=== PATIENT | male | born 2000 | race Caucasian/White ===

== ENCOUNTER → 2021-11-01 17:21 | Outpatient (CLI) | payer BC, SELFPAY ==
[2021-11-01 14:54] LABS: Alanine Aminotransferase 24 U/L (12-78); Albumin Level 4.2 g/dl (3.5-5.0); Albumin/Globulin Ratio 1.4 (1.1-1.8); Alkaline Phosphatase 86 U/L (38-126); Anion Gap 11.7 mEq/L (5-15); Aspartate Amino Transferase 26 U/L (17-59); Bilirubin,Total 0.8 mg/dl (0.2-1.3); Blood Urea Nitrogen 18 mg/dl (9-20); Calcium 11.6 mg/dl (8.4-10.2); Carbon Dioxide 29 mmol/L (22.0-30.0); Chloride 104 mmol/L (98-107); Chol/HDL Ratio 6.6 (1-3.5); Cholesterol 190 mg/dl (140-200); Estimated Glomerular Filt Rate 94 ml/min (>60); GFR (African American) 114 ML/MIN (>60); Glucose 103 mg/dl (74-100); HDL Cholesterol 29 mg/dl (40-60); Potassium 4.7 mmoL/L (3.5-5.1); Sodium 140 mmol/L (136-145); Total Protein,Serum 7.2 g/dl (6.3-8.2); Triglycerides 324 mg/dl (30-150); VLDL Cholesterol 65 mg/dL (0-40)
[2021-11-01 15:00] LABS: Basophils # 0.1 K/mm3 (0-0.2); Basophils % 1.3 % (0.1-2.0); Eosinophils # 0.1 K/mm3 (0.0-0.4); Hemoglobin 16.5 g/dL (14.1-18.0); Lymphocytes # 1.9 K/mm3 (0.7-4.5); Lymphocytes % 30.6 % (10-50); Mean Corpuscular Hemoglobin 30.1 pg (27.0-31.2); Monocytes # 0.6 K/mm3 (0.1-1.0); Monocytes % 8.9 % (1.7-9.3); Neutrophils # 3.6 K/mm3 (1.8-7.8); Neutrophils % 57.2 % (37.0-80.0); Platelet Count 252 K/mm3 (142-424); Red Blood Count 5.46 M/mm3 (4.60-6.20); Red Cell Distribution Width 12.7 % (11.5-17.5); White Blood Count 6.3 K/mm3 (4.8-10.8)
[2021-11-01 15:06] LABS: Direct LDL Cholesterol 117.21 mg/dL (100-129)
[2021-11-01 15:11] LABS: 25-OH Vitamin D, Total 25.2 ng/mL (30-100)
[2021-11-01 15:25] LABS: Thyroid Stimulating Hormone 2.33 uIU/mL (0.465-4.68)
[2021-11-01 15:44] LABS: Vitamin B12 363 pg/mL (239-931)
[2021-11-03 08:19] LABS: HSV 2 IgG, Type Spec <0.91 index (0.00-0.90)
[2021-11-03 09:13] LABS: HIV Screen 4th Generation wRfx Non Reactive (Non Reactive)
[2021-11-03 12:10] LABS: Rapid Plasma Reagin Ab Titer Non Reactive (NonRea<1:1)
[2021-11-03 22:10] LABS: Neisseria gonorrhoeae, NAA Negative (Negative)
== END ==
PROVIDERS: PCP Physician Assistant; Visit Provider Physician Assistant
DX: Z76.89 Persons encountering health services in other specified circumstances (principal); Z20.2 Contact with and (suspected) exposure to infections with a predominantly sexual mode of transmission; E83.52 Hypercalcemia; I10 Essential (primary) hypertension; Z82.49 Family history of ischemic heart disease and other diseases of the circulatory system
CPT/HCPCS: 80053; 80061; 82306; 82607; 83970; 84443; 85025; 86592; 86695; 86703; 86790; 87491; 87591; G0432

== ENCOUNTER → 2021-11-17 07:45 | Outpatient (CLI) | payer BC, SELFPAY ==
--- NOTE | 2021-11-17 08:05 | MR_ITS ---
FINAL REPORT CLINICAL HISTORY: pituitary protocol. HEADACHE AND DIZZINESS. 20ML PROHANCE GIVEN. FINDINGS: Multiplanar MR imaging of the brain was performed without and with contrast with attention to the pituitary. There is no evidence of intracranial hemorrhage or mass. No abnormal extra-axial fluid collection is seen. The ventricular size is within normal limits. There is no evidence of shift of the midline structures. The posterior fossa and brainstem have an unremarkable appearance. No area of abnormal restricted diffusion is identified. No abnormal contrast enhancement is seen. Normal major vessel vascular flow voids are noted. There is a retention cyst or polyp in the right maxillary sinus. The pituitary gland is at the upper limits of normal in size at 6 mm. There is no pituitary mass or abnormal contrast enhancement. The pituitary stalk is midline. There is no suprasellar mass. The optic chiasm is normal. IMPRESSION: No acute intracranial abnormality identified. Pituitary gland at the upper limits of normal in size at 6 mm. Reviewed, Interpreted and Dictated by Kenny Barton III, MD Transcribed by Francisco Almonte Authenticated and [facility]
--- NOTE | 2021-11-17 09:33 | XR_ITS ---
FINAL REPORT TECHNIQUE: Bone mineral density was calculated of the lumbar spine and hip. CLINICAL HISTORY: HYPERCALCEMIA FINDINGS: Using L1-4, the bone mineral density of the spine is 1.049 g/cm2, corresponding to T-score of -0.4. Using the left hip, the bone mineral density of the femoral neck is 0.868 g/cm2, corresponding to a T-score of -1.1. Using the right hip, the bone mineral density of the femoral neck is 0.790 g/cm2, corresponding to a T-score of -1.0 NOTE: T-score: Standard deviation compared with peak bone mass of young adult mean. *Following the recommendations of the International Society of Bone densitometry, classification of hip BMD is based on the lower of two T-scores; total hip or femoral neck. IMPRESSION: Diminished bone mineral density of the lumbar spine and left hip consistent with osteopenia. FRAX score was not reported because man under age 50. Reviewed, Interpreted and Dictated by Kenny Barton III, MD Transcribed by Tamara Watters Authenticated and [facility]
--- NOTE | 2021-11-17 09:33 | US_ITS ---
FINAL REPORT TECHNIQUE: Ultrasound images of the kidneys were obtained. CLINICAL HISTORY: E83.52 - Hypercalcemia-- hypertension FINDINGS: US RETROPERITONEAL The right kidney measures 10.5 cm in length. It is normal in echogenicity. No mass is identified. There is no hydronephrosis. Blood flow is noted. The left kidney measures 11.6 cm in length. It is normal in echogenicity. No mass is identified. There is no hydronephrosis. Flow is noted. IMPRESSION: Unremarkable exam. Reviewed, Interpreted and Dictated by Kenny Barton III, MD Transcribed by Lani Villarreal Authenticated and [facility]
== END ==
PROVIDERS: PCP Physician Assistant; Visit Provider Physician Assistant
DX: E34.9 Endocrine disorder, unspecified (principal); E83.52 Hypercalcemia
CPT/HCPCS: 70553; 76770; 77080; A9576

== ENCOUNTER → 2021-11-23 10:07 | Outpatient (CLI) | payer BC, SELFPAY ==
--- NOTE | 2021-11-23 10:07 | US_ITS ---
FINAL REPORT CLINICAL HISTORY: Right upper quadrant pain FINDINGS: Sonographic images of the right upper quadrant were obtained. The pancreas is partially obscured.The liver has an unremarkable appearance. There are presumed polyps and sludge within the gallbladder without well-defined stones. The gallbladder wall is borderline thickened at 3 mm. There is no evidence of biliary ductal dilatation.The common duct measures the 3 mm. Limited images of the right kidney are unremarkable. The right kidney measures 11.5 cm in length. IMPRESSION: Presumed polyps sludge in the gallbladder without well-defined stones. Borderline gallbladder wall thickening. Reviewed, Interpreted and Dictated by Kenny Barton III, MD Transcribed by Lani Villarreal Authenticated and [facility]
== END ==
PROVIDERS: PCP Physician Assistant; Visit Provider Physician Assistant
DX: R10.11 Right upper quadrant pain (principal)
CPT/HCPCS: 76705

== ENCOUNTER 2022-03-19 00:22 | Emergency (ER) | payer BC, SELFPAY ==
[2022-03-19 00:36] VITALS: BP 136/74; PULSE 85; RESP 18; TEMP 36.6; O2SAT 100; BMI 32.5
--- NOTE | 2022-03-19 00:39 | XR_ITS ---
PROCEDURE INFORMATION: Exam: XR Left Foot Exam date and time: 03/19/2022 12:40 AM Age: 21 years old Clinical indication: Left; Patient HX: Nki, pain along midfoot to medial foot; Additional info: Unknown injury TECHNIQUE: Imaging protocol: Radiologic exam of the Left foot. Views: 3 or more views. COMPARISON: No relevant prior studies available. FINDINGS: Bones/joints: No fracture or dislocation. Soft tissues: No radiopaque foreign body or soft tissue gas. IMPRESSION: No acute findings.
--- NOTE | 2022-03-19 00:49 | PC.NURSE ---
Pt gone to RAD
--- NOTE | 2022-03-19 00:52 | PC.NURSE ---
Pt back from RAD
--- NOTE | 2022-03-19 01:16 | HMH.EDLOEX ---
Discharge Plan Disposition Patient Disposition: Home, Self-Care Prescriptions Prescriptions: New prednisone [prednisone] 20 mg tablet 20 mg PO BID Qty: 10 0RF No Action alendronate 70 mg tablet 70 mg PO WEEKLY Label Comments: TAKE 1 TABLET BY MOUTH ONCE WEEKLY oseltamivir [Tamiflu] 75 mg capsule 75 mg PO BID 5 Days Qty: 10 0RF prednisone 20 mg tablet 20 mg PO BID Qty: 10 0RF Rx Instructions: administer with food or milk ondansetron 8 mg tablet,disintegrating 8 mg PO Q8H PRN (Reason: nausea and vomiting) 5 Days Qty: 30 0RF ergocalciferol (vitamin D2) 1,250 mcg (50,000 unit) capsule 1,250 mcg PO WEEKLY Qty: 14 3RF cholecalciferol (vitamin D3) 25 mcg (1,000 unit) tablet See Rx Instructions .ROUTE .COMPLEX Qty: 90 0RF Dose Instruction: TAKE 1 TABLET DAILY Rx Instructions: TAKE 1 TABLET DAILY lisinopril 20 mg tablet 20 mg PO DAILY Qty: 30 2RF (DME) blood pressure monitor Kit See Rx Instructions .Route Qty: 1 0RF Rx Instructions: As directed Referrals Follow up/Referrals: Gissell Gonzalez PA [Primary Care Provider] - See instructions Dolores Silvestre DPM [Staff Physician] - See instructions Clinical Impressions Clinical Impression: Plantar fasciitis of left foot Instructions Patient Instructions: DI for Plantar Fasciitis Discharge ED Provider: Christian Giang Lower Extremity Injury HPI General Chief Complaint: Extremity Injury, Lower Stated Complaint: left foot pain,no injury Time Seen by Provider: 03/19/22 01:16 Mode of Arrival: Ambulatory Source of Information: Patient and Medical Record Limitations: No Limitations Description of Symptoms (Recalled from ER Triage Doc. by RN): Pt c/o left foot pain since this am. Denies any injury. History of Present Illness HPI Narrative: atraumatic injury to lt foot worse with mov and wt bearing - started today - MD complaint: foot injury Onset (ago): day(s) Injury: Left: foot Type of Injury: unknown Place: home Severity: moderate Exacerbating factors: weight bearing, movement and palpation Associated symptoms: ambulatory Other symptoms: none Related Data Home Medications Medication Instructions Recorded Confirmed alendronate 70 mg tablet 70 mg PO WEEKLY 03/02/22 03/02/22 Previous Rx's Medication Instructions Recorded ergocalciferol (vitamin D2) 1,250 1,250 mcg PO WEEKLY #14 caps 11/07/21 mcg (50,000 unit) capsule blood pressure monitor #1 ea 01/02/22 cholecalciferol (vitamin D3) 25 See Rx Instructions .Route 01/02/22 mcg (1,000 unit) tablet .COMPLEX #90 tabs lisinopril 20 mg tablet 20 mg PO DAILY #30 tabs 01/02/22 ondansetron 8 mg disintegrating 8 mg PO Q8H PRN nausea and 03/02/22 tablet vomiting 5 days #30 tabs oseltamivir 75 mg capsule (Tamiflu) 75 mg PO BID 5 days #10 caps 03/02/22 prednisone 20 mg tablet 20 mg PO BID #10 tabs 03/02/22 prednisone 20 mg tablet 20 mg PO BID #10 tabs 03/19/22 Allergies Allergy/AdvReac Type Severity Reaction Status Date / Time No Known Allergies Allergy Verified 03/02/22 13:59 [facility] Disclaimer: The information contained in this section may have been updated after the patient was seen, as this information can be updated by other users. Medical History Family history of early CAD Family history of hypertension Hypertension Social History Smoking Status: Never smoker alcohol intake: never current occupational status: employed Travel in the last 8 weeks: None ROS Obtained: Yes All systems reviewed & no additional complaints except as documented Physical Exam General General appearance: alert Head Head exam: normocephalic Eye Eye exam: Present PERRL and EOMI ENT ENT exam: Present mucous membranes moist Neck Neck exam: Present trachea midline Respiratory Respiratory exam: Present normal lung sound
[2022-03-19 01:32] VITALS: BP 141/85; PULSE 88; RESP 18; TEMP 36.6; O2SAT 98
[2022-03-19 01:36] VITALS: BP 132/74; PULSE 85; RESP 18; TEMP 36.6; O2SAT 99
== END 2022-03-19 01:37 | disposition home or self-care (01) ==
PROVIDERS: Emergency Provider Emergency Medicine; PCP Physician Assistant
DX: M72.2 Plantar fascial fibromatosis (principal); Z82.49 Family history of ischemic heart disease and other diseases of the circulatory system; I10 Essential (primary) hypertension; Z79.899 Other long term (current) drug therapy
CPT/HCPCS: 73630; 99283

== ENCOUNTER 2022-04-13 10:22 | Emergency (ER) | payer BC, SELFPAY ==
[2022-04-13 11:25] VITALS: BP 140/90; PULSE 101; RESP 19; TEMP 36.9; O2SAT 98; BMI 35.1
--- NOTE | 2022-04-13 11:37 | EXP.UTC ---
Discharge Plan Disposition Patient Disposition: Home, Self-Care Condition: Good Prescriptions Prescriptions: New doxycycline hyclate [Vibramycin] 100 mg capsule 100 mg PO BID Qty: 20 0RF ibuprofen 800 mg tablet 800 mg PO Q8HP PRN (Reason: moderate pain ) Qty: 15 0RF No Action alendronate 70 mg tablet 70 mg PO WEEKLY Label Comments: TAKE 1 TABLET BY MOUTH ONCE WEEKLY meloxicam 7.5 mg tablet 7.5 mg PO DAILY Qty: 30 0RF meloxicam 7.5 mg tablet 7.5 mg PO DAILY 30 Days Qty: 30 2RF diclofenac sodium 1 % gel 4 g topical QID PRN (Reason: pain ) 30 Days Qty: 100 2RF Rx Instructions: apply to single, ankle, foot; for foot includes sole/toes/top of foot ergocalciferol (vitamin D2) 1,250 mcg (50,000 unit) capsule 1,250 mcg PO WEEKLY Qty: 14 3RF cholecalciferol (vitamin D3) 25 mcg (1,000 unit) tablet See Rx Instructions .ROUTE .COMPLEX Qty: 90 0RF Dose Instruction: TAKE 1 TABLET DAILY Rx Instructions: TAKE 1 TABLET DAILY (DME) blood pressure monitor Kit See Rx Instructions .Route Qty: 1 0RF Rx Instructions: As directed lisinopril 20 mg tablet See Rx Instructions .ROUTE .COMPLEX Qty: 30 2RF Dose Instruction: TAKE 1 TABLET DAILY Rx Instructions: TAKE 1 TABLET DAILY Referrals Follow up/Referrals: Gissell Gonzalez PA [Primary Care Provider] - See instructions Activity Restrictions/Add. Instructions Additional Instructions/Restrictions: Doxycycline and ibuprofen as prescribed. Follow-up culture results from primary care provider in 2 to 3 days. Return to the emergency department if worsening pain, swelling, or fever. Clinical Impressions Clinical Impression: Acute epididymitis Instructions Patient Instructions: DI for Epididymitis Discharge ED Provider: Dusty Turk [facility] General Chief complaint: Urogenital-Male Stated complaint: Testicle pain Mode of Arrival: Ambulatory Source of Information: Patient Limitations: No Limitations Time Seen by Provider: 04/13/22 12:15 Description of Symptoms (Recalled from Triage Doc. by RN): PATIENT C/O TESTICLE PAIN X 1 WEEK HEENT Symptoms (Recalled from RN notes): No Resp Symptoms (Recalled from RN notes): No Skin Symptoms (Recalled from RN notes): No MS Symptoms (Recalled from RN notes): No Functional Status (Recalled from RN notes): WNL History of Present Illness Provider Complaint: Patient states that he has been having pain in his left testicle that at times would shoot pain up into his abdomen States that about 3 days the pain was pretty bad and he laid around at his grandmothers then got a little better States that he feels like someone is kicking him States that then last night he did some lifting and this morning around 4am he woke up from sleep with pain again in his left testicle shooting up into his stomach and was unable to lay back down States that he doesnt feel tender to the touch but when he is up moving around or certain ways he lays the pain is worse Denies known injury denies fever and chills Denies swelling Related Data Home Medications Medication Instructions Recorded Confirmed alendronate 70 mg tablet 70 mg PO WEEKLY 03/02/22 04/05/22 Previous Rx's Medication Instructions Recorded ergocalciferol (vitamin D2) 1,250 1,250 mcg PO WEEKLY #14 caps 11/07/21 mcg (50,000 unit) capsule blood pressure monitor #1 ea 01/02/22 cholecalciferol (vitamin D3) 25 See Rx Instructions .Route 01/02/22 mcg (1,000 unit) tablet .COMPLEX #90 tabs meloxicam 7.5 mg tablet 7.5 mg PO DAILY #30 tabs 03/21/22 lisinopril 20 mg tablet See Rx Instructions .Route 04/03/22 .COMPLEX #30 tabs diclofenac sodium 1 % topical gel 4 g topical QID PRN pain 30 days 04/06/22 #100 grams meloxicam 7.5 mg tablet 7.5 mg PO DAILY foot pain 30 days 04/06/22 #30 tabs doxycycline hyclate 100 mg capsule 100 mg PO BID #20 caps 04/13/22 (Vibramycin) ibuprofen 800 mg table
[2022-04-13 11:47] LABS: Apearance,Urine Cloudy (Clear); Bilirubin,Urine Negative (Negative); Blood, Urine Negative (Negative); Color,Urine Yellow (Yellow); Glucose,Urine (UA) Negative (Negative); Ketones,Urine Negative (Negative); Protein,Urine Negative (Negative); UTC Leukocyte Esterase,Urine Negative (Negative); UTC Nitrate,Urine Negative (Negative); Urobilinogen,Urine 0.2 EU/dl (0.2)
--- NOTE | 2022-04-13 11:54 | US_ITS ---
FINAL REPORT CLINICAL HISTORY: pain FINDINGS: Technique: Ultrasound images of the testicles were obtained. Findings: The testicles are normal in size. No intratesticular mass identified. Arterial flow is identified bilaterally. There is a small cyst or spermatocele measuring 4 mm in the left epidydimal head. IMPRESSION: No intratesticular mass or evidence of torsion. 4 mm cyst or spermatocele in the left epidydimal head. Reviewed, Interpreted and Dictated by Kenny Barton III, MD Transcribed by Francisco Almonte Authenticated and [facility]
--- NOTE | 2022-04-13 12:09 | PC.NURSE ---
notified rad of ultrasound order
[2022-04-13 12:10] VITALS: BP 139/83; PULSE 96; RESP 16; TEMP 36.9; O2SAT 98; BMI 33.3
--- NOTE | 2022-04-13 12:17 | PC.NURSE ---
ANANDA HODGES AT BEDSIDE.
[2022-04-13 12:24] LABS: Basophils # 0.1 K/mm3 (0-0.2); Basophils % 1.2 % (0.1-2.0); Eosinophils # 0.1 K/mm3 (0.0-0.4); Eosinophils % 1.8 % (0.1-12.0); Hematocrit 46.7 % (42.0-52.0); Hemoglobin 15.4 g/dL (14.1-18.0); Lymphocytes % 31.6 % (10-50); Mean Corpuscular Hemoglobin 29.3 pg (27.0-31.2); Mean Corpuscular Volume 88.8 fl (80-94); Mean Platelet Volume 9.3 fl (7.4-10.4); Monocytes # 0.4 K/mm3 (0.1-1.0); Neutrophils # 3.6 K/mm3 (1.8-7.8); Neutrophils % 58.3 % (37.0-80.0); Platelet Count 310 K/mm3 (142-424); Red Blood Count 5.25 M/mm3 (4.60-6.20); Red Cell Distribution Width 13.5 % (11.5-17.5); White Blood Count 6.2 K/mm3 (4.8-10.8)
[2022-04-13 12:25] LABS: Chloride 105 mmol/L (98-107); Sodium 139 mmol/L (136-145)
--- NOTE | 2022-04-13 12:25 | HMH.EDGENADL ---
Discharge Plan Disposition Patient Disposition: Home, Self-Care Condition: Good Prescriptions Prescriptions: New doxycycline hyclate [Vibramycin] 100 mg capsule 100 mg PO BID Qty: 20 0RF ibuprofen 800 mg tablet 800 mg PO Q8HP PRN (Reason: moderate pain ) Qty: 15 0RF No Action alendronate 70 mg tablet 70 mg PO WEEKLY Label Comments: TAKE 1 TABLET BY MOUTH ONCE WEEKLY meloxicam 7.5 mg tablet 7.5 mg PO DAILY Qty: 30 0RF meloxicam 7.5 mg tablet 7.5 mg PO DAILY 30 Days Qty: 30 2RF diclofenac sodium 1 % gel 4 g topical QID PRN (Reason: pain ) 30 Days Qty: 100 2RF Rx Instructions: apply to single, ankle, foot; for foot includes sole/toes/top of foot ergocalciferol (vitamin D2) 1,250 mcg (50,000 unit) capsule 1,250 mcg PO WEEKLY Qty: 14 3RF cholecalciferol (vitamin D3) 25 mcg (1,000 unit) tablet See Rx Instructions .ROUTE .COMPLEX Qty: 90 0RF Dose Instruction: TAKE 1 TABLET DAILY Rx Instructions: TAKE 1 TABLET DAILY (DME) blood pressure monitor Kit See Rx Instructions .Route Qty: 1 0RF Rx Instructions: As directed lisinopril 20 mg tablet See Rx Instructions .ROUTE .COMPLEX Qty: 30 2RF Dose Instruction: TAKE 1 TABLET DAILY Rx Instructions: TAKE 1 TABLET DAILY Referrals Follow up/Referrals: Gissell Gonzalez PA [Primary Care Provider] - See instructions Activity Restrictions/Add. Instructions Additional Instructions/Restrictions: Doxycycline and ibuprofen as prescribed. Follow-up culture results from primary care provider in 2 to 3 days. Return to the emergency department if worsening pain, swelling, or fever. Clinical Impressions Clinical Impression: Acute epididymitis Instructions Patient Instructions: DI for Epididymitis Discharge ED Provider: Dusty Turk Adult [facility] General Chief complaint: Urogenital-Male Stated complaint: Testicle pain Time Seen by Provider: 04/13/22 12:15 Mode of Arrival: Ambulatory Source of Information: Patient Limitations: No Limitations Description of Symptoms (Recalled from ER Triage Doc. by RN): pt reports bilateral testicular pain that originally began 1 week ago but states pain went away but pain began again suddenly lastnight. Pt reports pain began again lastnight. Pt reports pain radiates up into his stomach. Pt denies urinary symptoms or swelling. Pt denies fevers. History of Present Illness HPI narrative: The patient is sent from the urgent treatment center. States that on [place] 04/09/2022 he began having scrotal pain, bilateral testicles. He says it gradually faded away. Thought that he had strained himself. States that the pain woke him again last night in the middle of the night. The pain radiates into his lower abdomen. No back or flank pain, No swelling. No redness. No difficulty urinating. No penile discharge. No hematuria. No trauma. No fever. Urine dipstick in the urgent treatment center was unremarkable. Related Data Home Medications Medication Instructions Recorded Confirmed alendronate 70 mg tablet 70 mg PO WEEKLY 03/02/22 04/05/22 Previous Rx's Medication Instructions Recorded ergocalciferol (vitamin D2) 1,250 1,250 mcg PO WEEKLY #14 caps 11/07/21 mcg (50,000 unit) capsule blood pressure monitor #1 ea 01/02/22 cholecalciferol (vitamin D3) 25 See Rx Instructions .Route 01/02/22 mcg (1,000 unit) tablet .COMPLEX #90 tabs meloxicam 7.5 mg tablet 7.5 mg PO DAILY #30 tabs 03/21/22 lisinopril 20 mg tablet See Rx Instructions .Route 04/03/22 .COMPLEX #30 tabs diclofenac sodium 1 % topical gel 4 g topical QID PRN pain 30 days 04/06/22 #100 grams meloxicam 7.5 mg tablet 7.5 mg PO DAILY foot pain 30 days 04/06/22 #30 tabs doxycycline hyclate 100 mg capsule 100 mg PO BID #20 caps 04/13/22 (Vibramycin) ibuprofen 800 mg tablet 800 mg PO Q8HP PRN moderate pain 04/13/22 #15 tabs Allergies Allergy/AdvReac
[2022-04-13 12:26] LABS: Potassium 4.3 mmoL/L (3.5-5.1)
[2022-04-13 12:28] LABS: Anion Gap 12.3 mEq/L (5-15); Blood Urea Nitrogen 16 mg/dl (9-20); Carbon Dioxide 26 mmol/L (22.0-30.0); Creatinine Clearance Estimated 195 mL/min (50-200); Estimated Glomerular Filt Rate 94 ml/min (>60); GFR (African American) 114 ML/MIN (>60)
[2022-04-13 12:29] LABS: Calcium 10.8 mg/dl (8.4-10.2); Glucose 109 mg/dl (74-100)
--- NOTE | 2022-04-13 12:32 | PC.NURSE ---
us tech here for pt
[2022-04-13 12:53] LABS: Microscopic, Urine URINE MICROSCOPIC (MICROSCOPIC)
[2022-04-13 12:57] LABS: Appearance,Urine TURBID (Clear); Bilirubin,Urine Negative (Negative); Blood, Urine Negative (Negative); Color,Urine YELLOW (Yellow); Glucose,Urine (UA) Negative (Negative); Ketones,Urine Negative (Negative); Leukocyte Esterase,Urine Negative (Negative); Nitrate,Urine Negative (Negative); Protein,Urine Negative (Negative); Specific Gravity, Urine 1.015 (1.005-1.030); Urobilinogen,Urine 0.2 EU/dl (0.2)
--- NOTE | 2022-04-13 12:59 | PC.NURSE ---
pt return from ultrasound
--- NOTE | 2022-04-13 12:59 | PC.NURSE ---
pt back from U/S
[2022-04-13 13:14] LABS: Amorphous Sediment,Urine 2+ /lpf; Bacteria,Urine 3+ /lpf
[2022-04-13 14:29] VITALS: BP 136/76; PULSE 84; RESP 16; TEMP 36.9; O2SAT 98
[2022-04-14 22:47] LABS: Neisseria gonorrhoeae, NAA Negative (Negative)
== END 2022-04-13 14:52 | disposition home or self-care (01) ==
LOC: UTC 10:24 → ER 11:58
PROVIDERS: Nurse Practitioner; Emergency Provider Emergency Medicine; PCP Physician Assistant
DX: N45.1 Epididymitis (principal); N50.812 Left testicular pain; I10 Essential (primary) hypertension; Z82.49 Family history of ischemic heart disease and other diseases of the circulatory system
CPT/HCPCS: 76870; 80048; 81001; 81003; 85025; 87086; 87491; 87591; 96374; 96375; 96376; 99284; J0696

== ENCOUNTER → 2022-04-27 08:36 | Outpatient (CLI) | payer BC, SELFPAY ==
--- NOTE | 2022-04-27 08:43 | XR_ITS ---
FINAL REPORT CLINICAL HISTORY: foot pain FINDINGS: LEFT FOOT Three views of the left foot demonstrate no acute fracture or dislocation. The visualized joint spaces are normally aligned. The soft tissues are unremarkable. IMPRESSION: No acute bony abnormality. Reviewed, Interpreted and Dictated by Kenny Barton III, MD Transcribed by Emily Meneses Authenticated and . [facility]
== END ==
PROVIDERS: PCP Student in an Organized Health Care Education/Training Program; Visit Provider Podiatrist
DX: M79.672 Pain in left foot (principal); M72.2 Plantar fascial fibromatosis
CPT/HCPCS: 73630

== ENCOUNTER → 2022-05-08 12:44 | Outpatient (CLI) | payer BC, SELFPAY | PROVIDERS: PCP Student in an Organized Health Care Education/Training Program; Visit Provider Podiatrist | DX: M79.672 Pain in left foot (principal) ==

== ENCOUNTER → 2022-06-02 10:14 | Outpatient (CLI) | payer BC, SELFPAY ==
--- NOTE | 2022-06-02 10:14 | MR_ITS ---
FINAL REPORT TECHNIQUE: Multi planar MR imaging was performed through the left foot. CLINICAL HISTORY: r/o fracture or ligament tear. COMPARISON: None FINDINGS: There is subtle bone marrow edema within the bases of the 2nd and 3rd metatarsals consistent with bone contusions. No fractures seen. Remaining bone marrow signal intensity is normal. The Lisfranc joint is intact. The Lisfranc ligament is intact. The flexor and extensor tendons to the toes are intact. The Achilles tendon is intact. The plantar fascia is normal. There is no acute soft tissue abnormality. IMPRESSION: Bone marrow edema bases of the 2nd and 3rd metatarsals, favor bone contusions. Reviewed, Interpreted and Dictated by Sonja Vasquez MD Transcribed by Gloria Lynne Authenticated and [facility]
== END ==
PROVIDERS: PCP Student in an Organized Health Care Education/Training Program; Visit Provider Podiatrist
DX: M79.672 Pain in left foot (principal); M72.2 Plantar fascial fibromatosis; M77.42 Metatarsalgia, left foot; S92.902A Unspecified fracture of left foot, initial encounter for closed fracture
CPT/HCPCS: 73718

== ENCOUNTER → 2022-08-21 13:41 | Outpatient (CLI) | payer BC, SELFPAY ==
[2022-08-21 13:09] LABS: Basophils % 0.4 % (0.1-2.0); Eosinophils # 0.1 K/mm3 (0.0-0.4); Eosinophils % 0.8 % (0.1-12.0); Hematocrit 47.6 % (42.0-52.0); Lymphocytes # 2.2 K/mm3 (0.7-4.5); Lymphocytes % 25.8 % (10-50); Mean Corpuscular HGB Conc 33.6 g/dL (31.8-35.4); Mean Corpuscular Hemoglobin 28.9 pg (27.0-31.2); Mean Corpuscular Volume 85.9 fl (80-94); Mean Platelet Volume 9.4 fl (7.4-10.4); Monocytes # 0.6 K/mm3 (0.1-1.0); Monocytes % 7.2 % (1.7-9.3); Neutrophils # 5.6 K/mm3 (1.8-7.8); Neutrophils % 65.7 % (37.0-80.0); Platelet Count 271 K/mm3 (142-424); Red Blood Count 5.54 M/mm3 (4.60-6.20); Red Cell Distribution Width 14.3 % (11.5-17.5); White Blood Count 8.5 K/mm3 (4.8-10.8)
[2022-08-21 13:20] LABS: Chloride 96 mmol/L (98-107); Potassium 4.2 mmoL/L (3.5-5.1); Sodium 137 mmol/L (136-145)
[2022-08-21 13:23] LABS: Alanine Aminotransferase 29 U/L (12-78); Albumin Level 4.7 g/dl (3.5-5.0); Albumin/Globulin Ratio 1.6 (1.1-1.8); Alkaline Phosphatase 69 U/L (38-126); Anion Gap 20.2 mEq/L (5-15); Aspartate Amino Transferase 29 U/L (17-59); Bilirubin,Total 0.9 mg/dl (0.2-1.3); Blood Urea Nitrogen 18 mg/dl (9-20); Calcium 9.4 mg/dl (8.4-10.2); Carbon Dioxide 25 mmol/L (22.0-30.0); Estimated Glomerular Filt Rate 94 ml/min (>60); GFR (African American) 114 ML/MIN (>60); Glucose 96 mg/dl (74-100); Total Protein,Serum 7.7 g/dl (6.3-8.2)
== END ==
PROVIDERS: PCP Nurse Practitioner Family; Visit Provider Nurse Practitioner Family
DX: I10 Essential (primary) hypertension (principal)
CPT/HCPCS: 80053; 85025

== ENCOUNTER 2022-09-06 08:00 | Outpatient (RCR) | payer BC, SELFPAY ==
--- NOTE | 2022-07-24 15:06 | HMH.PTOPEV ---
PT Outpatient Evaluation Rehab PT Outpatient Evaluation Start: 07/24/22 13:52 Freq: Status: Active Protocol: Document 07/24/22 13:52 [email or web address] (Rec: 07/24/22 15:05 BEATRICE [id number]) E-signed By Romelia Toledo, PT Outpatient Therapy Subjective History Subjective History Pt is a 21 y/o male referred to PT for L tarsometatarsal ligament sprain. Pt reports insidious onset of L anterolateral foot pain in March of 2022 without known trauma or injury. Pt reports he woke up one morning and noticed fluid on the top of his foot and had pain with walking so he went to the doctor. Pt reports he had an MRI on 06/02/22 showing Bone marrow edema bases of the 2nd and 3rd metatarsals, favor bone contusions. Pt reports he has had 2 steroid injections with the most recent injection one week ago which he states help a lot with pain. Pt reports he has been in a boot or cast since April. Pt reports he doesn't have pain FWB in the boot but has pain when he puts pressure on the foot out of the boot or when he moves his toes or plantarflexes the ankle. Pt denies paresthesia or falls. Pt reports he returns to Dr. Silvestre at the beginning of August. 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
--- NOTE | 2022-08-22 10:01 | HMH.RHREAS ---
Rehab Reassessment Rehab OP Re-assessment Start: 08/22/22 09:51 Freq: Status: Active Protocol: Document 08/22/22 09:52 BEATRICE (Rec: 08/22/22 10:01 BEATRICE [id number]) E-signed By Romelia Toledo PT Rehab Re-assessment Subjective Subjective Pt reports abolished pain since his last injection on 08/14/22, just discomfort of the lateral midfoot. Pt reports he has been able to wear crocs and slip on shoes with minimal discomfort at the end of the day but has not tried to wear his work boots yet. Pt reports he returns to Dr. Silvestre on to discuss return to work. Objective Objective Notes L ankle palpation: tenderness along 4th MTP L ankle AROM: 10 DF, 40 PF, 20 eversion, 30 inversion L ankle MMT: 4+/5 grossly p! reported with resisted eversion Assessment Progress Assessment Progressing as Expected Assessment Notes Pt has attended 7 PT visits consisting of aerobic exercise , ankle P/AROM, LE stretching/ strengthening, weight shifting , balance/proprioception training, manual therapy and modalities with good tolerance . Pt demonstrated slightly improved L ankle TTP, DF/PF AROM, and strength this date compare to initial evaluation. Pt continues to report difficulty FWB in tennis shoe/ work boot and discusses return to work with MD on 09/04/22. Pt would continue to benefit from skilled PT to further improve ROM, strength, balance , and functional activity tolerance to assist with return to work and PLOF. Patient goals met ST/5 Goals Not Met LTG Revised Goals n/a Plan Plan Continue initial POC Frequency of Therapy 1-2x/week Duration of therapy 2 more weeks
== END 2022-09-06 08:05 | disposition home or self-care (01) ==
LOC: PT 08:00
PROVIDERS: PCP Student in an Organized Health Care Education/Training Program; Visit Provider Podiatrist
DX: S93.622A Sprain of tarsometatarsal ligament of left foot, initial encounter (principal)
CPT/HCPCS: 97014; 97016; 97033; 97035; 97110; 97112; 97140; 97163; 97164; 97530; G0283

== ENCOUNTER → 2022-09-12 13:44 | Outpatient (CLI) | payer BC, SELFPAY ==
--- NOTE | 2022-09-12 13:44 | CT_ITS ---
FINAL REPORT TECHNIQUE: Axial CT images were performed through the head. Coronal reformatted images were submitted. This study was performed with techniques to keep radiation doses as low as reasonably achievable (ALARA). Individualized dose reduction techniques using automated exposure control or adjustment of mA and/or kV according to the patient's size were employed. CLINICAL HISTORY: headaches, worsening in the last 2 mos, prior MRI head on 11/17/2021 FINDINGS: The ventricles are normal in size. There is no evidence of hemorrhage. There is no mass or edema identified. There is no abnormal extra-axial fluid seen. There is mild lobular mucoperiosteal thickening in both maxillary sinuses. IMPRESSION: No acute intracranial process. Chronic bilateral maxillary sinusitis. Reviewed, Interpreted and Dictated by Chaparro Huggins MD Transcribed by Tamara Watters Authenticated and [facility]
== END ==
PROVIDERS: PCP Nurse Practitioner Family; Visit Provider Nurse Practitioner Family
DX: R51.9 Headache, unspecified (principal)
CPT/HCPCS: 70450

== ENCOUNTER → 2023-02-09 13:46 | Outpatient (CLI) | payer BC, SELFPAY ==
--- NOTE | 2023-02-09 13:46 | CT_ITS ---
FINAL REPORT TECHNIQUE: Thin section axial CT images of the facial bones and sinuses were obtained without contrast. Coronal reformatted images were also obtained.This study was performed with techniques to keep radiation doses as low as reasonably achievable, (ALARA). Individualized dose reduction techniques using automated exposure control or adjustment of mA and/or kV according to the patient''''s size were employed. CLINICAL HISTORY: Chronic Sinusitis FINDINGS: There is a retention cyst or polyp in the right maxillary sinus. There is mild mucosal thickening in the bilateral maxillary sinuses. No fluid levels are identified. There is narrowing of the left infundibulum secondary to mucosal thickening. No fracture or acute bony abnormality is identified. IMPRESSION: Sinusitis as above. Reviewed, Interpreted and Dictated by Kenny Barton III, MD Transcribed by Tamara Watters Authenticated and [facility]
== END ==
PROVIDERS: PCP Physician Assistant; Visit Provider Nurse Practitioner
DX: J32.0 Chronic maxillary sinusitis (principal)
CPT/HCPCS: 70486

== ENCOUNTER 2023-06-28 20:47 | Outpatient (CLI) | payer BC, SELFPAY ==
[2023-06-28 18:44] LABS: Basophils # 0.1 K/mm3 (0-0.2); Basophils % 0.9 % (0.1-2.0); Eosinophils # 0.1 K/mm3 (0.0-0.4); Eosinophils % 1.2 % (0.1-12.0); Hematocrit 47.3 % (42.0-52.0); Hemoglobin 15.5 g/dL (14.1-18.0); Lymphocytes # 1.6 K/mm3 (0.7-4.5); Lymphocytes % 26.9 % (10-50); Mean Corpuscular HGB Conc 32.8 g/dL (31.8-35.4); Mean Corpuscular Hemoglobin 28.4 pg (27.0-31.2); Mean Corpuscular Volume 86.6 fl (80-94); Mean Platelet Volume 10.2 fl (7.4-10.4); Monocytes # 0.5 K/mm3 (0.1-1.0); Monocytes % 9.2 % (1.7-9.3); Neutrophils # 3.7 K/mm3 (1.8-7.8); Neutrophils % 61.9 % (37.0-80.0); Platelet Count 261 K/mm3 (142-424); Red Blood Count 5.46 M/mm3 (4.60-6.20); Red Cell Distribution Width 14.3 % (11.5-17.5); White Blood Count 5.9 K/mm3 (4.8-10.8)
[2023-06-28 18:45] LABS: Chloride 102 mmol/L (98-107)
[2023-06-28 18:46] LABS: Potassium 4.5 mmoL/L (3.5-5.1); Sodium 135 mmol/L (136-145)
[2023-06-28 18:48] LABS: Alanine Aminotransferase 27 U/L (12-78); Alkaline Phosphatase 67 U/L (38-126); Aspartate Amino Transferase 33 U/L (17-59); Bilirubin,Total 0.9 mg/dl (0.2-1.3); Blood Urea Nitrogen 21 mg/dl (9-20); Estimated Glomerular Filt Rate 93 ml/min (>60); GFR (African American) 113 ML/MIN (>60)
[2023-06-28 18:49] LABS: Albumin Level 4.6 g/dl (3.5-5.0); Albumin/Globulin Ratio 1.8 (1.1-1.8); Anion Gap 12.5 mEq/L (5-15); Calcium 9.6 mg/dl (8.4-10.2); Carbon Dioxide 25 mmol/L (22.0-30.0); Chol/HDL Ratio 7.3 (1-3.5); Cholesterol 174 mg/dl (140-200); Globulin 2.6 g/dL (1.3-3.2); Glucose 92 mg/dl (74-100); HDL Cholesterol 24 mg/dl (40-60); Total Protein,Serum 7.2 g/dl (6.3-8.2); Triglycerides 320 mg/dl (30-150); VLDL Cholesterol 64 mg/dL (0-40)
[2023-06-28 19:00] LABS: Direct LDL Cholesterol 95.65 mg/dL (100-129)
[2023-06-28 19:05] LABS: Free T4 (Free Thyroxine) 1.21 ng/dl (0.78-2.19)
[2023-06-28 19:19] LABS: Thyroid Stimulating Hormone 1.86 uIU/mL (0.465-4.68)
[2023-06-28 20:20] LABS: 25-OH Vitamin D, Total 30.9 ng/mL (30-100)
[2023-06-28 21:34] LABS: Hemoglobin A1C 5.4 % (4.0-6.0)
[2023-07-07 18:10] LABS: Testosterone, Total, LC/MS 274 ng/dL (.)
== END 2023-06-28 23:59 ==
LOC: LAB.DROPOF 20:47
PROVIDERS: PCP Student in an Organized Health Care Education/Training Program; Visit Provider Student in an Organized Health Care Education/Training Program
DX: F41.8 Other specified anxiety disorders (principal); R53.83 Other fatigue; Z13.21 Encounter for screening for nutritional disorder; E66.9 Obesity, unspecified; Z68.35 Body mass index [BMI] 35.0-35.9, adult; Z79.899 Other long term (current) drug therapy; E78.1 Pure hyperglyceridemia
CPT/HCPCS: 80053; 80061; 82306; 83036; 84403; 84439; 84443; 85025

== ENCOUNTER 2023-11-08 03:49 | Emergency (ER) | payer BC, SELFPAY ==
[2023-11-08 03:51] VITALS: BP 143/76; PULSE 84; RESP 20; TEMP 36.7; O2SAT 98; BMI 37.2
--- NOTE | 2023-11-08 03:57 | ED_ITS ---
Discharge Plan Disposition Patient Disposition: Home, Self-Care Prescriptions Prescriptions: New lidocaine 5 % adhesive patch,medicated 1 patch topical DAILY PRN (Reason: pain) Qty: 30 0RF Rx Instructions: leave on most painful area for up to 12 hrs No Action montelukast [Singulair] 10 mg tablet 10 mg PO DAILY Qty: 60 4RF simethicone [Gas Relief (simethicone)] 125 mg capsule 125 mg PO QPCHS Qty: 120 0RF omeprazole 40 mg capsule,delayed release(DR/EC) See Rx Instructions .ROUTE .COMPLEX Qty: 90 0RF Dose Instruction: TAKE 1 CAPSULE BY MOUTH DAILY Rx Instructions: TAKE 1 CAPSULE BY MOUTH DAILY lisinopril-hydrochlorothiazide 20-12.5 mg tablet See Rx Instructions .ROUTE .COMPLEX Qty: 90 0RF Dose Instruction: TAKE 2 TABLETS BY MOUTH DAILY Rx Instructions: TAKE 2 TABLETS BY MOUTH DAILY Referrals Follow up/Referrals: Tamiko Dawson PA [Primary Care Provider] - See instructions Activity Restrictions/Add. Instructions Additional Instructions/Restrictions: Please take Tylenol ibuprofen and use lidocaine patches and muscle laxer as needed for pain. If you develop worsening pain or urinary symptoms, recommend returning for further evaluation. Clinical Impressions Clinical Impression: Flank pain Print Language Print Language: Citizen Of [place] Discharge ED Provider: Tommy Moran Adult HPI General Chief complaint: PAIN Stated complaint: pain back, bottom L ribs Time Seen by Provider: 11/08/23 03:50 History of Present Illness HPI narrative: 23-year-old male with no significant past medical history presents with left flank pain. He reports it is dull in nature, approximately 4 out of 10, better with sitting still. He denies any urinary symptoms. Denies any history of kidney stones. 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 He denies any recent falls trauma or new exercise. Related Data Previous Rx's ?Medication ?Instructions ?Recorded montelukast 10 mg tablet 10 mg PO DAILY #60 tabs 01/22/23 (Singulair) simethicone 125 mg capsule (Gas 125 mg PO QPCHS #120 caps 07/26/23 Relief (simethicone)) lisinopril 20 See Rx Instructions .Route 10/03/23 mg-hydrochlorothiazide 12.5 mg .COMPLEX #90 tabs tablet omeprazole 40 mg capsule,delayed See Rx Instructions .Route 10/03/23 release .COMPLEX #90 caps lidocaine 5 % topical patch 1 patch topical DAILY PRN pain #30 11/08/23 ea Allergies Allergy/AdvReac Type Severity Reaction Status Date / Time No Known Allergies Allergy Verified 11/07/23 11:05 [facility] Disclaimer: The information contained in this section may have been updated after the patient was seen, as this information can be updated by other users. Medical History (Updated 11/08/23 @ 04:38 by Tommy Moran MD) Enlarged tonsils Tonsil stone Tonsillar debris Chronic sinusitis of both maxillary sinuses Family history of early CAD Family history of hypertension Hypertension Surgical History No significant past surgical history Family History Other No significant family history Social History Smoking Status: Never smoker alcohol intake: never current occupational status: employed Travel in the last 8 weeks: None ROS Obtained: Yes All systems reviewed & no additional complaints except as documented Physical Exam General General appearance: alert and in no apparent distress Head Head exam: atraumatic and normocephalic Eye Eye exam: Present normal appearance, PERRL and EOMI ENT ENT exam: Present normal oropharynx and normal external ear exam Neck Neck exam: Present normal inspection and full ROM Chest Chest inspection: Present normal inspection and symmetric chest wall rise; Absent tenderness Respiratory Respiratory exam: Present normal lung sounds bilaterally; Absent respiratory distress Cardiovascular Cardiovascular exam: Present regular rate and normal rhythm Abdominal Exam Abdominal exam: Present soft; Absent distention, tenderness or guarding Extremities Exam Extremities exam: Present normal inspection; Absent edema or joint swelling Back Exam Back exam: Present normal inspection, tenderness and CVA tenderness (L) Neurological Exam Neurological exam: Present alert and oriented X3; Absent motor sensory deficit Psychiatric Psychiatric exam: Present normal affect and normal mood Skin Skin exam: Present warm, dry and normal color Lymphatic Lymphatic Findings: no adenopathy Medical Decision Making Medical Records Medical records reviewed: Yes I reviewed the patient's medical records. Jay Inquiry Pt receiving controlled substance: No Jay was queried for this patient: No Vital Signs: 11/08/23 03:51 11/08/23 04:40 Temperature 98.0 F 98.0 F Temperature Source Oral Oral Pulse Rate 80 Pulse Rate [Right Brachial] 84 Respiratory Rate 20 17 Blood Pressure 138/74 Blood Pressure [Right Arm] 143/76 H Blood Pressure Mean [Right Arm] 98 Blood Pressure Source Automatic Cuff Blood Pressure Position Sitting 02 Sat by Pulse Oximetry 98 Oxygen Delivery Method Room Air Room Air Lab Data Lab results reviewed: Yes I reviewed the patient's lab results. Lab Results 11/08/23 03:56: Urine Color Yellow, Urine Appearance Clear, Urine pH 6.0, Ur Specific Wallace >= 1.030, Urine Protein Negative, Urine Glucose (UA) Negative, Urine Ketones Negative, Urine Blood Negative, Urine Nitrate Negative, Urine Bilirubin Negative, Urine Urobilinogen 0.2, Ur Leukocyte Esterase Negative, Urine WBC 3-5, Ur Squamous Epith Cells 3-5, Urine Bacteria Trace Orders (Tests/Meds): ED MEDICATIONS Discontinued Medications Generic Name Dose Route Start Last Admin Trade Name Freq PRN Reason Stop Dose Admin Lidocaine 1 each 11/08/23 04:38 11/08/23 04:42 Lidocaine 5% Transdermal Patch TP 11/08/23 04:39 1 each ONCE ONE Administration ORDERS Category Date Time Status UA [Urinalysis and Microscopic] Stat Lab 11/08/23 03:56 Completed Medical Decision Narrative: 23-year-old male without significant past medical history presents with a few hours of left flank pain.. History was obtained via interactive discussion with patient. On arrival, patient is [afebrile, hemodynamically stable, satting appropriately, alert, oriented x4, GCS 15], moving all extremities spontaneously. Full physical exam performed and significant for mild tenderness to the left CVA. Differential includes but is not limited to musculoskeletal strain, ureterolithiasis, pyelonephritis. The patient's description of his symptoms is not consistent with kidney stone, he describes it as dull, mild and constant, better with sitting still. We will assess first with urinalysis. Patient declined any medication for pain. Patient was given lidocaine patch for symptomatic management and correction of underlying abnormalities. Laboratory workup independently interpreted by me and significant for 3-5 WBCs in the urine, no red blood cells in the urine, negative nitrates, no crystals. CT imaging of the abdomen and pelvis was considered, but deemed unnecessary due to history less consistent with kidney stone, urinalysis without microscopic hematuria or crystals.. Given patient history, exam and workup, patient's presentation most likely represents musculoskeletal pain. I had extensive discussion with patient regarding his presentation. He was encouraged to return if he develops urinary symptoms or worsening pain. He was discharged with prescription for lidocaine patches.. Procedures Risk/Benefits of Procedure(s) Were Explained: Yes Critical Care Critical Care Time Critical Care Time: No
[2023-11-08 04:05] LABS: Appearance,Urine CLEAR (Clear); Bilirubin,Urine Negative (Negative); Blood, Urine Negative (Negative); Color,Urine YELLOW (Yellow); Glucose,Urine (UA) Negative (Negative); Ketones,Urine Negative (Negative); Leukocyte Esterase,Urine Negative (Negative); Microscopic, Urine URINE MICROSCOPIC (MICROSCOPIC); Nitrate,Urine Negative (Negative); Protein,Urine Negative (Negative); Specific Gravity, Urine >= 1.030 (1.005-1.030); Urobilinogen,Urine 0.2 EU/dl (0.2)
[2023-11-08 04:21] LABS: Bacteria,Urine Trace /lpf
[2023-11-08 04:40] VITALS: BP 138/74; PULSE 80; RESP 17; TEMP 36.7; O2SAT 98
[2023-11-08] MEDS: LIDOCAINE 5% TRANSDERMAL PATCH 1 EACH TP (04:42)
== END 2023-11-08 04:46 | disposition home or self-care (01) ==
PROVIDERS: Emergency Provider Emergency Medicine; PCP Student in an Organized Health Care Education/Training Program
DX: R10.32 Left lower quadrant pain (principal); M54.59 Other low back pain
CPT/HCPCS: 81001; 99283

== ENCOUNTER 2023-11-12 10:52 | Outpatient (CLI) | payer BC, SELFPAY ==
--- NOTE | 2023-11-12 10:57 | XR_ITS ---
FINAL REPORT CLINICAL HISTORY: L foot pain FINDINGS: LEFT FOOT Three views of the left foot demonstrate no acute fracture or dislocation. The visualized joint spaces are normally aligned. The soft tissues are unremarkable. IMPRESSION: No acute bony abnormality. Reviewed, Interpreted and Dictated by Sonja Vasquez MD Transcribed by Emily Meneses Authenticated and [facility]
--- NOTE | 2023-11-12 10:57 | XR_ITS ---
FINAL REPORT CLINICAL HISTORY: Foot Pain FINDINGS: RIGHT FOOT 3 views of the right foot were obtained. There is no acute fracture or dislocation. Visualized joint spaces are normally aligned. Soft tissues are unremarkable. IMPRESSION: No acute bony abnormality. Reviewed, Interpreted and Dictated by Sonja Vasquez MD Transcribed by Emily Meneses Authenticated and [facility]
== END 2023-11-12 23:59 | disposition home or self-care (01) ==
LOC: RAD 10:53
PROVIDERS: PCP Student in an Organized Health Care Education/Training Program; Visit Provider Student in an Organized Health Care Education/Training Program
DX: M79.671 Pain in right foot (principal); M79.672 Pain in left foot
CPT/HCPCS: 73630

== ENCOUNTER 2023-12-18 08:18 | Day surgery (SDC) | payer BC, SELFPAY ==
[2023-12-18] VITALS (10 sets, daily range): BP systolic 114–136; BP diastolic 60–82; PULSE 80–103; RESP 16–24; TEMP 36.1–36.6; O2SAT 95–98; BMI 37.8
--- NOTE | 2023-12-18 09:09 | P.PNANES_ITS ---
[facility] Disclaimer: The information contained in this section may have been updated after the patient was seen, as this information can be updated by other users. Medical History Enlarged tonsils Tonsil stone Tonsillar debris Chronic sinusitis of both maxillary sinuses Family history of early CAD Family history of hypertension Hypertension Surgical History S/P removal of parathyroid gland No significant past surgical history Family History Other No significant family history Social History Smoking Status: Never smoker alcohol intake: never substance use type: denies use current occupational status: employed Travel in the last 8 weeks: None [facility] Anesthesia Checklist Patient Identification Patient Identification: Arm Band Structural Data Admitted From: Home Planned Operative Procedure/s: Tonsillectomy Consent for Planned Operative Procedure(s) Verified: Yes Verified Documents: Surgical Consent and History and Physical NPO Status Verified Time NPO: 00:00 Additional verifications Anesthesia Reactions: No Hx Blood Transfusions: No Blood Transfusion Reaction: No Airway Assessment Mallampati Score:: Class II C-Spine Mobility Assessed: Yes TMJ Mobility Assessed: Yes Dentition: Good Dentition Neurological Assessment Level of Consciousness: Awake, Alert and Appropriate Anesthesia Plan Anesthesia Risk discussed: Yes Anesthesia Plan: Verified ASA Class: II Anesthesia Type: General
--- NOTE | 2023-12-18 09:56 | P.OP_ITS ---
Date of procedure: 12/18/23 Pre-op Diagnosis:: Chronic tonsillitis Post-op Diagnosis:: Chronic tonsillitis Procedure performed:: Tonsillectomy Surgeon:: Sunday Langston MD WORD PROCESSOR OPERATOR:: Austyn Hahn Anesthesia: GETA Estimated blood loss (mL): 0 Operative findings:: 3+ inflamed tonsils bilaterally Operative note:: The patient was brought to the operating room and after adequate general anesthesia the mouth was draped in usual sterile fashion and a McIvor mouthgag placed. Tonsillectomy was then performed in the plane defined by the tonsil capsule and superior constrictor muscle and this was done with electrocautery to simultaneously dissected and cauterized. This was done bilaterally and then tonsillar fossa was infiltrated with half percent Marcaine with epinephrine and the procedure concluded. All counts correct and blood loss was minimal Condition: stable Disposition: PACU Complications:: No complication
--- NOTE | 2023-12-18 09:57 | EXP.ANES.I ---
[facility] Anesthesia Record Part I Anesthesia Record I Intake, IV Amount: 300 Hydration: Adequate Estimated blood loss (mL): 15 Urine output (mL): 0 Blood Pressure: 121/75 SaO2: 97 Pulse Rate: 103 Airway Patency: Patent Respiratory Rate: 24 Temperature: 97.4 F Patient is:: Drowsy Stable to PACU at:: 09:55
--- NOTE | 2023-12-18 12:55 | EXP.ANES.II ---
[facility] Anesthesia Record Part II Anesthesia Record Part II Discharge Time: 10:25 Destination: Surgical Day Care (OP Surgery) PACU nurse assessment reviewed?: Yes Patient Condition:: Good Anesthesia Complications:: None Swallowing reflex intact?: Yes Airway Patency: Patent Cyanosis?: No Blood Pressure: 129/69 SaO2: 97 Respiratory Rate: 18 Pulse Rate: 89 Temperature: 97.9 F Mental Status: Alert & Oriented Pain level:: 3 Nausea and/or vomitting:: None Intake, IV Amount: 0 Hydration: Adequate
== END 2023-12-18 11:10 | disposition home or self-care (01) ==
PROVIDERS: PCP Student in an Organized Health Care Education/Training Program; Visit Provider Otolaryngology
PROC: (CPT 42826; principal; 2023-12-18 10:00)
DX: J35.01 Chronic tonsillitis (principal)
CPT/HCPCS: 42826; J3490; J1100; J2250; J2405; J3010; J7120

== ENCOUNTER 2023-12-25 22:55 | Emergency (ER) | payer BC, SELFPAY ==
[2023-12-25 22:57] VITALS: BP 117/73; PULSE 95; RESP 18; TEMP 37.1; O2SAT 98; BMI 37.2
[2023-12-25 23:00] VITALS: BP 117/73; PULSE 105; O2SAT 99
[2023-12-25 23:02] VITALS: PULSE 100; PULSE 98
--- NOTE | 2023-12-25 23:03 | ED_ITS ---
Discharge Plan Disposition Patient Disposition: Home, Self-Care Condition: Good Prescriptions Prescriptions: No Action omeprazole 40 mg capsule,delayed release(DR/EC) See Rx Instructions .ROUTE .COMPLEX Qty: 90 0RF Dose Instruction: TAKE 1 CAPSULE BY MOUTH DAILY Rx Instructions: TAKE 1 CAPSULE BY MOUTH DAILY lisinopril-hydrochlorothiazide 20-12.5 mg tablet See Rx Instructions .ROUTE .COMPLEX Qty: 90 0RF Dose Instruction: TAKE 2 TABLETS BY MOUTH DAILY Rx Instructions: TAKE 2 TABLETS BY MOUTH DAILY montelukast 10 mg tablet See Rx Instructions .ROUTE .COMPLEX Qty: 60 3RF Dose Instruction: TAKE 1 TABLET BY MOUTH DAILY Rx Instructions: TAKE 1 TABLET BY MOUTH DAILY ondansetron 4 mg tablet,disintegrating 4 mg PO Q6H PRN (Reason: nausea and vomiting) Qty: 20 0RF prednisone 5 mg/5 mL solution 10 mg PO DAILY 4 Days Qty: 40 0RF hydrocodone-acetaminophen 7.5-325 mg/15 mL solution 15 ml PO Q4H PRN (Reason: pain) 7 Days Qty: 473 0RF Referrals Follow up/Referrals: Tamiko Dawson PA [Primary Care Provider] - See instructions (Recheck Creatinine please!) Activity Restrictions/Add. Instructions Additional Instructions/Restrictions: You were evaluated in the ER and are appropriate for discharge at this time. Drink plenty of water. Call the [facility] office tomorrow morning at 8 AM at [phone] and tell them you were instructed to be seen by Dr. Langston for bleeding after being seen in the ER overnight If no one is available to see you in the [facility] office, then call the [facility] office at [phone] and asked to be seen there for postsurgery bleeding and reevaluation. This recommendation came from Dr. Myers. The [place] office address is [address] [place] [address], [id number], [place] [address] Immediately return to the ER with any new, worsening, or otherwise concerning symptoms including worsening bleeding, difficulty breathing, vomiting blood. Clinical Impressions Clinical Impression: Hemorrhage following tonsillectomy Print Language Print Language: Greek Discharge ED Provider: Rossi Mcdonald Adult HPI General Chief complaint: Recheck/Abnormal Lab/Rx Stated complaint: Bleeding from tonsillectomy 12/18/23 Time Seen by Provider: 12/25/23 22:57 History of Present Illness HPI narrative: 23-year-old female with a history of hypertension, chronic tonsillitis, family history of CAD, recent tonsillectomy on 12/18/[address] Langston presents to the ER for bleeding in his throat. Patient reports he has had an okay postoperative course without significant pain or bleeding, however tonight he was laying in bed and woke up coughing up blood. He states he has had multiple episodes of bright red blood. He is not having any nausea or vomiting. Patient states he otherwise feels well but if he tries to cough anything up or clear sputum from his throat, it comes up bloody. ROS otherwise negative. Related Data Previous Rx's ?Medication ?Instructions ?Recorded omeprazole 40 mg capsule,delayed See Rx Instructions .Route 10/03/23 release .COMPLEX #90 caps lisinopril 20 See Rx Instructions .Route 11/14/23 mg-hydrochlorothiazide 12.5 mg .COMPLEX #90 tabs tablet montelukast 10 mg tablet See Rx Instructions .Route 12/03/23 .COMPLEX #60 tabs hydrocodone 7.5 mg-acetaminophen 15 ml PO Q4H PRN pain 7 days #473 12/18/23 325 mg/15 mL oral solution mL ondansetron 4 mg disintegrating 4 mg PO Q6H PRN nausea and 12/18/23 tablet vomiting #20 tabs prednisone 5 mg/5 mL oral solution 10 mg (10 mL) PO DAILY 4 days #40 12/18/23 mL Allergies Allergy/AdvReac Type Severity Reaction Status Date / Time No Known Allergies Allergy Verified 12/18/23 08:54 [facility] Disclaimer: The information contained in this section may have been updated after the patient was seen, as this information can be updated by other users. Medical History Enlarged tonsils Tonsil stone Tonsillar debris Chronic sinusitis of both maxillary sinuses Family history of early CAD Family history of hypertension Hypertension Surgical History S/P removal of parathyroid gland No significant past surgical history Family History Other No significant family history Social History (Updated 12/18/23 @ 09:10 by Obey Mendez CRNA) Smoking Status: Never smoker alcohol intake: never substance use type: denies use current occupational status: employed Travel in the last 8 weeks: None ROS Obtained: Yes All systems reviewed & no additional complaints except as documented Positive ROS per HPI Physical Exam General General appearance: alert and in no apparent distress Head Head exam: atraumatic and normocephalic Eye Eye exam: Present PERRL and EOMI ENT ENT exam: Present mucous membranes moist and other (Posterior oropharynx demonstrates white, cauterized tissue in the right tonsillar bed, left tonsillar bed has clotted blood with slight very slow ooze but no brisk bleeding, patient is tolerating secretions) Neck Neck exam: Present normal inspection and full ROM Chest Chest inspection: Present symmetric chest wall rise Respiratory Respiratory exam: Present normal lung sounds bilaterally; Absent respiratory distress, wheezes or stridor Cardiovascular Cardiovascular exam: Present normal rhythm and tachycardia Abdominal Exam Abdominal exam: Present soft; Absent distention or tenderness Extremities Exam Extremities exam: Present full ROM Neurological Exam Neurological exam: Present alert and oriented X3; Absent motor sensory deficit Psychiatric Psychiatric exam: Present normal affect and normal mood Skin Skin exam: Present warm and dry Medical Decision Making Medical Records Medical records reviewed: Yes I reviewed the patient's medical records. MR Comment: Operative note from ENT on 12/18/2023 demonstrates normal unremarkable course with minimal blood loss Jay Inquiry Pt receiving controlled substance: No Vital Signs: 12/25/23 22:57 12/25/23 23:00 12/25/23 23:02 Temperature 98.7 F Temperature Source Oral Pulse Rate 105 H 100 H Pulse Rate [Right Brachial] 95 H Respiratory Rate 18 Blood Pressure 117/73 Blood Pressure [Right Arm] 117/73 Blood Pressure Mean [Right Arm] 87 Blood Pressure Source Blood Pressure Source [Right Arm] Automatic Cuff Blood Pressure Position Blood Pressure Position [Right Arm] Sitting 02 Sat by Pulse Oximetry 98 99 Oxygen Delivery Method Room Air 12/25/23 23:02 12/25/23 23:08 12/25/23 23:31 Temperature Temperature Source Pulse Rate 98 H 101 H Pulse Rate [Right Brachial] 95 H Respiratory Rate Blood Pressure 101/53 L Blood Pressure [Right Arm] 117/73 Blood Pressure Mean [Right Arm] 87 Blood Pressure Source Blood Pressure Source [Right Arm] Automatic Cuff Blood Pressure Position Blood Pressure Position [Right Arm] Supine 02 Sat by Pulse Oximetry 98 96 Oxygen Delivery Method Room Air 12/26/23 00:09 12/26/23 00:11 12/26/23 00:52 Temperature 98.8 F Temperature Source Oral Pulse Rate 102 H 102 H 81 Pulse Rate [Right Brachial] Respiratory Rate 18 Blood Pressure 83/50 L 93/59 L 109/64 L Blood Pressure [Right Arm] Blood Pressure Mean [Right Arm] Blood Pressure Source Automatic Cuff Blood Pressure Source [Right Arm] Blood Pressure Position Supine Blood Pressure Position [Right Arm] 02 Sat by Pulse Oximetry 97 99 Oxygen Delivery Method Room Air Lab Data Lab Results 12/25/23 23:11: WBC 12.1 H, RBC 5.35, Hgb 14.9, Hct 46.0, MCV 86.0, MCH 27.9, MCHC 32.4, RDW 14.6, Plt Count 430 H, MPV 9.2, Neut % (Auto) 70.8, Lymph % (Auto) 21.2, Yell % (Auto) 6.8, Eos % (Auto) 0.6, Baso % (Auto) 0.6, Neut # (Auto) 8.6 H, Lymph # (Auto) 2.6, Yell # (Auto) 0.8, Eos # (Auto) 0.1, Baso # (Auto) 0.1, PT 11.4, INR 1.02, APTT 32.1 H, Sodium 133 L, Potassium 4.2, C hloride 97 L, Carbon Dioxide 26, Anion Gap 14.2, BUN 25 H, Creatinine 1.60 H, Estimated Creat Clear 134, Estimated GFR 54 L, Est GFR ( Amer) 65, G lucose 104 H, Calcium 9.7, Total Bilirubin 1.1, AST 22, ALT 23, Alkaline Phosphatase 67, Total Protein 8.6 H, Albumin 4.8, Globulin 3.8 H, Albumin/Globulin Ratio 1.3, Blood Type A Positive, Antibody Screen Negative 12/25/23 23:11 12/25/23 23:11 Orders (Tests/Meds): ED MEDICATIONS Generic Name Dose Route Start Last Admin Trade Name Freq PRN Reason Stop Dose Admin Lactated Ringer's 1,000 mls @ 999 mls/hr 12/25/23 23:59 12/26/23 00:06 Lactated Ringer's 1000 Ml Bag IV 12/26/23 00:59 999 mls/hr .Q1H1M ONE Administration ORDERS Category Date Time Status Type and Screen Stat BBK 12/25/23 23:11 Completed CBC w/Auto Diff [Complete Blood Count Auto Diff] Stat Lab 12/25/23 23:11 Completed CMP [Comprehensive Metabolic Panel] Stat Lab 12/25/23 23:11 Completed PT INR [Prothrombin Time INR] Stat Lab 12/25/23 23:11 Completed PTT [Activated Partial Thrombo Time] Stat Lab 12/25/23 23:11 Completed Medical Decision Narrative: In summary, this 23-year-old male with comorbidities of hypertension, chronic tonsillitis, recent tonsillectomy which increases overall morbidity and the amount of data to be reviewed presents to the emergency department today with coughing up blood, bleeding from tonsillectomy bed. On initial evaluation patient is mildly tachycardic HR 105-110 on my exam but otherwise hemodynamically stable, well-appearing, slow oozing from the left tonsillectomy bed with clot present, no brisk bleeding, patient is protecting airway. Differential diagnosis includes but is not limited to postoperative bleeding, anemia, hemorrhagic shock, coagulopathy, kidney dysfunction. Based on these concerns, I ordered serum labs. Patient received nebulized TXA for treatment. Labs personally reviewed demonstrate mild leukocytosis, no anemia, slight thrombocythemia, nonspecific, nonactionable. PT/INR normal, APTT slightly elevated at 32.1, this is nonspecific and nonactionable at this time, trace hyponatremia and hypochloremia, patient does have mild kidney dysfunction likely due to him having decreased oral intake over the last week after his tonsillectomy. He is receiving IV fluids. On reevaluation after TXA neb, patient has no continued bleeding. He has had small blood-streaked sputum coughed up but no bright red blood coming up. I discussed this case with Dr. Myers with [facility]. Since patient does not have any visualized continued bleeding after the neb, no anemia, improving hemodynamics since being in the ER, he recommended monitoring the patient for 1 more hour and if he continues to be stable with no additional bleeding for him to follow-up outpatient in the morning. He recommended the patient call the [facility] office since Dr. Langston should be in in the morning. If no one is available to evaluate the patient in the [facility] office tomorrow, he recommended patient then call the [facility] office. Patient was provided phone numbers for both offices and the address of the [facility] office in case he needs to go there. He understands the instructions for follow-up outpatient. After monitoring, patient still does not have any additional bleeding. His tachycardia has improved. He continues to rest comfortably and states he actually feels improved now that the scab is off of the left tonsillar bed compared to the way he felt the rest of the week. Patient is appropriate for discharge at this time. Referral back to his PCP with a request to recheck his creatinine was sent to Tamiko Dawson. I encouraged him to continue drinking plenty of fluids, reiterated instructions for outpatient follow-up, and gave the patient strict return precautions for the ER. He indicated understanding and the patient was discharged in stable condition. Critical Care Critical Care Time Critical Care Time: Yes Attestation: On 12/25/23, the high probability of a clinically significant, sudden or life threatening deterioration of the following system(s) (respiratory, hemodynamic) required my full and direct attention, intervention and personal management. The time I documented below is in addition to time spent performing reported procedures but includes the following listed in this critical care notation. Total Time Total Critical Care Time: 35
[2023-12-25 23:08] VITALS: BP 117/73; PULSE 95; O2SAT 98
[2023-12-25 23:24] LABS: Basophils # 0.1 K/mm3 (0-0.2); Basophils % 0.6 % (0.1-2.0); Eosinophils # 0.1 K/mm3 (0.0-0.4); Eosinophils % 0.6 % (0.1-12.0); Hemoglobin 14.9 g/dL (14.1-18.0); Lymphocytes # 2.6 K/mm3 (0.7-4.5); Lymphocytes % 21.2 % (10-50); Mean Corpuscular HGB Conc 32.4 g/dL (31.8-35.4); Mean Corpuscular Hemoglobin 27.9 pg (27.0-31.2); Mean Platelet Volume 9.2 fl (7.4-10.4); Monocytes # 0.8 K/mm3 (0.1-1.0); Monocytes % 6.8 % (1.7-9.3); Neutrophils # 8.6 K/mm3 (1.8-7.8); Neutrophils % 70.8 % (37.0-80.0); Platelet Count 430 K/mm3 (142-424); Red Blood Count 5.35 M/mm3 (4.60-6.20); Red Cell Distribution Width 14.6 % (11.5-17.5); White Blood Count 12.1 K/mm3 (4.8-10.8)
[2023-12-25 23:29] LABS: Albumin Level 4.8 g/dl (3.5-5.0); Chloride 97 mmol/L (98-107); Sodium 133 mmol/L (136-145)
[2023-12-25 23:30] LABS: Potassium 4.2 mmoL/L (3.5-5.1)
[2023-12-25 23:31] VITALS: BP 101/53; PULSE 101; O2SAT 96
[2023-12-25 23:32] LABS: Alanine Aminotransferase 23 U/L (12-78); Albumin/Globulin Ratio 1.3 (1.1-1.8); Alkaline Phosphatase 67 U/L (38-126); Anion Gap 14.2 mEq/L (5-15); Aspartate Amino Transferase 22 U/L (17-59); Bilirubin,Total 1.1 mg/dl (0.2-1.3); Blood Urea Nitrogen 25 mg/dl (9-20); Carbon Dioxide 26 mmol/L (22.0-30.0); Creatinine Clearance Estimated 134 mL/min (50-200); Estimated Glomerular Filt Rate 54 ml/min (>60); GFR (African American) 65 ML/MIN (>60); Globulin 3.8 g/dL (1.3-3.2); INR 1.02 (0.9-1.1); Prothrombin Time 11.4 seconds (10.1-12.5); Total Protein,Serum 8.6 g/dl (6.3-8.2)
[2023-12-25 23:33] LABS: Calcium 9.7 mg/dl (8.4-10.2); Glucose 104 mg/dl (74-100)
[2023-12-25 23:49] LABS: Activated Partial Thrombo Time 32.1 seconds (22.8-30.6)
--- NOTE | 2023-12-26 00:02 | PC.NURSE ---
Dr. Camp ENT land acquisition specialist is being paged at this time
--- NOTE | 2023-12-26 00:04 | PC.NURSE ---
Dr. Mcdonald on phone with [facility]
[2023-12-26] MEDS: LACTATED RINGERS 1000ML 1,000 ML 999 ML IV (00:06)
[2023-12-26 00:09] VITALS: BP 83/50; PULSE 102; O2SAT 97
[2023-12-26 00:11] VITALS: BP 93/59; PULSE 102; O2SAT 99
--- NOTE | 2023-12-26 00:17 | PC.NURSE ---
Attending notified of hypotension. Patient asymptomatic
[2023-12-26 00:52] VITALS: BP 109/64; PULSE 81; RESP 18; TEMP 37.1; O2SAT 99
== END 2023-12-26 00:57 | disposition home or self-care (01) ==
PROVIDERS: Emergency Provider Emergency Medicine; PCP Student in an Organized Health Care Education/Training Program
DX: J95.830 Postprocedural hemorrhage of a respiratory system organ or structure following a respiratory system procedure (principal); Z90.89 Acquired absence of other organs
CPT/HCPCS: 80053; 85025; 85610; 85730; 86850; 96360; 99284; J7120

== ENCOUNTER 2024-01-20 08:32 | Emergency (ER) | payer BC, SELFPAY ==
[2024-01-20 08:33] VITALS: BP 154/84; PULSE 85; RESP 18; TEMP 36.5; O2SAT 98; BMI 36.6
--- NOTE | 2024-01-20 08:40 | PC.NURSE ---
DR PACHECO AT BEDSIDE
--- NOTE | 2024-01-20 08:43 | XR_ITS ---
PROCEDURE INFORMATION: Exam: XR Right Foot Exam date and time: 01/20/2024 8:54 AM Age: 23 years old Clinical indication: Pain; Foot; Right; Additional info: Pain 5th metatarsal TECHNIQUE: Imaging protocol: Radiologic exam of the right foot. Views: 3 or more views. COMPARISON: CR XR FOOT WT BEARING RT 3V 11/12/2023 11:18 AM FINDINGS: Bones/joints: No acute fracture or malalignment. No worrisome lytic or blastic osseous lesion. No appreciable cortical erosion or periosteal reaction. Joint spaces are preserved. No joint effusion. Soft tissues: No soft tissue abnormality. IMPRESSION: No acute fracture or malaligment.
--- NOTE | 2024-01-20 08:43 | HMH.EDGENADL ---
Discharge Plan Disposition Patient Disposition: Home, Self-Care Prescriptions Prescriptions: New ketorolac 10 mg tablet 10 mg PO Q8H PRN (Reason: pain) Qty: 14 0RF Rx Instructions: maximum total duration of 5 days from all oral, intranasal, or parenteral formulations prednisone 20 mg tablet 40 mg PO DAILY 3 Days Qty: 6 0RF No Action hydrocodone-acetaminophen 7.5-325 mg/15 mL solution 15 ml PO Q6H PRN (Reason: pain) Qty: 250 0RF montelukast 10 mg tablet See Rx Instructions .ROUTE .COMPLEX Qty: 60 3RF Dose Instruction: TAKE 1 TABLET BY MOUTH DAILY Rx Instructions: TAKE 1 TABLET BY MOUTH DAILY omeprazole 40 mg capsule,delayed release(DR/EC) See Rx Instructions .ROUTE .COMPLEX Qty: 90 0RF Dose Instruction: TAKE 1 CAPSULE BY MOUTH DAILY Rx Instructions: TAKE 1 CAPSULE BY MOUTH DAILY lisinopril-hydrochlorothiazide 20-12.5 mg tablet See Rx Instructions .ROUTE .COMPLEX Qty: 90 0RF Dose Instruction: TAKE 2 TABLETS BY MOUTH DAILY Rx Instructions: TAKE 2 TABLETS BY MOUTH DAILY Referrals Follow up/Referrals: Tamiko Dawson PA [Primary Care Provider] - See instructions Dolores Silvestre DPM [Staff Physician] - See instructions Activity Restrictions/Add. Instructions Additional Instructions/Restrictions: You were evaluated in the emergency department today. Please draft roller picker your prescriptions at the pharmacy and take them as prescribed. You may also take Tylenol every 4-6 hours at home as needed for pain. You were given your first dose of prednisone today, so do not start this until tomorrow. Use your hard sole shoe for support. Follow-up closely outpatient with podiatry as well as with your primary care provider. Return to the emergency department for new or worsening symptoms. Clinical Impressions Clinical Impression: Metatarsalgia of right foot Stand Alone Forms Stand Alone Forms: Work/School Release Instructions Patient Instructions: DI for Metatarsalgia, DI for Foot Pain Print Language Print Language: Turkish Discharge ED Provider: Romelia Gale General Adult HPI General Chief complaint: PAIN Stated complaint: right foot pain Time Seen by Provider: 01/20/24 08:37 Mode of Arrival: Ambulatory Source of Information: Patient Limitations: No Limitations Description of Symptoms (Recalled from ER Triage Doc. by RN): PT C/O RIGHT FOOT PAIN X 4-5 DAYS. NO INJURY History of Present Illness HPI narrative: This patient is a 23-year-old male with a history of obesity and intermittent foot pains in the past with plantar fasciitis who previously followed with podiatry presenting to the emergency department for evaluation with concern for right foot pain. He states that the lateral aspect of his right foot has been hurting for about 4 or 5 days now. No known accidents or injuries. He states that the pain is worse when he bears weight. Nothing seems to make it better. He denies any redness, wounds, skin changes, or other concerns. No numbness or tingling. Related Data Previous Rx's ?Medication ?Instructions ?Recorded montelukast 10 mg tablet See Rx Instructions .Route 12/03/23 .COMPLEX #60 tabs hydrocodone 7.5 mg-acetaminophen 15 ml PO Q6H PRN pain #250 mL 12/26/23 325 mg/15 mL oral solution lisinopril 20 See Rx Instructions .Route 01/04/24 mg-hydrochlorothiazide 12.5 mg .COMPLEX #90 tabs tablet omeprazole 40 mg capsule,delayed See Rx Instructions .Route 01/04/24 release .COMPLEX #90 caps ketorolac 10 mg tablet 10 mg PO Q8H PRN pain #14 tabs 01/20/24 prednisone 20 mg tablet 40 mg (2 x 20 mg) PO DAILY 3 days 01/20/24 #6 tabs Allergies Allergy/AdvReac Type Severity Reaction Status Date / Time No Known Allergies Allergy Verified 01/01/24 13:38 [facility] Disclaimer: The information contained in this section may have been updated after the patient was seen, as this information can be updated by other users. Medical History Enlarged tonsils Tonsil stone Tonsillar debris Chronic sinusitis of both maxillary sinuses Family history of early CAD Family history of hypertension Hypertension Surgical History Status post tonsillectomy S/P removal of parathyroid gland No significant past surgical history Family History Other No significant family history Social History Smoking Status: Never smoker alcohol intake: never substance use type: denies use current occupational status: employed Travel in the last 8 weeks: None Other Medical History Have you received the Pneumonia Vaccine: No ROS Obtained: Yes All systems reviewed & no additional complaints except as documented Physical Exam General General appearance: alert, in no apparent distress and obese Head Head exam: atraumatic and normocephalic Eye Eye exam: Present normal appearance, PERRL and EOMI ENT ENT exam: Present normal exam, normal oropharynx, mucous membranes moist and normal external ear exam Neck Neck exam: Present normal inspection, full ROM and trachea midline; Absent tenderness Chest Chest inspection: Present normal inspection and symmetric chest wall rise; Absent tenderness Respiratory Respiratory exam: Present normal lung sounds bilaterally; Absent respiratory distress, wheezes, stridor or accessory muscle use Cardiovascular Cardiovascular exam: Present regular rate and normal rhythm Abdominal Exam Abdominal exam: Present soft; Absent distention, tenderness or guarding Extremities Exam Extremities exam: Present full ROM, tenderness and normal capillary refill; Absent edema Expanded Lower Extremity Exam Right: Top foot image: 1. tenderness to palpation with no overlying redness, warmth, wounds, or skin color changes Neurovascular/Tendon exam: Present normal capillary refill and normal fine/light touch; Absent pulse deficit, motor deficit, sensory deficit, tendon deficit, extremity cold to touch, pallor, foot drop, peroneal nerve deficit or significant pain with passive ROM of distal joint Back Exam Back exam: Present normal inspection and full ROM; Absent tenderness Neurological Exam Neurological exam: Present alert, oriented X3, CN II-XII intact and normal gait; Absent motor sensory deficit Psychiatric Psychiatric exam: Present normal affect and normal mood Skin Skin exam: Present warm and dry Medical Decision Making Medical Records Medical records reviewed: Yes I reviewed the patient's medical records. Screening: Per USPSTF and CDC recommendations, given the prevalence of disease in our region, it is our hospital?s policy to screen for HIV and viral Hepatitis for all patients aged 18 and over and those with ongoing risk factors. Jay Inquiry Pt receiving controlled substance: No Vital Signs: 01/20/24 08:33 01/20/24 09:47 Temperature 97.7 F 98.2 F Temperature Source Oral Pulse Rate 80 Pulse Rate [Radial] 85 Respiratory Rate 18 20 Blood Pressure 128/79 Blood Pressure [Right Arm] 154/84 H Blood Pressure Mean [Right Arm] 107 Blood Pressure Source [Right Arm] Automatic Cuff Blood Pressure Position [Right Arm] Sitting 02 Sat by Pulse Oximetry 98 Oxygen Delivery Method Room Air Room Air Lab Data Lab results reviewed: Yes I reviewed the patient's lab results. Orders (Tests/Meds): ED MEDICATIONS Discontinued Medications Generic Name Dose Route Start Last Admin Trade Name Jak PRN Reason Stop Dose Admin Acetaminophen 1,000 mg 01/20/24 08:43 01/20/24 08:56 Acetaminophen 500mg Tab PO 01/20/24 08:44 1,000 mg ONCE ONE Administration Ketorolac Tromethamine 30 mg 01/20/24 08:43 01/20/24 08:57 Ketorolac 30mg/Ml Vial IM 01/20/24 08:44 30 mg ONCE ONE Administration Lidocaine 1 each 01/20/24 08:43 01/20/24 08:57 Lidocaine 5% Transdermal Patch TP 01/20/24 08:44 1 each ONCE ONE Administration Prednisone 40 mg 01/20/24 08:43 01/20/24 08:56 Prednisone 20mg Tab PO 01/20/24 08:44 40 mg ONCE ONE Administration ORDERS Category Date Time Status Foot XR right minimum 3 views [XR foot RT min 3V] Stat Exams 01/20/24 08:43 Completed Medical Decision Narrative: In summary, this patient is a 23-year-old male presenting to the Emergency Department for evaluation of right foot pain. Differential diagnoses considered include but are not limited to fracture, contusion, strain/sprain, musculoskeletal injury, arthritis, tendinitis. Ruling out the most morbid conditions drove assessment. It should be noted patient's history includes obesity which is not at goal therapy. This complicates all aspects of care by increasing patient's risk for morbidity. I reviewed patient's past medical records and noted evaluations by podiatry for metatarsalgia and plantar fasciitis. On exam, the patient is lying in bed in no acute distress. He has tenderness to palpation of the fifth metatarsal head of the right foot but otherwise no skin color changes, redness, warmth, wounds, or other concerns. He is neurovascularly intact. He has full intact range of motion. Workup included x-rays of the right foot. He was given oral Tylenol, IM Toradol, topical Lidoderm patch, and oral prednisone for symptomatic improvement of pain. I independently interpreted x-ray prior to the radiologist read and noted no acute fracture or significant change from prior. Please see their read for final interpretation. On reassessment, patient had good improvement after administration of interventions above. He continues to have pain, however I feel we have excluded life-threatening pathology as a cause of his symptoms and he is appropriate for discharge home with close outpatient follow-up with podiatry as well as primary care. He is given prescriptions for Toradol and prednisone for symptomatic improvement of his pain as well as instructions for supportive management. He was given strict return precautions. He was discharged after all questions were answered. Critical Care Critical Care Time Critical Care Time: No
--- NOTE | 2024-01-20 08:53 | PC.NURSE ---
PT TO XR
[2024-01-20] MEDS: ACETAMINOPHEN 500MG TAB 1000 MG PO (08:56)
[2024-01-20] MEDS: predniSONE 20MG TAB 40 MG PO (08:56)
[2024-01-20] MEDS: LIDOCAINE 5% TRANSDERMAL PATCH 1 EACH TP (08:57)
[2024-01-20] MEDS: KETOROLAC 30MG/ML VIAL 30 MG IM (08:57)
--- NOTE | 2024-01-20 09:00 | PC.NURSE ---
PT RETURNED FROM XR
--- NOTE | 2024-01-20 09:25 | PC.NURSE ---
ROUNDED ON PT, NO NEEDS AT THIS TIME. CALL LIGHT WITHIN REACH
--- NOTE | 2024-01-20 09:35 | PC.NURSE ---
DR PACHECO AT BEDSIDE TO UPDATE PT
[2024-01-20 09:47] VITALS: BP 128/79; PULSE 80; RESP 20; TEMP 36.8; O2SAT 98
== END 2024-01-20 09:48 | disposition home or self-care (01) ==
PROVIDERS: Emergency Provider Emergency Medicine; PCP Student in an Organized Health Care Education/Training Program
DX: M77.41 Metatarsalgia, right foot (principal); M79.671 Pain in right foot
CPT/HCPCS: 73630; 96372; 99283; J1885

== ENCOUNTER 2024-01-21 08:52 | Outpatient (CLI) | payer BC, SELFPAY ==
[2024-01-21 19:04] LABS: Hemoglobin A1C 5.2 % (4.0-6.0)
[2024-01-21 19:20] LABS: Alanine Aminotransferase 24 U/L (12-78); Albumin Level 4.3 g/dl (3.5-5.0); Albumin/Globulin Ratio 1.5 (1.1-1.8); Alkaline Phosphatase 49 U/L (38-126); Anion Gap 13.3 mEq/L (5-15); Aspartate Amino Transferase 22 U/L (17-59); Bilirubin,Total 0.7 mg/dl (0.2-1.3); Blood Urea Nitrogen 17 mg/dl (9-20); Calcium 9.4 mg/dl (8.4-10.2); Carbon Dioxide 24 mmol/L (22.0-30.0); Chloride 107 mmol/L (98-107); Estimated Glomerular Filt Rate 83 ml/min (>60); GFR (African American) 100 ML/MIN (>60); Globulin 2.9 g/dL (1.3-3.2); Glucose 87 mg/dl (74-100); Potassium 4.3 mmoL/L (3.5-5.1); Sodium 140 mmol/L (136-145); Total Protein,Serum 7.2 g/dl (6.3-8.2); Uric Acid 8.2 mg/dl (3.5-8.5)
== END 2024-01-21 23:59 | disposition home or self-care (01) ==
LOC: LAB.DROPOF 01-22 09:15
PROVIDERS: PCP Student in an Organized Health Care Education/Training Program; Visit Provider Student in an Organized Health Care Education/Training Program
DX: R79.89 Other specified abnormal findings of blood chemistry (principal); M77.41 Metatarsalgia, right foot; Z83.3 Family history of diabetes mellitus
CPT/HCPCS: 80053; 83036; 84550

== ENCOUNTER 2024-04-01 09:00 | Outpatient (RCR) | payer BC, SELFPAY ==
--- NOTE | 2024-03-06 16:46 | HMH.PTOPEV ---
PT Outpatient Evaluation Rehab PT Outpatient Evaluation Start: 03/06/24 15:53 Freq: Status: Active Protocol: Document 03/06/24 16:02 WILLIAM (Rec: 03/06/24 16:46 WILLIAM [id number]) E-signed By Andreas Campbell, PT Outpatient Therapy Subjective History Subjective History Patient is a 23 year old male presenting to outpatient PT with reports of sub-acute foot pain specific to metatarsals 3-5. Symptoms of insidious onset starting approx 2 months ago. Significant pes cavus noted in standing. Other comorbidities include hx of HTN and parathyroidectomy. New diagnosis of cancer in past 12 No months? Chief Complaint Pain,Stiff Symptom Type Sharp Symptoms Relieved By Rest/Positioning,Heat,Ice Symptoms Aggravated By Standing,Physical Activity, Walking Prior Functional Limitations None Current Functional Limitations Housework,Standing,Squatting, Recreation Activity,Walking, Stairs,Balance Symptom Description Constant but Variable Level of pain today (0-10) 4 Pain scale - at its best (0-10) 2 Pain scale - at its worst (0-10) 8 Ankle/Foot Eval Gait Observation General Gait Pattern Observation Antalgic Gait,Decrease Weight Bear (L) Palpation Tenderness left Ankle/Foot Palpation Findings Tenderness Ankle/Foot Palpation Overall Comment metatarsals 3-5 ROM Ankle/Foot Dorsiflexion w/Knee Extended -20 Active Range Motion (degrees) Ankle/Foot Plantar Flexion Active Range WNL of Motion (degrees) Ankle/Foot Eversion Active Range of 12 Motion (degrees) Ankle/Foot Inversion Active Range of 16 Motion (degrees) Great Toe ROM Reason Not Measured Within Functional Limits MMT Ankle Dorsiflexion Strength Grade 5 Normal Ankle Plantarflexion Strength Grade 5 Normal Foot Eversion Strength Grade 4 Good Foot Inversion Strength Grade 4 Good Special Tests Ankle Anterior Drawer Test Negative Left Foot Interdigital Neuroma Test Positive Left Lower Extremity Functional Index Activities Today, do you or would you have any difficulty at all with: a.Any of your usual work, housework or A little bit of difficulty school activities b. Your usual hobbies, recreational or No difficulty sporting activities c. Getting into or out of the bath A little bit of difficulty d. Walking between rooms Moderate difficulty e. Putting on your shoes or socks A little bit of difficulty f. Squatting A little bit of difficulty g. Lifting an object, like a bag of A little bit of difficulty groceries from the floor h. Performing light activities around Moderate difficulty your home i. Performing heavy activities around A little bit of difficulty your home j. Getting into or out of a car Moderate difficulty k. Walking 2 blocks Quite a bit of difficulty l. Walking a mile A little bit of difficulty m. Going up or down 10 stairs (about 1 A little bit of difficulty flight of stairs) n. Standing for 1 hour A little bit of difficulty o. Sitting for 1 hour No difficulty p. Running on even ground Quite a bit of difficulty q. Running on uneven ground Quite a bit of difficulty r. Making sharp turns while running fast Quite a bit of difficulty s. Hopping Quite a bit of difficulty t. Rolling over in bed No difficulty LEFI Score Lower Extremity Functional Index Score 50 Outpatient Therapy Assessment Impairments Problems/Impairmments Palpation Tenderness,Impaired Range of Motion,Impaired Strength,Impaired Gait Pattern ,Impaired Walking,Impaired Standing,Impaired Household Care,Impaired Stair Climbing, Impaired Incline Stepping, Impaired Stepping on Uneven Surface,Impaired Squatting, Impaired Recreational Activities,Impaired Work Activities,Subjective C/O Pain Prognosis Rehab Potential Good Clinical Impression Consistent with Diagnosis Yes Short Term Goals Number of Weeks 2 Decrease Subjective C/O Pain Yes: 5/10 at worst Patient to be Ind w/ HEP Yes Mcfp Goals Number of Weeks 4-6 Decreased Palpation Tenderness Yes: 1/4 Increase Range of Motion Yes: WNL Increase Strength Yes: 5/5 all planes Increase Ability to Walk Yes: 45 min out of boot without difficulty Improve Ability For Household Care Yes Improve Ability to Climb Stairs Yes: 1 flight up/down without difficulty Improve Tolerance to Work Activities Yes Improve LEFI Score Yes: >60 Decrease Subjective C/O Pain Yes: 2/10 at worst Outpatient Therapy Plan of Care Treatment Plan May Include Therapeutic Exercise Including Home Yes Exercise Program Manual Therapy Techniques Yes Neuromuscular Re-education Yes Therapeutic Activities to Return to Yes Previous Functional/Work Level Gait Training Yes ADL/Self Care Education Yes Dry Needling Yes Thermal Modalities Yes Electrical Stimulation Yes Ultrasound/Phonophoresis Yes Iontophoresis Yes Orthotics/Bracing/Splinting Yes Vasopneumatic Compression Pump Yes Massage Yes Eval/Re-Eval Yes Frequency Times per week 2-3 Duration Number of Weeks 4-6 Addendums This patient is a candidate for social No or vocational rehab? Patient/Guardian verbally acknowledges Yes understanding of treatment program and consents to further treatment? Patient/Guardian verbally acknowledges Yes understanding of diagnosis, prognosis and goals for treatment? Eval Complexity PT Charges 05245 - Moderate Complexity Shoulder/Elbow Eval Shoulder Objective Measurements Elbow Objective Measurements PHYSICIAN CERTIFICATION: I certify the specified therapy services for Reji Prieton Nicolette are required, authorized, and reviewed every 30 days.
== END 2024-04-01 23:59 | disposition home or self-care (01) ==
LOC: PT 09:00
PROVIDERS: Visit Provider Nurse Practitioner
DX: M76.71 Peroneal tendinitis, right leg (principal); M79.671 Pain in right foot; M77.41 Metatarsalgia, right foot; M72.2 Plantar fascial fibromatosis
CPT/HCPCS: 97035; 97110; 97163; 97530

== ENCOUNTER 2024-10-30 17:26 | Emergency (ER) | payer BC, SELFPAY ==
--- OUTSIDE RECORDS SUMMARY | 2024-10-16 13:30 | XMS_ITS | Encounter Summary ---
Author Organization [facility] Address [address] [place] [id number] Phone [email or web address] Care Team Providers Care Transition Teacher Name Role Phone Provider, No Primary Care Provider Unavailabl e Reason for Visit * Reason Comments Follow up Musculoskeletal Issue Encounter Details Date Type Department Care Team (Latest Contact Info) Description 10/16/2024 1:30 PM EDT Clinical Support ABDIRAHMAN [address] [place] [address] Chanell Meza PA [address] [place] [address] Acute pain of left shoulder [...] him to RTW without restrictions 5. Call [facility] @ [phone] for any questions/concerns/appointments. 6. Projected return to full rotation: to be determined by specialist documented in this encounter Progress Notes * MARIBEL Suh - 10/16/2024 1:30 PM EDT Subjective Reji Will is a 23 y.o. male who presents for follow up occ for bilat shoulders/upper back. Workday ID #: [id number] Cost Center: [facility] Length of Time in Current Group: 6 months Shift Color or Number: 1 Employer: [employer] Employee Status: Full-time GL Name: Felipe Garcia Case #: [id number] Body Part/ Side: Bilat shoulders/upper back. OSHA Date of Injury: 07/08/24 F/u occ: Bilateral Shoulder / upper Back. Restricted . TM here to discuss questions related to being [facility] days. LDW today. Next follow [...] RTW without restrictions 5. Call [facility] @ [phone] for any questions/concerns/appointments. 6. Projected return to full rotation: to be determined by specialist documented in this encounter Plan of Treatment Not on file documented as of this encounter Visit Diagnoses Diagnosis Acute pain of left shoulder- Primary documented in this encounter Care Teams Transition Teacher Relationship Specialty Start Date End Date Provider, RICARDO Merino [id number] PCP - General Director Medical Science 10/06/19 documented as of this encounter
--- NOTE | 2024-10-30 17:29 | ECG_ITS ---
APPROVED REPORT Exam: Resting ECG HR:105 bpm ECG Measurements Heart Rate 105 AXES MS 122 P 44 QRSd 92 QRS 53 QT 287 T 51 QTc 348 Conclusion SINUS TACHYCARDIA No STEMI Electronically signed by : BILLY PACHECO, 10/30/2024 21:01:23
--- OUTSIDE RECORDS SUMMARY | 2024-10-30 17:30 | XMS_ITS | Encounter Summary ---
Author Organization [facility] Address [address] [place] [id number] Care Team Providers Care Job Superintendent Name Role Phone Pcp, No Primary Care Provider Unavailabl e Pcp, No Primary Care Provider Unavailabl e Reason for Referral * Consultation (Routine) - Closed Specialty Diagnoses / Procedures Referred By Contac t Referred To Contact Endocrinology Diagnoses Elevated parathyroid hormone Hypercalcemia Gissell Gonzalez PA [address] [place] [address] Phone: tel: fax: [facility] Endocrinology [address] [place] [address] Phone: tel: fax: Referral ID Status Reason Start Date Expiration Date V isits Requested Visits Authorized [id number] Closed Specialty Services Required 11/09/2021 05/11/2023 1 1 Encounter Details Date Type Department Care Team (Late st Contact Info) Description 11/09/2021 [facility] [address] [place] [address] Gissell Gonzalez PA [address] [place] [address] Elevated parathyroid hormone (Primary Dx); Hypercalcemia Social History Tobacco Use Types Packs/Day Years Used Date Smoking Tobacco: Never Assessed Sex and Gender Information Value Date Recorded Sex Assigned at Male 04/21/2022 6:50 AM EST Legal Sex Male 9:10 AM EDT Gender Identity Male 04/21/2022 6:50 AM EST Sexual Orientation Not on file documented as of this encounter Plan of Treatment Scheduled Referrals Name Type Priority Associated Diagnoses Order Schedule Ambulatory referral to Endocrinology Outpatient Referral Routine Elevated parathyroid hormone Hypercalcemia Expected: 11/09/2021 (Approximate), Expires: 02/09/2022 documented as of this encounter Visit Diagnoses Diagnosis Elevated parathyroid hormone- Primary Hypercalcemia documented in this encounter Care Teams Job Superintendent Relationship Specialty Start Date End Date Pcp, No [address] [place] [address] PCP - General Family Medicine 11/10/21 02/01/22 Pcp, No [address] [place] [address] PCP - General Family Medicine 02/02/22 documented as of this encounter
--- OUTSIDE RECORDS SUMMARY | 2024-10-30 17:31 | XMS_ITS | Encounter Summary ---
Author Organization [facility] Address [address] [place] [address] Phone [email or web address] [email or web address] Care Team Providers Care Nurse Educator Name Role Phone Provider, No Primary Care Provider Unavailabl e Reason for Visit * Reason Onset Date Comments Return to Work / Duty 10/22/2024 CASE UPDAT E/COMMUNICATION- [facility]-RD Encounter Details Date Type Department Care Team (Late st Contact Info) Description 10/22/2024 Documentation [place] [address] [facility] [address] [place] [address] Ashanti Perez MA [address] [place] [address] Social History Tobacco Use Types Packs/Day Years Used Date Smoking Tobacco: Never Smokeless Tobacco: Never Intimate Partner Violence Answer Date R ecorded [...] on file documented as of this encounter Progress Notes * Ashanti Perez MA - 10/22/2024 12:33 PM EDT TM on [facility] beginning 10.20.2024- Sent home based on restricted days for BILATERAL SHOULDER CASE #[id number] DOI - 07.08.2024 documented in this encounter Plan of Treatment Not on file documented as of this encounter Visit Diagnoses Not on filedocumented in this encounter Care Teams Nurse Educator Relationship Specialty Start Date End Date Provider, [place] [address] PCP - General Scrap Crane Operator 10/06/19 documented as of this encounter
--- OUTSIDE RECORDS SUMMARY | 2024-10-30 17:31 | XMS_ITS | Encounter Summary ---
Author Organization [facility] Address [address] [place] [address] Phone [email or web address] [email or web address] Care Team Providers Care Investment Counselor Name Role Phone Provider, No Primary Care Provider Unavailabl e Reason for Visit * Reason Onset Date Comments Care Coordination 2024 Encounter Details Date Type Department Care Team (Late st Contact Info) Description [address] [place] [address] Jesusita Small RN [address] [place] [address] Social History Tobacco Use Types [...] on file documented as of this encounter Miscellaneous Notes * Telephone Encounter - Jesusita Small RN - 2024 1:52 PM EDT Nurse dot compliance manager note for follow up call. 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 KAREN: per 1st occ He says he has been on a 2 job rotation for a while. He says over time getting inand out of the car has caused him discomfort in both shoulders. He reports popping and cracking in the shoulders. He says he was prepared for the soreness of the new group but he says this is more than sore. Dx: Acute pain of left shoulder M25.512 Date of Injury: 07/08/24 Current plan of care: 09/25/24- Dr Jack- Continues restrictions, subacromial injection in left shoulder, and continue PT 10/20/24- [facility] begins. [facility] work day count. 10/23/24- Dr Jack follow up. Placed off work and referred for left shoulder MRI. TM told to hold PT. Clinic Provider: MARIBEL Arce [phone] F/U Call Notes: PC to TM for check in after specialist appointment today with Dr Jack. TM was placed off work and left shoulder MRI referral. TM was told to hold off on PT. TM states he has already updated Dianna Masterson. TM has no questions or concerns, will call with updates. Last Specialist Visit: 10/23/24 Next Specialist Visit: Pending MRI Economics Instructor Plan/Goals: TM to keep scheduled apts TM to call with updates or changes Notes requested from specialist's office Continue following plan of care per specialist Conclusion: -TM to call back with updates and changes or as needed. -TM verbalized knowledge of next steps/appointments. -TM has no further concerns at this time. Economics Instructor Signature: Jesusita Small RN Date: 10/23/24 documented in this encounter Plan of Treatment Not on file documented as of this encounter Visit Diagnoses Not on filedocumented in this encounter Care Teams Investment Counselor Relationship Specialty Start Date End Date Provider, RICARDO Merino [address] PCP - General Processor Helper 10/06/19 documented as of this encounter
--- OUTSIDE RECORDS SUMMARY | 2024-10-30 17:31 | XMS_ITS | Clinical Summary ---
Author Organization [facility] Address [address] [place] [address] Phone [email or web address] [email or web address] Care Team Providers Care Communications Field Technician Name Role Phone Provider, No Primary Care Provider Unavailabl e Allergies No known active allergies Medications cholecalciferol (VITAMIN D-3) 1.25 MG (84816 UT) tablet Take 50,000 Units by mouth. Active ergocalciferol (VITAMIN D2) 1.25 MG (89005 UT) capsule TAKE 1 CAPSULE BY MOUTH WEEKLY 2 Active lisinopril (ZESTRIL) 40 MG tablet Take 40 mg by mouth 1 (one) time each day. 3 Active alendronate (FOSAMAX) 70 MG tablet Take 70 mg by mouth. 2 Active omeprazole (PriLOSEC) [address] capsule Take 40 mg by mouth 1 (one) time each day. 3 Active montelukast (SINGULAIR) 10 MG tablet Take 10 mg by mouth 1 (one) time each day. 3 Active fluticasone (FLONASE) 50 MCG/ACT nasal spray ADMINISTER 1 SPRAY INTO EACH NOSTRIL TWICE DAILY 3 Active lisinopril-hydr oCHLOROthiazide (ZESTORETIC) 20-12.5 MG per tablet .COMPLEX 4 Active azithromycin (ZITHROMAX) 250 MG tablet 5 Active Bystolic 5 MG tablet Take 1 tablet every day by oral route for 90 days. 5 Active calcitriol (ROCALTROL) 0.25 MCG capsule Take 0.25 mcg by mouth 1 (one) time each day. Active Semaglutide-Dusty ght Management (Wegovy 0.25 MG/0.5ML SC) 0.25 MG/0.5ML solution auto-injector Inject 0.25 mg under the skin per week. Active meloxicam (MOBIC) 15 MG tablet Active Active Problems Problem Noted Date Diagnosed Date ADHD (attention deficit hype ractivity disorder), predominantly hyperactive impulsive type 03/24/2011 Insomnia 03/24/2011 Encounters Date Type Department Care Team Description 2024 Telephone [facility] [address] [place] [address] Jesusita Small RN 10/22/[address] [place] [address] Ashanti Perez MA 10/22/2024 [address]phone [address] [place] [address] Jesusita Small RN 10/16/2024 1:30 PM EDT Clinical Support [address] [place] [address] Chanell Meza PA Acute pain of left shoulder (Primary Dx) from Last 3 Months Social History Tobacco Use Types Packs/Day Years [...] on file Sexual Orientation Not on file Last Filed Vital Signs Vital Sign Reading Time Taken Comments Blood Pressure 97/62 10/16/2024 1:45 PM EDT Pulse 64 10/16/2024 1:45 PM EDT Temperature 36.4 C (97.6 F) 08/21/2024 11:37 AM EDT Respiratory Rate 18 09/26/2024 1:58 PM EDT Oxygen Saturation 98% 10/10/2024 1:31 PM EDT Inhaled Oxygen Concentration - - Weight 142 kg (312 lb) 08/21/2024 11:37 AM EDT Height 190.5 cm (6' 3 ) 08/21/2024 11:37 AM EDT Body Mass Index 39 08/21/2024 11:37 AM EDT Plan of Treatment Health Maintenance Due Date Last Done Comments Dental Cleaning/Exam 2000 HIV Screening 2000 Hepatitis C Screening 2000 HPV Immunization (1 - Male 3-dose series) 10/24/2015 Hep B Infection Screening - Triple Screen 2018 Annual Preventive Exam 01/14/2020 01/13/2019 Tetanus Diphtheria and Pertussis Immunization (7 - Td or Tdap) 11/07/2021 11/08/2011, 11/29/2004, 03/11/2002, Additional history exists Covid-19 Immunization ( season) 2023 01/14/2021, 12/24/2020 Influenza Immunization (#1) 12/15/202401/15, 02/06/2017, 02/17/2016, Additional history exists HIB Immunization Aged Out 07/05/2001, , 01/14/2001 No longer eligible based on patient's age to complete this topic Hepatitis B Immunization Completed 002, 10/24/2001, 01/14/2001, Additional history exists Pneumococcal: Ped (0 to 5 Yrs) and At-Risk Member (6 to 64 Yrs) Completed 03/24/2002, 03/11/2002, 07/05/2001, Additional history exists Polio Immunization Completed 11/29/2004, 1 05/11/2001, 01/14/2002, Additional history exists Varicella Immunization Completed 2, 11/18/2003, 03/24/2002 Meningococcal Immunization Completed 07/30/2017, Hepatitis A Immunization Completed 02/04/2018, 07/15 Men B Immunization Aged Out No longer eligible based on patient's age to complete this topic Procedures Procedure Name Priority Date/Time Associated Diagnosis Comments XR SHOULDER, MINIMUM OF 2 VIEWS, COMPLETE - LEFT CPT 58264 Routine 08/22/2024 12:36 PM EDT Acute pain of left shoulder from Last 3 Months Results * XR Shoulder, minimum of 2 views, complete - left CPT 87253 (08/22/2024 12:36 PM EDT) Anatomical Region Laterality Modality Upper Extremities, Shoulder Left Radi ographic Imaging Impressions 08/22/2024 12:36 PM EDT Examination 3 views of the CR - Shoulder - xray Left Comparison None provided. Findings/impression: No acute fracture or traumatic malalignment. . Electronically signed on August 22, 2024 12:33:16 PM EDT (ET) by: Duke Guaman D.O. Note: This report describes relevant significant findings, based on the clinical setting and information provided. Further details, consultation or follow-up imaging may be obtained as clinically indicated. Narrative 08/22/2024 12:36 PM EDT See Scanned Document Margot LÓPEZ IMG XR PROCEDURES Final Resu lt from Last 3 Months Insurance OPT OUT NO COPAY NB Care Teams Communications Field Technician Relationship Specialty Start Date End Date [place], [place] [address] PCP - General Gas Processing Plant Operator 10/06/19
--- OUTSIDE RECORDS SUMMARY | 2024-10-30 17:31 | XMS_ITS | Data Portability ---
Author Organization [facility] [employer] [place] - [place] Address [address] [place] [address] Assessment No assessment recorded. Plan of Treatment Reminders Order Date Submit Date Provider Last Modified By Organization Details Last Modified Time Details Appointments None recorded. Lab glucose, fingerstick , blood [address], [address] [place], [place] [address]ther [facility], [place], [address], 5 15:49:29 Hepatitis C IgG Ab, qual, serum 2024 025 [facility]), [address] [place], [address], 5 12:08:08 lipid panel, serum 2024 025 [facility]), [address] [place], [address], 5 12:08:07 CMP, serum or plasma 2024 025 [place] [facility] [address] [place], [address], 5 12:08:07 PTH (parathyroi d hormone), intact, serum or plasma 2024 025 [facility]), [address] [place], [address], 5 12:08:09 CBC w/ auto diff 2024 025 [place] [facility] ([place]), [address] [facility], [place], [address], 5 12:08:07 vitamin D, 25-hydroxy, total, serum 2024 025 [place] [facility]), [address] [place], [address], 5 12:08:08 TSH, ultra-sensi tive, serum 2024 025 [place] [facility]), [address] [facility], [place], [address], 5 12:08:08 HIV 1 + 2, meaningful use set 2024 025 [place] [facility]), [address] [place], [address], 5 12:08:09 rapid strep group A, throat [address], [facility] [place], [address], 08:27:32 Referral None recorded. Procedures None recorded. Surgeries None recorded. Imaging electrocard iogram 2024 025 [email or web address] Not available 16:24:33 Medication Orders Bystolic 5 mg tablet 2024 025 [facility] #[id number], [address] [facility] 27 [facility] [place], [id number], 17:31:51 lisinopril 20 mg-hydrochl orothiazide 12.5 mg tablet 2024 025 [facility][id number], [address] [facility] 27 [place], [place], [id number], 17:39:15 Zithromax Z-Philippe 250 mg tablet 2024 [place] [facility] #[id number], [address] [facility] [address], [place], [id number], 5 15:45:44 prednisone 20 mg tablet 2024 [place] [facility][id number], [address] [facility] [address], [place], [id number], 5 15:45:42 Sudafed 12 Hour 120 mg tablet,exte nded release 2024 [place] [facility][id number], [address] [facility] [address] , [place], [id number], 5 15:45:41 lisinopril 20 mg-hydrochl orothiazide 12.5 mg tablet 2024 [place] [facility] #[id number], [address], [place], [id number], 16:08:34 Patient TargetsNo targets recorded. Patient Instructions Encounter Date Encounter Id Patient Instructions Last Modified By Organization Details Last Modified Time 06/16/2024 [id number] high blood pressure: care instructions Not available 06/16/2024 16:08:28 learning about h igh blood pressure Not available 06/16/2024 16:08:28 body mass index: care instructions Not available 06/16/2024 16:22:39 learning about healthy weight [email or web address] Not available 06/16/2024 16:22:39 06/20/2024 [id number] sore throat: car e instructions [email or web address] Not available 06/20/2024 08:27:29 STD paperwork completeted for work Not available 06/20/2024 11:45:02 07/25/2024 [id number] lightheadedness or faintness: care instructions [email or web address] Not available 07/25/2024 15:49:29 high blood pressure: care instructions [email or web address] Not available 07/25/2024 17:29:58 learning about h igh blood pressure [email or web address] Not available 07/25/2024 17:29:58 Reason for Referral None Reported. Results Created Date Observation Date Name Description Value Unit Range Abnormal Flag Note LastModifiedBy Organization Detail LastModifiedTime 06/21/1906/20/2024 rapid strep group A, throa t Strep negati ve Not Available [facility] [address] [facility], [place], [address], 06/20/2024 08:12:25 07/26/1907/26/2024 CBC WITH DIFFE RENTI AL/PL ATELE T WBC 11.9 x10e3 /uL 3.4-10 .8 above high normal Not Available [facility] ([facility]) [address] [place], [address], 07/27/2024 12:08:06 07/26/19 25 07/26/2024 CBC WITH DIFFE RENTI AL/PL ATELE T RBC 5.01 x10e6 /uL 4.14-5 .80 normal Not Available [facility] ([facility]) [address] [place], [address], 07/27/2024 12:08:06 07/26/1907/26/2024 CBC WITH DIFFE RENTI AL/PL ATELE T hemoglobin 14.0 g/dL 13.0-1 7.7 normal Not Available [facility] ([facility]) [address] [place], [address], 07/27/2024 12:08:06 07/26/19 25 07/26/2024 CBC WITH DIFFE RENTI AL/PL ATELE T hematocrit 42.1 % 37.5-5 1.0 normal Not Available [facility] ([facility]) [address] [place], [address], 07/27/2024 12:08:06 07/26/19 25 07/26/2024 CBC WITH DIFFE RENTI AL/PL ATELE T MCV 84 fL 79-97 normal Not Available [facility] ([facility]) [address] [facility], [place], [address], 07/27/2024 12:08:06 07/26/19 25 07/26/2024 CBC WITH DIFFE RENTI AL/PL ATELE T MCH 27.9 pg 26.6-3 3.0 normal Not Available [facility] ([facility]) [address] [facility], [place], [address], 07/27/2024 12:08:06 07/26/19 25 07/26/2024 CBC WITH DIFFE RENTI AL/PL ATELE T MCHC 33.3 g/dL 31.5-3 5.7 normal Not Available [facility] ([facility]) [address] [facility], [place], [address], 07/27/2024 12:08:06 07/26/19 25 07/26/2024 CBC WITH DIFFE RENTI AL/PL ATELE T RDW 13.9 % 11.6-1 5.4 Not Available [facility] ([facility]) [address] [facility], [place], [address], 07/27/2024 12:08:06 07/26/19 25 07/26/2024 CBC WITH DIFFE RENTI AL/PL ATELE T platelets 339 x10e3 /uL 150-45 0 normal Not Available [facility] ([facility]) [address] [facility], [place], [address], 07/27/2024 12:08:06 07/26/19 25 07/26/2024 CBC WITH DIFFE RENTI AL/PL ATELE T neutrophils 66 % not estab. normal Not Available [facility] ([facility]) [address] [facility], [place], [address], 07/27/2024 12:08:06 07/26/19 25 07/26/2024 CBC WITH DIFFE RENTI AL/PL ATELE T lymphs 23 % not estab. normal Not Available [facility] ([facility]) [address] [facility], [place], [address], 07/27/2024 12:08:06 07/26/19 25 07/26/2024 CBC WITH DIFFE RENTI AL/PL ATELE T monocytes 8 % not estab. normal Not Available [facility] ([facility]) [address] [facility], [place], [address], 07/27/2024 12:08:06 07/26/19 25 07/26/2024 CBC WITH DIFFE RENTI AL/PL ATELE T eos 1 % not estab. normal Not Available [facility] ([facility]) [address] [facility], [place], [address], 07/27/2024 12:08:06 07/26/19 25 07/26/2024 CBC WITH DIFFE RENTI AL/PL ATELE T basos 1 % not estab. normal Not Available [facility] ([facility]) [address] [facility], [place], [address], 07/27/2024 12:08:06 07/26/19 25 07/26/2024 CBC WITH DIFFE RENTI AL/PL ATELE T immature cells [employer] [place] [place] Not Available [facility] ([facility]) [address] [facility], [place], [address], 07/27/2024 12:08:06 07/26/19 25 07/26/2024 CBC WITH DIFFE RENTI AL/PL ATELE T neutrophils (absolute) 7.9 x10e3 /uL 1.4-7. 0 above high normal Not Available [facility] ([facility]) [address] [facility], [place], [address], 07/27/2024 12:08:06 07/26/19 25 07/26/2024 CBC WITH DIFFE RENTI AL/PL ATELE T lymphs (absolute) 2.7 x10e3 /uL 0.7-3. 1 normal Not Available [facility] ([facility]) [address] [place], [address], 07/27/2024 12:08:06 07/26/19 25 07/26/2024 CBC WITH DIFFE RENTI AL/PL ATELE T monocytes(ab solute) 0.9 x10e3 /uL 0.1-0. 9 normal Not Available [facility] ([facility]) [address] [place], [address], 07/27/2024 12:08:06 07/26/19 25 07/26/2024 CBC WITH DIFFE RENTI AL/PL ATELE T eos (absolute) 0.2 x10e3 /uL 0.0-0. 4 normal Not Available [facility] ([facility]) [address] [place], [address], 07/27/2024 12:08:06 07/26/19 25 07/26/2024 CBC WITH DIFFE RENTI AL/PL ATELE T baso (absolute) 0.1 x10e3 /uL 0.0-0. 2 normal Not Available [facility] ([facility]) [address] [place], [address], 07/27/2024 12:08:06 07/26/1907/26/2024 CBC WITH DIFFE RENTI AL/PL ATELE T immature granulocytes 1 % not estab. Not Available [facility] ([facility]) [address] [place], [address], 07/27/2024 12:08:06 07/26/19 25 07/26/2024 CBC WITH DIFFE RENTI AL/PL ATELE T immature grans (abs) 0.2 x10e3 /uL 0.0-0. 1 above high normal (An eleva sheng perce ntage of Immat ure Granu locyt es has not been found to be clini leslie signi fican t as a sole clini cristiano predi ctor of disea se. Does NOT inclu de bands or blast cells . Pregn kristina assoc iated physi ologi cristiano leuko cytos is may also show incre ased immat ure granu locyt es witho ut clini cristiano signi fican ce.) Not Available [facility] ([facility]) [address] [facility], [place], [address], 07/27/2024 12:08:06 07/26/19 25 07/26/2024 CBC WITH DIFFE RENTI AL/PL ATELE T NRBC [employer] [place] [place] Not Available [facility] ([facility]) [address] [facility], [place], [address], 07/27/2024 12:08:06 07/26/19 25 07/26/2024 CBC WITH DIFFE RENTI AL/PL ATELE T hematology comments: [employer] Not Available [facility]) [address] [facility], [place], [address], 07/27/2024 12:08:06 07/26/19 25 07/26/2024 COMP. METAB OLIC PANEL (14) glucose 99 mg/dL 70-99 normal Not Available [facility] ([facility]) [address] [facility], [place], [address], 07/27/2024 12:08:07 07/26/19 25 07/26/2024 COMP. METAB OLIC PANEL (14) BUN 23 mg/dL 6-20 above high normal Not Available [facility] ([facility]) [address] [facility], [place], [address], 07/27/2024 12:08:07 07/26/19 25 07/26/2024 COMP. METAB OLIC PANEL (14) creatinine 1.03 mg/dL 0.76-1 .27 normal Not Available [facility] ([facility]) [address] [facility], [place], [address], 07/27/2024 12:08:07 07/26/19 25 07/26/2024 COMP. METAB OLIC PANEL (14) eGFR 105 mL/mi n/1.7 3 >59 normal Not Available [facility] ([facility]) [address] [place], [address], 07/27/2024 12:08:07 07/26/19 25 07/26/2024 COMP. METAB OLIC PANEL (14) BUN/creatini ne ratio 22 9-20 above high normal Not Available [facility] ([facility]) [address] [facility], [place], [address], 07/27/2024 12:08:07 07/26/19 25 07/26/2024 COMP. METAB OLIC PANEL (14) sodium 137 mmol/ L 134-14 4 normal Not Available [facility] ([facility]) [address] [facility], [place], [address], 07/27/2024 12:08:07 07/26/19 25 07/26/2024 COMP. METAB OLIC PANEL (14) potassium 4.7 mmol/ L 3.5-5. 2 normal Not Available [facility] ([facility]) [address] [place], [address], 07/27/2024 12:08:07 07/26/19 25 07/26/2024 COMP. METAB OLIC PANEL (14) chloride 100 mmol/ L 96-106 normal Not Available [facility] ([facility]) [address] [place], [address], 07/27/2024 12:08:07 07/26/19 25 07/26/2024 COMP. METAB OLIC PANEL (14) carbon dioxide, total 20 mmol/ L 20-29 normal Not Available [facility] ([facility]) [address] [place], [address], 07/27/2024 12:08:07 07/26/19 25 07/26/2024 COMP. METAB OLIC PANEL (14) calcium 9.7 mg/dL 8.7-10 .2 normal Not Available [facility] ([facility]) [address] [facility] [place], [address], 07/27/2024 12:08:07 07/26/19 25 07/26/2024 COMP. METAB OLIC PANEL (14) protein, total 7.2 g/dL 6.0-8. 5 normal Not Available [facility] ([facility]) [address] [facility] [place], [address], 07/27/2024 12:08:07 07/26/19 25 07/26/2024 COMP. METAB OLIC PANEL (14) albumin 4.5 g/dL 4.3-5. 2 normal Not Available [facility] ([facility]) [address] [facility] [place], [address], 07/27/2024 12:08:07 07/26/19 25 07/26/2024 COMP. METAB OLIC PANEL (14) globulin, total 2.7 g/dL 1.5-4. 5 Not Available [facility] ([facility]) [address] [facility] [place], [address], 07/27/2024 12:08:07 07/26/19 25 07/26/2024 COMP. METAB OLIC PANEL (14) bilirubin, total 0.2 mg/dL 0.0-1. 2 normal Not Available [facility] ([facility]) [address] [facility] [place], [address], 07/27/2024 12:08:07 07/26/19 25 07/26/2024 COMP. METAB OLIC PANEL (14) alkaline phosphatase 68 IU/L 44-121 normal Not Available [facility]) [address] [facility] [place], [address], 07/27/2024 12:08:07 07/26/19 25 07/26/2024 COMP. METAB OLIC PANEL (14) AST (SGOT) 15 IU/L 0-40 normal Not Available [facility] ([facility]) [address] [facility] [place], [address], 07/27/2024 12:08:07 07/26/19 25 07/26/2024 COMP. METAB OLIC PANEL (14) ALT (SGPT) 22 IU/L 0-44 normal Not Available [facility] ([facility]) [address] [place], [address], 07/27/2024 12:08:07 07/26/19 25 07/26/2024 LIPID PANEL cholesterol, total 202 mg/dL 100-19 9 above high normal Not Available [facility] ([facility]) [address] [place], [address], 07/27/2024 12:08:07 07/26/19 25 07/26/2024 LIPID PANEL triglyceride s 771 mg/dL 0-149 alert high Not Available [facility] ([facility]) [address] [place], [address], 07/27/2024 12:08:07 07/26/19 25 07/26/2024 LIPID PANEL HDL cholesterol 25 mg/dL >39 below low normal Not Available [facility] ([facility]) [address] [place], [address], 07/27/2024 12:08:07 07/26/19 25 07/26/2024 LIPID PANEL VLDL cholesterol cristiano 116 mg/dL 5-40 above high normal Not Available [facility] ([facility]) [address] [place], [address], 07/27/2024 12:08:07 07/26/19 25 07/26/2024 LIPID PANEL LDL chol calc ([facility]) 61 mg/dL 0-99 Not Available [facility]) [address] [place], [address], 07/27/2024 12:08:07 0407/26/2024 LIPID PANEL LDL calc comment: [employer] Not Available [facility]) [address] [facility], [place], [address], 07/27/2024 12:08:07 07/26/19 25 07/26/2024 HCV ANTIB TWYLA CASCA DE(PC R/GEN O) HCV Ab Non Reacti ve non reacti ve Not Available [facility] ([facility]) [address] [facility], [place], [address], 07/27/2024 12:08:08 07/26/19 25 07/26/2024 HCV ANTIB TWYLA CASCA DE(PC R/GEN O) interpretati on: Commen t Not infec sheng with HCV unles s early or acute infec tion is suspe cted (whic h may be delay ed in an immun ocomp romis ed indiv idual ), or other evide nce exist s to indic ate HCV infec tion. Not Available [facility] ([facility]) [address] [facility], [place], [address], 07/27/2024 12:08:08 07/26/1907/26/2024 TSH TSH 2.420 uIU/m L 0.450- 4.500 normal Not Available [facility] ([facility]) [address] [facility], [place], [address], 07/27/2024 12:08:08 07/26/1907/26/2024 VITAM IN D, 25-HY DROXY vitamin D, 25-hydroxy 15.9 NG/mL 30.0-1 00.0 below low normal Pleas e Note: Speci men is lipem ic. Vitam in D defic iency has been defin ed by the Insti tute of Medic ine and an Endoc rine Socie ty pract ice guide line as a level of serum 25-OH vitam in D less than 20 ng/mL (1,2) . The Endoc rine Socie ty went on to furth er defin e vitam in D insuf ficie ncy as a level betwe en and 29 ng/mL (2). 1. IOM (Inst itute of Medic ine). 2010. Dieta ry refer ence intak es for calci um and D. Edyta saba [place]: [facility] . 2. Holic k [place], [place], Bisch off-F errar i MCKEON, et al. Evalu ation , treat ment, and preve ntion of vitam in D defic iency : an Endoc rine Socie ty clini cristiano pract ice guide line. JCEM. 2010; 96(7) :1911 -30. Not Available [facility] ([facility]) [address] [facility], [place], [address], 07/27/2024 12:08:08 07/26/19 25 07/26/2024 HIV AB/P2 4 AG WITH REFLE X HIV Ab/P24 Ag screen Non Reacti ve non reacti ve HIV Negat derick HIV-1 /HIV- 2 antib odies and HIV-1 p24 antig en were NOT detec sheng. There is no labor atory evide nce of HIV infec tion. Not Available [facility] ([facility]) [address] [facility], [place], [address], 07/27/2024 12:08:09 07/26/19 25 07/27/2024 PTH, INTAC T PTH, intact 19 pg/mL 15-65 normal Not Available [facility]) [address] [facility], [place], [address], 07/27/2024 12:08:09 07/26/19 25 07/25/2024 gluco se, finge rstic k, blood Blood Glucose: mg/dl 94 Not Available [facility] [address] [place] [facility], [place], [address], 07/25/2024 15:48:15 07/26/19 elect rocar diogr am No observ ation record ed. Not Available 2024 17:25:18 Result Notes None recorded. Problems Name Problem SNOMED Code Status Onset Date Resolution Date Notes Provider Name and Address Organization Details Recorded Time Essential hypertens ion 68062990 Active 2024 MARIBEL Lin [address] [place] [address], [address] [place] [address] 8, [employer] 5 16:08:16 Influenza A virus present 100805856177 Completed 202407/25/2024 MARIBEL Lin [address] [place] [address], [address] [place] [address] 8, [employer] 5 17:29:47 Acute pharyngit is 718494137 Completed 202407/25/2024 MARIBEL Lin [address] [place] [address], [address] [place] [address], [employer] 5 17:29:44 Hyperlipi demia 16983783 Active 2024 MARIBEL Lin [address] [place] [address], [address] [place] [address], [employer] 5 09:30:18 Deficienc y of vitamin D3 481804630 Active 2024 MARIBEL Lin [address] [place] [address], [address] [place] [address] 8, [employer] 5 09:30:31 Problem Notes None recorded. Procedures Surgical History Date Name Laterality Status Provider Name and Address Organization Details Recorded Time Tonsillectomy completed [employer] 06/16/2024 15:51:15 Thyroid Surgery completed [employer] 06/16/2024 15:51:15 Imaging Results None recorded. Procedure Notes None recorded. Medical Equipment None Reported. Allergies No known drug allergies Medications Name Sig Start Date Stop Date Status Note LastModified by Organization Details LastModified Time dextrometho rphan polistirex ER 30 mg/5 mL oral susp ext.release 12hr 06/20 completed Not Available Not Available Not Available atorvastati n 10 mg tablet TAKE 1 TABLET BY MOUTH EVERY DAY AT BEDTIME FOR CHOLESTER OL active Not Available Not Available No t Available lisinopril 20 mg-hydrochl orothiazide 12.5 mg tablet TAKE 2 TABLETS BY MOUTH EVERY DAY DIRECTED FOR HIGH BLOOD PRESSURE active Not Available Not Available No t Available azithromyci n 250 mg tablet TAKE 2 TABLETS (500 MG) BY ORAL ROUTE ONCE DAILY FOR 1 DAY THEN 1 TABLET (250 MG) BY ORAL ROUTE ONCE DAILY FOR 4 DAYS 07/25 completed Not Available Not Available Not Available prednisone 20 mg tablet TAKE 1 TABLET BY MOUTH TWICE DAILY WITH FOOD FOR 5 DAYS 07/25 completed Not Available Not Available Not Available prednisone 5 mg/5 mL oral solution 06/15 completed Not Available Not Available Not Available omeprazole 40 mg capsule,del ayed release TAKE 1 CAPSULE BY MOUTH DAILY 06/15 completed Not Available Not Available Not Available ketorolac 10 mg tablet 06/15 completed Not Available Not Available Not Available oseltamivir 75 mg capsule 06/20 completed Not Available Not Available Not Available buspirone 10 mg tablet TAKE 1 TABLET BY MOUTH TWICE DAILY 06/15 completed Not Available Not Available Not Available Gas Relief Extra Strength 125 mg capsule TAKE 1 CAPSULE BY MOUTH AFTER MEALS AND AT BEDTIME 06/15 completed Not Available Not Available Not Available montelukast 10 mg tablet TAKE 1 TABLET BY MOUTH DAILY 06/15 completed Not Available Not Available Not Available hydroxyzine HCl 25 mg tablet TAKE 1 TABLET BY MOUTH THREE TIMES DAILY NEEDED FOR ANXIETY 06/15 completed Not Available Not Available Not Available lidocaine 3 %-hydrocort isone 0.5 % topical cream APPLY RECTALLY TO THE AFFECTED AREA TWICE DAILY FOR 7 DAYS 06/15 completed Not Available Not Available Not Available methylpredn isolone 4 mg tablets in a dose pack FOLLOW PACKAGE DIRECTION S 06/15 completed Not Available Not Available Not Available bromphenira mine-pseudo ephedrine-D M 2 mg-30 mg-10 mg/5 mL oral syrup TAKE 5 ML BY MOUTH EVERY 4 TO 6 HOURS NEEDED FOR COLD SYMPTOMS 06/15 completed Not Available Not Available Not Available ondansetron 4 mg disintegrat ing tablet DISSOLVE 1 TABLET ON THE TONGUE EVERY 6 HOURS NEEDED FOR NAUSEA OR VOMITING 06/15 completed Not Available Not Available Not Available Sudafed 12 Hour 120 mg tablet,exte nded release Take 1 tablet every 12 hours by oral route for 10 days. 07/25 completed Not Available Not Available Not Available amoxicillin 875 mg-potassiu m clavulanate 125 mg tablet TAKE 1 TABLET BY MOUTH TWICE DAILY FOR 10 DAYS 06/15 completed Not Available Not Available Not Available hydrocodone 7.5 mg-acetamin ophen 325 mg/15 mL oral solution TAKE 15ML BY MOUTH EVERY 6 HOURS NEEDED FOR PAIN 06/15 completed Not Available Not Available Not Available cholecalcif zaida (vitamin D3) 1,250 mcg (50,000 unit) capsule TAKE 1 CAPSULE BY MOUTH ONCE WEEKLY ON THE SAME DAY EACH WEEK active Not Available Not Available No t Available nebivolol 5 mg tablet TAKE 1 TABLET BY MOUTH ONCE DAILY active Not Available Not Available No t Available cholecalcif zaida (vitamin D3) 50 mcg (2,000 unit) capsule TAKE 1 CAPSULE BY MOUTH ONCE DAILY active Not Available Not Available No t Available Wegovy 0.25 mg/0.5 mL subcutaneou s pen injector INJECT 1 SYRINGE SUBCUTANE OUSLY ONCE A WEEK active Not Available Not Available No t Available Vitals Date Recorded Body weight Body mass index (BMI) Body height Oxygen saturation Oxygen saturation in Arterial blood by Pulse oximetry Heart rate Body temperature Systolic And Diastolic Provider Name and Address Organization Details Last Updated DateTime 5 545737. 04 g 39.7 kg/m2 187.96 cm 95 % 95 % 104 /min 98 [degF] 106/72 mm[Hg] [employer] 5 15:54:53 Date Recorded Body height Body mass index (BMI) Body weight Oxygen saturation Oxygen saturation in Arterial blood by Pulse oximetry Heart rate Body temperature Systolic And Diastolic Provider Name and Address Organization Details Last Updated DateTime 5 187.96 cm 39.7 kg/m2 067113. 04 g 96 % 96 % 88 /min 98 [degF] 124/84 mm[Hg] [employer] 5 08:07:27 Date Recorded Body height Body mass index (BMI) Body weight Body temperature Heart rate Oxygen saturation Oxygen saturation in Arterial blood by Pulse oximetry Systolic And Diastolic Provider Name and Address Organization Details Last Updated DateTime 187.96 cm 40.2 kg/m2 165071. 41 g 98.3 [degF] 90 /min 96 % 96 % 104/62 mm[Hg] Inessa Juarez [employer]. 15:43:45 Social History Question Answer Notes LastModified by Organizat ion Details LastModified Time Tobacco Smoking Status Never Smoker Inessa Juarez [employer]i [employer]. 06/16/2024 15:55:48 Do You Have An Advance Directive? No Information not available 06/16/2024 Is Your Home Air Conditioned? Yes Information not available 06/16/2024 Are You Blind Or Do You Have Difficulty Seeing? No Information not available 06/16/2024 What Is Your Level Of Caffeine Consumption? Moderate Information not available 06/16/[address] Of [address] Cdl Driver Do You Use? [employer] Information not available 06/16/2024 Have You Been To An Area Known To Be High Risk For COVID-19? No Information not available 06/16/2024 Are You Deaf Or Do You Have Serious Difficulty Hearing? No Information not available 06/16/2024 What Type Of Diet Are You Following? REGULAR Information not available 06/16/2024 Who Is Your Employer? [employer] Information not available 06/16/2024 Have There Been Any Changes To Your Family Or Social Situation? No Information not available 06/16/2024 Are There Any Guns Present In Your Home? No Information not available 06/16/2024 Which Of Your Hands Is Dominant? Right Information not available 06/16/2024 What Is Your Home Situation? Father Information not available 06/16/2024 Do You Have A Medical Power Of Flower Arranger? No Information not available 06/16/2024 What Was The Date Of Your Most Recent Tobacco Screening? 07/25/2024 Information not available 07/25/2024 Are There Any Occupational Health Risks Where You Work? No Information not available 06/16/2024 Do You Have Any Pets? Yes Information not available 06/16/2024 What Is Your Relationship Status? Domestic Partner Information not available 06/16/2024 Have You Repeated Any Grades? No Information not available 06/16/2024 Do You Use Your Seat Belt Or Car Seat Routinely? Yes Information not available 06/16/2024 Are You Sexually Active? Yes Information not available 06/16/2024 Do You Have Any Siblings? 3 Information not available 06/16/2024 Do You Have Smoke And Carbon Monoxide Detectors In Your Home? Yes Information not available 06/16/2024 Are You Passively Exposed To Smoke? No Information not available 06/16/2024 Are There Any Smokers In Your House? No Information not available 06/16/2024 Do You Participate In Social Media? Yes Information not available 06/16/2024 Do You Use Sunscreen Routinely? No Information not available 06/16/2024 Has Tobacco Cessation Counseling Been Provided? No Information not available 06/16/2024 Have You Recently Traveled Abroad? No Information not available 06/16/2024 Do You Have Difficulty Walking Or Climbing Stairs? No Information not available 06/16/2024 Are You Currently In School? No Information not available 06/16/2024 Do You Have Any Dietary Restrictions? No Information not available 06/16/2024 Sex: Unknown Functional Status Question Answer Note LastModified by Organizat ion Details LastModified Time Do you use any illicit or recreational drugs? No Information not available 06/16/2024 Do you or have you ever used any other forms of tobacco or nicotine? No Information not available 06/16/2024 What is your level of alcohol consumption? Occasional Information not available 06/16/2024 Are you currently employed? Yes Information not available 06/16/2024 Do you have transportation difficulties? No Information not available 06/16/2024 Are you able to walk? YESWOREST Information not available 06/16/2024 Do you have difficulty doing errands alone? No Information not available 06/16/2024 Are you able to care for yourself? Yes Information n ot available 06/16/2024 Do you have difficulty dressing or bathing? No Information not available 06/16/2024 What is your exercise level? Occasional Information not available 06/16/2024 Mental Status Question Answer Note LastModified by Organizat ion Details LastModified Time Do you feel stressed (tense, restless, nervous, or anxious, or unable to sleep at night)? SN6127-8 Information not available 06/16/2024 Do you have difficulty concentrating, remembering or making decisions? No Information no t available 06/16/2024 Family History Relationship Description Onset Age of this Age Resolved Age Notes LastModified by Organization Details LastModified Time Maternal Grandmother Alzheimer's disease Not available 2024 15:51:13 Maternal Grandfather Hypercholest erolemia Not available 2024 15:51:13 Maternal Grandfather Asthma Not available 2024 15:51:13 Maternal Grandfather Arthritis Not available 06/2024 15:51:13 Maternal Grandfather Hypertensive disorder Not available 2024 15:51:13 Maternal Grandfather Heart disease Not available 2024 15:51:13 Maternal Grandfather Diabetes mellitus Not available 2024 15:51:13 Father Hypercholest erolemia Not available 2024 15:51:13 Father Asthma Not available 06/2024 15:51:13 Father Arthritis Not available 06/16/2024 15:51:13 Father Hypertensive disorder Not available 2024 15:51:13 Father Heart disease Not available 2024 15:51:13 Father Diabetes mellitus Not available 2024 15:51:13 Medical History Condition Response Coronary Artery Disease N Other N Gout N Blood Diseases N Kidney Stones N Hyperthyroidism N Blood Transfusion N Breast Cancer N Emergency room visit since last appointm ent. N Lung Disease N COPD N Depression N Dermatologic Disorders N Hypothyroidism N Defects or Inherited Disease N Developmental or Behavioral Disorders N Breast Problem N Difficulty Swallowing N Anesthesia Complications N History of STI N Meniere's disease N Anxiety Disorder N Muscle, Joint, or Bone Problems N Autoimmune disease N Vision or Eye Problems N Arthritis N Polyps N Infertility N Mental Disorder N Congenital Anomalies N Acid Reflux (GERD) N Cancer N Stroke N Neurologic/Epilepsy N Endometriosis N Bladder or Kidney Problems N High Cholesterol N Liver Disease N Psychiatric/Mental Health Condition N Organ Transplant N Dialysis N Schizophrenia N Fibromyalgia N Headaches N Kidney Disease N Allergies/Hayfever N Heart Problems N Ear or Hearing Problems N Hospitalizations N Learning Disorder N Artificial Joints N Thyroid Problems N GI Problems N Acne N ADD/ADHD N Eating Disorder N Anemia N Constipation N Mental Illness N Diabetes N Ovarian Cancer N Bedwetting N Hepatitis/Liver Disease N Tuberculosis N Eczema N Abuse/Domestic Violence N Diverticulitis N Asthma N Trauma/Violence N Substance Abuse N Reflux/GERD N Depression/ depression N Hepatitis N Heart Disease N Pulmonary Embolism N Tourette Syndrome N Chronic Ear Infections N Pre-Eclampsia N Hypertension Y Chicken Pox N Autism Spectrum Disorder (ASD) N Osteoporosis N Thrombophilias N Immunizations Vaccine Type Date Status Note Provider Nam e and Address Organization Details Recorded Time Influenza, split virus, quadrivalent, preservative 4 completed Inessa Vice null, [employer] 06/16/2024 15:51:44 Hib, unspecified formulation 2 completed Inessa Vice null, [employer] 06/16/2024 15:51:44 Hib, unspecified formulation 1 completed Inessa Vice null, [employer] 06/16/2024 15:51:44 Hib, unspecified formulation 1 completed Inessa Vice null, [employer] 06/16/2024 15:51:44 IPV 5 completed Inessa Vice null, [employer] 06/16/2024 15:51:44 IPV 2 completed Inessa Vice null, [employer] 06/16/2024 15:51:44 IPV 2 completed Inessa Vice null, [employer] 06/16/2024 15:51:44 IPV 1 completed Inessa Vice null, [employer] 06/16/2024 15:51:44 Influenza, live, trivalent, intranasal 0 completed Inessa Vice null, [employer] 06/16/2024 15:51:44 Influenza, live, trivalent, intranasal 2 completed Inessa Vice null, [employer] 06/16/2024 15:51:44 MMR 5 completed Inessa Vice null, [employer] 06/16/2024 15:51:44 MMR 2 completed Inessa Vice null, [employer] 06/16/2024 15:51:44 COVID-19, mRNA, LNP-S, PF, 30 mcg/0.3 mL dose 1 completed Inessa Vice null, [employer] 06/16/2024 15:51:44 COVID-19, mRNA, LNP-S, PF, 30 mcg/0.3 mL dose 1 completed Inessa Vice null, [employer] 06/16/2024 15:51:44 pneumococcal conjugate PCV 7 2 completed Inessa Vice null, [employer] 06/16/2024 15:51:44 pneumococcal conjugate PCV 7 1 completed Inessa Vice null, [employer] 06/16/2024 15:51:44 pneumococcal conjugate PCV 7 2 completed Inessa Vice null, [employer] 06/16/2024 15:51:44 pneumococcal conjugate PCV 7 1 completed Inessa Vice null, [employer] 06/16/2024 15:51:44 Tdap 2 completed Inessa Vice null, [employer] 06/16/2024 15:51:44 varicella 2 completed Inessa Vice null, [employer] 06/16/2024 15:51:44 varicella 4 completed Inessa Vice null, [employer] 06/16/2024 15:51:45 varicella 2 completed Inessa Vice null, [employer] 06/16/2024 15:51:45 Influenza, split virus, trivalent, PF 1 completed Inessa Vice null, [employer] 06/16/2024 15:51:45 Influenza, split virus, trivalent, PF 5 completed Inessa Vice null, [employer] 06/16/2024 15:51:45 Hep B, adolescent or pediatric 2 completed Inessa Vice null, [employer] 06/16/2024 15:51:45 Hep B, adolescent or pediatric 1 completed Inessa Vice null, [employer] 06/16/2024 15:51:45 Hep B, adolescent or pediatric 2 completed Inessa Vice null, [employer] 06/16/2024 15:51:45 Hep A, ped/adol, 2 dose 8 completed Inessa Vice null, [employer] 06/16/2024 15:51:45 Hep A, ped/adol, 2 dose 8 completed Inessa Vice null, [employer] 06/16/2024 15:51:45 meningococcal MCV4P 8 completed Inessa Vice null, [employer] 06/16/2024 15:51:45 DTaP, unspecified formulation 2 completed Inessa Vice null, [employer] 06/16/2024 15:51:45 DTaP, unspecified formulation 5 completed Inessa Vice null, [employer] 06/16/2024 15:51:45 DTaP, unspecified formulation 1 completed Inessa Vice null, [employer] 06/16/2024 15:51:45 DTaP, unspecified formulation 2 completed Inessa Vice null, [employer] 06/16/2024 15:51:45 DTaP, unspecified formulation 1 completed Inessa Vice null, [employer] 06/16/2024 15:51:45 meningococcal MCV4, unspecified formulation 2 completed Inessa Vice null, [employer] 06/16/2024 15:51:45 Influenza, split virus, quadrivalent, PF 8 completed Inessa Vice null, [employer] 06/16/2024 15:51:45 Influenza, split virus, quadrivalent, PF 7 completed Inessa Vice null, [employer] 06/16/2024 15:51:45 Influenza, split virus, quadrivalent, PF 6 completed Inessa Vice null, [employer] 06/16/2024 15:51:45 Influenza, split virus, quadrivalent, PF 5 completed Inessa Vice null, [employer] 06/16/2024 15:51:45 Influenza, split virus, quadrivalent, PF 3 completed Inessa Vice null, [employer] 06/16/2024 15:51:45 Past Encounters Encounter ID Performer Location Encounter Start Date Encounter Closed Date Diagnosis/Indication Diagnosis SNOMED-CT Code Diagnosis ICD10 Code Diagnosis Note [id number] MARIBEL Lin [address] [address] 06/16/2024 15:44:22 06/16/2024 16:10:00 Essential hypertension 08247769 I10 Influenza A virus present 0970151189 08 J09.X2 Body mass index 30+ - obesity 061619642 Z68.39 [id number] MARIBEL Lin [address] [address] 06/20/2024 07:57:27 06/20/2024 08:30:48 Sore throat 400195347 J02.9 Acute pharyngitis 465782 003 J02.9 Influenza A virus present 4208716672 08 J09.X2 [id number] MARIBEL Lin [facility] [address] [place] [address] 07/25/2024 15:15:32 07/25/2024 16:24:33 Lightheadedness 632131073 R42 Essential hypertension 52726077 I10 History of primary hyperparathyroidism 2290396566 9106 Z86.39 Health Concerns Section Related Observation LastModified by Organization Detai ls LastModified Time None Recorded Concern Status LastModified by Organization Details LastModified Time None Recorded Advance Directives Directive N: Payers Insurance Date Sequence Insurance Name Policy Number Policy Obando Covered Member ID Obando Member ID Guarantor Name 07/28/2024 1 [place] [id number] A Reji Will [id number] Reji Will 06/16/2024 1 *SELF PAY* Ezekiel Will Notes Date Note Type Note Provider Name and Address Organization Details Recorded Time 5 text/html Patient presents to establish care at [facility]. History of HTN. States he is compliant with meds, denies side effects. Denies headache, chest pain, vertigo, dyspnea. Diagnosed with flu A at [facility] yesterday. MARIBEL Lin [address] [place] [address], [phone], [employer] 06/16/2024 16:23:24 5 text/html Patient diagnosed with influenza A Sunday. Still feeling rough. Has sore throat with blisters now. Needs note for work. MARIBEL Lin [address] [place], [address], [employer] 06/20/2024 11:45:27 5 text/html Patient presents for followup. History of HTN. Blood pressure is well controlled. He feels hot and flushed.History of hyperparathyroidism with parathyroidectomy MARIBEL Lin [address] [place], [address], [employer] 07/25/2024 17:32:57
--- OUTSIDE RECORDS SUMMARY | 2024-10-30 17:31 | XMS_ITS | Encounter Summary ---
Author Organization [facility] Address [address] [place] [address] Phone [email or web address] Care Team Providers Care Carcass Splitter Name Role Phone Provider, No Primary Care Provider Unavailabl e Reason for Visit * Reason Onset Date Comments Care Coordination 10/22/2024 Encounter Details Date Type Department Care Team (Late st Contact Info) Description 10/22/[address] [place] [address] Jesusita Small RN [address] [place] [address] Social History Tobacco Use Types [...] Telephone Encounter - Jesusita Small RN - 10/22/2024 10:29 AM EDT 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 KAREN: per [...] left shoulder M25.512 Date of Injury: 07/08/24 Date reported: 07/14/24 Any previous/current IR's: No Current temporary restrictions: Yes, see [facility] discharge instructions Comorbidities: Obesity, Hypertension Current plan of care: 09/25/24- Dr Jack- Continues restrictions, subacromial injection in left shoulder, and continue PT 10/20/24- [facility] begins. [facility] to [facility] work day count. Clinic Provider: MARIBEL Arce [phone] NEXT CLINIC VISIT: after being released by specialist Last Specialist Visit: 09/25/24 NEXT SPECIALIST VISIT: 10/23/24 9:[address] Jack Notes: PC to TM for case management introduction. CM contact information given. WMLOA discussed.TM had been attending PT onsite but states the therapist didn't think it was benefiting him and he plans to discuss this with Dr Jack at tomorrows follow up. TM has no questions or concerns at this time.Will call to update after tomorrows appointment. 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 -TM verbalized knowledge of next steps/appointments. -TM verbalized knowledge that restrictions apply while at AND away from work. -TM has no further concerns at this time. Class C Truck Driver Signature: Jesusita Small RN documented in this encounter Plan of Treatment Not on file documented as of this encounter Visit Diagnoses Not on filedocumented in this encounter Care Teams Carcass Splitter Relationship Specialty Start Date End Date Provider, [place] [address] PCP - General Production Helper 10/06/19 documented as of this encounter
--- OUTSIDE RECORDS SUMMARY | 2024-10-30 17:31 | XMS_ITS | Clinical Summary ---
Author Organization Healthcare Address [address] [place] [id number] Care Team Providers Care Financial Service Rep Name Role Phone Pcp, No Primary Care Provider Unavailabl e Allergies No known active allergies Medications lisinopril 10 MG tablet Take 10 mg by mouth 1 (one) time each day. Active alendronate (Fosamax) 70 MG tablet Take 70 mg by mouth 1 (one) time per week. On Mondays02/02/2022 Active calcium carbonate (Tums Ultra) 1000 MG chewable tablet Chew 1 tablet (1,000 mg total) 2 (two) times a day. 60 tablet 04/21/2022 Active Active Problems Problem Noted Date Diagnosed Date HTN (hypertension) 04/21/2022 Primary hyperparathyroidism 03/03/2022 Overview (03/03/2022): Added automatically from request for surgery [id number] Acute nasopharyngitis 01/31/2018 Nasal congestion 01/31/2018 ADHD (attention deficit hype ractivity disorder), predominantly hyperactive impulsive type 03/24/2011 Insomnia 03/24/2011 Family History Medical History Relation Name Comments Cancer Father Diabetes Father Heart Problem Father Hypertension Father Relation Name Status Comments Father Social History Tobacco Use Types Packs/Day Years Used Date Smoking Tobacco: Never Smokeless Tobacco: Never Tobacco Cessation:Counseling Given: Not Answered Alcohol Use Standard Drinks/Week Comments Yes 0 (1 standard drink = 0.6 oz pur e alcohol) 1 PHQ-2 Answer Date Recorded Patient Health Questionnaire-2 Score 0 03/02/2022 Sex and Gender Information Value Date Recorded Sex Assigned at Male 04/21/2022 6:50 AM EST Legal Sex Male 9:10 AM EDT Gender Identity Male 04/21/2022 6:50 AM EST Sexual Orientation Not on file Last Filed Vital Signs Vital Sign Reading Time Taken Comments Blood Pressure 151/86 04/21/2022 1:02 PM EST Pulse 100 04/21/2022 1:02 PM EST Temperature 36 C (96.8 F) 04/21/2022 1:02 PM EST Respiratory Rate 14 04/21/2022 1:02 PM EST Oxygen Saturation 96% 04/21/2022 1:02 PM EST Inhaled Oxygen Concentration - - Weight 118 kg (260 lb) 04/21/2022 6:10 AM EST Height 188 cm (6' 2 ) 04/21/2022 6:10 AM EST Body Mass Index 33.38 04/21/2022 6:10 AM EST Plan of Treatment Health Maintenance Due Date Last Done Comments [facility]-HIV Screening 2000 [facility]-Hepatitis C Screening 2000 [facility]-/Child/Adol SDOH Screenings 2000 HPV Vaccines (1 - Male 3-dose series) 10/24/2015 [facility]- SDOH Screenings 2018 [facility]-Adult SDOH Screenings 2018 [facility]-DTaP,Tdap,and Td Vaccines (7 - Td or Tdap) 11/07/2021 11/08/2011, 11/29/2004, 03/11/2002, Additional history exists [facility]-Depression Screening 03/02/2023 03/02/2022, 02/14 [id number] Vaccine ( season) 2023 01/14/2021, 12/24/2020 [facility]-Influenza Vaccine (#1) 12/15/202402/04, 02/06/2017, 02/17/2016, Additional history exists [facility]-Zoster Vaccines (1 of 2) 2050 11/08/2011, 11/18/2003, 03/24/2002 [facility]-HIB Vaccines Completed 03/11/2002, , 03/29/2001, Additional history exists [facility]-Hepatitis B Vaccines Completed 002, 10/24/2001, 01/14/2001, Additional history exists [facility]-Pneumococcal Vaccine: Pediatrics (0 to 5 Years) and At-Risk Patients (6 to 49 Years) Completed 03/24/2002, 03/11/2002, 07/05/2001, Additional history exists [facility]-IPV Vaccines Completed 11/29/2004, , 01/14/2002, Additional history exists [facility]-Varicella Vaccines Completed 2, 11/18/2003, 03/24/2002 [facility]-Hepatitis A Vaccines Completed 02/04/2018, 07/15 [facility]-Obesity Intervention Completed 022, 02/02/2022, 02/02/2022 [facility]-Rotavirus Vaccines Aged Out No lo nger eligible based on patient's age to complete this topic Insurance KELLIE Care Teams Financial Service Rep Relationship Specialty Start Date End Date Pcp, Alla [address] [place] [address] PCP - General Family Medicine 02/02/22
[2024-10-30 17:32] VITALS: BP 140/66; PULSE 112; RESP 11; TEMP 36.9; O2SAT 100; BMI 39.5
--- NOTE | 2024-10-30 17:35 | XR_ITS ---
PROCEDURE INFORMATION: Exam: XR Chest Exam date and time: 10/30/2024 5:56 PM Age: 24 years old Clinical indication: Pain; Other: Cp TECHNIQUE: Imaging protocol: Radiologic exam of the chest. Views: 1 view. COMPARISON: No relevant prior studies available. FINDINGS: Lungs: Unremarkable. No consolidation. Pleural spaces: Unremarkable. No pleural effusion. No pneumothorax. Heart/Mediastinum: Unremarkable. No cardiomegaly. Bones/joints: Unremarkable. IMPRESSION: No acute findings.
--- NOTE | 2024-10-30 17:38 | ED_ITS ---
<Statement entered by Romelia Gale DO - 10/30/24 20:04> I was consulted by the SCOTTIE, and we discussed the complexity of the problems being addressed. I approved the treatment and management plan for this patient's care in the emergency department, thus performing a substantive portion of the medical decision making. Romelia Gale DO Discharge Plan Disposition Patient Disposition: Home, Self-Care Prescriptions Prescriptions: No Action montelukast 10 mg tablet 10 mg PO DAILY Patient Comments: TAKE 1 TABLET BY MOUTH DAILY cholecalciferol (vitamin D3) 50 mcg (2,000 unit) capsule 50 mcg PO DAILY Patient Comments: TAKE 1 CAPSULE BY MOUTH ONCE DAILY amoxicillin 500 mg capsule 500 mg PO BID Qty: 20 0RF lisinopril-hydrochlorothiazide 20-12.5 mg tablet 1 tab PO DAILY atorvastatin 10 mg tablet 10 mg PO Patient Comments: TAKE 1 TABLET BY MOUTH EVERY DAY AT BEDTIME FOR CHOLESTEROL nebivolol 5 mg tablet 5 mg PO DAILY Qty: 90 3RF Wegovy 0.5 mg/0.5 mL pen injector 0.5 mg SQ Q7D Qty: 2 2RF Referrals Follow up/Referrals: Provider,Referral, MD [Referring, Medical] - See instructions Activity Restrictions/Add. Instructions Additional Instructions/Restrictions: Increase fluids and rest. Take medications as directed. Please follow-up with your primary care for further workup if needed. Return to ED if any worsening signs or symptoms occur. Clinical Impressions Clinical Impression: Hyperlipidemia, Hypertension, GERD (gastroesophageal reflux disease), Chest pain Instructions Patient Instructions: DI for Chest Pain Print Language Print Language: Thai Discharge ED Provider: Romelia Gale HPI <Hayde Trujillo (ED), TISSUE COORDINATOR - Last Filed: 10/30/24 19:52> General Chief Complaint: Chest Pain Stated Complaint: Chest Pain Time Seen by Provider: 10/30/24 17:27 Mode of Arrival: Ambulatory Source of Information: Patient Description of Symptoms (Recalled from ER Triage Doc. by RN): pt c/o intermittant sternal chest pain x3d. pt states his pain is currently 7/10 and a dull ache. pt states the pain is somewhat better when lying down. pt denies other symptoms. pt has a hx of HLD and HTN History of Present Illness HPI narrative: 24-year-old male presents to the ED today with complaint of intermittent epigastric and midsternal chest pain for the past 3 days. He states that the pain has become 7 out of 10 and achy. It is better when he lays down. He is not sure what he was doing when the pain started 3 days ago. He has had no nausea or vomiting. No shortness of air. He does have hypertension and takes medication for this. He has hyperlipidemia and takes medication for this. He is concerned because he has a family history of diabetes and heart disease with stents. Related Data Home Medications ?Medication ?Instructions ?Recorded ?Confirmed lisinopril 20 1 tab PO DAILY 02/04/2401/08 mg-hydrochlorothiazide 12.5 mg tablet atorvastatin 10 mg tablet 10 mg PO 08/14/24 10/22/24 cholecalciferol (vitamin D3) 50 50 mcg PO DAILY 10/22/24 mcg (2,000 unit) capsule montelukast 10 mg tablet 10 mg PO DAILY 10/22/2401/08 Previous Rx's ?Medication ?Instructions ?Recorded nebivolol 5 mg tablet 5 mg PO DAILY #90 tabs 08/14 semaglutide (weight loss) 0.5 0.5 mg (0.5 mL) SQ Q7D # 2 mL 10/13/24 mg/0.5 mL subcutaneous pen injector (Wegovy) amoxicillin 500 mg capsule 500 mg PO BID #20 caps 01/08 Allergies Allergy/AdvReac Type Severity Reaction Status Date / Time No Known Allergies Allergy Verified 10/22/24 17:12 [facility] <Hayde Trujillo (ED), TISSUE COORDINATOR - Last Filed: 10/30/24 19:52> [facility] Disclaimer: The information contained in this section may have been updated after the patient was seen, as this information can be updated by other users. Medical History (Updated 10/30/24 @ 18:19 by Hayde Trujillo (ED), TISSUE COORDINATOR) Pharyngitis Chronic sinusitis of both maxillary sinuses Tonsillar debris Tonsil stone Enlarged tonsils Plantar fasciitis of left foot Acute epididymitis Metatarsalgia of left foot Left foot pain Pain in toe of left foot Capsulitis of metatarsophalangeal (MTP) joint of left foot Sprain of tarsometatarsal joint of left foot Headache Acute bacterial bronchitis Flank pain Plantar fasciitis, bilateral Metatarsalgia of both feet Hemorrhage following tonsillectomy Metatarsalgia of right foot Peroneal tendinitis of right lower leg Edema of right foot Right foot pain Influenza A Family history of early CAD Family history of hypertension Hypertension Surgical History Status post tonsillectomy S/P removal of parathyroid gland No significant past surgical history Family History Other No significant family history Social History Smoking Status: Never smoker alcohol intake: never substance use type: denies use current occupational status: employed Travel in the last 8 weeks?: None Have you lived/traveled outside US in past 30 days?: No Contact w/someone who lives/traveled outside US past 30 days?: No Exposure to someone with infectious disease in past 14 days?: No Do you have a fever (greater than 100.4 F or 38 C)?: No Have you tested positive for COVID-19?: No Exposed to someone with COVID-19 in past 14 days?: No Do you have a sore throat?: No Do you have a cough?: No Do you have any weakness?: No Do you have any diarrhea?: No Are you experiencing any unusual bleeding?: No Do you have any muscle aches/pain?: No Do you have any abdominal pain?: No Are you experiencing loss of taste or smell?: No Other Medical History Have you received the Pneumonia Vaccine: No <Hayde Trujillo (ED), TISSUE COORDINATOR - Last Filed: 10/30/24 19:52> ROS Obtained: Yes Systems reviewed as appropriate & no additional complaints except as documented Constitutional Constitutional: Reports as per HPI Physical Exam <Hayde Trujillo (ED), TISSUE COORDINATOR - Last Filed: 10/30/24 19:52> General General appearance: alert and in no apparent distress Head Head exam: normocephalic Eye Eye exam: Present normal appearance and PERRL ENT ENT exam: Present mucous membranes moist Neck Neck exam: Present normal inspection and trachea midline Chest Chest inspection: Present symmetric chest wall rise Respiratory Respiratory exam: Present normal lung sounds bilaterally Cardiovascular Cardiovascular exam: Present normal rhythm, tachycardia, normal heart sounds, +S1 and +S2 Abdominal Exam Abdominal exam: Present soft and normal bowel sounds Extremities Exam Extremities exam: Present normal inspection, full ROM and normal capillary refill Back Exam Back exam: Present normal inspection and full ROM Neurological Exam Neurological exam: Present alert, oriented X3 and normal gait Psychiatric Psychiatric exam: Present normal mood and anxious Skin Skin exam: Present warm and dry HEART Score <Haydejeison Trujillo (ED), TISSUE COORDINATOR - Last Filed: 10/30/24 19:52> HEART Score HEART Score assessment performed?: Yes History (anamnesis): Slightly suspicious ECG: Normal Age: <45 years Risk factors: 1-2 risk factors Troponin: </= normal limit HEART Score: 1 <Romelia Gale, DO - Last Filed: 10/30/24 17:47> HEART Score HEART Score: 1 Critical Care <Haydejoe Trujillo (ED), TISSUE COORDINATOR - Last Filed: 10/30/24 19:52> Critical Care Time Critical Care Time: No Medical Decision Making <[facility] (ED), TISSUE COORDINATOR - Last Filed: 10/30/24 19:52> Jay Inquiry Pt receiving controlled substance: No Jay was queried for this patient: No Vital Signs Vital Signs: 10/30/24 17:32 10/30/24 18:00 10/30/24 18:24 Temperature 98.4 F 98.4 F Temperature Source Oral Pulse Rate 105 H 100 H Pulse Rate [Left] 112 H Respiratory Rate 11 L 24 20 Blood Pressure 123/75 123/75 Blood Pressure [Right Arm] 140/66 Blood Pressure Mean [Right Arm] 90 Blood Pressure Source [Right Arm] Automatic Cuff Blood Pressure Position [Right Arm] Sitting 02 Sat by Pulse Oximetry 100 95 Oxygen Delivery Method Room Air Room Air Lab Data Labs: Lab Results 10/30/24 17:35: WBC 12.9 H, RBC 5.07, Hgb 13.8 L, Hct 42.8, MCV 84.4, MCH 27.2, MCHC 32.2, RDW 14.8, Plt Count 321, MPV 11.3 H, Neut % (Auto) 76.5, Lymph % (Auto) 15.9, Bonner % (Auto) 5.4, Eos % (Auto) 0.8, Baso % (Auto) 0.4, Neut # (Auto) 9.9 H, Lymph # (Auto) 2.1, Bonner # (Auto) 0.7, Eos # (Auto) 0.1, Baso # (Auto) 0.1, D-Dimer 0.29, Sodium 139, Potassium 5.1, Chloride 104, Carbon Dioxide 26, Anion Gap 14.1, BUN 31 H, Creatinine 1.50 H, Estimated Creat Clear 150, Estimated GFR 57 L, Est GFR ( Amer) 70, Glucose 119 H, Calcium 10.0, Magnesium 2.0, Total Bilirubin 0.5, AST 29, ALT 34, Alkaline Phosphatase 65, Troponin I < 0.01, Total Protein 8.4 H, Albumin 4.8, Globulin 3.6 H, Albumin/Globulin Ratio 1.3, Lipase 106, HCV Ab JUSTINE w/Rflx PCR Qn Negative, HIV Ag/Ab Combo Qual Negative 10/30/24 17:35 10/30/24 17:35 Response Orders (Tests/Meds): ED MEDICATIONS Discontinued Medications Generic Name Dose Route Start Last Admin Trade Name Jeanq PRN Reason Stop Dose Admin Aspirin 324 mg 10/30/24 17:57 10/30/24 18:10 Aspirin 81mg Chewable Tablet PO 10/30/24 17:58 324 mg ONCE ONE Administration Famotidine 20 mg 10/30/24 17:56 10/30/24 18:09 Famotidine 20mg/2ml Vial IV 10/30/24 17:57 Not Given ONCE ONE Morphine Sulfate 2 mg 10/30/24 17:56 10/30/24 18:10 Morphine 2mg/Ml Syringe IV 10/30/24 17:57 Not Given ONCE ONE Ondansetron HCl 4 mg 10/30/24 17:56 10/30/24 18:10 Ondansetron 4mg/2ml Vial IV 10/30/24 17:57 Not Given ONCE ONE Sodium Chloride 8 ml 10/30/24 17:56 Sodium Chloride 0.9% 10ml Vial IV 11/29/24 17:55 NEEDED PRN dilute pepcid ORDERS Category Date Time Status Chest XR -- portable [XR chest portable] Stat Exams 10/30/24 17:35 Completed CBC [Complete Blood Count Auto Diff] Stat Lab 10/30/24 17:35 Completed Comprehensive Metabolic Panel Stat Lab 10/30/24 17:35 Completed D-Dimer Stat Lab 10/30/24 17:35 Completed HIV Combo Stat Lab 10/30/24 17:35 Completed Hepatitis C Ab Qual. W/ RFX Stat Lab 10/30/24 17:35 Completed Lipase Stat Lab 10/30/24 17:35 Completed Magnesium Stat Lab 10/30/24 17:35 Completed Trop I [Troponin I] Stat Lab 10/30/24 17:35 Completed MDM Narrative Medical Decision Narrative: patient is a 24-year-old male presenting to the emergency department for evaluation of chest pain. Patient is hemodynamically stable and nontoxic- appearing upon arrival, afebrile. Differential diagnosis includes ACS, anxiety, among others. Workup will be conducted with hematologic labs, specific imaging. Initial workup reviewed by me hematologic labs are remarkable for minimally elevated white count at 12.9, BUN and creatinine were slightly elevated which these have been elevated in the past. Patient also has a normal troponin and a normal dimer. Patient's blood work really did not explain any of his symptoms.. Imaging informally interpreted by me and remarkable for gastric bubble but otherwise unremarkable. Dr. Gale looked at x-ray as well. Formal read is not back yet. Upon repeat evaluation patient's pain is improved. Although patient did refuse pain medications. I discussed with Dr. Gale plan for patient and he can follow-up outpatient with his primary care physician. Patient is safe for discharge home. <Romelia Gale, DO - Last Filed: 10/30/24 17:47> Vital Signs Vital Signs: 10/30/24 17:32 10/30/24 18:00 10/30/24 18:24 Temperature 98.4 F 98.4 F Temperature Source Oral Pulse Rate 105 H 100 H Pulse Rate [Left] 112 H Respiratory Rate 11 L 24 20 Blood Pressure 123/75 123/75 Blood Pressure [Right Arm] 140/66 Blood Pressure Mean [Right Arm] 90 Blood Pressure Source [Right Arm] Automatic Cuff Blood Pressure Position [Right Arm] Sitting 02 Sat by Pulse Oximetry 100 95 Oxygen Delivery Method Room Air Room Air Lab Data Labs: Lab Results 10/30/24 17:35: WBC 12.9 H, RBC 5.07, Hgb 13.8 L, Hct 42.8, MCV 84.4, MCH 27.2, MCHC 32.2, RDW 14.8, Plt Count 321, MPV 11.3 H, Neut % (Auto) 76.5, Lymph % (Auto) 15.9, Bonner % (Auto) 5.4, Eos % (Auto) 0.8, Baso % (Auto) 0.4, Neut # (Auto) 9.9 H, Lymph # (Auto) 2.1, Bonner # (Auto) 0.7, Eos # (Auto) 0.1, Baso # (Auto) 0.1, D-Dimer 0.29, Sodium 139, Potassium 5.1, Chloride 104, Carbon Dioxide 26, Anion Gap 14.1, BUN 31 H, Creatinine 1.50 H, Estimated Creat Clear 150, Estimated GFR 57 L, Est GFR ( Amer) 70, Glucose 119 H, Calcium 10.0, Magnesium 2.0, Total Bilirubin 0.5, AST 29, ALT 34, Alkaline Phosphatase 65, Troponin I < 0.01, Total Protein 8.4 H, Albumin 4.8, Globulin 3.6 H, Albumin/Globulin Ratio 1.3, Lipase 106, HCV Ab JUSTINE w/Rflx PCR Qn Negative, HIV Ag/Ab Combo Qual Negative Response Orders (Tests/Meds): ED MEDICATIONS Discontinued Medications Generic Name Dose Route Start Last Admin Trade Name Freq PRN Reason Stop Dose Admin Aspirin 324 mg 10/30/24 17:57 10/30/24 18:10 Aspirin 81mg Chewable Tablet PO 10/30/24 17:58 324 mg ONCE ONE Administration Famotidine 20 mg 10/30/24 17:56 10/30/24 18:09 Famotidine 20mg/2ml Vial IV 10/30/24 17:57 Not Given ONCE ONE Morphine Sulfate 2 mg 10/30/24 17:56 10/30/24 18:10 Morphine 2mg/Ml Syringe IV 10/30/24 17:57 Not Given ONCE ONE Ondansetron HCl 4 mg 10/30/24 17:56 10/30/24 18:10 Ondansetron 4mg/2ml Vial IV 10/30/24 17:57 Not Given ONCE ONE Sodium Chloride 8 ml 10/30/24 17:56 Sodium Chloride 0.9% 10ml Vial IV 11/29/24 17:55 NEEDED PRN dilute pepcid ORDERS Category Date Time Status Chest XR -- portable [XR chest portable] Stat Exams 10/30/24 17:35 Completed CBC [Complete Blood Count Auto Diff] Stat Lab 10/30/24 17:35 Completed Comprehensive Metabolic Panel Stat Lab 10/30/24 17:35 Completed D-Dimer Stat Lab 10/30/24 17:35 Completed HIV Combo Stat Lab 10/30/24 17:35 Completed Hepatitis C Ab Qual. W/ RFX Stat Lab 10/30/24 17:35 Completed Lipase Stat Lab 10/30/24 17:35 Completed Magnesium Stat Lab 10/30/24 17:35 Completed Trop I [Troponin I] Stat Lab 10/30/24 17:35 Completed ECG Data Tracing #1: Attestation: I reviewed this ECG and interpreted as documented below: ECG Narrative: Sinus tachycardia with a ventricular rate of [address] changes concerning for ischemia. Normal intervals ECG initial impression date: 10/30/24 ECG initial impression time: 17:32
[2024-10-30 17:47] LABS: Hematocrit 42.8 % (42.0-52.0); Hemoglobin 13.8 g/dL (14.1-18.0); Immature Granulocytes % 1.0 %; Mean Corpuscular HGB Conc 32.2 g/dL (31.8-35.4); Mean Corpuscular Hemoglobin 27.2 pg (27.0-31.2); Mean Corpuscular Volume 84.4 fl (80-94); Nucleated Red Blood Cells % 0 %; Platelet Count 321 K/mm3 (142-424); Red Blood Count 5.07 M/mm3 (4.60-6.20); Red Cell Distribution Width-SD 44.5 fL; White Blood Count 12.9 K/mm3 (4.8-10.8)
[2024-10-30 17:54] LABS: Albumin Level 4.8 g/dl (3.5-5.0); Chloride 104 mmol/L (98-107); Potassium 5.1 mmoL/L (3.5-5.1); Sodium 139 mmol/L (136-145)
[2024-10-30 17:56] LABS: Alanine Aminotransferase 34 U/L (12-78); Anion Gap 14.1 mEq/L (5-15); Aspartate Amino Transferase 29 U/L (17-59); Blood Urea Nitrogen 31 mg/dl (9-20); Carbon Dioxide 26 mmol/L (22.0-30.0); Creatinine Clearance Estimated 150 mL/min (50-200); Creatinine,Serum 1.50 mg/dl (0.66-1.25); Estimated Glomerular Filt Rate 57 ml/min (>60); GFR (African American) 70 ML/MIN (>60)
[2024-10-30 17:57] LABS: Albumin/Globulin Ratio 1.3 (1.1-1.8); Alkaline Phosphatase 65 U/L (38-126); Bilirubin,Total 0.5 mg/dl (0.2-1.3); Calcium 10.0 mg/dl (8.4-10.2); Globulin 3.6 g/dL (1.3-3.2); Glucose 119 mg/dl (74-100); Lipase 106 U/L (23-300); Magnesium 2.0 mg/dl (1.6-2.3); Total Protein,Serum 8.4 g/dl (6.3-8.2)
[2024-10-30 18:00] VITALS: BP 123/75; PULSE 105; RESP 24; O2SAT 95
[2024-10-30 18:02] LABS: D-Dimer 0.29 ug/mL (0.0-0.5)
[2024-10-30 18:10] LABS: Troponin I < 0.01 ng/ml (0.00-0.034)
[2024-10-30] MEDS: ASPIRIN 81MG CHEWABLE TABLET 324 MG PO (18:10)
[2024-10-30 18:24] VITALS: BP 123/75; PULSE 100; RESP 20; TEMP 36.9; O2SAT 100
--- NOTE | 2024-10-30 18:28 | PC.NURSE ---
patient refused all meds other than aspirin
[2024-10-30 18:46] LABS: Hepatitis C Ab Qual. W/ RFX NEGATIVE (Negative)
== END 2024-10-30 18:29 | disposition home or self-care (01) ==
PROVIDERS: Nurse Practitioner; Emergency Provider Emergency Medicine; PCP Family Medicine
DX: R07.9 Chest pain, unspecified (principal); E87.5 Hyperkalemia; K21.9 Gastro-esophageal reflux disease without esophagitis
CPT/HCPCS: 71045; 80053; 83690; 83735; 84484; 85025; 85378; 86803; 87389; 93005; 96374; 96375; 99285

== ENCOUNTER 2024-11-05 22:29 | Emergency (ER) | payer BC, SELFPAY ==
--- OUTSIDE RECORDS SUMMARY | 2024-10-16 13:30 | XMS_ITS | Encounter Summary ---
Author Organization [facility] Address [address] [place] [address] Phone [email or web address] [email or web address] Care Team Providers Care Pick Up Truck Driver Name Role Phone Provider, No Primary Care Provider Unavailabl e Reason for Visit * Reason Comments Follow up Musculoskeletal Issue Encounter Details Date Type Department Care Team (Latest Contact Info) Description 10/16/2024 1:30 PM EDT Clinical Support ABDIRAHMAN [address] [place] [address] Chanell Meza PA [address] [place] [address] Acute pain of left shoulder [...] him to RTW without restrictions 5. Call [facility] @ [phone] for any questions/concerns/appointments. 6. Projected return to full rotation: to be determined by specialist documented in this encounter Progress Notes * MARIBEL Suh - 10/16/2024 1:30 PM EDT Subjective Reji Will is a 23 y.o. male who presents for follow up occ for bilat shoulders/upper back. Workday ID #: [id number] Cost Center: [facility] Length of Time in Current Group: 6 months Shift Color or Number: 1 Employer: [employer] Employee Status: Full-time GL Name: Felipe Garcia Case #: [id number] Body Part/ Side: Bilat shoulders/upper back. OSHA Date of Injury: 07/08/24 F/u occ: Bilateral Shoulder / upper Back. Restricted . TM here to discuss questions related to [facility]. LDW today. Next follow up with Dr. Jakc is 10/23/24. He also states his restrictions [...] RTW without restrictions 5. Call [facility] @ [phone] for any questions/concerns/appointments. 6. Projected return to full rotation: to be determined by specialist documented in this encounter Plan of Treatment Not on file documented as of this encounter Visit Diagnoses Diagnosis Acute pain of left shoulder- Primary documented in this encounter Care Teams Pick Up Truck Driver Relationship Specialty Start Date End Date Provider, RICARDO Merino [address]3263 PCP - General Histology Tech 10/06/19 documented as of this encounter
[2024-11-05 23:13] VITALS: BP 152/71; PULSE 77; RESP 16; TEMP 36.9; O2SAT 98; BMI 38.5
--- OUTSIDE RECORDS SUMMARY | 2024-11-05 23:14 | XMS_ITS | Encounter Summary ---
Author Organization [facility] Address [address] [place] [id number] Phone [email or web address] Care Team Providers Care Inspector Tool Name Role Phone Provider, No Primary Care Provider Unavailabl e Reason for Visit * Reason Onset Date Comments Care Coordination 11/04/2024 Encounter Details Date Type Department Care Team (Late st Contact Info) Description 11/04/[address] [place] [address] Jesusita Small, RN [address] [place] [address] Social History Tobacco Use Types [...] Telephone Encounter - Jesusita Small RN - 11/04/2024 9:39 AM EDT Nurse catering sales manager note for follow up call. 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 KAREN: per [...] 10/20/24- WMLOA begins. [facility] day count. 10/23/24- Dr Jack follow up. Placed off work and referred for left shoulder MRI. TM told to hold PT. 11/05/24- MRI left shoulder Clinic Provider: MARIBEL Arce [phone] F/U Call Notes: PC from TM to update that MRI is approved and scheduled for tomorrow and follow up with Dr Melo 11/10/2509:00 AM. Last Specialist Visit: 10/23/24 Next Specialist Visit: MRI 11/05/24 and follow up 11/10/24 10:[address] Melo Service Vehicle Operator Plan/Goals: TM to keep scheduled apts TM to call with updates or changes Continue following plan of care per specialist Conclusion: -TM to call back with updates and changes or as needed. -TM verbalized knowledge of next steps/appointments. -TM has no further concerns at this time. Service Vehicle Operator Signature: Jesusita Small RN Date: 11/04/24 documented in this encounter Plan of Treatment Not on file documented as of this encounter Visit Diagnoses Not on filedocumented in this encounter Care Teams Inspector Tool Relationship Specialty Start Date End Date Provider, RICARDO Merino [id number] PCP - General Aggregate Conveyor Operator 10/06/19 documented as of this encounter
--- OUTSIDE RECORDS SUMMARY | 2024-11-05 23:14 | XMS_ITS | Clinical Summary ---
Author Organization [facility] Address [address] [place] [address] Phone [email or web address] Care Team Providers Care Count Team Member Name Role Phone Provider, No Primary Care Provider Unavailabl e Allergies No known active allergies Medications cholecalciferol (VITAMIN D-3) 1.25 MG (47441 UT) tablet Take 50,000 Units by mouth. Active ergocalciferol (VITAMIN D2) 1.25 MG (47681 UT) capsule TAKE 1 CAPSULE BY MOUTH [...] Encounters Date Type Department Care Team Description 11/04/2024 Telephone [facility] [address] [facility] [address] [place] [address] Jesusita Small RN [address] [place] [address] Jesusita Small RN 10/22/[address] [place] [address] Ashanti Perez MA 10/22/[address] [place] [address] Jesusita Small RN 10/16/2024 1:30 PM EDT Clinical Support [address] [place] [address] Chanell Meza PA Acute pain [...] OF 2 VIEWS, COMPLETE - LEFT CPT 27552 Routine 08/22/2024 12:36 PM EDT Acute pain of left shoulder from Last 3 Months Results * XR Shoulder, minimum of 2 views, complete - left CPT 26631 (08/22/2024 12:36 PM EDT) Anatomical Region Laterality [...] OPT OUT NO COPAY NB Care Teams Count Team Member Relationship Specialty Start Date End Date [place] [address] PCP - General Technology Applications Teacher 10/06/19
--- OUTSIDE RECORDS SUMMARY | 2024-11-05 23:14 | XMS_ITS | Encounter Summary ---
Author Organization [facility] Address [address] [place] [address] Phone [email or web address] Care Team Providers Care Sales Technician Name Role Phone Provider, No Primary Care Provider Unavailabl e Reason for Visit * Reason Onset Date Comments Care Coordination 2024 Encounter Details Date Type Department Care Team (Late st Contact Info) Description [address] [place] [address] Jesusita Small RN [address] [place] [address] Social History Tobacco Use Types [...] RN - 2024 1:52 PM EDT Nurse quality engineering manager note for follow up call. 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 KAREN: per [...] 10/20/24- WMLOA begins. [facility]. 10/23/24- Dr Jack follow up. Placed off work and referred for left shoulder MRI. TM told to hold PT. Clinic Provider: MARIBEL Arce [phone] F/U Call Notes: PC to TM for check in after specialist appointment today with Dr Jack. TM was placed off work and left shoulder MRI referral. TM was told to hold off on PT. TM states he has already updated Dianna Masterson. TM has no questions or concerns, will call with updates. Last Specialist Visit: 10/23/24 Next Specialist Visit: Pending MRI Lead Software Test Engineer Plan/Goals: TM to keep scheduled apts TM to call with updates or changes Notes requested from specialist's office Continue following plan of care per specialist Conclusion: -TM to call back with updates and changes or as needed. -TM verbalized knowledge of next steps/appointments. -TM has no further concerns at this time. Lead Software Test Engineer Signature: Jesusita Small RN Date: 10/23/24 documented in this encounter Plan of Treatment Not on file documented as of this encounter Visit Diagnoses Not on filedocumented in this encounter Care Teams Sales Technician Relationship Specialty Start Date End Date Provider, RICARDO Merino [id number] PCP - General Adjusto Writer Operator 10/06/19 documented as of this encounter
--- OUTSIDE RECORDS SUMMARY | 2024-11-05 23:14 | XMS_ITS | Data Portability ---
Author Organization [facility] [place] - MSE Address [address] [place] [address] Assessment No assessment recorded. Plan of Treatment Reminders Order Date Submit Date Provider Last Modified By Organization Details Last Modified Time Details Appointments None recorded. Lab glucose, fingerstick , blood [address], [address] [place], [place] [address]ther [facility], [place], [address], 5 15:49:29 Hepatitis C IgG Ab, qual, serum 2024 025 [facility]), [address] [place], [address], 5 12:08:08 lipid panel, serum 2024 025 [facility]), [address] [place], [address], 5 12:08:07 CMP, serum or plasma 2024 025 [facility] [address] [place], [address], 5 12:08:07 PTH (parathyroi d hormone), intact, serum or plasma 2024 025 [facility]), [address] [place], [address], 5 12:08:09 CBC w/ auto diff 2024 025 [facility]), [address] [facility], [place], [address], 5 12:08:07 vitamin D, 25-hydroxy, total, serum 2024 025 [facility] [address] [place], [address], 5 12:08:08 TSH, ultra-sensi tive, serum 2024 025 [facility] [address] [facility], [place], [address], 5 12:08:08 HIV 1 + 2, meaningful use set 2024 025 [facility] [address] [place], [address], 5 12:08:09 rapid strep group A, throat [address], [facility]8 [place], [address], 08:27:32 Referral None recorded. Procedures None recorded. Surgeries None recorded. Imaging electrocard iogram 2024 025 [email or web address] Not available 16:24:33 Medication Orders Bystolic 5 mg tablet 2024 025 [facility][id number], [address] [facility] 27 [facility] [place], [id number], 17:31:51 lisinopril 20 mg-hydrochl orothiazide 12.5 mg tablet 2024 025 [facility][id number], [address] [facility] 27 [place], [place], [id number], 17:39:15 Zithromax Z-Philippe 250 mg tablet 2024 [place] [facility][id number], [address] [facility] [address], [place], [id number], 5 15:45:44 prednisone 20 mg tablet 2024 [place] [facility]59[facility], [address] [facility] [address], [place], [id number], 5 15:45:42 Sudafed 12 Hour 120 mg tablet,exte nded release 2024 [place] [facility]26942, [address] [facility] 27 , [place], [id number], 5 15:45:41 lisinopril 20 mg-hydrochl orothiazide 12.5 mg tablet 2024 [place] #15575, [address], [place], [id number], 16:08:34 Patient TargetsNo targets recorded. Patient Instructions Encounter Date Encounter Id Patient Instructions Last Modified By Organization Details Last Modified Time 06/16/2024 [id number] high blood pressure: care instructions Not available 06/16/2024 16:08:28 learning about h igh blood pressure [email or web address] Not available 06/16/2024 16:08:28 body mass index: care instructions [email or web address] Not available 06/16/2024 16:22:39 learning about healthy weight [email or web address] Not available 06/16/2024 16:22:39 06/20/2024 [id number] sore throat: car e instructions [email or web address] Not available 06/20/2024 08:27:29 STD paperwork completeted for work Not available 06/20/2024 11:45:02 07/25/2024 [id number] lightheadedness or faintness: care instructions Not available 07/25/2024 15:49:29 high blood pressure: care instructions [email or web address] Not available 07/25/2024 17:29:58 learning about h igh blood pressure Not available 07/25/2024 17:29:58 Reason for Referral None Reported. Results Created Date Observation Date Name Description Value Unit Range Abnormal Flag Note LastModifiedBy Organization Detail LastModifiedTime 06/21/1906/20/2024 rapid strep group A, throa t Strep negati ve Not Available [facility] [address] [facility], [place], [address], 06/20/2024 08:12:25 07/26/1907/26/2024 CBC WITH DIFFE RENTI AL/PL ATELE T WBC 11.9 x10e3 /uL 3.4-10 .8 above high normal Not Available [facility] ([facility]) [address] [place], [address], 07/27/2024 12:08:06 07/26/19 25 07/26/2024 CBC WITH DIFFE RENTI AL/PL ATELE T RBC 5.01 x10e6 /uL 4.14-5 .80 normal Not Available [facility] ([facility]) [address] [place], [address], 07/27/2024 12:08:06 07/26/1907/26/2024 CBC WITH DIFFE RENTI AL/PL ATELE T hemoglobin 14.0 g/dL 13.0-1 7.7 normal Not Available [facility] ([facility]) [address] [place], [address], 07/27/2024 12:08:06 07/26/19 25 07/26/2024 CBC WITH DIFFE RENTI AL/PL ATELE T hematocrit 42.1 % 37.5-5 1.0 normal Not Available [facility] ([facility]) [address] [place], [address], 07/27/2024 12:08:06 07/26/19 25 07/26/2024 CBC WITH DIFFE RENTI AL/PL ATELE T MCV 84 fL 79-97 normal Not Available [facility] ([facility]) [address] [facility], [place], [address], 07/27/2024 12:08:06 07/26/19 25 07/26/2024 CBC WITH DIFFE RENTI AL/PL ATELE T MCH 27.9 pg 26.6-3 3.0 normal Not Available [facility] ([facility]) [address] [facility], [place], [address], 07/27/2024 12:08:06 07/26/19 25 07/26/2024 CBC WITH DIFFE RENTI AL/PL ATELE T MCHC 33.3 g/dL 31.5-3 5.7 normal Not Available [facility] ([facility]) [address] [facility], [place], [address], 07/27/2024 12:08:06 07/26/19 25 07/26/2024 CBC WITH DIFFE RENTI AL/PL ATELE T RDW 13.9 % 11.6-1 5.4 Not Available [facility] ([facility]) [address] [facility], [place], [address], 07/27/2024 12:08:06 07/26/19 25 07/26/2024 CBC WITH DIFFE RENTI AL/PL ATELE T platelets 339 x10e3 /uL 150-45 0 normal Not Available [facility] ([facility]) [address] [facility], [place], [address], 07/27/2024 12:08:06 07/26/19 25 07/26/2024 CBC WITH DIFFE RENTI AL/PL ATELE T neutrophils 66 % not estab. normal Not Available [facility] ([facility]) [address] [facility], [place], [address], 07/27/2024 12:08:06 07/26/19 25 07/26/2024 CBC WITH DIFFE RENTI AL/PL ATELE T lymphs 23 % not estab. normal Not Available [facility] ([facility]) [address] [facility], [place], [address], 07/27/2024 12:08:06 07/26/19 25 07/26/2024 CBC WITH DIFFE RENTI AL/PL ATELE T monocytes 8 % not estab. normal Not Available [facility] ([facility]) [address] [facility], [place], [address], 07/27/2024 12:08:06 07/26/19 25 07/26/2024 CBC WITH DIFFE RENTI AL/PL ATELE T eos 1 % not estab. normal Not Available [facility] ([facility]) [address] [facility], [place], [address], 07/27/2024 12:08:06 07/26/19 25 07/26/2024 CBC WITH DIFFE RENTI AL/PL ATELE T basos 1 % not estab. normal Not Available [facility] ([facility]) [address] [facility], [place], [address], 07/27/2024 12:08:06 07/26/19 25 07/26/2024 CBC WITH DIFFE RENTI AL/PL ATELE T immature cells [employer]ENTAL [employer]ATS CARETAKER Not Available [facility] ([facility]) [address] [facility], [place], [address], 07/27/2024 12:08:06 07/26/19 25 07/26/2024 CBC WITH DIFFE RENTI AL/PL ATELE T neutrophils (absolute) 7.9 x10e3 /uL 1.4-7. 0 above high normal Not Available [facility] ([facility]) [address] [facility], [place], [address], 07/27/2024 12:08:06 07/26/19 25 07/26/2024 CBC WITH DIFFE RENTI AL/PL ATELE T lymphs (absolute) 2.7 x10e3 /uL 0.7-3. 1 normal Not Available [facility] ([facility]) [address] [place], [address], 07/27/2024 12:08:06 07/26/19 25 07/26/2024 CBC WITH DIFFE RENTI AL/PL ATELE T monocytes(ab solute) 0.9 x10e3 /uL 0.1-0. 9 normal Not Available [facility] ([facility]) [address] [place], [address], 07/27/2024 12:08:06 07/26/19 25 07/26/2024 CBC WITH DIFFE RENTI AL/PL ATELE T eos (absolute) 0.2 x10e3 /uL 0.0-0. 4 normal Not Available [facility] ([facility]) [address] [place], [address], 07/27/2024 12:08:06 07/26/19 25 07/26/2024 CBC WITH DIFFE RENTI AL/PL ATELE T baso (absolute) 0.1 x10e3 /uL 0.0-0. 2 normal Not Available [facility] ([facility]) [address] [place], [address], 07/27/2024 12:08:06 07/26/1907/26/2024 CBC WITH DIFFE RENTI AL/PL ATELE T immature granulocytes 1 % not estab. Not Available [facility] ([facility]) [address] [place], [address], 07/27/2024 12:08:06 07/26/19 25 07/26/2024 CBC WITH [...] cristiano signi fican ce.) Not Available [facility] ([facility]) [address] [facility], [place], [address], 07/27/2024 12:08:06 07/26/19 25 07/26/2024 CBC WITH DIFFE RENTI AL/PL ATELE T NRBC [employer] CARETAK[employer] Not Available [facility] ([facility]) [address] [facility], [place], [address], 07/27/2024 12:08:06 07/26/19 25 07/26/2024 CBC WITH DIFFE RENTI AL/PL ATELE T hematology comments: RENTAL [employer]ATS CARETAKER Not Available [facility] ([facility]) [address] [facility], [place], [address], 07/27/2024 12:08:06 07/26/19 25 07/26/2024 COMP. METAB OLIC PANEL (14) glucose 99 mg/dL 70-99 normal Not Available [facility] ([facility]) [address] [facility], [place], [address], 07/27/2024 12:08:07 07/26/19 25 07/26/2024 COMP. METAB OLIC PANEL (14) BUN 23 mg/dL 6-20 above high normal Not Available [facility] ([facility]) [address] [facility], [place], [address], 07/27/2024 12:08:07 07/26/19 25 07/26/2024 COMP. METAB OLIC PANEL (14) creatinine 1.03 mg/dL 0.76-1 .27 normal Not Available [facility] ([facility]) [address] [facility], [place], [address], 07/27/2024 12:08:07 07/26/19 25 07/26/2024 COMP. METAB OLIC PANEL (14) eGFR 105 mL/mi n/1.7 3 >59 normal Not Available [facility] ([facility]) [address] [place], [address], 07/27/2024 12:08:07 07/26/19 25 07/26/2024 COMP. METAB OLIC PANEL (14) BUN/creatini ne ratio 22 9-20 above high normal Not Available [facility] ([facility]) [address] [facility], [place], [address], 07/27/2024 12:08:07 07/26/19 25 07/26/2024 COMP. METAB OLIC PANEL (14) sodium 137 mmol/ L 134-14 4 normal Not Available [facility] ([facility]) [address] [facility], [place], [address], 07/27/2024 12:08:07 07/26/19 25 07/26/2024 COMP. METAB OLIC PANEL (14) potassium 4.7 mmol/ L 3.5-5. 2 normal Not Available [facility] ([facility]) [address] [place], [address], 07/27/2024 12:08:07 07/26/19 25 07/26/2024 COMP. METAB OLIC PANEL (14) chloride 100 mmol/ L 96-106 normal Not Available [facility] ([facility]) [address] [place], [address], 07/27/2024 12:08:07 07/26/19 25 07/26/2024 COMP. METAB OLIC PANEL (14) carbon dioxide, total 20 mmol/ L 20-29 normal Not Available [facility] ([facility]) [address] [place], [address], 07/27/2024 12:08:07 07/26/19 25 07/26/2024 COMP. METAB OLIC PANEL (14) calcium 9.7 mg/dL 8.7-10 .2 normal Not Available [facility] ([facility]) [address] [facility] [place], [address], 07/27/2024 12:08:07 07/26/19 25 07/26/2024 COMP. METAB OLIC PANEL (14) protein, total 7.2 g/dL 6.0-8. 5 normal Not Available [facility] ([facility]) [address] [facility] [place], [address], 07/27/2024 12:08:07 07/26/19 25 07/26/2024 COMP. METAB OLIC PANEL (14) albumin 4.5 g/dL 4.3-5. 2 normal Not Available [facility] ([facility]) [address] [facility] [place], [address], 07/27/2024 12:08:07 07/26/19 25 07/26/2024 COMP. METAB OLIC PANEL (14) globulin, total 2.7 g/dL 1.5-4. 5 Not Available [facility] ([facility]) [address] [facility] [place], [address], 07/27/2024 12:08:07 07/26/19 25 07/26/2024 COMP. METAB OLIC PANEL (14) bilirubin, total 0.2 mg/dL 0.0-1. 2 normal Not Available [facility] ([facility]) [address] [facility] [place], [address], 07/27/2024 12:08:07 07/26/19 25 07/26/2024 COMP. METAB OLIC PANEL (14) alkaline phosphatase 68 IU/L 44-121 normal Not Available [facility]) [address] [facility] [place], [address], 07/27/2024 12:08:07 07/26/19 25 07/26/2024 COMP. METAB OLIC PANEL (14) AST (SGOT) 15 IU/L 0-40 normal Not Available [facility] ([facility]) [address] [facility] [place], [address], 07/27/2024 12:08:07 07/26/19 25 07/26/2024 COMP. METAB OLIC PANEL (14) ALT (SGPT) 22 IU/L 0-44 normal Not Available [facility] ([facility]) [address] [place], [address], 07/27/2024 12:08:07 07/26/19 25 07/26/2024 LIPID PANEL cholesterol, total 202 mg/dL 100-19 9 above high normal Not Available [facility] ([facility]) [address] [place], [address], 07/27/2024 12:08:07 07/26/19 25 07/26/2024 LIPID PANEL triglyceride s 771 mg/dL 0-149 alert high Not Available [facility] ([facility]) [address] [place], [address], 07/27/2024 12:08:07 07/26/19 25 07/26/2024 LIPID PANEL HDL cholesterol 25 mg/dL >39 below low normal Not Available [facility] ([facility]) [address] [place], [address], 07/27/2024 12:08:07 07/26/19 25 07/26/2024 LIPID PANEL VLDL cholesterol cristiano 116 mg/dL 5-40 above high normal Not Available [facility] ([facility]) [address] [place], [address], 07/27/2024 12:08:07 07/26/19 25 07/26/2024 LIPID PANEL LDL chol calc ([facility]) 61 mg/dL 0-99 Not Available [facility] ([facility]) [address] [place], [address], 07/27/2024 12:08:07 0407/26/2024 LIPID PANEL LDL calc comment: [employer] CARETAK[employer] Not Available [facility] ([facility]) [address] [facility], [place], [address], 07/27/2024 12:08:07 07/26/19 25 07/26/2024 HCV ANTIB TWYLA CASCA DE(PC R/GEN O) HCV Ab Non Reacti ve non reacti ve Not Available [facility] ([facility]) [address] [facility], [place], [address], 07/27/2024 12:08:08 07/26/19 25 07/26/2024 HCV ANTIB TWYLA CASCA DE(PC R/GEN O) interpretati on: Commen t Not infec sheng with HCV unles s early or acute infec tion is suspe cted (whic h may be delay ed in an immun ocomp romis ed indiv idual ), or other evide nce exist s to indic ate HCV infec tion. Not Available [facility] ([facility]) [address] [facility], [place], [address], 07/27/2024 12:08:08 07/26/1907/26/2024 TSH TSH 2.420 uIU/m L 0.450- 4.500 normal Not Available [facility] ([facility]) [address] [facility], [place], [address], 07/27/2024 12:08:08 07/26/1907/26/2024 VITAM IN D, 25-HY [...] um and D. Edyta saba [place]: [facility] . 2. Holic k MF, Bink[place], Bisch off-F errar i MCKEON, et al. Evalu ation , treat ment, and preve ntion of vitam in D defic iency : an Endoc rine Socie ty clini cristiano pract ice guide line. JCEM. 2010; 96(7) :1911 -30. Not Available [facility] ([facility]) [address] [facility], [place], [address], 07/27/2024 12:08:08 07/26/19 25 07/26/2024 HIV AB/P2 4 AG WITH REFLE X HIV Ab/P24 Ag screen Non Reacti ve non reacti ve HIV Negat derick HIV-1 /HIV- 2 antib odies and HIV-1 p24 antig en were NOT detec sheng. There is no labor atory evide nce of HIV infec tion. Not Available [facility] ([facility]) [address] [facility], [place], [address], 07/27/2024 12:08:09 07/26/19 25 07/27/2024 PTH, INTAC T PTH, intact 19 pg/mL 15-65 normal Not Available [facility] ([facility]) [address] [facility], [place], [address], 07/27/2024 12:08:09 07/26/19 25 07/25/2024 gluco se, finge rstic k, blood Blood Glucose: mg/dl 94 Not Available [facility] [address] [facility], [place], [address], 07/25/2024 15:48:15 07/26/19 elect rocar diogr am No observ ation record ed. Not Available 2024 17:25:18 Result Notes None recorded. Problems Name Problem SNOMED Code Status Onset Date Resolution Date Notes Provider Name and Address Organization Details Recorded Time Essential hypertens ion 68116357 Active 2024 MARIBEL Lin [address] [place] [address], [address] [place] [address] 8, [employer] 5 16:08:16 Influenza A virus present 236561063036 Completed 202407/25/2024 MARIBEL Lin [address] [place] [address], [address] [place] [address] 8, [employer] 5 17:29:47 Acute pharyngit is 251812675 Completed 202407/25/2024 MARIBEL Lin [address] [place] [address], [address] [place] [address], [employer] 5 17:29:44 Hyperlipi demia 70850908 Active 2024 MARIBEL Lin [address] [place] [address], [address] [place] [address], [employer] 5 09:30:18 Deficienc y of vitamin D3 568335289 Active 2024 MARIBEL Lin [address] [place] [address], [address] [place] [address] 8, [employer] 5 09:30:31 Problem Notes None recorded. Procedures Surgical History Date Name Laterality Status Provider Name and Address Organization Details Recorded Time Tonsillectomy completed [employer] 06/16/2024 15:51:15 Thyroid Surgery completed [employer] 06/16/2024 15:51:15 Imaging Results None recorded. [...] Address Organization Details Last Updated DateTime 5 411586. 04 g 39.7 kg/m2 187.96 cm 95 % 95 % 104 /min 98 [degF] 106/72 mm[Hg] [employer] 5 15:54:53 Date Recorded Body height Body mass index (BMI) Body weight Oxygen saturation Oxygen saturation in Arterial blood by Pulse oximetry Heart rate Body temperature Systolic And Diastolic Provider Name and Address Organization Details Last Updated DateTime 5 187.96 cm 39.7 kg/m2 458713. 04 g 96 % 96 % 88 /min 98 [degF] 124/84 mm[Hg] [employer] 5 08:07:27 Date Recorded Body height Body mass index (BMI) Body weight Body temperature Heart rate Oxygen saturation Oxygen saturation in Arterial blood by Pulse oximetry Systolic And Diastolic Provider Name and Address Organization Details Last Updated DateTime 187.96 cm 40.2 kg/m2 573951. 41 g 98.3 [degF] 90 /min 96 % 96 % 104/62 mm[Hg] Inessa Juarez [employer] 15:43:45 Social History Question Answer Notes LastModified by Organizat ion Details LastModified Time Tobacco Smoking Status Never Smoker Inessa Juarez jordi [employer]. 06/16/2024 15:55:48 Do You Have An Advance Directive? No Information not available 06/16/2024 Is Your Home Air Conditioned? Yes Information not available 06/16/2024 Are You Blind Or Do You Have Difficulty Seeing? No Information not available 06/16/2024 What Is Your Level Of Caffeine Consumption? Moderate Information not available 06/16/2024 What Type Of Programmer Analyst Consultant Do You Use? [employer] Information not available [...] Do You Have A Medical Power Of Bander And Cellophaner Machine Helper? No Information not available 06/16/2024 What Was [...] anxious, or unable to sleep at night)? [id number] Information not available 06/16/2024 Do you have [...] History Condition Response Coronary Artery Disease N Gout N Other N Blood Diseases N Kidney Stones N Hyperthyroidism N Blood Transfusion N Breast Cancer N Emergency room visit since last appointm ent. N Hypothyroidism N Lung Disease N COPD N Dermatologic Disorders N Depression N Defects or Inherited Disease N Developmental [...] Condition N Organ Transplant N Dialysis N Fibromyalgia N Schizophrenia N Headaches N Kidney Disease N Allergies/Hayfever N Heart Problems N Ear or Hearing Problems N Hospitalizations N Learning Disorder N Artificial Joints N Thyroid Problems N GI Problems N Acne N ADD/ADHD N Eating Disorder N Anemia N Constipation N Mental Illness N Ovarian Cancer N Diabetes N Bedwetting N Hepatitis/Liver Disease N Tuberculosis N Eczema N Diverticulitis N Abuse/Domestic Violence N Asthma N Trauma/Violence N Substance Abuse N Reflux/GERD N Depression/ depression N Hepatitis N Heart Disease N Pulmonary Embolism N Tourette Syndrome N Pre-Eclampsia N Hypertension Y Chronic Ear Infections N Osteoporosis N Chicken Pox N Autism Spectrum Disorder (ASD) N Thrombophilias N Immunizations Vaccine Type Date Status Note Provider Nam e and Address Organization Details Recorded Time Influenza, split virus, quadrivalent, preservative 4 completed Inessa Vice null, [employer] 06/16/2024 15:51:44 Hib, unspecified formulation 2 completed Inessa Vice null, [employer] 06/16/2024 15:51:44 Hib, unspecified formulation 1 completed Inessa Vice null, [employer] 06/16/2024 15:51:44 Hib, unspecified formulation 1 completed Inessa Vice null, [employer] 06/16/2024 15:51:44 IPV 5 completed Inessa Vice null, [employer] 06/16/2024 15:51:44 IPV 2 completed Inessa Vice null, [employer] 06/16/2024 15:51:44 IPV 2 completed Inessa Vice null, [employer] 06/16/2024 15:51:44 IPV 1 completed Inessa Vice null, [employer] 06/16/2024 15:51:44 Influenza, live, trivalent, intranasal 0 completed Inessa Vice null, [employer] 06/16/2024 15:51:44 Influenza, live, trivalent, intranasal 2 completed Inessa Vice null, [employer] 06/16/2024 15:51:44 MMR 5 completed Inessa Vice null, [employer] 06/16/2024 15:51:44 MMR 2 completed Inessa Vice null, [employer] 06/16/2024 15:51:44 COVID-19, mRNA, LNP-S, PF, 30 mcg/0.3 mL dose 1 completed Inessa Vice null, [employer] 06/16/2024 15:51:44 COVID-19, mRNA, LNP-S, PF, 30 mcg/0.3 mL dose 1 completed Inessa Vice null, [employer] 06/16/2024 15:51:44 pneumococcal conjugate PCV 7 2 completed Inessa Vice null, [employer] 06/16/2024 15:51:44 pneumococcal conjugate PCV 7 1 completed Inessa Vice null, [employer] 06/16/2024 15:51:44 pneumococcal conjugate PCV 7 2 completed Inessa Vice null, [employer] 06/16/2024 15:51:44 pneumococcal conjugate PCV 7 1 completed Inessa Vice null, [employer] 06/16/2024 15:51:44 Tdap 2 completed Inessa Vice null, [employer] 06/16/2024 15:51:44 varicella 2 completed Inessa Vice null, [employer] 06/16/2024 15:51:44 varicella 4 completed Inessa Vice null, [employer] 06/16/2024 15:51:45 varicella 2 completed Inessa Vice null, [employer] 06/16/2024 15:51:45 Influenza, split virus, trivalent, PF 1 completed Inessa Vice null, [employer] 06/16/2024 15:51:45 Influenza, split virus, trivalent, PF 5 completed Inessa Vice null, [employer] 06/16/2024 15:51:45 Hep B, adolescent or pediatric 2 completed Inessa Vice null, [employer] 06/16/2024 15:51:45 Hep B, adolescent or pediatric 1 completed Inessa Vice null, [employer] 06/16/2024 15:51:45 Hep B, adolescent or pediatric 2 completed Inessa Vice null, [employer] 06/16/2024 15:51:45 Hep A, ped/adol, 2 dose 8 completed Inessa Vice null, [employer] 06/16/2024 15:51:45 Hep A, ped/adol, 2 dose 8 completed Inessa Vice null, [employer] 06/16/2024 15:51:45 meningococcal MCV4P 8 completed Inessa Vice null, [employer] 06/16/2024 15:51:45 DTaP, unspecified formulation 2 completed Inessa Vice null, [employer] 06/16/2024 15:51:45 DTaP, unspecified formulation 5 completed Inessa Vice null, [employer] 06/16/2024 15:51:45 DTaP, unspecified formulation 1 completed Inessa Vice null, [employer] 06/16/2024 15:51:45 DTaP, unspecified formulation 2 completed Inessa Vice null, [employer] 06/16/2024 15:51:45 DTaP, unspecified formulation 1 completed Inessa Vice null, [employer] 06/16/2024 15:51:45 meningococcal MCV4, unspecified formulation 2 completed Inessa Vice null, [employer] 06/16/2024 15:51:45 Influenza, split virus, quadrivalent, PF 8 completed Inessa Vice null, [employer] 06/16/2024 15:51:45 Influenza, split virus, quadrivalent, PF 7 completed Inessa Vice null, [employer] 06/16/2024 15:51:45 Influenza, split virus, quadrivalent, PF 6 completed Inessa Vice null, [employer] 06/16/2024 15:51:45 Influenza, split virus, quadrivalent, PF 5 completed Inessa Vice null, [employer] 06/16/2024 15:51:45 Influenza, split virus, quadrivalent, PF 3 completed Inesas Vice null, [employer] 06/16/2024 15:51:45 Past Encounters Encounter ID Performer Location Encounter Start Date Encounter Closed Date Diagnosis/Indication Diagnosis SNOMED-CT Code Diagnosis ICD10 Code Diagnosis Note [id number] MARIBEL Lin [address] [address] 06/16/2024 15:44:22 06/16/2024 16:10:00 Essential hypertension 36466375 I10 Influenza A virus present 7138268779 08 J09.X2 Body mass index 30+ - obesity 350828719 Z68.39 [id number] MARIBEL Lin [address] [address] 06/20/2024 07:57:27 06/20/2024 08:30:48 Sore throat 803389648 J02.9 Acute pharyngitis 774678 003 J02.9 Influenza A virus present 9972165561 08 J09.X2 [id number] MARIBEL Lin [facility] [address] [place] [address] 07/25/2024 15:15:32 07/25/2024 16:24:33 Lightheadedness 043782038 R42 Essential hypertension 16093781 I10 History of primary hyperparathyroidism 6041305755 9106 Z86.39 Health Concerns Section Related Observation LastModified by Organization Detai ls LastModified Time None Recorded Concern Status LastModified by Organization Details LastModified Time None Recorded Advance Directives Directive N: Payers Insurance Date Sequence Insurance Name Policy Number Policy Obando Covered Member ID Obando Member ID Guarantor Name 07/28/2024 1 [place] [id number] A Reji Will [id number] Reji Will 06/16/2024 1 *SELF PAY* Ezekiel Will Notes Date Note Type Note Provider Name and Address Organization Details Recorded Time 5 text/html Patient presents to establish care at [facility]. History of HTN. States he is compliant with meds, denies side effects. Denies headache, chest pain, vertigo, dyspnea. Diagnosed with flu A at [facility] yesterday. MARIBEL Lin [address] [place] [address], [phone], [employer] 06/16/2024 16:23:24 5 text/html Patient diagnosed with influenza A Sunday. Still feeling rough. Has sore throat with blisters now. Needs note for work. MARIBEL Lin [address] [place], [address], [employer] 06/20/2024 11:45:27 5 text/html Patient presents for followup. History of HTN. Blood pressure is well controlled. He feels hot and flushed.History of hyperparathyroidism with parathyroidectomy MARIBEL Lin [address] [place], [address], [employer] 07/25/2024 17:32:57
--- OUTSIDE RECORDS SUMMARY | 2024-11-05 23:14 | XMS_ITS | Encounter Summary ---
Author Organization Healthcare Address [address] [place] [id number] Care Team Providers Care Client Reporting Associate Name Role Phone Pcp, No Primary Care Provider Unavailabl e Pcp, No Primary Care Provider Unavailabl e Reason for Referral * Consultation (Routine) - Closed Specialty Diagnoses / Procedures Referred By Contac t Referred To Contact Endocrinology Diagnoses Elevated parathyroid hormone Hypercalcemia Gissell Gonzalez PA [address] [place] [address] Phone: tel: fax: [facility] Endocrinology [address] [place] [address] Phone: tel: fax: Referral ID Status Reason Start Date Expiration Date V isits Requested Visits Authorized [id number] Closed Specialty Services Required 11/09/2021 05/11/2023 1 1 Encounter Details Date Type Department Care Team (Late st Contact Info) Description 11/09/2021 Community [facility] [address] [place] [address] Gissell Gonzalez PA [address] [facility] [place] [address] Elevated parathyroid hormone (Primary Dx); [...] Hypercalcemia documented in this encounter Care Teams Client Reporting Associate Relationship Specialty Start Date End Date Pcp, No [address] [place] [address] PCP - General Family Medicine 11/10/21 02/01/22 Pcp, No [address] [place] [address] PCP - General Family Medicine 02/02/22 documented as of this encounter
--- OUTSIDE RECORDS SUMMARY | 2024-11-05 23:14 | XMS_ITS | Encounter Summary ---
Author Organization [facility] Address [address] [place] [address] Phone [email or web address] Care Team Providers Care Linoleum Mechanic Name Role Phone Provider, No Primary Care Provider Unavailabl e Reason for Visit * Reason Onset Date Comments Return to Work / Duty 10/22/2024 CASE UPDAT E/COMMUNICATION- WMLOA-RD Encounter Details Date Type Department Care Team (Late st Contact Info) Description 10/22/2024 Documentation [place] [address] Clinic [address] [place] [address] Ashanti Perez MA [address] [place] [address] Social History Tobacco Use Types [...] on restricted days for BILATERAL SHOULDER CASE #[id number] DOI - 07.08.2024 documented in this encounter Plan of Treatment Not on file documented as of this encounter Visit Diagnoses Not on filedocumented in this encounter Care Teams Linoleum Mechanic Relationship Specialty Start Date End Date Provider, [place] [address] PCP - General Obstetrics Specialist 10/06/19 documented as of this encounter
--- OUTSIDE RECORDS SUMMARY | 2024-11-05 23:14 | XMS_ITS | Clinical Summary ---
Author Organization Healthcare Address [address] [place] [id number] Care Team Providers Care Bowling Alley Attendant Name Role Phone Pcp, No Primary Care [...] (03/03/2022): Added automatically from request for surgery [id number] Acute nasopharyngitis 01/31/2018 Nasal congestion 01/31/2018 ADHD [...] history exists [facility]-Depression Screening 03/02/2023 03/02/2022, 02/14 [id number] Vaccine ( season) 2023 01/14/2021, 12/24/2020 [facility]Y-Influenza [...] complete this topic Insurance KELLIE Care Teams Bowling Alley Attendant Relationship Specialty Start Date End Date Pcp, Alla [address] [place] [address] PCP - General Family Medicine 02/02/22
--- OUTSIDE RECORDS SUMMARY | 2024-11-05 23:14 | XMS_ITS | Encounter Summary ---
Author Organization [facility] Address [address] [place] [address] Phone [email or web address] Care Team Providers Care Electrical Wirer Name Role Phone Provider, No Primary Care Provider Unavailabl e Reason for Visit * Reason Onset Date Comments Care Coordination 10/22/2024 Encounter Details Date Type Department Care Team (Late st Contact Info) Description 10/22/[address] [place] [address] Jesusita Small RN [address] [place] [address] Social History Tobacco Use Types [...] RN - 10/22/2024 10:29 AM EDT Nurse family manager note for WMLOA TM. 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 KAREN: per [...] 10/20/24- WMLOA begins. [facility] to restricted work day count. Clinic Provider: MARIBEL Arce [phone] NEXT CLINIC VISIT: after being released by [...] after tomorrows appointment. Planned RTW Date: TBD Chief Station Engineer Plan/Goals: TM to keep scheduled apts TM to call with updates or changes WMLOA case management discussed Continue following plan of care per specialist Conclusion: -TM to call back with updates and changes or as needed. -TM verbalized knowledge of next steps/appointments. -TM verbalized knowledge that restrictions apply while at AND away from work. -TM has no further concerns at this time. Chief Station Engineer Signature: Jesusita Small RN documented in this encounter Plan of Treatment Not on file documented as of this encounter Visit Diagnoses Not on filedocumented in this encounter Care Teams Electrical Wirer Relationship Specialty Start Date End Date [place], [place] [address] PCP - General Systems Analyst 10/06/19 documented as of this encounter
--- NOTE | 2024-11-05 23:16 | HMH.EDGENADL ---
Discharge Plan Disposition Patient Disposition: Home, Self-Care Prescriptions Prescriptions: New methocarbamol 500 mg tablet 1,000 mg PO Q6H PRN (Reason: pain) Qty: 30 0RF lidocaine 5 % adhesive patch,medicated 1 patch topical DAILY PRN (Reason: pain) Qty: 30 0RF Rx Instructions: leave on most painful area for up to 12 hrs No Action montelukast 10 mg tablet 10 mg PO DAILY Patient Comments: TAKE 1 TABLET BY MOUTH DAILY cholecalciferol (vitamin D3) 50 mcg (2,000 unit) capsule 50 mcg PO DAILY Patient Comments: TAKE 1 CAPSULE BY MOUTH ONCE DAILY amoxicillin 500 mg capsule 500 mg PO BID Qty: 20 0RF lisinopril-hydrochlorothiazide 20-12.5 mg tablet 1 tab PO DAILY atorvastatin 10 mg tablet 10 mg PO Patient Comments: TAKE 1 TABLET BY MOUTH EVERY DAY AT BEDTIME FOR CHOLESTEROL nebivolol 5 mg tablet 5 mg PO DAILY Qty: 90 3RF Wegovy 0.5 mg/0.5 mL pen injector 0.5 mg SQ Q7D Qty: 2 2RF Referrals Follow up/Referrals: Provider,Referral, MD [Primary Care Provider, Medical] - See instructions Activity Restrictions/Add. Instructions Additional Instructions/Restrictions: Please take Tylenol ibuprofen and use muscle relaxers as needed for pain. Monitor for signs of more serious injury as discussed. Recommend doing core strengthening exercises at home. Please follow-up with your primary care provider. Please return to the emergency department if you develop any new or worsening symptoms or become concerned for your health. Clinical Impressions Clinical Impression: Low back pain Qualifiers: Chronicity: acute Back pain laterality: bilateral Instructions Patient Instructions: DI for Low Back Pain Print Language Print Language: Sudanese Discharge ED Provider: Tommy Moran General Adult HPI General Chief complaint: Back Pain/Injury Stated complaint: lower back pain and down legs Time Seen by Provider: 11/05/24 23:16 History of Present Illness HPI narrative: 24-year-old male with history of hypertension presents for back pain. He works for living and bent over while building a porch a few days ago and had onset of low back pain with some radiation down the legs. He presents primarily because he had a friend who had low back pain and woke up paralyzed . He said he went to the chiropractor but it did not seem to help. He denies any issues with urinary or bowel retention or incontinence, no groin numbness, no lower extremity weakness or numbness. He denies any specific trauma, denies any history of drug use or serious infection. Related Data Home Medications ?Medication ?Instructions ?Recorded ?Confirmed lisinopril 20 1 tab PO DAILY 02/04/24 10/22/24 mg-hydrochlorothiazide 12.5 mg tablet atorvastatin 10 mg tablet 10 mg PO 08/14/24 10/22/24 cholecalciferol (vitamin D3) 50 50 mcg PO DAILY 10/22/24 10/22/24 mcg (2,000 unit) capsule montelukast 10 mg tablet 10 mg PO DAILY 10/22/24 10/22/24 Previous Rx's ?Medication ?Instructions ?Recorded nebivolol 5 mg tablet 5 mg PO DAILY #90 tabs 08/14/24 semaglutide (weight loss) 0.5 0.5 mg (0.5 mL) SQ Q7D #2 mL 10/13/24 mg/0.5 mL subcutaneous pen injector (Sharri) amoxicillin 500 mg capsule 500 mg PO BID #20 caps 10/22/24 lidocaine 5 % topical patch 1 patch topical DAILY PRN pain #30 11/05/24 ea methocarbamol 500 mg tablet 1,000 mg (2 x 500 mg) PO Q6H PRN 11/05/24 pain #30 tabs Allergies Allergy/AdvReac Type Severity Reaction Status Date / Time No Known Allergies Allergy Verified 10/22/24 17:12 [facility] Disclaimer: The information contained in this section may have been updated after the patient was seen, as this information can be updated by other users. Medical History (Updated 11/05/24 @ 23:25 by Tommy Moran MD) Pharyngitis Chronic sinusitis of both maxillary sinuses Tonsillar debris Tonsil stone Enlarged tonsils Plantar fasciitis of left foot Acute epididymitis Metatarsalgia of left foot Left foot pain Pain in toe of left foot Capsulitis of metatarsophalangeal (MTP) joint of left foot Sprain of tarsometatarsal joint of left foot Headache Acute bacterial bronchitis Flank pain Plantar fasciitis, bilateral Metatarsalgia of both feet Hemorrhage following tonsillectomy Metatarsalgia of right foot Peroneal tendinitis of right lower leg Edema of right foot Right foot pain Influenza A Family history of early CAD Family history of hypertension Hypertension Surgical History Status post tonsillectomy S/P removal of parathyroid gland No significant past surgical history Family History Other No significant family history Social History Smoking Status: Never smoker alcohol intake: never substance use type: denies use current occupational status: employed Travel in the last 8 weeks?: None Other Medical History Have you received the Pneumonia Vaccine: No ROS Obtained: Yes All systems reviewed & no additional complaints except as documented Physical Exam General General appearance: alert and in no apparent distress Head Head exam: atraumatic and normocephalic Eye Eye exam: Present normal appearance, PERRL and EOMI ENT ENT exam: Present normal oropharynx and normal external ear exam Neck Neck exam: Present normal inspection and full ROM Chest Chest inspection: Present normal inspection and symmetric chest wall rise; Absent tenderness Respiratory Respiratory exam: Present normal lung sounds bilaterally; Absent respiratory distress Cardiovascular Cardiovascular exam: Present regular rate and normal rhythm Abdominal Exam Abdominal exam: Present soft; Absent distention, tenderness or guarding Extremities Exam Extremities exam: Present normal inspection; Absent edema or joint swelling Back Exam Back exam: Present normal inspection and tenderness (Mild generalized low back tenderness) Neurological Exam Neurological exam: Present alert and oriented X3; Absent motor sensory deficit (Intact bilateral lower extremity strength sensation and range of motion. No groin anesthesia) Psychiatric Psychiatric exam: Present normal affect and normal mood Skin Skin exam: Present warm, dry and normal color Lymphatic Lymphatic Findings: no adenopathy Medical Decision Making Medical Records Medical records reviewed: Yes I reviewed the patient's medical records. Screening: Per USPSTF and CDC recommendations, given the prevalence of disease in our region, it is our hospital?s policy to screen for HIV and viral Hepatitis for all patients aged 18 and over and those with ongoing risk factors. Jay Inquiry Pt receiving controlled substance: No Jay was queried for this patient: No Vital Signs: 11/05/24 23:13 11/05/24 23:29 Temperature 98.4 F 97.9 F Temperature Source Oral Oral Pulse Rate 70 Pulse Rate [Radial] 77 Respiratory Rate 16 16 Blood Pressure 152/79 H Blood Pressure [Right Arm] 152/71 H Blood Pressure Mean [Right Arm] 98 Blood Pressure Source Automatic Cuff Blood Pressure Position Supine Blood Pressure Position [Right Arm] Sitting 02 Sat by Pulse Oximetry 98 Oxygen Delivery Method Room Air Room Air Lab Data Lab results reviewed: Yes I reviewed the patient's lab results. Orders (Tests/Meds): ED MEDICATIONS Generic Name Dose Route Start Last Admin Trade Name Jak PRN Reason Stop Dose Admin Lidocaine 1 each 11/05/24 23:23 11/05/24 23:28 Lidocaine 5% Transdermal Patch TD 11/05/24 23:24 1 each ONCE ONE Administration Methocarbamol 1,000 mg 11/05/24 23:23 11/05/24 23:28 Methocarbamol 500mg Tablet PO 11/05/24 23:24 1,000 mg ONCE ONE Administration Medical Decision Narrative: 24-year-old male with history of obesity and hypertension presents for low back pain with some pain radiating down the legs. History was obtained via interactive discussion with patient. On arrival, patient is [afebrile, hemodynamically stable, satting appropriately, alert, oriented x4, GCS 15], moving all extremities spontaneously. Full physical exam performed and significant for normal strength and sensation range of motion of the bilateral lower extremities, no groin anesthesia, no red flag signs symptoms or history components to suggest spinal cord pathology. Differential includes but is not limited to muscle spasm, disc herniation, spinal cord pathology.. Patient was given lidocaine patch and Robaxin for symptomatic management and correction of underlying abnormalities. CT, labs, MRI was considered, but deemed unnecessary due to history and physical exam. Given patient history, exam and workup, patient's presentation most likely represents muscle spasm/disc herniation. No evidence of acute spinal cord pathology on history and exam. He was given return precautions and discharged with prescription for muscle relaxers. Procedures Risk/Benefits of Procedure(s) Were Explained: Yes Critical Care Critical Care Time Critical Care Time: No
[2024-11-05] MEDS: METHOCARBAMOL 500MG TABLET 1000 MG PO (23:28)
[2024-11-05] MEDS: LIDOCAINE 5% TRANSDERMAL PATCH 1 EACH TD (23:28)
[2024-11-05 23:29] VITALS: BP 152/79; PULSE 70; RESP 16; TEMP 36.6; O2SAT 98
== END 2024-11-05 23:30 | disposition home or self-care (01) ==
PROVIDERS: Emergency Provider Emergency Medicine
DX: M54.50 Low back pain, unspecified (principal)
CPT/HCPCS: 99283

== ENCOUNTER 2024-11-16 09:41 | Outpatient (CLI) | payer BC, SELFPAY ==
--- OUTSIDE RECORDS SUMMARY | 2024-10-16 13:30 | XMS_ITS | Encounter Summary ---
Author Organization [facility] Address [address] [place] [address] Phone CareEverywhereSuppor [email or web address] Care Team Providers Care Gun Stock Maker Name Role Phone Provider, No Primary Care Provider Unavailabl e Reason for Visit * Reason Comments Follow up Musculoskeletal Issue Encounter Details Date Type Department Care Team (Latest Contact Info) Description 10/16/2024 1:30 PM EDT Clinical Support ABDIRAHMAN [address] [place] [address] Chanell Meza PA [address] [place] [address] Acute pain of left shoulder [...] him to RTW without restrictions 5. Call [facility] @ [phone] for any questions/concerns/appointments. 6. Projected return to full rotation: to be determined by specialist documented in this encounter Progress Notes * MARIBEL Suh - 10/16/2024 1:30 PM EDT Subjective Reji Will is a 23 y.o. male who presents for follow up occ for bilat shoulders/upper back. Workday ID #: [id number] Cost Center: [facility] Length of Time in Current Group: 6 months Shift Color or Number: 1 Employer: [employer] Employee Status: Full-time GL Name: Felipe Garcia Case #: [id number] Body Part/ Side: Bilat shoulders/upper back. OSHA Date of Injury: 07/08/24 F/u occ: Bilateral Shoulder / upper Back. Restricted . TM here to discuss questions related to being [facility]. LDW [...] RTW without restrictions 5. Call [facility] @ [phone] for any questions/concerns/appointments. 6. Projected return to full rotation: to be determined by specialist documented in this encounter Plan of Treatment Not on file documented as of this encounter Visit Diagnoses Diagnosis Acute pain of left shoulder- Primary documented in this encounter Care Teams Gun Stock Maker Relationship Specialty Start Date End Date Provider, RICARDO Merino [address]481 PCP - General Bulk Sugar Handler 10/06/19 documented as of this encounter
[2024-11-16 21:13] LABS: Coronavirus 19, PCR Not Detected (NotDetected); Influenza A, PCR Not Detected (NotDetected); Influenza B, PCR Not Detected (NotDetected)
--- OUTSIDE RECORDS SUMMARY | 2024-11-18 10:49 | XMS_ITS | Encounter Summary ---
Author Organization [facility] Address [address] [place] [address] Phone [email or web address] [email or web address] Care Team Providers Care Tread Tuber Machine Operator Name Role Phone Provider, No Primary Care Provider Unavailabl e Reason for Visit * Reason Onset Date Comments Care Coordination 2024 Encounter Details Date Type Department Care Team (Late st Contact Info) Description [address] [place] [address] Jesusita Small RN [address] [place] [address] Social History Tobacco Use Types [...] RN - 2024 1:52 PM EDT Nurse hotel operations manager note for follow up call. 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 KAREN: per [...] WMLOA begins. [facility] due to restricted work day count. 10/23/24- Dr Jack follow up. Placed off work and referred for left shoulder MRI. TM told to hold PT. Clinic Provider: MAIRBEL Arce [phone] F/U Call Notes: PC to TM for check in after specialist appointment today with Dr Jack. TM was placed off work and left shoulder MRI referral. TM was told to hold off on PT. TM states he has already updated Dianna Masterson. TM has no questions or concerns, will call with updates. Last Specialist Visit: 10/23/24 Next Specialist Visit: Pending MRI Paint Roller Winder Plan/Goals: TM to keep scheduled apts TM to call with updates or changes Notes requested from specialist's office Continue following plan of care per specialist Conclusion: -TM to call back with updates and changes or as needed. -TM verbalized knowledge of next steps/appointments. -TM has no further concerns at this time. Paint Roller Winder Signature: Jesusita Small RN Date: 10/23/24 documented in this encounter Plan of Treatment Not on file documented as of this encounter Visit Diagnoses Not on filedocumented in this encounter Care Teams Tread Tuber Machine Operator Relationship Specialty Start Date End Date Provider, RICARDO Merino [address] PCP - General Skin Carver 10/06/19 documented as of this encounter
--- OUTSIDE RECORDS SUMMARY | 2024-11-18 10:49 | XMS_ITS | Clinical Summary ---
Author Organization [facility] Address [address] [place] [id number] Care Team Providers Care Belt Repairer Name Role Phone Pcp, No Primary Care [...] (03/03/2022): Added automatically from request for surgery [id number] Acute nasopharyngitis 01/31/2018 Nasal congestion 01/31/2018 ADHD [...] history exists [facility]-Depression Screening 03/02/2023 03/02/2022, 02/14 [id number] Vaccine ( season) 2023 01/14/2021, 12/24/2020 [facility]-Influenza [...] complete this topic Insurance KELLIE Care Teams Belt Repairer Relationship Specialty Start Date End Date Pcp, Alla [address] [place] [address] PCP - General Family Medicine 02/02/22
--- OUTSIDE RECORDS SUMMARY | 2024-11-18 10:49 | XMS_ITS | Encounter Summary ---
Author Organization [facility] Address [address] [place] [address] Phone CareEverywhereSuppor Care Team Providers Care Validation Architect Name Role Phone Provider, No Primary Care Provider Unavailabl e Reason for Visit * Reason Onset Date Comments Care Coordination 11/10/2024 Encounter Details Date Type Department Care Team (Late st Contact Info) Description 11/10/[address] [place] [address] Jesusita Small RN [address] [place] [address] Social History Tobacco Use Types [...] - 11/10/2024 12:13 PM EDT Nurse manager support note for follow up call. 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 KAREN: per [...] MRI left shoulder Clinic Provider: MARIBEL Arce [phone] F/U Call Notes: Attempted to reach TM regarding follow up with Dr Melo today. No answer. No VM available. Last Specialist Visit: 10/23/24 Next Specialist Visit: 11/10/24 10:[address] Melo Cushion Sewer Plan/Goals: TM to keep scheduled apts TM to call with updates or changes Notes requested from specialist's office Continue following plan of care per specialist Conclusion: -Attempted to contact TM. No answer. -No voicemail available. Cushion Sewer Signature: Jesusita Small RN Date: 11/10/24 documented in this encounter Plan of Treatment Not on file documented as of this encounter Visit Diagnoses Not on filedocumented in this encounter Care Teams Validation Architect Relationship Specialty Start Date End Date Provider, RICARDO Merino [id number] PCP - General Webbing Supervisor 10/06/19 documented as of this encounter
--- OUTSIDE RECORDS SUMMARY | 2024-11-18 10:49 | XMS_ITS | Encounter Summary ---
Author Organization [facility] Address [address] [place] [address] Phone [email or web address] [email or web address] Care Team Providers Care Airport Skilled Maintenance Supervisor Name Role Phone Provider, No Primary Care Provider Unavailabl e Reason for Visit * Reason Onset Date Comments Care Coordination 10/22/2024 Encounter Details Date Type Department Care Team (Late st Contact Info) Description 10/22/[address] [place] [address] Jesusita Small RN [address] [place] [address] Social History Tobacco Use Types [...] RN - 10/22/2024 10:29 AM EDT Nurse manager support note for WMLOA TM. Employee: Reji Will Workday ID#: [id number] Email: [email or web address] 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 KAREN: per [...] work day count. Clinic Provider: MARIBEL Arce [phone] NEXT CLINIC VISIT: after being released by [...] after tomorrows appointment. Planned RTW Date: TBD Tractor Trailer Technician Plan/Goals: TM to keep scheduled apts TM to call with updates or changes WMLOA case management discussed Continue following plan of care per specialist Conclusion: -TM to call back with updates and changes or as needed. -TM verbalized knowledge of next steps/appointments. -TM verbalized knowledge that restrictions apply while at AND away from work. -TM has no further concerns at this time. Tractor Trailer Technician Signature: Jesusita Small RN documented in this encounter Plan of Treatment Not on file documented as of this encounter Visit Diagnoses Not on filedocumented in this encounter Care Teams Airport Skilled Maintenance Supervisor Relationship Specialty Start Date End Date [place], [place] [address] PCP - General Associate Director Qa 10/06/19 documented as of this encounter
--- OUTSIDE RECORDS SUMMARY | 2024-11-18 10:49 | XMS_ITS | Encounter Summary ---
Author Organization [facility] Address [address] [place] [address] Phone [email or web address] Care Team Providers Care Artisan Plasterer Name Role Phone Provider, No Primary Care Provider Unavailabl e Reason for Visit * Reason Onset Date Comments Care Coordination 11/11/2024 Encounter Details Date Type Department Care Team (Late st Contact Info) Description 11/11/[address] [place] [address] Jesusita Small, RN [address] [place] [address] Social History Tobacco Use Types [...] RN - 11/11/2024 1:00 PM EDT Nurse animal ride manager note for follow up call. 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 KAREN: per [...] MRI left shoulder Clinic Provider: MARIBEL Arce [phone] F/U Call Notes: Attempted to reach TM regarding follow up with Dr Melo . No answer. No VM available. Last Specialist Visit: 10/23/24 Next Specialist Visit: 11/10/24 10:[address] Melo Stock Grader Plan/Goals: TM to keep scheduled apts TM to call with updates or changes Notes requested from specialist's office Continue following plan of care per specialist Conclusion: -Attempted to contact TM. No answer. -No voicemail available. Stock Grader Signature: Jesusita Small RN Date: 11/11/24 documented in this encounter Plan of Treatment Not on file documented as of this encounter Visit Diagnoses Not on filedocumented in this encounter Care Teams Artisan Plasterer Relationship Specialty Start Date End Date [place] [address] PCP - General Digital Asset Specialist 10/06/19 documented as of this encounter
--- OUTSIDE RECORDS SUMMARY | 2024-11-18 10:49 | XMS_ITS | Encounter Summary ---
Author Organization [facility] Address [address] [place] [address] Phone CareEverywhereSuppor [email or web address] Care Team Providers Care Blow Torch Operator Name Role Phone Provider, No Primary Care Provider Unavailabl e Encounter Details Date Type Department Care Team (Late st Contact Info) Description 11/12/[address] [place] [address] Jesusita Small, RN [address] [place] [address] Social History Tobacco Use Types [...] RN - 11/12/2024 8:49 AM EDT Nurse loss control manager note for follow up call. 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 KAREN: per [...] RX medication given. Clinic Provider: MARIBEL Arce [phone] F/U Call Notes: PC to TM regarding [...] Specialist Visit: 12/12/24 3:[address] Melo Diving Supervisor Plan/Goals: TM to keep scheduled apts TM to call with updates or changes Notes requested from specialist's office Continue following plan of care per specialist Conclusion: -TM to call back with updates and changes or as needed. -TM verbalized knowledge of next steps/appointments. -TM has no further concerns at this time. Diving Supervisor Signature: Jesusita Small RN Date: 11/12/24 documented in this encounter Plan of Treatment Not on file documented as of this encounter Visit Diagnoses Not on filedocumented in this encounter Care Teams Blow Torch Operator Relationship Specialty Start Date End Date Provider, RICARDO Merino [address] PCP - General Reimbursement Counselor 10/06/19 documented as of this encounter
--- OUTSIDE RECORDS SUMMARY | 2024-11-18 10:49 | XMS_ITS | Clinical Summary ---
Author Organization [facility] Address [address] [place] [address] Phone CareEverywhereSuppor [email or web address] Care Team Providers Care Senior Program Manager Name Role Phone Provider, No Primary Care Provider Unavailabl e Allergies No known active allergies Medications cholecalciferol (VITAMIN D-3) 1.25 MG (69715 UT) tablet Take 50,000 Units by mouth. Active ergocalciferol (VITAMIN D2) 1.25 MG (86765 UT) capsule TAKE 1 CAPSULE BY MOUTH [...] Type Department Care Team Description 11/12/[address] [facility] [address] [place] [address] Jesusita Small RN 11/11/2024 Telephone [address] [place] [address] [place] [address] Jesusita Small RN 11/10/2024 [address]phone [address] [place] [place] [address] Jesusita Small RN 11/04/2024 [address]phone [address] [place] [place] [address] Jesusita Small RN 2024 Telephone [address] [place] [address] Jesusita Small RN 10/22/[address] [place] [address] Ashanti Perez MA 10/22/[address] [place] [address] Jesusita Small RN 10/16/2024 1:30 PM EDT Clinical Support [address] [address] [place] [address] Chanlel Meza PA Acute pain of left shoulder [...] OF 2 VIEWS, COMPLETE - LEFT CPT 91049 Routine 08/22/2024 12:36 PM EDT Acute pain of left shoulder from Last 3 Months Results * XR Shoulder, minimum of 2 views, complete - left CPT 41349 (08/22/2024 12:36 PM EDT) Anatomical Region Laterality [...] OPT OUT NO COPAY NB Care Teams Senior Program Manager Relationship Specialty Start Date End Date [place], [place] [address] PCP - General Store Leader 10/06/19
--- OUTSIDE RECORDS SUMMARY | 2024-11-18 10:49 | XMS_ITS | Encounter Summary ---
Author Organization [facility] Address [address] [place] [address] Phone CareEverywhereSuppor [email or web address] Care Team Providers Care At Risk Paraprofessional Name Role Phone Provider, No Primary Care Provider Unavailabl e Reason for Visit * Reason Onset Date Comments Return to Work / Duty 10/22/2024 CASE UPDAT E/COMMUNICATION- WMLOA-RD Encounter Details Date Type Department Care Team (Late st Contact Info) Description 10/22/2024 Documentation [place] [address] Clinic [address] [place] [address] Ashanti Perez MA [address] [place] [address] Social History Tobacco Use Types [...] on restricted days for BILATERAL SHOULDER CASE #[id number] DOI - 07.08.2024 documented in this encounter Plan of Treatment Not on file documented as of this encounter Visit Diagnoses Not on filedocumented in this encounter Care Teams At Risk Paraprofessional Relationship Specialty Start Date End Date [place], [place] [address] PCP - General Electrical Assemblies Supervisor 10/06/19 documented as of this encounter
--- OUTSIDE RECORDS SUMMARY | 2024-11-18 10:49 | XMS_ITS | Encounter Summary ---
Author Organization [facility] Address [address] [place] [address] Phone CareEverywhereSuppor [email or web address] Care Team Providers Care Marine Service Manager Name Role Phone Provider, No Primary Care Provider Unavailabl e Reason for Visit * Reason Onset Date Comments Care Coordination 11/04/2024 Encounter Details Date Type Department Care Team (Late st Contact Info) Description 11/04/[address] [place] [address] Jesusita Small, RN [address] [place] [address] Social History Tobacco Use Types [...] RN - 11/04/2024 9:39 AM EDT Nurse customer advocacy manager note for follow up call. 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 KAREN: per [...] 10/20/24- WMLOA begins. [facility] work day count. 10/23/24- Dr Jack follow up. Placed off work and referred for left shoulder MRI. TM told to hold PT. 11/05/24- MRI left shoulder Clinic Provider: MARIBEL Arce [phone] F/U Call Notes: PC from TM to update that MRI is approved and scheduled for tomorrow and follow up with Dr Melo 11/10/2509:00 AM. Last Specialist Visit: 10/23/24 Next Specialist Visit: MRI 11/05/24 and follow up 11/10/24 10:[address] Melo Chief Resource Officer Plan/Goals: TM to keep scheduled apts TM to call with updates or changes Continue following plan of care per specialist Conclusion: -TM to call back with updates and changes or as needed. -TM verbalized knowledge of next steps/appointments. -TM has no further concerns at this time. Chief Resource Officer Signature: Jesusita Small RN Date: 11/04/24 documented in this encounter Plan of Treatment Not on file documented as of this encounter Visit Diagnoses Not on filedocumented in this encounter Care Teams Marine Service Manager Relationship Specialty Start Date End Date Provider, RICARDO Merino [address] PCP - General Dust Sampler 10/06/19 documented as of this encounter
--- OUTSIDE RECORDS SUMMARY | 2024-11-18 10:49 | XMS_ITS | Encounter Summary ---
Author Organization [facility] Address [address] [id number] Care Team Providers Care Flash Welder Name Role Phone Pcp, No Primary Care Provider Unavailabl e Pcp, No Primary Care Provider Unavailabl e Reason for Referral * Consultation (Routine) - Closed Specialty Diagnoses / Procedures Referred By Contac t Referred To Contact Endocrinology Diagnoses Elevated parathyroid hormone Hypercalcemia Gissell Gonzalez PA [address] [place] [address] Phone: tel: fax: [facility]ology [address] [place] [address] Phone: tel: fax: Referral ID Status Reason Start Date Expiration Date V isits Requested Visits Authorized [id number] Closed Specialty Services Required 11/09/2021 05/11/2023 1 1 Encounter Details Date Type Department Care Team (Late st Contact Info) Description 11/09/2021 Community [facility] Community Practice [address] [place] [address] Gissell Gonzalez PA [address] [facility] [place] [address] Elevated parathyroid hormone (Primary Dx); [...] Hypercalcemia documented in this encounter Care Teams Flash Welder Relationship Specialty Start Date End Date Pcp, No [address] [place] [address] PCP - General Family Medicine 11/10/21 02/01/22 Pcp, No [address] [place] [address] PCP - General Family Medicine 02/02/22 documented as of this encounter
== END 2024-11-16 23:59 | disposition home or self-care (01) ==
LOC: LAB.DROPOF 11-18 10:47
PROVIDERS: PCP Nurse Practitioner Family; Visit Provider Nurse Practitioner Family
DX: J02.9 Acute pharyngitis, unspecified (principal); J06.9 Acute upper respiratory infection, unspecified
CPT/HCPCS: 87631

== ENCOUNTER 2024-11-16 20:06 | Inpatient (IN) | payer BC, SELFPAY ==
--- OUTSIDE RECORDS SUMMARY | 2024-10-16 13:30 | XMS_ITS | Encounter Summary ---
Author Organization [facility] Address [address] [place] [address] Phone [email or web address] Care Team Providers Care [facility]keeper [facility] Name Role Phone Provider, No Primary Care Provider Unavailabl e Reason for Visit * Reason Comments Follow up Musculoskeletal Issue Encounter Details Date Type Department Care Team (Latest Contact Info) Description 10/16/2024 1:30 PM EDT Clinical Support ABDIRAHMAN [address] [place] [address] Chanell Meza PA [address] [place] [address] Acute pain of left shoulder (Primary Dx) Social History Tobacco Use Types Packs/Day Years Used Date Smoking Tobacco: Never Smokeless Tobacco: Never Tobacco Cessation:Counseling Given: Not Answered Intimate Partner Violence Answer Date R ecorded Insults You Not on file 07/30/2020 Threatens You Not on file 07/30/2020 Screams at You Not on file 07/30/2020 Physically Hurt Not on file 07/30/2020 Intimate Partner Violence Score Not on file 07/30/2020 Depression Answer Date Recorded PHQ Total Score 0 01/25/2022 Stress Answer Date Recorded Stress in your Life Not on file 02/20/2024 Dealing with Stress 3 02/20/2024 Sex and Gender Information Value Date Recorded Sex Assigned at Not on file Legal Sex Male 8:56 AM CDT Gender Identity Not on file Sexual Orientation Not on file documented as of this encounter Last Filed Vital Signs Vital Sign Reading Time Taken Comments Blood Pressure 97/62 10/16/2024 1:45 PM EDT Pulse 64 10/16/2024 1:45 PM EDT Temperature - - Respiratory Rate - - Oxygen Saturation - - Inhaled Oxygen Concentration - - Weight - - Height - - Body Mass Index - - documented in this encounter Patient Instructions * Patient Instructions* MARIBEL Suh - 10/16/2024 1:30 PM EDT 1. Duty status: RTW Temporary Restricted Duty New Restrictions due to TM is now only treating for left shoulder pain with Dr. Jack 2. Preventive stretching, continue plan of care per specialist 3. Referrals: None 4. Follow up: TM will need a f/u appointment after specialist releases him to RTW without restrictions 5. Call [facility] @ [phone] for any questions/concerns/appointments. 6. Projected return to full rotation: to be determined by specialist documented in this encounter Progress Notes * MARIBEL Suh - 10/16/2024 1:30 PM EDT Subjective Reji Will is a 23 y.o. male who presents for follow up occ for bilat shoulders/upper back. Workday ID #: [id number] Cost Center: [facility] Length of Time in Current Group: 6 months Shift Color or Number: 1 Employer: [employer] Employee Status: Full-time GL Name: Felipe Garcia Case #: [id number] Body Part/ Side: Bilat shoulders/upper back. OSHA Date of Injury: 07/08/24 F/u occ: Bilateral Shoulder / upper Back. Restricted . TM here to discuss questions related to [facility]. LDW today. Next follow up with Dr. Jack is 10/23/24. He also states his restrictions from [facility] are for B/L shoulders and he is only having further tx on left shoulder. He wants to address no PT with Dr. Jack and possible MRI. TM has contact for worker comp. Reviewed with Chanell Meza PA-C today. Triage nurse: Angeles Sotelo RN History Reviewed: Tobacco Allergies Meds Problems Med Hx Surg Hx Fam Hx HPI As noted in CC. F/U Occ bilateral shoulder. TM reports he is not having any issues with his right shoulder and wants restrictions changed to cover only his left shoulder so he will be able to do morewith right shoulder during is vacation. He is treating with Dr. Jack for left shoulder, has f/u with him 10/23/24. Review of Systems Constitutional: Negative. Musculoskeletal: Left shoulder pain Objective Visit Vitals BP 97/62 (Patient Position: Sitting) Pulse 64 Smoking Status Never Physical Exam Vitals and nursing note reviewed. Psychiatric: Mood and Affect: Mood normal. Behavior: Behavior normal. No further exam today, deferred to specialsit Assessment: ICD-10-CM ICD-9-CM 1. Acute pain of left shoulder M25.512 719.41 No orders of the defined types were placed in this encounter. Patient Instructions 1. Duty status: RTW Temporary Restricted Duty New Restrictions due to TM is now only treating for left shoulder pain with Dr. aJck 2. Preventive stretching, continue plan of care per specialist 3. Referrals: None 4. Follow up: TM will need a f/u appointment after specialist releases him to RTW without restrictions 5. Call [facility] @ [phone] for any questions/concerns/appointments. 6. Projected return to full rotation: to be determined by specialist documented in this encounter Plan of Treatment Not on file documented as of this encounter Visit Diagnoses Diagnosis Acute pain of left shoulder- Primary documented in this encounter Care Teams [facility] Relationship Specialty Start Date End Date Provider, RICARDO Merino [id number] PCP - General Headlight Assembler 10/06/19 documented as of this encounter
--- OUTSIDE RECORDS SUMMARY | 2024-10-16 13:30 | XMS_ITS | Encounter Summary ---
Author Organization [facility] Address [address] [place] [address] Phone [email or web address] [email or web address] Care Team Providers Care Rn Cardiovascular Icu Name Role Phone Provider, No Primary Care Provider Unavailabl e Reason for Visit * Reason Comments Follow up Musculoskeletal Issue Encounter Details Date Type Department Care Team (Latest Contact Info) Description 10/16/2024 1:30 PM EDT Clinical Support ABDIRAHMAN [address] [place] [address] Chanell Meza PA [address] [place] [address] Acute pain of left shoulder [...] him to RTW without restrictions 5. Call [facility] @ [phone] for any questions/concerns/appointments. 6. Projected return to full rotation: to be determined by specialist documented in this encounter Progress Notes * MARIBEL Suh - 10/16/2024 1:30 PM EDT Subjective Reji Will is a 23 y.o. male who presents for follow up occ for bilat shoulders/upper back. Workday ID #: [id number] Cost Center: [facility] Length of Time in Current Group: 6 months Shift Color or Number: 1 Employer: [employer] Employee Status: Full-time GL Name: Felipe Garcia Case #: [id number] Body Part/ Side: Bilat shoulders/upper back. OSHA Date of Injury: 07/08/24 F/u occ: Bilateral Shoulder / upper Back. Restricted . TM here to discuss questions related to [facility]. LDW today. Next [...] RTW without restrictions 5. Call [facility] @ [phone] for any questions/concerns/appointments. 6. Projected return to full rotation: to be determined by specialist documented in this encounter Plan of Treatment Not on file documented as of this encounter Visit Diagnoses Diagnosis Acute pain of left shoulder- Primary documented in this encounter Care Teams Rn Cardiovascular Icu Relationship Specialty Start Date End Date Provider, RICARDO Merino [address]3375 PCP - General Professor Of History 10/06/19 documented as of this encounter
[2024-11-16] VITALS (7 sets, daily range): BP systolic 90–115; BP diastolic 51–77; PULSE 111–136; RESP 16–18; TEMP 36.8–38.7; O2SAT 98–100; BMI 39.1; BMI 40.0
--- OUTSIDE RECORDS SUMMARY | 2024-11-16 20:12 | XMS_ITS | Encounter Summary ---
Author Organization [facility] Address [address] [place] [address] Phone [email or web address] Care Team Providers Care Body Shop Manager Name Role Phone Provider, No Primary Care Provider Unavailabl e Reason for Visit * Reason Onset Date Comments Care Coordination 11/04/2024 Encounter Details Date Type Department Care Team (Late st Contact Info) Description 11/04/[address] [place] [address] Jesusita Small, RN [address] [place] [address] Social History Tobacco Use Types [...] RN - 11/04/2024 9:39 AM EDT Nurse field manager note for follow up call. 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 KAREN: per [...] 10/20/24- WMLOA begins. [facility] 10/23/24- Dr Jack follow up. Placed off work and referred for left shoulder MRI. TM told to hold PT. 11/05/24- MRI left shoulder Clinic Provider: MARIBEL Arce [phone] F/U Call Notes: PC from TM to update that MRI is approved and scheduled for tomorrow and follow up with Dr Melo 11/10/2509:00 AM. Last Specialist Visit: 10/23/24 Next Specialist Visit: MRI 11/05/24 and follow up 11/10/24 10:[address] Melo Bank Appraiser Plan/Goals: TM to keep scheduled apts TM to call with updates or changes Continue following plan of care per specialist Conclusion: -TM to call back with updates and changes or as needed. -TM verbalized knowledge of next steps/appointments. -TM has no further concerns at this time. Bank Appraiser Signature: Jesusita Small RN Date: 11/04/24 documented in this encounter Plan of Treatment Not on file documented as of this encounter Visit Diagnoses Not on filedocumented in this encounter Care Teams Body Shop Manager Relationship Specialty Start Date End Date Provider, RICARDO Merino [address] PCP - General Log Feeder 10/06/19 documented as of this encounter
--- OUTSIDE RECORDS SUMMARY | 2024-11-16 20:12 | XMS_ITS | Clinical Summary ---
Author Organization Healthcare Address [address] [place] [id number] Care Team Providers Care Restaurant Kitchen Manager Name Role Phone Pcp, No Primary Care [...] (03/03/2022): Added automatically from request for surgery [id number] Acute nasopharyngitis 01/31/2018 Nasal congestion 01/31/2018 ADHD [...] [facility]-HIV Screening 2000 [facility]-Hepatitis C Screening 2000 [facility]-Infant/Child/Adol SDOH Screenings 2000 HPV Vaccines (1 - Male 3-dose series) 10/24/2015 UKY- SDOH Screenings 2018 [facility]Y-Adult SDOH Screenings 2018 [facility]-DTaP,Tdap,and Td Vaccines (7 - Td or Tdap) 11/07/2021 11/08/2011, 11/29/2004, 03/11/2002, Additional history exists [facility]-Depression Screening 03/02/2023 03/02/2022, 02/14 [id number] Vaccine ( season) 2023 01/14/2021, 12/24/2020 [facility]Y-Influenza [...] complete this topic Insurance KELLIE Care Teams Restaurant Kitchen Manager Relationship Specialty Start Date End Date Pcp, Alla [address] [place] [address] PCP - General Family Medicine 02/02/22
--- OUTSIDE RECORDS SUMMARY | 2024-11-16 20:12 | XMS_ITS | Encounter Summary ---
Author Organization [facility] Address [address] [place] [address] Phone [email or web address] Care Team Providers Care Parts Administrator Name Role Phone Provider, No Primary Care Provider Unavailabl e Reason for Visit * Reason Onset Date Comments Return to Work / Duty 10/22/2024 CASE UPDAT E/COMMUNICATION- WMLOA-RD Encounter Details Date Type Department Care Team (Late st Contact Info) Description 10/22/2024 Documentation [place] [address] [facility] [address] [place] [address] Ashanti Perez MA [address] [place] [address] Social History Tobacco Use Types [...] on restricted days for BILATERAL SHOULDER CASE #[id number] DOI - 07.08.2024 documented in this encounter Plan of Treatment Not on file documented as of this encounter Visit Diagnoses Not on filedocumented in this encounter Care Teams Parts Administrator Relationship Specialty Start Date End Date [place], [place] [address] PCP - General Double Bottom Driver 10/06/19 documented as of this encounter
--- OUTSIDE RECORDS SUMMARY | 2024-11-16 20:12 | XMS_ITS | Encounter Summary ---
Author Organization [facility] Address [address] [place] [address] Phone [email or web address] Care Team Providers Care Hospital Cna Name Role Phone Provider, No Primary Care Provider Unavailabl e Reason for Visit * Reason Onset Date Comments Care Coordination 10/22/2024 Encounter Details Date Type Department Care Team (Late st Contact Info) Description 10/22/[address] [place] [address] Jesusita Small RN [address] [place] [address] Social History Tobacco Use Types [...] RN - 10/22/2024 10:29 AM EDT Nurse ecommerce merchandising manager note for WMLOA TM. 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 KAREN: per [...] 10/20/24- WMLOA begins. [facility]. Clinic Provider: MARIBEL Arce [phone] NEXT CLINIC VISIT: after being released by [...] after tomorrows appointment. Planned RTW Date: TBD Gallery Or Museum Guide Plan/Goals: TM to keep scheduled apts TM to call with updates or changes WMLOA case management discussed Continue following plan of care per specialist Conclusion: -TM to call back with updates and changes or as needed. -TM verbalized knowledge of next steps/appointments. -TM verbalized knowledge that restrictions apply while at AND away from work. -TM has no further concerns at this time. Gallery Or Museum Guide Signature: Jesusita Small RN documented in this encounter Plan of Treatment Not on file documented as of this encounter Visit Diagnoses Not on filedocumented in this encounter Care Teams Hospital Cna Relationship Specialty Start Date End Date [place] [address] PCP - General Agricultural Labor Camp Manager 10/06/19 documented as of this encounter
--- OUTSIDE RECORDS SUMMARY | 2024-11-16 20:12 | XMS_ITS | Encounter Summary ---
Author Organization [facility] Address [address] [place] [address] Phone [email or web address] [email or web address] Care Team Providers Care Rayon Tester Name Role Phone Provider, No Primary Care Provider Unavailabl e Reason for Visit * Reason Onset Date Comments Care Coordination 2024 Encounter Details Date Type Department Care Team (Late st Contact Info) Description [address] [place] [address] Jesusita Small RN [address] [place] [address] Social History Tobacco Use Types [...] RN - 2024 1:52 PM EDT Nurse personnel generalist manager note for follow up call. 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 KAREN: per [...] 10/20/24- WMLOA begins. [facility] 10/23/24- Dr Jack follow up. Placed off work and referred for left shoulder MRI. TM told to hold PT. Clinic Provider: MARIBEL Arce [phone] F/U Call Notes: PC to TM for check in after specialist appointment today with Dr Jack. TM was placed off work and left shoulder MRI referral. TM was told to hold off on PT. TM states he has already updated Dianna Masterson. TM has no questions or concerns, will call with updates. Last Specialist Visit: 10/23/24 Next Specialist Visit: Pending MRI Key Carrier Plan/Goals: TM to keep scheduled apts TM to call with updates or changes Notes requested from specialist's office Continue following plan of care per specialist Conclusion: -TM to call back with updates and changes or as needed. -TM verbalized knowledge of next steps/appointments. -TM has no further concerns at this time. Key Carrier Signature: Jesusita Small RN Date: 10/23/24 documented in this encounter Plan of Treatment Not on file documented as of this encounter Visit Diagnoses Not on filedocumented in this encounter Care Teams Rayon Tester Relationship Specialty Start Date End Date Provider, RICARDO Merino [id number] PCP - General Senior Computer Specialist 10/06/19 documented as of this encounter
--- OUTSIDE RECORDS SUMMARY | 2024-11-16 20:12 | XMS_ITS | Encounter Summary ---
Author Organization [facility] Address [address] [place] [address] Phone [email or web address] [email or web address] Care Team Providers Care Lithograph Press Operator Name Role Phone Provider, No Primary Care Provider Unavailabl e Reason for Visit * Reason Onset Date Comments Care Coordination 11/10/2024 Encounter Details Date Type Department Care Team (Late st Contact Info) Description 11/10/[address] [place] [address] Jesusita Small RN [address] [place] [address] Social History Tobacco Use Types [...] Telephone Encounter - Jesusita Small RN - 11/10/2024 12:13 PM EDT Nurse manager mall note for follow up call. 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 KAREN: per [...] 10/20/24- WMLOA begins. TM sent home by [facility] due to restricted work day count. 10/23/24- Dr Jack follow up. Placed off work and referred for left shoulder MRI. TM told to hold PT. 11/05/24- MRI left shoulder Clinic Provider: MARIBEL Arce [phone] F/U Call Notes: Attempted to reach TM regarding follow up with Dr Melo today. No answer. No VM available. Last Specialist Visit: 10/23/24 Next Specialist Visit: 11/10/24 10:[address] Melo Water Inspector Plan/Goals: TM to keep scheduled apts TM to call with updates or changes Notes requested from specialist's office Continue following plan of care per specialist Conclusion: -Attempted to contact TM. No answer. -No voicemail available. Water Inspector Signature: Jesusita Small RN Date: 11/10/24 documented in this encounter Plan of Treatment Not on file documented as of this encounter Visit Diagnoses Not on filedocumented in this encounter Care Teams Lithograph Press Operator Relationship Specialty Start Date End Date Provider, RICARDO Merino [id number] PCP - General Button Tufting Machine Operator 10/06/19 documented as of this encounter
--- OUTSIDE RECORDS SUMMARY | 2024-11-16 20:12 | XMS_ITS | Encounter Summary ---
Author Organization [facility] Address [address] [id number] Care Team Providers Care Personal Caregiver Name Role Phone Pcp, No Primary Care Provider Unavailabl e Pcp, No Primary Care Provider Unavailabl e Reason for Referral * Consultation (Routine) - Closed Specialty Diagnoses / Procedures Referred By Contac t Referred To Contact Endocrinology Diagnoses Elevated parathyroid hormone Hypercalcemia Gissell Gonzalez PA [address] [place] [address] Phone: tel: fax: [facility] [address] [place] [address] Phone: tel: fax: Referral ID Status Reason Start Date Expiration Date V isits Requested Visits Authorized [id number] Closed Specialty Services Required 11/09/2021 05/11/2023 1 1 Encounter Details Date Type Department Care Team (Late st Contact Info) Description 11/09/2021 Community [facility] [address] [place] [address] Gissell Gonzalez PA [address] [facility] [place] [address] Elevated parathyroid hormone (Primary Dx); [...] Hypercalcemia documented in this encounter Care Teams Personal Caregiver Relationship Specialty Start Date End Date Pcp, No [address] [place] [address] PCP - General Family Medicine 11/10/21 02/01/22 Pcp, No [address] [place] [address] PCP - General Family Medicine 02/02/22 documented as of this encounter
--- OUTSIDE RECORDS SUMMARY | 2024-11-16 20:12 | XMS_ITS | Clinical Summary ---
Author Organization [facility] Address [address] [place] [address] Phone [email or web address] [email or web address] Care Team Providers Care Payable Representative Name Role Phone Provider, No Primary Care Provider Unavailabl e Allergies No known active allergies Medications cholecalciferol (VITAMIN D-3) 1.25 MG (54409 UT) tablet Take 50,000 Units by mouth. Active ergocalciferol (VITAMIN D2) 1.25 MG (74465 UT) capsule TAKE 1 CAPSULE BY MOUTH [...] Encounters Date Type Department Care Team Description 11/12/2024 Telephone [facility] [address] [place] [address] Jesusita Small RN 11/11/2024 [address] [address] [place] [address] Jesusita Small RN 11/10/2024 [address] [place] [address] Jesusita Small RN 11/04/2024 [address] [place] [address] Jesusita Small RN 2024 [address] [place] [address] Jesusita Small RN 10/22/[address] [place] [address] Ashanti Perez MA 10/22/[address] [place] [address] Jesusita Small RN 10/16/2024 1:30 PM EDT Clinical Support [address] [address] [place] [address] Chanell Meza PA Acute pain of left [...] 03/11/2002, Additional history exists Covid-19 Immunization ( - season) 2023 01/14/2021, 12/24/2020 Influenza Immunization (#1) 12/15/202401/15, 02/06/2017, 02/17/2016, Additional history exists HIB Immunization Aged Out 07/05/2001, , 01/14/2001 No longer eligible based on patient's age to complete this topic Hepatitis B Immunization Completed 002, 10/24/2001, 01/14/2001, Additional history exists Pneumococcal: 65+ Years Discontinued 03/24/20 02, 03/11/2002, 07/05/2001, Additional history exists Pneumococcal: Ped (0 to [...] OF 2 VIEWS, COMPLETE - LEFT CPT 30581 Routine 08/22/2024 12:36 PM EDT Acute pain of left shoulder from Last 3 Months Results * XR Shoulder, minimum of 2 views, complete - left CPT 73271 (08/22/2024 12:36 PM EDT) Anatomical Region Laterality [...] 08/22/2024 12:36 PM EDT See Scanned Document us Margot LÓPEZ IMG XR PROCEDURES Final Resu lt from Last 3 Months Insurance OPT OUT NO COPAY NB Care Teams Payable Representative Relationship Specialty Start Date End Date Provider, [place] [address] PCP - General Shrimp Picker 10/06/19
--- OUTSIDE RECORDS SUMMARY | 2024-11-16 20:12 | XMS_ITS | Encounter Summary ---
Author Organization [facility] Address [address] [place] [address] Phone [email or web address] [email or web address] Care Team Providers Care Eyeglass Frames Inspector Name Role Phone Provider, No Primary Care Provider Unavailabl e Reason for Visit * Reason Onset Date Comments Care Coordination 11/11/2024 Encounter Details Date Type Department Care Team (Late st Contact Info) Description 11/11/[address] [place] [address] Jesusita Small, RN [address] [place] [address] Social History Tobacco Use Types [...] Telephone Encounter - Jesusita Small RN - 11/11/2024 1:00 PM EDT Nurse customer strategy manager note for follow up call. 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 KAREN: per [...] MRI left shoulder Clinic Provider: MARIBEL Arce [phone] F/U Call Notes: Attempted to reach TM regarding follow up with Dr Melo . No answer. No VM available. Last Specialist Visit: 10/23/24 Next Specialist Visit: 11/10/24 10:[address] Melo Slimer Plan/Goals: TM to keep scheduled apts TM to call with updates or changes Notes requested from specialist's office Continue following plan of care per specialist Conclusion: -Attempted to contact TM. No answer. -No voicemail available. Slimer Signature: Jesusita Small RN Date: 11/11/24 documented in this encounter Plan of Treatment Not on file documented as of this encounter Visit Diagnoses Not on filedocumented in this encounter Care Teams Eyeglass Frames Inspector Relationship Specialty Start Date End Date Provider, [place] [address] PCP - General Geodetic Computator 10/06/19 documented as of this encounter
--- OUTSIDE RECORDS SUMMARY | 2024-11-16 20:12 | XMS_ITS | Encounter Summary ---
Author Organization [facility] Address [address] [place] [address] Phone [email or web address] [email or web address] Care Team Providers Care Industrial Radiographer Name Role Phone Provider, No Primary Care Provider Unavailabl e Encounter Details Date Type Department Care Team (Late st Contact Info) Description 11/12/[address] [place] [address] Jesusita Small, RN [address] [place] [address] Social History Tobacco Use Types [...] Telephone Encounter - Jesusita Small RN - 11/12/2024 8:49 AM EDT Nurse business transformation manager note for follow up call. 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 KAREN: per [...] to hold PT. 11/05/24- MRI left shoulder 11/12/24- Follow up with Dr Melo- Diagnosed with torn labrum from MRI. Told to remain off and RX medication given. Clinic Provider: MARIBEL Arce [phone] F/U Call Notes: PC to TM regarding follow up with Dr Melo . TM states MRI was reviewed ad he wasdiagnosed with torn labrum. TM states he was told to continue off work and given RX medication (unsure what med). No PT for now. TM states they discussed possibly surgery referral at next appointment. TM has no questions or concerns. Last Specialist Visit: 11/10/24 Next Specialist Visit: 12/12/24 3:[address] Melo Carpenter Helper Plan/Goals: TM to keep scheduled apts TM to call with updates or changes Notes requested from specialist's office Continue following plan of care per specialist Conclusion: -TM to call back with updates and changes or as needed. -TM verbalized knowledge of next steps/appointments. -TM has no further concerns at this time. Carpenter Helper Signature: Jesusita Small RN Date: 11/12/24 documented in this encounter Plan of Treatment Not on file documented as of this encounter Visit Diagnoses Not on filedocumented in this encounter Care Teams Industrial Radiographer Relationship Specialty Start Date End Date Provider, RICARDO Merino [address] PCP - General Packing House Supervisor 10/06/19 documented as of this encounter
--- NOTE | 2024-11-16 20:20 | XR_ITS ---
PROCEDURE INFORMATION: Exam: XR Chest Exam date and time: 11/16/2024 8:30 PM Age: 24 years old Clinical indication: Dyspnea TECHNIQUE: Imaging protocol: Radiologic exam of the chest. Views: 1 view. COMPARISON: CR XR CHEST PORTABLE 10/30/2024 5:56 PM FINDINGS: Lungs: Low lung volumes without definite focal airspace consolidation. Pleural spaces: No pneumothorax. Heart/Mediastinum: Unremarkable cardiomediastinal silhouette. Bones/joints: No acute osseous findings. IMPRESSION: Low lung volumes without definite focal airspace consolidation.
--- NOTE | 2024-11-16 20:22 | ECG_ITS ---
APPROVED REPORT Exam: Resting ECG HR:110 bpm ECG Measurements Heart Rate 110 AXES TN 118 P 31 QRSd 93 QRS 61 QT 281 T -14 QTc 346 Conclusion SINUS TACHYCARDIA WITH SHORT TN INTERVAL NONSPECIFIC T-WAVE ABNORMALITY ABNORMAL ECG UNCONFIRMED REPORT Electronically signed by : Efra Pacheco, 11/16/2024 23:35:03
--- NOTE | 2024-11-16 20:24 | HMH.EDGENADL ---
Discharge Plan Disposition Patient Disposition: Admitted Clinical Impressions Clinical Impression: Severe sepsis Discharge ED Provider: Alisha Pacheco General Adult HPI General Chief complaint: Sore Throat Stated complaint: Fever 104,dizziness,chills,body aches Time Seen by Provider: 11/16/24 20:10 Mode of Arrival: Ambulatory Source of Information: Patient and Spouse Description of Symptoms (Recalled from ER Triage Doc. by RN): pt has been having flu like symptoms including sore throat, fever of 104, and blood pressure changes. History of Present Illness HPI narrative: Patient is a 24-year-old male who presents today with multiple complaints primarily with lightheadedness fever chills sore throat. Went to urgent treatment earlier today was prescribed Claritin and said that was retarded. States he continued to feel very poorly and had a blood pressure cuff at home which was jumping all over the place but was persistently low with systolic blood pressures less than 100 on serial measurements. He denies any cough denies any urinary symptoms denies any rashes denies any neck stiffness or any other specific symptoms at the moment. Related Data Home Medications ?Medication ?Instructions ?Recorded ?Confirmed lisinopril 20 1 tab PO DAILY 02/04/24 11/16/24 mg-hydrochlorothiazide 12.5 mg tablet atorvastatin 10 mg tablet 10 mg PO 08/14/24 11/16/24 cholecalciferol (vitamin D3) 50 50 mcg PO DAILY 10/22/24 11/16/24 mcg (2,000 unit) capsule montelukast 10 mg tablet 10 mg PO DAILY 10/22/24 11/16/24 meloxicam 15 mg tablet 15 mg PO DAILY 11/16/24 11/16/24 Previous Rx's ?Medication ?Instructions ?Recorded nebivolol 5 mg tablet 5 mg PO DAILY #90 tabs 08/14/24 lidocaine 5 % topical patch 1 patch topical DAILY PRN pain #30 11/05/24 ea methocarbamol 500 mg tablet 1,000 mg (2 x 500 mg) PO Q6H PRN 11/05/24 pain #30 tabs loratadine 10 mg tablet (Allergy 10 mg PO DAILY #30 tabs 11/16/24 Relief (loratadine)) ondansetron 8 mg disintegrating 8 mg PO Q12H PRN nausea and 11/16/24 tablet vomiting #10 tabs Allergies Allergy/AdvReac Type Severity Reaction Status Date / Time No Known Allergies Allergy Verified 11/16/24 09:34 [facility] Disclaimer: The information contained in this section may have been updated after the patient was seen, as this information can be updated by other users. Medical History Pharyngitis Chronic sinusitis of both maxillary sinuses Tonsillar debris Tonsil stone Enlarged tonsils Plantar fasciitis of left foot Acute epididymitis Metatarsalgia of left foot Left foot pain Pain in toe of left foot Capsulitis of metatarsophalangeal (MTP) joint of left foot Sprain of tarsometatarsal joint of left foot Headache Acute bacterial bronchitis Flank pain Plantar fasciitis, bilateral Metatarsalgia of both feet Hemorrhage following tonsillectomy Metatarsalgia of right foot Peroneal tendinitis of right lower leg Edema of right foot Right foot pain Influenza A Family history of early CAD Family history of hypertension Hypertension Surgical History Status post tonsillectomy S/P removal of parathyroid gland No significant past surgical history Family History No significant family history Social History Smoking Status: Never smoker alcohol intake: never substance use type: denies use current occupational status: employed Travel in the last 8 weeks?: None Have you lived/traveled outside US in past 30 days?: No Contact w/someone who lives/traveled outside US past 30 days?: No Exposure to someone with infectious disease in past 14 days?: No Do you have a fever (greater than 100.4 F or 38 C)?: No Have you tested positive for COVID-19?: No Exposed to someone with COVID-19 in past 14 days?: No Do you have a sore throat?: No Do you have a cough?: No Do you have any weakness?: No Do you have any diarrhea?: No Are you experiencing any unusual bleeding?: No Do you have any muscle aches/pain?: No Do you have any abdominal pain?: No Are you experiencing loss of taste or smell?: No Other Medical History Have you received the Pneumonia Vaccine: No ROS Obtained: Yes All systems reviewed & no additional complaints except as documented Physical Exam General General appearance: alert and in no apparent distress ENT ENT exam: Present other (Posterior oropharynx appears normal) Neck Neck exam: Present full ROM; Absent meningismus Respiratory Respiratory exam: Present normal lung sounds bilaterally Cardiovascular Cardiovascular exam: Present tachycardia and other (Cool extremities) Abdominal Exam Abdominal exam: Present soft; Absent distention or tenderness Neurological Exam Neurological exam: Present alert, oriented X3 and other (GCS of 15 with nonfocal and normal neurologic exam) Medical Decision Making Medical Records Screening: Per USPSTF and CDC recommendations, given the prevalence of disease in our region, it is our hospital?s policy to screen for HIV and viral Hepatitis for all patients aged 18 and over and those with ongoing risk factors. Jay Inquiry Pt receiving controlled substance: No Vital Signs: 11/16/24 20:17 11/16/24 20:35 11/16/24 21:09 Temperature 98.3 F 98.8 F Temperature Source Oral Pulse Rate 111 H Pulse Rate [Left Radial] 119 H Respiratory Rate 18 16 Blood Pressure 115/61 98/77 L Blood Pressure [Right Arm] 97/51 L Blood Pressure Mean [Right Arm] 66 Blood Pressure Source [Right Arm] Automatic Cuff 02 Sat by Pulse Oximetry 100 100 98 Oxygen Delivery Method Room Air 11/16/24 21:16 11/16/24 21:41 Temperature 101.6 F H Temperature Source Oral Pulse Rate 123 H 136 H Pulse Rate [Left Radial] Respiratory Rate Blood Pressure 90/73 L 115/57 L Blood Pressure [Right Arm] Blood Pressure Mean [Right Arm] Blood Pressure Source [Right Arm] 02 Sat by Pulse Oximetry 99 98 Oxygen Delivery Method Lab Data Lab results reviewed: Yes I reviewed the patient's lab results. Lab Results 11/16/24 20:28: WBC 15.8 H, RBC 4.41 L, Hgb 12.3 L, Hct 36.9 L, MCV 83.7, MCH 27.9, MCHC 33.3, RDW 15.0, Plt Count 239, MPV 11.9 H, Neut % (Auto) 84.4 H, Lymph % (Auto) 7.8 L, [place] % (Auto) 6.8, Eos % (Auto) 0.1, Baso % (Auto) 0.3, Neut # (Auto) 13.4 H, Lymph # (Auto) 1.2, [place] # (Auto) 1.1 H, Eos # (Auto) 0.0, Baso # (Auto) 0.1, Sodium 133 L, Potassium 4.6, Chloride 100, Carbon Dioxide 23, Anion Gap 14.6, BUN 36 H, Creatinine 2.20 H, Estimated Creat Clear 101, Estimated GFR 37 L, Est GFR ( Amer) 45 L, Glucose 119 H, Calcium 9.5, Total Bilirubin 0.9, AST 28, ALT 24, Alkaline Phosphatase 67, Troponin I < 0.01, Total Protein 7.6, Albumin 4.5, Globulin 3.1, Albumin/Globulin Ratio 1.5, Monoscreen Negative 11/16/24 20:35: Urine Color Yellow, Urine Appearance Clear, Urine pH 6.0, Ur Specific [place] 1.015, Urine Protein Negative, Urine Glucose (UA) Negative, Urine Ketones Trace, Urine Blood Negative, Urine Nitrate Negative, Urine Bilirubin Negative, Urine Urobilinogen 0.2, Ur Leukocyte Esterase Negative, Urine RBC None, Urine WBC Occasional, Ur Squamous Epith Cells Occasional, Urine Bacteria None 11/16/24 20:58: VBG Lactic Acid 1.7 11/16/24 21:57: Group A Strep Rapid Negative 11/16/24 20:28 11/16/24 20:28 Orders (Tests/Meds): ED MEDICATIONS Generic Name Dose Route Start Last Admin Trade Name Freq PRN Reason Stop Dose Admin Acetaminophen 650 mg 11/16/24 22:07 Acetaminophen 325mg Tab PO 12/16/24 22:06 Q4HP PRN Fever or Mild Pain (1-3) Acetaminophen 1,000 mg 11/16/24 22:07 Acetaminophen 1,000mg/100ml Vial IV 11/16/24 22:08 ONCE ONE Enoxaparin Sodium 40 mg 11/17/24 09:00 Enoxaparin 40mg/0.4ml Syringe SUBCUT 12/17/24 08:59 DAILY RYANNE Lactated Ringer's 2,470 mls @ 1,235 mls/hr 11/16/24 22:07 Lactated Ringer's 1000 Ml Bag 30 ml/kg infuse over 2 hr (2470 ml) 11/17/24 00:06 IV .Q2H ONE Piperacillin Sod/Tazobactam 50 mls @ 100 mls/hr 11/16/24 22:09 Sod 3.375 gm/ Sodium Chloride IV 11/16/24 22:38 ONCE ONE Piperacillin Sod/Tazobactam 50 mls @ 100 mls/hr 11/17/24 04:15 Sod 3.375 gm/ Sodium Chloride IV 11/27/24 04:14 Q6H RYANNE Miscellaneous 1 each 11/16/24 22:15 Vancomycin Consult Request NOTAPPLIC 12/16/24 22:14 CONSULT PHARMACY COUNTS INCLUDE 234 BEDS AT THE [facility] Ondansetron HCl 4 mg 11/16/24 22:11 Ondansetron 4mg/2ml Vial IV 11/16/24 22:12 ONCE ONE Discontinued Medications Generic Name Dose Route Start Last Admin Trade Name Freq PRN Reason Stop Dose Admin Lactated Ringer's 1,000 mls @ 999 mls/hr 11/16/24 20:30 11/16/24 20:32 Lactated Ringer's 1000 Ml Bag IV 11/16/24 21:30 999 mls/hr .Q1H1M COUNTS INCLUDE 234 BEDS AT THE [facility] Administration ORDERS Category Date Time Status CXR --portable [XR chest portable] Stat Exams 11/16/24 20:20 Completed CBC w/Auto Diff [Complete Blood Count Auto Diff] Stat Lab 11/16/24 20:28 Completed CMP [Comprehensive Metabolic Panel] Stat Lab 11/16/24 20:28 Completed Complete Blood Count Auto Diff AMLAB Lab 11/17/24 06:00 Ordered Comprehensive Metabolic Panel AMLAB Lab 11/17/24 06:00 Ordered Full Resp Panel w/COVID ([facility]) Routine Lab 11/16/24 20:13 Received Lactate Venous Stat Lab 11/16/24 20:58 Completed Magnesium AMLAB Lab 11/17/24 06:00 Ordered Monoscreen (Rapid) Stat Lab 11/16/24 20:28 Completed Strep Scrn Group A (Rapid) Stat Lab 11/16/24 21:57 Completed Trop I [Troponin I] Stat Lab 11/16/24 20:28 Completed Troponin I Q3H Lab 11/16/24 23:30 Ordered Troponin I Q3H Lab 11/17/24 02:30 Ordered UA [Urinalysis and Microscopic] Stat Lab 11/16/24 20:35 Completed Blood Culture Stat Micro 11/16/24 20:45 Received Strep Screen Confirmation Stat Micro 11/16/24 21:57 Received Tissue Perfus/Sepsis Re-Eval Sepsis Re-Evaluation Performed: Yes Date Performed: 11/16/24 Time Performed: 22:20 Medical Decision Narrative: Well-appearing 24-year-old obese gentleman who presents today with a sore throat but is also tachycardic and on serial blood pressure measurements with the appropriate cuff and positioning is hypotensive. Most recent blood pressure 99/54. He does have a history of hypertension and is on blood pressure medication. It incredibly unlikely that this patient has septic shock however with his presentation with tachycardia and hypotension and infectious symptoms we will work this up as a potential. Blood cultures strep full respiratory panel [place] chest x-ray urinalysis have been ordered. IV fluids have been initiated. Patient has had Tylenol and ibuprofen numerous times prior to arrival he is afebrile at the moment but states that he has been febrile at home. At the moment I do not think a serious bacterial infection is the most likely explanation but will be cautious given his vital sign presentation. Reassessment 1020 patient's vital signs are worsening he is tachypneic tachycardic heart rate in the 130s febrile to 101 however his blood pressure has improved after first liter of fluids. Patient has acute kidney injury with a creatinine of 2.2 baseline of around 1 we will attribute this to severe sepsis at this point. No other definitive source of infection urinalysis is unremarkable chest x-ray performed I personally interpreted which shows no obvious consolidation. Patient is possibly bacteremic will give Vanco and Zosyn and additional IV fluids I spoke with Dr. Ulloa who will admit this patient for further evaluation and management. Family and patient are aware of this and agreeable to this plan Critical Care Critical Care Time Critical Care Time: Yes Attestation: On 11/16/24, the high probability of a clinically significant, sudden or life threatening deterioration of the following system(s) required my full and direct attention, intervention and personal management. The time I documented below is in addition to time spent performing reported procedures but includes the following listed in this critical care notation. Total Time Total Critical Care Time: 35
[2024-11-16] MEDS: LACTATED RINGERS 1000ML 1,000 ML 999 ML IV (20:32)
[2024-11-16 20:33] LABS: Adenovirus,PCR Not Detected (NotDetected); Chlamydophila Pneumoniae, PCR Not Detected (NotDetected); Coronavirus 19, PCR Not Detected (NotDetected); Coronovirus HKU1,PCR Not Detected (NotDetected); Influenza A, PCR Not Detected (NotDetected); Influenza AH1, 2009 Not Detected (NotDetected); Influenza AH1, PCR Not Detected (NotDetected); Influenza AH3,PCR Not Detected (NotDetected); Influenza B, PCR Not Detected (NotDetected); Mycoplasma Pneumoniae, PCR Not Detected (NotDetected); Parainfluenza 1, PCR Not Detected (NotDetected); Parainfluenza 2, PCR Not Detected (NotDetected); Parainfluenza 3, PCR Not Detected (NotDetected); Parainfluenza 4, PCR Not Detected (NotDetected)
[2024-11-16 20:36] LABS: Hematocrit 36.9 % (42.0-52.0); Hemoglobin 12.3 g/dL (14.1-18.0); Immature Granulocytes % 0.6 %; Mean Corpuscular HGB Conc 33.3 g/dL (31.8-35.4); Mean Corpuscular Hemoglobin 27.9 pg (27.0-31.2); Mean Corpuscular Volume 83.7 fl (80-94); Nucleated Red Blood Cells % 0 %; Platelet Count 239 K/mm3 (142-424); Red Blood Count 4.41 M/mm3 (4.60-6.20); Red Cell Distribution Width-SD 45.2 fL; White Blood Count 15.8 K/mm3 (4.8-10.8)
[2024-11-16 20:51] LABS: Microscopic, Urine URINE MICROSCOPIC (MICROSCOPIC)
[2024-11-16 21:00] LABS: Monoscreen (Rapid) Negative (Negative)
[2024-11-16 21:00] LABS: Bilirubin,Urine Negative (Negative); Color,Urine YELLOW (Yellow); Glucose,Urine (UA) Negative (Negative); Ketones,Urine TRACE (Negative); Leukocyte Esterase,Urine Negative (Negative); PH,Urine 6.0 (5.0-8.5); Protein,Urine Negative (Negative); Specific Gravity, Urine 1.015 (1.005-1.030); Urobilinogen,Urine 0.2 EU/dl (0.2)
[2024-11-16 21:08] LABS: Alanine Aminotransferase 24 U/L (12-78); Albumin Level 4.5 g/dl (3.5-5.0); Albumin/Globulin Ratio 1.5 (1.1-1.8); Alkaline Phosphatase 67 U/L (38-126); Anion Gap 14.6 mEq/L (5-15); Aspartate Amino Transferase 28 U/L (17-59); Bilirubin,Total 0.9 mg/dl (0.2-1.3); Blood Urea Nitrogen 36 mg/dl (9-20); Calcium 9.5 mg/dl (8.4-10.2); Carbon Dioxide 23 mmol/L (22.0-30.0); Chloride 100 mmol/L (98-107); Creatinine Clearance Estimated 101 mL/min (50-200); Creatinine,Serum 2.20 mg/dl (0.66-1.25); Estimated Glomerular Filt Rate 37 ml/min (>60); GFR (African American) 45 ML/MIN (>60); Globulin 3.1 g/dL (1.3-3.2); Glucose 119 mg/dl (74-100); Potassium 4.6 mmoL/L (3.5-5.1); Sodium 133 mmol/L (136-145); Total Protein,Serum 7.6 g/dl (6.3-8.2)
[2024-11-16 21:11] LABS: Squamous Epithelial Cell,Urine Occasional #/hpf (0-5); WBC,Urine Occasional #/hpf (0-3)
[2024-11-16 21:23] LABS: Troponin I < 0.01 ng/ml (0.00-0.034)
--- NOTE | 2024-11-16 21:47 | PC.NURSE ---
Pt has 1 episode of vomiting with all over shakes, Provider to be notified, awaiting orders.
--- NOTE | 2024-11-16 22:10 | EXP.HP ---
History of Present Illness *Admission Date: 11/16/24 *Reason for visit:: sore throat *History of present illness: Mr. Solis is a 24-year-old male with hypertension and obesity. Presented with complaint of 2 days of flulike symptoms. Was seen in [facility] earlier today where he was prescribed Claritin because of congestion and sore throat. When getting home however he did not feel any better and noticed that his blood pressure was showing that his bottom number was low. Because of persistent low blood pressure and feeling weak and chills, he came to the ER for further management. On arrival he was found to be febrile with a temperature of 101.6 and blood pressure with systolics in the 90s. Workup initiated found white count of 15.8. Patient tachycardic. Kidney function abnormal with BUN 36, creatinine 2.2. Had been taking his normal blood pressure medications which include lisinopril but threw this morning. Only other complaint is sore throat. Denies cough, congestion, nausea or vomiting. No diarrhea. No new rashes or insect bites. Does complain about ongoing hemorrhoids for about the past year but no worsening swelling in his bottom or pain in his bottom. Alert and oriented x 4. Blood cultures obtained, initiated on broad-spectrum antibiotics with vancomycin and Zosyn. Comprehensive respiratory panel obtained. Urinalysis grossly normal. Chest imaging obtained with chest x-ray that does not show focal consolidation or airspace disease. Medicine consulted for admission and further treatment due to suspected sepsis. Upon arrival to the floor, he is alert and oriented x 4. He was complaining of pain in his bottom. Evaluated on exam with no appreciable perianal erythema or lesions. No obvious external hemorrhoids. Feeling somewhat better after getting IV fluids. [facility] Disclaimer: The information contained in this section may have been updated after the patient was seen, as this information can be updated by other users. Medical History (Updated 11/16/24 @ 23:06 by Yuli Arora RN) Hyperlipidemia Pharyngitis Influenza A Right foot pain Edema of right foot Peroneal tendinitis of right lower leg Metatarsalgia of right foot Hemorrhage following tonsillectomy Metatarsalgia of both feet Plantar fasciitis, bilateral Flank pain Enlarged tonsils Tonsil stone Acute bacterial bronchitis Tonsillar debris Chronic sinusitis of both maxillary sinuses Headache Sprain of tarsometatarsal joint of left foot Capsulitis of metatarsophalangeal (MTP) joint of left foot Pain in toe of left foot Left foot pain Metatarsalgia of left foot Acute epididymitis Plantar fasciitis of left foot Family history of early CAD Family history of hypertension Hypertension Surgical History Status post tonsillectomy S/P removal of parathyroid gland No significant past surgical history Family History No significant family history Social History (Updated 11/16/24 @ 23:06 by Yuli Arora RN) Smoking Status: Never smoker alcohol intake: never substance use type: denies use current occupational status: employed Travel in the last 8 weeks?: None Have you lived/traveled outside US in past 30 days?: No Contact w/someone who lives/traveled outside US past 30 days?: No Exposure to someone with infectious disease in past 14 days?: No Do you have a fever (greater than 100.4 F or 38 C)?: No Have you tested positive for COVID-19?: No Exposed to someone with COVID-19 in past 14 days?: No Do you have a sore throat?: No Do you have a cough?: No Do you have any weakness?: No Are you experiencing any nausea/vomitting?: No Do you have any diarrhea?: No Are you experiencing any unusual bleeding?: No Do you have any muscle aches/pain?: No Do you have any abdominal pain?: No Are you experiencing loss of taste or smell?: No Other Medical History Have you received the Pneumonia Vaccine: No Review of Systems Review of Systems Review of systems (narrative): 14 point review of systems performed, pertinent positives and negatives as per HPI Meds Home Medications and Allergies Home Medications ?Medication ?Instructions ?Recorded ?Confirmed ?Type lisinopril 20 1 tab PO DAILY 02/04/24 11/16/24 History mg-hydrochlorothiazide 12.5 mg tablet atorvastatin 10 mg tablet 10 mg PO DAILY 08/14/24 11/16/24 History nebivolol 5 mg tablet 5 mg PO DAILY #90 tabs 08/14/24 11/16/24 Rx cholecalciferol (vitamin D3) 50 50 mcg PO DAILY 10/22/24 11/16/24 History mcg (2,000 unit) capsule lidocaine 5 % topical patch 1 patch topical DAILY PRN pain #30 11/05/24 11/16/24 Rx ea New Prescriptions to Start Prescriptions: Allergies Allergy/AdvReac Type Severity Reaction Status Date / Time No Known Allergies Allergy Verified 11/16/24 09:34 Exam Data for Last 24 hours Vital signs and Labs for Last 24 Hours: Temp Pulse Resp BP Pulse Ox O2 Del Method 101.6 F H 136 H 16 115/57 L 98 Room Air 11/16/24 21:41 11/16/24 21:41 11/16/24 21:09 11/16/24 21:41 11/16/24 21:41 11/16/24 20:17 Laboratory Results - last 24 hr 11/16/24 20:28: WBC 15.8 H, RBC 4.41 L, Hgb 12.3 L, Hct 36.9 L, MCV 83.7, MCH 27.9, MCHC 33.3, RDW 15.0, Plt Count 239, MPV 11.9 H, Neut % (Auto) 84.4 H, Lymph % (Auto) 7.8 L, [place] % (Auto) 6.8, Eos % (Auto) 0.1, Baso % (Auto) 0.3, Neut # (Auto) 13.4 H, Lymph # (Auto) 1.2, [place] # (Auto) 1.1 H, Eos # (Auto) 0.0, Baso # (Auto) 0.1, Sodium 133 L, Potassium 4.6, Chloride 100, Carbon Dioxide 23, Anion Gap 14.6, BUN 36 H, Creatinine 2.20 H, Estimated Creat Clear 101, Estimated GFR 37 L, Est GFR ( Amer) 45 L, Glucose 119 H, Calcium 9.5, Total Bilirubin 0.9, AST 28, ALT 24, Alkaline Phosphatase 67, Troponin I < 0.01, Total Protein 7.6, Albumin 4.5, Globulin 3.1, Albumin/Globulin Ratio 1.5, Monoscreen Negative 11/16/24 20:35: Urine Color Yellow, Urine Appearance Clear, Urine pH 6.0, Ur Specific [place] 1.015, Urine Protein Negative, Urine Glucose (UA) Negative, Urine Ketones Trace, Urine Blood Negative, Urine Nitrate Negative, Urine Bilirubin Negative, Urine Urobilinogen 0.2, Ur Leukocyte Esterase Negative, Urine RBC None, Urine WBC Occasional, Ur Squamous Epith Cells Occasional, Urine Bacteria None I & O for Last 24 hours: Intake & Output 11/13/24 11/14/24 11/15/24 11/16/24 23:59 23:59 23:59 23:59 Weight 138.346 kg Constitutional Constitutional: mild distress, morbidly obese and cooperative *Routine HEENT Exam Head: Present normocephalic Eye: Present EOMI and PERRL ENT: Present mucous membranes moist, oropharynx clear and TM's clear bilaterally *Routine Neck Exam Neck: Present supple; Absent lymphadenopathy *Routine Respiratory Exam Respiratory: Present CTA bilaterally; Absent rhonchi, wheezes or crackles *Routine Cardiovascular Exam Cardiovascular: Present tachycardia Comments: Regular rhythm *Routine Abdominal Exam Abdominal: Present soft and normoactive bowel sounds; Absent tenderness *Routine Rectal Exam Rectal:: normal sphincter tone, no hemorrhoids and no masses Comments:: No perianal erythema *Routine Genitalia Exam Genitalia:: deferred *Routine Extremities Exam Extremities: Absent cyanosis, clubbing or edema Comments: 3 small dots right medial calf of molluscum contagiosum and 4 small dots left medial knee of similar. Lesions are raised 2 to 3 mm in diameter with umbilicated center *Routine Skin Exam Skin: Present intact and warm; Absent rash *Routine Neurological Exam Neurological: Present alert, oriented X3 and moving all extremities; Absent altered mental status Assessment and Plan *Assessment and plan (1) Severe sepsis: Status: Acute Category: Medical Code(s): A41.9 - Sepsis, unspecified organism; R65.20 - Severe sepsis without septic shock (2) Hypotension: Category: Medical Code(s): I95.9 - Hypotension, unspecified (3) Pharyngitis: Category: Medical Code(s): J02.9 - Acute pharyngitis, unspecified (4) GERD (gastroesophageal reflux disease): Status: Acute Category: Medical Code(s): K21.9 - Gastro-esophageal reflux disease without esophagitis (5) Hypertension: Status: Chronic Category: Medical Code(s): I10 - Essential (primary) hypertension (6) Hyperlipidemia: Status: Acute Category: Medical Code(s): E78.5 - Hyperlipidemia, unspecified (7) REGINALD (acute kidney injury): Status: Acute Category: Medical Code(s): N17.9 - Acute kidney failure, unspecified (8) Obesity (BMI 30-39.9): Status: Chronic Category: Medical Code(s): E66.9 - Obesity, unspecified Plan 24-year-old male who presents with flulike symptoms. Workup in the ER concerning for severe sepsis with kidney dysfunction, tachycardia, hypotension, leukocytosis, suspected pharyngitis. Discussed case with ER physician, request admission for further management of sepsis and continued IV antibiotic therapy while monitoring cultures. I decided to admit for further treatment including antibiotics and monitoring. Patient tachycardic but blood pressure proved somewhat after bolus fluids. Necessitating inpatient management. Problems addressed as follows: Severe sepsis - Tachycardic, leukocytosis, suspected pharyngitis. Respiratory panel obtained, negative for all analytes. Blood cultures obtained and pending. Urine culture pending. Urinalysis however relatively unremarkable with no nitrate or leuk esterase. -White count 15.8, hemoglobin 12.3. Platelets 239. - Continue vancomycin IV and Zosyn 3.375 g every 6 hours for at least 48 hours pending culture results - Status post IV fluid bolus. Will continue LR at 150 an hour if blood pressure continues to drop. - Holding blood pressure meds at this time due to soft blood pressure - Strep swab negative. Monospot negative. - Per my review of chest x-ray, no focal consolidation. No airspace disease appreciated. REGINALD: Creatinine 2.2, BUN 36. Suspect prerenal due to medications and sepsis above. Monitor for improvement with labs in the morning. Potassium 4.6. Repeat CBC, CMP, magnesium ordered for the morning. Hypertension: Patient frankly hypotensive at this time. Holding lisinopril/HCTZ and Nebivolol due to REGINALD Hyperlipidemia: Holding statin in the setting of sepsis Obesity complicates all aspects of his care Full code Regular diet Lovenox 40 mg subcu daily
[2024-11-16 22:13] LABS: Lactate Venous 1.7 mmol/L (0.4-2.0)
[2024-11-16 22:15] LABS: Strep Scrn Group A (Rapid) Negative (Negative)
[2024-11-16] MEDS: PIPERCILLIN/TAZO 3.375 GM in 0.9 % SODIUM CHLORIDE 50 ML IV (22:25)
[2024-11-16] MEDS: ACETAMINOPHEN 1,000MG/100ML VIAL 1000 MG IV (22:26)
--- NOTE | 2024-11-16 22:34 | PC.NURSE ---
report given to Yuli WELLINGTON on the floor.
[2024-11-16] MEDS: LACTATED RINGERS 1000ML 2,470 ML 1235 ML IV (22:37)
--- NOTE | 2024-11-16 22:49 | PC.NURSE ---
patient arrived by wheelchair from ed at 22:46
--- NOTE | 2024-11-17 00:32 | EXP.SEPSISRE ---
[facility] Tissue Perfusion Eval Sepsis Re-Evaluation Performed: Yes Date Performed: 11/17/24 Time Performed: 00:10
[2024-11-17] MEDS: VANCOMYCIN CONSULT REQUEST 1 EACH NOTAPPLIC (01:44)
[2024-11-17] MEDS: VANCOMYCIN HCL 2,500 MG in 0.9 % SODIUM CHLORIDE 500 ML 250 MG IV (01:45)
[2024-11-17 04:00] VITALS: BP 91/62; PULSE 113; RESP 16; TEMP 39.3; O2SAT 97; BMI 40.0
[2024-11-17] MEDS: ACETAMINOPHEN 325MG TAB 650 MG PO ×2 (04:06→12:35)
[2024-11-17] MEDS: LIDOCAINE 5% TRANSDERMAL PATCH 1 EACH TD (04:20)
[2024-11-17] MEDS: PIPERCILLIN/TAZO 3.375 GM in 0.9 % SODIUM CHLORIDE 50 ML IV ×4 (04:42→22:55)
[2024-11-17] MEDS: LACTATED RINGERS 1000ML 1,000 ML 150 ML IV (04:45)
--- NOTE | 2024-11-17 05:02 | PC.NURSE ---
patient A&O x4. patient is new admit this shift. has been at bedside. patient complaint of generalized body aches, fever, and lower back pain. Will continue to monitor.
[2024-11-17 06:31] LABS: Hematocrit 35.0 % (42.0-52.0); Hemoglobin 11.6 g/dL (14.1-18.0); Immature Granulocytes % 0.8 %; Mean Corpuscular HGB Conc 33.1 g/dL (31.8-35.4); Mean Corpuscular Hemoglobin 27.6 pg (27.0-31.2); Mean Corpuscular Volume 83.3 fl (80-94); Nucleated Red Blood Cells % 0 %; Platelet Count 213 K/mm3 (142-424); Red Blood Count 4.20 M/mm3 (4.60-6.20); Red Cell Distribution Width-SD 45.9 fL; White Blood Count 12.5 K/mm3 (4.8-10.8)
[2024-11-17 06:50] LABS: Albumin Level 3.5 g/dl (3.5-5.0); Chloride 100 mmol/L (98-107); Potassium 4.1 mmoL/L (3.5-5.1); Sodium 131 mmol/L (136-145)
[2024-11-17 06:53] LABS: Alanine Aminotransferase 23 U/L (12-78); Albumin/Globulin Ratio 1.0 (1.1-1.8); Alkaline Phosphatase 62 U/L (38-126); Anion Gap 12.1 mEq/L (5-15); Aspartate Amino Transferase 26 U/L (17-59); Bilirubin,Total 0.7 mg/dl (0.2-1.3); Blood Urea Nitrogen 26 mg/dl (9-20); Calcium 9.2 mg/dl (8.4-10.2); Carbon Dioxide 23 mmol/L (22.0-30.0); Creatinine Clearance Estimated 152 mL/min (50-200); Creatinine,Serum 1.50 mg/dl (0.66-1.25); Estimated Glomerular Filt Rate 57 ml/min (>60); GFR (African American) 70 ML/MIN (>60); Globulin 3.6 g/dL (1.3-3.2); Glucose 115 mg/dl (74-100); Magnesium 1.5 mg/dl (1.6-2.3); Total Protein,Serum 7.1 g/dl (6.3-8.2)
[2024-11-17 07:49] VITALS: BP 120/48; PULSE 116; RESP 18; TEMP 37.3; O2SAT 96
--- NOTE | 2024-11-17 10:49 | EXP.ACUTE.PN ---
Subjective *Date: 11/17/24 *Time: 15:46 Interval history: Patient denies any significant pain other than his sore throat. No nausea or vomiting. No fever overnight. Tolerating p.o. intake. Slept poorly due to intermittent medication administration. Stable on room air. No new rash. Family at bedside. Alert and oriented x 4 Medical Exam Vital signs and Labs for Last 24 Hours: Vital Signs Temp Pulse Pulse Resp BP BP Pulse Ox 11/17/24 07:49 99.2 F 116 H 18 120/48 L 96 11/17/24 06:56 11/17/24 05:00 11/17/24 04:00 102.8 F H 113 H 16 91/62 L 97 11/17/24 03:00 11/17/24 01:00 11/16/24 23:04 98.7 F 126 H 17 104/55 L 100 11/16/24 23:00 11/16/24 22:35 99.9 F H 136 H 16 115/57 L 11/16/24 22:13 11/16/24 21:41 101.6 F H 136 H 115/57 L 98 11/16/24 21:16 123 H 90/73 L 99 11/16/24 21:09 98.8 F 111 H 16 98/77 L 98 11/16/24 20:35 115/61 100 11/16/24 20:17 98.3 F 119 H 18 97/51 L 100 O2 Del Method 11/17/24 07:49 Room Air 11/17/24 06:56 Room Air 11/17/24 05:00 Room Air 11/17/24 04:00 Room Air 11/17/24 03:00 Room Air 11/17/24 01:00 Room Air 11/16/24 23:04 Room Air 11/16/24 23:00 Room Air 11/16/24 22:35 Room Air 11/16/24 22:13 Room Air 11/16/24 21:41 11/16/24 21:16 11/16/24 21:09 11/16/24 20:35 11/16/24 20:17 Room Air Intake and Output 11/16/24 11/17/24 11/17/24 23:59 07:59 15:59 Intake Total 1000 / 1240 240 / 1240 Output Total 0 / 0 1300 / 1300 0 / 1300 Balance 0 / 1000 -300 / -60 240 / -60 Intake: Intake, Oral Amount 240 / 240 Intake, Other Amount 1000 / 1000 Output: Output, Urine Amount 0 / 0 1299 / 1299 0 / 1299 Other: Intake, Other Source Saline Solution Number of Unmeasured Voids 1 0 1 Weight 141.612 kg 141.612 kg Patient Weight 11/17/24 23:59 Weight 141.612 kg Laboratory Results - last 24 hr 11/16/24 20:13: Chlamy pneumoniae PCR Not detected, Adenovirus (PCR) Not detected, B. pertussis DNA (PCR) Not detected, Coronavirus OC43 (PCR) Not detected, Coronavirus HKU1 (PCR) Not detected, Coronavirus 229E (PCR) Not detected, SARS-CoV-2 (PCR) Not detected, Coronavirus NL63 (PCR) Not detected, Human Metapneumovir PCR Not detected, Influenza A (H1) PCR Not detected, Influ A (H1N1/09) PCR Not detected, Influenza A (H3) PCR Not detected, Influenza Type A (PCR) Not detected, Influenza Type B (PCR) Not detected, M. pneumoniae (PCR) Not detected, Parainfluenza 1 (PCR) Not detected, Parainfluenza 2 (PCR) Not detected, Parainfluenza 3 (PCR) Not detected, Parainfluenza 4 (PCR) Not detected, RSV (PCR) Not detected, Entero/Rhino (PCR) Not detected 11/16/24 20:28: WBC 15.8 H, RBC 4.41 L, Hgb 12.3 L, Hct 36.9 L, MCV 83.7, MCH 27.9, MCHC 33.3, RDW 15.0, Plt Count 239, MPV 11.9 H, Neut % (Auto) 84.4 H, Lymph % (Auto) 7.8 L, [place] % (Auto) 6.8, Eos % (Auto) 0.1, Baso % (Auto) 0.3, Neut # (Auto) 13.4 H, Lymph # (Auto) 1.2, [place] # (Auto) 1.1 H, Eos # (Auto) 0.0, Baso # (Auto) 0.1, Sodium 133 L, Potassium 4.6, Chloride 100, Carbon Dioxide 23, Anion Gap 14.6, BUN 36 H, Creatinine 2.20 H, Estimated Creat Clear 101, Estimated GFR 37 L, Est GFR ( Amer) 45 L, Glucose 119 H, Calcium 9.5, Total Bilirubin 0.9, AST 28, ALT 24, Alkaline Phosphatase 67, Troponin I < 0.01, Total Protein 7.6, Albumin 4.5, Globulin 3.1, Albumin/Globulin Ratio 1.5, Monoscreen Negative 11/16/24 20:35: Urine Color Yellow, Urine Appearance Clear, Urine pH 6.0, Ur Specific [place] 1.015, Urine Protein Negative, Urine Glucose (UA) Negative, Urine Ketones Trace, Urine Blood Negative, Urine Nitrate Negative, Urine Bilirubin Negative, Urine Urobilinogen 0.2, Ur Leukocyte Esterase Negative, Urine RBC None, Urine WBC Occasional, Ur Squamous Epith Cells Occasional, Urine Bacteria None 11/16/24 20:58: VBG Lactic Acid 1.7 11/16/24 21:57: Group A Strep Rapid Negative 11/17/24 05:47: WBC 12.5 H, RBC 4.20 L, Hgb 11.6 L, Hct 35.0 L, MCV 83.3, MCH 27.6, MCHC 33.1, RDW 15.2, Plt Count 213, MPV 11.8 H, Neut % (Auto) 84.7 H, Lymph % (Auto) 8.7 L, [place] % (Auto) 5.6, Eos % (Auto) 0.0 L, Baso % (Auto) 0.2, Neut # (Auto) 10.6 H, Lymph # (Auto) 1.1, [place] # (Auto) 0.7, Eos # (Auto) 0.0, Baso # (Auto) 0.0, Sodium 131 L, Potassium 4.1, Chloride 100, Carbon Dioxide 23, Anion Gap 12.1, BUN 26 H D, Creatinine 1.50 H D, Estimated Creat Clear 152, Estimated GFR 57 L, Est GFR ( Amer) 70 D, Glucose 115 H, Calcium 9.2, Magnesium 1.5 L, Total Bilirubin 0.7, AST 26, ALT 23, Alkaline Phosphatase 62, Total Protein 7.1, Albumin 3.5 D, Globulin 3.6 H, Albumin/Globulin Ratio 1.0 L I & O for Labs for Last 24 Hours: Intake & Output 08/0111/15/24 11/16/24 11/17/24 23:59 23:59 23:59 23:59 Intake Total 1240 / 1240 Output Total 0 / 0 1300 / 1300 Balance 0 / 1000 -60 / -60 Weight 141.612 kg 141.612 kg Constitutional: Present no acute distress, obese and cooperative Head: Present atraumatic and normocephalic ENT: Present normal exam Neck: Present lymphadenopathy Comment:: Tender anterior cervical lymphadenopathy Respiratory: Present normal respiratory effort; Absent rhonchi, wheezes or crackles Cardiac: Present Reg Rate and Rhythm GI: Present soft and normal bowel sounds; Absent distention or tenderness Extremities: Present normal inspection and full ROM Skin: Present intact; Absent erythema Neuro: Present Grossly Intact, alert, awake, oriented x 3 and moves all extremities Assessment and Plan *Assessment and plan (1) Severe sepsis: Status: Acute Category: Medical Code(s): A41.9 - Sepsis, unspecified organism; R65.20 - Severe sepsis without septic shock (2) Hypotension: Category: Medical Code(s): I95.9 - Hypotension, unspecified (3) Pharyngitis: Category: Medical Code(s): J02.9 - Acute pharyngitis, unspecified (4) GERD (gastroesophageal reflux disease): Status: Acute Category: Medical Code(s): K21.9 - Gastro-esophageal reflux disease without esophagitis (5) Hypertension: Status: Chronic Category: Medical Code(s): I10 - Essential (primary) hypertension (6) Hyperlipidemia: Status: Acute Category: Medical Code(s): E78.5 - Hyperlipidemia, unspecified (7) REGINALD (acute kidney injury): Status: Acute Category: Medical Code(s): N17.9 - Acute kidney failure, unspecified (8) Obesity (BMI 30-39.9): Status: Chronic Category: Medical Code(s): E66.9 - Obesity, unspecified Plan 24-year-old male who presents with flulike symptoms. Workup in the ER concerning for severe sepsis with kidney dysfunction, tachycardia, hypotension, leukocytosis, suspected pharyngitis. Discussed case with ER physician, request admission for further management of sepsis and continued IV antibiotic therapy while monitoring cultures. I decided to admit for further treatment including antibiotics and monitoring. Patient tachycardic but blood pressure improved this morning. Continues to require inpatient management while awaiting negative cultures. Afebrile overnight. Problems addressed as follows: Severe sepsis REGINALD - Tachycardic, leukocytosis, suspected pharyngitis. Respiratory panel negative for all analytes. Blood cultures obtained and pending, negative so far. Urine culture remains negative so far. -White count improved to 12.6. Hemoglobin 11.6. Kidney function showing improvement with BUN 26, creatinine 1.5. Potassium 4.1. Magnesium 1.5. Replace magnesium per protocol - Repeat CBC, CMP, magnesium ordered for the morning - Continue vancomycin IV and Zosyn 3.375 g every 6 hours for at least 48 hours pending culture results - Administer additional 1 L of LR at 500 cc an hour. - Holding blood pressure meds at this time due to soft blood pressure - Strep swab negative. Monospot negative. Throat culture pending Hypertension: Patient frankly hypotensive at this time. Holding lisinopril/HCTZ and Nebivolol due to REGINALD Hyperlipidemia: Holding statin in the setting of sepsis Obesity complicates all aspects of his care Full code Regular diet Lovenox 40 mg subcu daily
[2024-11-17] MEDS: LACTATED RINGERS 1000ML 1,000 ML 500 ML IV (11:00)
[2024-11-17] MEDS: MAGNESIUM SULFATE IN WATER 2 GM/50 ML PIGGYBACK IV (11:58)
[2024-11-17 12:00] VITALS: BP 132/63; PULSE 119; RESP 18; TEMP 37.8; O2SAT 100
--- OUTSIDE RECORDS SUMMARY | 2024-11-17 13:12 | XMS_ITS | Encounter Summary ---
Author Organization [facility] Address [address] [place] [address] Phone [email or web address] [email or web address] Care Team Providers Care Culture Manager Name Role Phone Provider, No Primary Care Provider Unavailabl e Reason for Visit * Reason Onset Date Comments Care Coordination 11/11/2024 Encounter Details Date Type Department Care Team (Late st Contact Info) Description 11/11/[address] [place] [address] Jesusita Small, RN [address] [place] [address] Social History Tobacco Use Types [...] RN - 11/11/2024 1:00 PM EDT Nurse operations support manager note for follow up call. 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 KAREN: per [...] MRI left shoulder Clinic Provider: MARIBEL Arce [phone] F/U Call Notes: Attempted to reach TM regarding follow up with Dr Melo . No answer. No VM available. Last Specialist Visit: 10/23/24 Next Specialist Visit: 11/10/24 10:[address] Melo Airborne Operations Manager Plan/Goals: TM to keep scheduled apts TM to call with updates or changes Notes requested from specialist's office Continue following plan of care per specialist Conclusion: -Attempted to contact TM. No answer. -No voicemail available. Airborne Operations Manager Signature: Jesusita Small RN Date: 11/11/24 documented in this encounter Plan of Treatment Not on file documented as of this encounter Visit Diagnoses Not on filedocumented in this encounter Care Teams Culture Manager Relationship Specialty Start Date End Date Provider, [place] [address] PCP - General Production Support Consultant 10/06/19 documented as of this encounter
--- OUTSIDE RECORDS SUMMARY | 2024-11-17 13:12 | XMS_ITS | Encounter Summary ---
Author Organization [facility] Address [address] [place] [address] Phone CareEverywhereSuppor [email or web address] Care Team Providers Care Real Estate Operations Manager Name Role Phone Provider, No Primary Care Provider Unavailabl e Reason for Visit * Reason Onset Date Comments Care Coordination 11/04/2024 Encounter Details Date Type Department Care Team (Late st Contact Info) Description 11/04/[address] [place] [address] Jesusita Small, RN [address] [place] [address] Social History Tobacco Use Types [...] RN - 11/04/2024 9:39 AM EDT Nurse human resources manager manufacturing note for follow up call. 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 KAREN: per [...] MRI left shoulder Clinic Provider: MARIBEL Arce [phone] F/U Call Notes: PC from TM to update that MRI is approved and scheduled for tomorrow and follow up with Dr Melo 11/10/2509:00 AM. Last Specialist Visit: 10/23/24 Next Specialist Visit: MRI 11/05/24 and follow up 11/10/24 10:[address] Melo Chucking Machine Operator Plan/Goals: TM to keep scheduled apts TM to call with updates or changes Continue following plan of care per specialist Conclusion: -TM to call back with updates and changes or as needed. -TM verbalized knowledge of next steps/appointments. -TM has no further concerns at this time. Chucking Machine Operator Signature: Jesusita Small RN Date: 11/04/24 documented in this encounter Plan of Treatment Not on file documented as of this encounter Visit Diagnoses Not on filedocumented in this encounter Care Teams Real Estate Operations Manager Relationship Specialty Start Date End Date Provider, RICARDO Merino [address] PCP - General Scheduler Conveyor 10/06/19 documented as of this encounter
--- OUTSIDE RECORDS SUMMARY | 2024-11-17 13:12 | XMS_ITS | Encounter Summary ---
Author Organization [facility] Address [address] [place] [address] Phone CareEverywhereSuppor [email or web address] Care Team Providers Care Sea Kayaking Guide Name Role Phone Provider, No Primary Care Provider Unavailabl e Reason for Visit * Reason Onset Date Comments Care Coordination 2024 Encounter Details Date Type Department Care Team (Late st Contact Info) Description [address] [place] [address] Jesusita Small RN [address] [place] [address] Social History Tobacco Use Types [...] RN - 2024 1:52 PM EDT Nurse assistant manager/embalmer note for follow up call. 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 KAREN: per [...] 10/20/24- WMLOA begins. [facility] 10/23/24- Dr Jack follow up. Placed off work and referred for left shoulder MRI. TM told to hold PT. Clinic Provider: MARIBEL Arce [phone] F/U Call Notes: PC to TM for check in after specialist appointment today with Dr Jack. TM was placed off work and left shoulder MRI referral. TM was told to hold off on PT. TM states he has already updated Dianna Masterson. TM has no questions or concerns, will call with updates. Last Specialist Visit: 10/23/24 Next Specialist Visit: Pending MRI Lock Up Worker Plan/Goals: TM to keep scheduled apts TM to call with updates or changes Notes requested from specialist's office Continue following plan of care per specialist Conclusion: -TM to call back with updates and changes or as needed. -TM verbalized knowledge of next steps/appointments. -TM has no further concerns at this time. Lock Up Worker Signature: Jesusita Small RN Date: 10/23/24 documented in this encounter Plan of Treatment Not on file documented as of this encounter Visit Diagnoses Not on filedocumented in this encounter Care Teams Sea Kayaking Guide Relationship Specialty Start Date End Date Provider, RICARDO Merino [address] PCP - General Senior Visual Designer 10/06/19 documented as of this encounter
--- OUTSIDE RECORDS SUMMARY | 2024-11-17 13:12 | XMS_ITS | Clinical Summary ---
Author Organization [facility] Address [address] [place] [id number] Care Team Providers Care And Drying Supervisor Cooking Casing Name Role Phone Pcp, No Primary Care [...] (03/03/2022): Added automatically from request for surgery [id number] Acute nasopharyngitis 01/31/2018 Nasal congestion 01/31/2018 ADHD [...] history exists [facility]-Depression Screening 03/02/2023 03/02/2022, 02/14 [id number] Vaccine ( season) 2023 01/14/2021, 12/24/2020 [facility]-Influenza [...] complete this topic Insurance KELLIE Care Teams And Drying Supervisor Cooking Casing Relationship Specialty Start Date End Date Pcp, Alla [address] [place] [address] PCP - General Family Medicine 02/02/22
--- OUTSIDE RECORDS SUMMARY | 2024-11-17 13:12 | XMS_ITS | Encounter Summary ---
Author Organization [facility] Address [address] [place] [address] Phone CareEverywhereSuppor [email or web address] Care Team Providers Care Bias Machine Operator Helper Name Role Phone Provider, No Primary Care Provider Unavailabl e Reason for Visit * Reason Onset Date Comments Care Coordination 10/22/2024 Encounter Details Date Type Department Care Team (Late st Contact Info) Description 10/22/[address] [place] [address] Jesusita Small RN [address] [place] [address] Social History Tobacco Use Types [...] RN - 10/22/2024 10:29 AM EDT Nurse rehabilitation program manager note for WMLOA TM. 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 KAREN: per [...] 10/20/24- WMLOA begins. TM sent home by [facility] due to restricted work day count. Clinic Provider: MARIBEL Arce [phone] NEXT CLINIC VISIT: after being released by [...] after tomorrows appointment. Planned RTW Date: TBD Linemarker Plan/Goals: TM to keep scheduled apts TM to call with updates or changes WMLOA case management discussed Continue following plan of care per specialist Conclusion: -TM to call back with updates and changes or as needed. -TM verbalized knowledge of next steps/appointments. -TM verbalized knowledge that restrictions apply while at AND away from work. -TM has no further concerns at this time. Linemarker Signature: Jesusita Small RN documented in this encounter Plan of Treatment Not on file documented as of this encounter Visit Diagnoses Not on filedocumented in this encounter Care Teams Bias Machine Operator Helper Relationship Specialty Start Date End Date [place], [place] [address] PCP - General Semiconductor Equipment Technician 10/06/19 documented as of this encounter
--- OUTSIDE RECORDS SUMMARY | 2024-11-17 13:12 | XMS_ITS | Encounter Summary ---
Author Organization [facility] Address [address] [place] [address] Phone CareEverywhereSuppor [email or web address] Care Team Providers Care Culinary Assistant Name Role Phone Provider, No Primary Care Provider Unavailabl e Encounter Details Date Type Department Care Team (Late st Contact Info) Description 11/12/[address] [place] [address] Jesusita Small, RN [address] [place] [address] Social History Tobacco Use Types [...] RN - 11/12/2024 8:49 AM EDT Nurse manager cardiology note for follow up call. 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 KAREN: per [...] RX medication given. Clinic Provider: MARIBEL Arce [phone] F/U Call Notes: PC to TM regarding [...] Specialist Visit: 12/12/24 3:[address] Melo Pulley Mortiser Operator Plan/Goals: TM to keep scheduled apts TM to call with updates or changes Notes requested from specialist's office Continue following plan of care per specialist Conclusion: -TM to call back with updates and changes or as needed. -TM verbalized knowledge of next steps/appointments. -TM has no further concerns at this time. Pulley Mortiser Operator Signature: Jesusita Small RN Date: 11/12/24 documented in this encounter Plan of Treatment Not on file documented as of this encounter Visit Diagnoses Not on filedocumented in this encounter Care Teams Culinary Assistant Relationship Specialty Start Date End Date Provider, RICARDO Merino [address] PCP - General Mixed Livestock Farm Worker 10/06/19 documented as of this encounter
--- OUTSIDE RECORDS SUMMARY | 2024-11-17 13:12 | XMS_ITS | Encounter Summary ---
Author Organization [facility] Address [address] [id number] Care Team Providers Care Mixer Runner Name Role Phone Pcp, No Primary Care Provider Unavailabl e Pcp, No Primary Care Provider Unavailabl e Reason for Referral * Consultation (Routine) - Closed Specialty Diagnoses / Procedures Referred By Contac t Referred To Contact Endocrinology Diagnoses Elevated parathyroid hormone Hypercalcemia Gissell Gonzalez PA [address] [place] [address] Phone: tel: fax: [facility] Endocrinology [address] [place] [address] Phone: tel: fax: Referral ID Status Reason Start Date Expiration Date V isits Requested Visits Authorized [id number] Closed Specialty Services Required 11/09/2021 05/11/2023 1 1 Encounter Details Date Type Department Care Team (Late st Contact Info) Description 11/09/2021 Community [facility] [address] [place] [address] Gissell Gonzalez PA [address] [place] [address] Elevated parathyroid hormone (Primary Dx); [...] Hypercalcemia documented in this encounter Care Teams Mixer Runner Relationship Specialty Start Date End Date Pcp, No [address] [place] [address] PCP - General Family Medicine 11/10/21 02/01/22 Pcp, No [address] [place] [address] PCP - General Family Medicine 02/02/22 documented as of this encounter
--- OUTSIDE RECORDS SUMMARY | 2024-11-17 13:12 | XMS_ITS | Encounter Summary ---
Author Organization [facility] Address [address] [place] [address] Phone CareEverywhereSuppor [email or web address] Care Team Providers Care Office Secretary Name Role Phone Provider, No Primary Care Provider Unavailabl e Reason for Visit * Reason Onset Date Comments Care Coordination 11/10/2024 Encounter Details Date Type Department Care Team (Late st Contact Info) Description 11/10/[address] [place] [address] Jesusita Small RN [address] [place] [address] Social History Tobacco Use Types [...] RN - 11/10/2024 12:13 PM EDT Nurse agile project manager note for follow up call. 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 KAREN: per [...] MRI left shoulder Clinic Provider: MARIBEL Arce [phone] F/U Call Notes: Attempted to reach TM regarding follow up with Dr Melo today. No answer. No VM available. Last Specialist Visit: 10/23/24 Next Specialist Visit: 11/10/24 10:[address] Melo Perioperative Nurse Plan/Goals: TM to keep scheduled apts TM to call with updates or changes Notes requested from specialist's office Continue following plan of care per specialist Conclusion: -Attempted to contact TM. No answer. -No voicemail available. Perioperative Nurse Signature: Jesusita Small RN Date: 11/10/24 documented in this encounter Plan of Treatment Not on file documented as of this encounter Visit Diagnoses Not on filedocumented in this encounter Care Teams Office Secretary Relationship Specialty Start Date End Date Provider, RICARDO Merino [address] PCP - General Hand Dry Cleaner 10/06/19 documented as of this encounter
--- OUTSIDE RECORDS SUMMARY | 2024-11-17 13:12 | XMS_ITS | Clinical Summary ---
Author Organization [facility] Address [address] [place] [address] Phone [email or web address] [email or web address] Care Team Providers Care Horse Trainer Name Role Phone Provider, No Primary Care Provider Unavailabl e Allergies No known active allergies Medications cholecalciferol (VITAMIN D-3) 1.25 MG (32702 UT) tablet Take 50,000 Units by mouth. Active ergocalciferol (VITAMIN D2) 1.25 MG (64352 UT) capsule TAKE 1 CAPSULE BY MOUTH [...] Type Department Care Team Description 11/12/2024 Telephone [facility] [address] [place] [address] Jesusita Small RN 11/11/2024 Telephone [address] [address] [place] [address] Jesusita Small RN 11/10/2024 [address]phone [address] [place] [address] Jesusita Small RN 11/04/2024 [address]phone [address] [place] [address] Jesusita Small RN 2024 Telephone [address] [place] [address] Jesusita Small RN 10/22/[address] [place] [address] Ashanti Perez MA 10/22/[address] [place] [address] Jesusita Small RN 10/16/2024 1:30 PM EDT Clinical Support [address] [address] [place] [address] Chanell Meza PA Acute pain of left [...] OF 2 VIEWS, COMPLETE - LEFT CPT 92701 Routine 08/22/2024 12:36 PM EDT Acute pain of left shoulder from Last 3 Months Results * XR Shoulder, minimum of 2 views, complete - left CPT 53189 (08/22/2024 12:36 PM EDT) Anatomical Region Laterality [...] OPT OUT NO COPAY NB Care Teams Horse Trainer Relationship Specialty Start Date End Date [place], [place] [address] PCP - General Frit Mixer 10/06/19
--- OUTSIDE RECORDS SUMMARY | 2024-11-17 13:12 | XMS_ITS | Encounter Summary ---
Author Organization [facility] Address [address] [place] [address] Phone [email or web address] [email or web address] Care Team Providers Care Household Personal Assistant Name Role Phone Provider, No Primary Care Provider Unavailabl e Reason for Visit * Reason Onset Date Comments Return to Work / Duty 10/22/2024 CASE UPDAT E/COMMUNICATION- WMLOA-RD Encounter Details Date Type Department Care Team (Late st Contact Info) Description 10/22/2024 Documentation [address] [address] [facility] [address] [place] [address] Ashanti Perez MA [address] [place] [address] Social History Tobacco Use Types [...] on restricted days for BILATERAL SHOULDER CASE #[id number] DOI - 07.08.2024 documented in this encounter Plan of Treatment Not on file documented as of this encounter Visit Diagnoses Not on filedocumented in this encounter Care Teams Household Personal Assistant Relationship Specialty Start Date End Date Provider, [place] [address] PCP - General Attendant Arcade 10/06/19 documented as of this encounter
[2024-11-17 16:00] VITALS: BP 123/73; PULSE 109; RESP 16; TEMP 37; O2SAT 100
[2024-11-17 20:00] VITALS: BP 110/67; PULSE 112; RESP 17; TEMP 37.9; O2SAT 100
[2024-11-17] MEDS: PHENOL THROAT SPRAY 177 ML BOTTLE MM (20:02)
[2024-11-18] VITALS: BP 122/60; PULSE 104; RESP 16; TEMP 37.1; O2SAT 99
[2024-11-18 04:00] VITALS: BP 102/72; PULSE 66; RESP 17; TEMP 36.8; O2SAT 97; BMI 39.1
[2024-11-18] MEDS: PIPERCILLIN/TAZO 3.375 GM in 0.9 % SODIUM CHLORIDE 50 ML IV ×2 (05:03→09:18)
[2024-11-18 06:32] LABS: Hematocrit 34.4 % (42.0-52.0); Hemoglobin 10.9 g/dL (14.1-18.0); Immature Granulocytes % 0.9 %; Mean Corpuscular HGB Conc 31.7 g/dL (31.8-35.4); Mean Corpuscular Hemoglobin 26.7 pg (27.0-31.2); Mean Corpuscular Volume 84.1 fl (80-94); Nucleated Red Blood Cells % 0 %; Platelet Count 190 K/mm3 (142-424); Red Blood Count 4.09 M/mm3 (4.60-6.20); Red Cell Distribution Width-SD 45.5 fL; White Blood Count 9.3 K/mm3 (4.8-10.8)
[2024-11-18 06:36] LABS: Albumin Level 3.3 g/dl (3.5-5.0); Chloride 101 mmol/L (98-107)
[2024-11-18 06:37] LABS: Potassium 4.1 mmoL/L (3.5-5.1); Sodium 131 mmol/L (136-145)
[2024-11-18 06:39] LABS: Alanine Aminotransferase 22 U/L (12-78); Albumin/Globulin Ratio 0.9 (1.1-1.8); Anion Gap 9.1 mEq/L (5-15); Aspartate Amino Transferase 25 U/L (17-59); Blood Urea Nitrogen 16 mg/dl (9-20); Carbon Dioxide 25 mmol/L (22.0-30.0); Creatinine Clearance Estimated 186 mL/min (50-200); Creatinine,Serum 1.20 mg/dl (0.66-1.25); Estimated Glomerular Filt Rate 74 ml/min (>60); GFR (African American) 90 ML/MIN (>60); Globulin 3.7 g/dL (1.3-3.2); Total Protein,Serum 7.0 g/dl (6.3-8.2)
[2024-11-18 06:40] LABS: Alkaline Phosphatase 60 U/L (38-126); Bilirubin,Total 0.5 mg/dl (0.2-1.3); Calcium 9.0 mg/dl (8.4-10.2); Glucose 107 mg/dl (74-100); Magnesium 2.1 mg/dl (1.6-2.3)
[2024-11-18 06:45] LABS: Adenovirus F 40/41, stool Not Detected (NotDetected); Clostridium Difficile A/B, PCR Not Detected (NotDetected); Cyclospora Cayetanesis Not Detected (NotDetected); Plesimonas Shigalloides, PCR Not Detected (NotDetected); Salmonella, PCR Not Detected (NotDetected); Shiga-like toxin E coli Not Detected (NotDetected); Shigella Enterovasive E coli Not Detected (NotDetected); Vibrio, PCR Not Detected (NotDetected); Yersinia Entercolitica, PCR Not Detected (NotDetected)
[2024-11-18 07:57] VITALS: BP 135/72; PULSE 105; RESP 19; TEMP 36.6; O2SAT 97
[2024-11-18 08:30] VITALS: PULSE 105; O2SAT 97
--- NOTE | 2024-11-18 08:43 | EXP.DC.SUM ---
General Admission date:: 11/16/24 Discharge date: 11/18/24 HPI HPI HPI: Mr. Solis is a 24-year-old male with hypertension and obesity. Presented with complaint of 2 days of flulike symptoms. Was seen in [facility] earlier today where he was prescribed Claritin because of congestion and sore throat. When getting home however he did not feel any better and noticed that his blood pressure was showing that his bottom number was low. Because of persistent low blood pressure and feeling weak and chills, he came to the ER for further management. On arrival he was found to be febrile with a temperature of 101.6 and blood pressure with systolics in the 90s. Workup initiated found white count of 15.8. Patient tachycardic. Kidney function abnormal with BUN 36, creatinine 2.2. Had been taking his normal blood pressure medications which include lisinopril but threw this morning. Only other complaint is sore throat. Denies cough, congestion, nausea or vomiting. No diarrhea. No new rashes or insect bites. Does complain about ongoing hemorrhoids for about the past year but no worsening swelling in his bottom or pain in his bottom. Alert and oriented x 4. Blood cultures obtained, initiated on broad-spectrum antibiotics with vancomycin and Zosyn. Comprehensive respiratory panel obtained. Urinalysis grossly normal. Chest imaging obtained with chest x-ray that does not show focal consolidation or airspace disease. Medicine consulted for admission and further treatment due to suspected sepsis. Upon arrival to the floor, he is alert and oriented x 4. He was complaining of pain in his bottom. Evaluated on exam with no appreciable perianal erythema or lesions. No obvious external hemorrhoids. Feeling somewhat better after getting IV fluids. Hospital Course Hospital Course Hospital Course: 24-year-old male who presents with flulike symptoms. Workup in the ER concerning for severe sepsis with kidney dysfunction, tachycardia, hypotension, leukocytosis, suspected pharyngitis. Discussed case with ER physician, request admission for further management of sepsis and continued IV antibiotic therapy while monitoring cultures. I decided to admit for further treatment including antibiotics and monitoring. Patient's tachycardia showed gradual improvement along with improvement in blood pressure after fluid resuscitation. Monitored for 48 hours. Blood cultures remain negative. Stool culture however did come back positive for EPEC. In light of his symptoms, this is likely the source of his infection there is no other etiology identified. Tolerating p.o. intake. Will complete empiric course of antibiotics given severity of illness presentation. Problems addressed as follows: Severe sepsis REGINALD - Tachycardic, leukocytosis, suspected pharyngitis versus other source of infection. Respiratory panel was negative for all analytes. Blood cultures obtained and were negative at 48 hours. Urine culture negative at time of discharge. Stool panel was also obtained as patient had had an episode of diarrhea prior to coming in. Stool panel was found to be positive for EPEC. White count initially elevated at 15, improved to 9.3 by day of discharge. Kidney function normalized with initial creatinine at 2.2, 1.2 on day of discharge which is patient's baseline. BUN normalized to 16. Electrolytes stable. Initially treated with vancomycin and Zosyn IV for broad coverage empirically. Will transition to Augmentin 500 mg 3 times a day to complete a 7-day course. - Strep swab was negative, throat culture still pending. Monospot negative. Hypertension: Due to hypotension and REGINALD on presentation patient's lisinopril and HCTZ were held along with Nebivolol. His blood pressure was improving by day of discharge. Recommend resuming Nebivolol morning after discharge. Reevaluate blood pressure meds and regimen at follow-up with PCP. Hyperlipidemia: Held statin during admission due to sepsis and REGINALD. Okay to resume after discharge Total time spent on discharge 32 minutes in counseling, documentation, chart review, and direct care with patient. Exam Data for Last 24 hours Vital signs and Labs for Last 24 Hours: Temp Pulse Resp BP Pulse Ox O2 Del Method 97.8 F 105 H 19 135/72 97 Room Air 11/18/24 07:57 11/18/24 07:57 11/18/24 07:57 11/18/24 07:57 11/18/24 07:57 11/18/24 07:57 Laboratory Results - last 24 hr 11/18/24 05:28: WBC 9.3 D, RBC 4.09 L, Hgb 10.9 L, Hct 34.4 L, MCV 84.1, MCH 26.7 L, MCHC 31.7 L, RDW 14.8, Plt Count 190, MPV 12.0 H, Neut % (Auto) 65.2, Lymph % (Auto) 20.7, Metcalfe % (Auto) 11.9 H, Eos % (Auto) 1.1, Baso % (Auto) 0.2, Neut # (Auto) 6.1, Lymph # (Auto) 1.9, Metcalfe # (Auto) 1.1 H, Eos # (Auto) 0.1, Baso # (Auto) 0.0, Sodium 131 L, Potassium 4.1, Chloride 101, Carbon Dioxide 25, Anion Gap 9.1, BUN 16 D, Creatinine 1.20, Estimated Creat Clear 186, Estimated GFR 74, Est GFR ( Amer) 90 D, Glucose 107 H, Calcium 9.0, Magnesium 2.1 D, Total Bilirubin 0.5, AST 25, ALT 22, Alkaline Phosphatase 60, Total Protein 7.0, Albumin 3.3 L, Globulin 3.7 H, Albumin/Globulin Ratio 0.9 L I & O for Last 24 hours: Intake & Output 11/15/24 11/16/24 11/17/24 11/18/24 23:59 23:59 23:59 23:59 Intake Total 2080 / 2080 500 / 500 Output Total 0 / 0 1300 / 1300 0 / 0 Balance 0 / 1000 780 / 780 500 / 500 Weight 141.612 kg 141.612 kg 138.21 kg Microbiology Reports for the Last 24 Hours: Microbiology 11/16/24 21:57 Throat Group A Streptococcus Screen (MICHAEL) - Final Negative for Group A Streptococcus. 11/16/24 20:45 Blood Blood Culture - Preliminary NO GROWTH AFTER 24 HOURS 11/16/24 20:30 Blood Blood Culture - Preliminary NO GROWTH AFTER 24 HOURS Constitutional Constitutional: no acute distress, obese and cooperative *Routine HEENT Exam Head: Present normocephalic Eye: Present EOMI and PERRL ENT: Present mucous membranes moist *Routine Neck Exam Neck: Present supple and lymphadenopathy (Improved tenderness) *Routine Respiratory Exam Respiratory: Present CTA bilaterally; Absent rhonchi, wheezes or crackles *Routine Cardiovascular Exam Cardiovascular: Present RRR *Routine Abdominal Exam Abdominal: Present soft and normoactive bowel sounds; Absent tenderness *Routine Rectal Exam Patient deferred: visual exam *Routine Exam Patient deferred: penile exam *Routine Extremities Exam Extremities: Absent cyanosis, clubbing or edema *Routine Skin Exam Skin: Present warm; Absent rash *Routine Neurological Exam Neurological: Present alert, oriented X3 and moving all extremities; Absent altered mental status Results Data Completed and Pending Labs on day of discharge: Labs from last 24 hours 11/18/24 05:28 WBC 9.3 D RBC 4.09 L Hgb 10.9 L Hct 34.4 L MCV 84.1 MCH 26.7 L MCHC 31.7 L RDW 14.8 Plt Count 190 MPV 12.0 H Neut % (Auto) 65.2 Lymph % (Auto) 20.7 Metcalfe % (Auto) 11.9 H Eos % (Auto) 1.1 Baso % (Auto) 0.2 Neut # (Auto) 6.1 Lymph # (Auto) 1.9 Metcalfe # (Auto) 1.1 H Eos # (Auto) 0.1 Baso # (Auto) 0.0 Sodium 131 L Potassium 4.1 Chloride 101 Carbon Dioxide 25 Anion Gap 9.1 BUN 16 D Creatinine 1.20 Estimated Creat Clear 186 Estimated GFR 74 Est GFR ( Amer) 90 D Glucose 107 H Calcium 9.0 Magnesium 2.1 D Total Bilirubin 0.5 AST 25 ALT 22 Alkaline Phosphatase 60 Total Protein 7.0 Albumin 3.3 L Globulin 3.7 H Albumin/Globulin Ratio 0.9 L Preliminary micro results at discharge 11/16/24 20:45 Blood Culture - Preliminary Blood NO GROWTH AFTER 24 HOURS 11/16/24 20:30 Blood Culture - Preliminary Blood NO GROWTH AFTER 24 HOURS DS: Diagnosis Discharge Diagnosis (1) Severe sepsis: Status: Acute Code(s): A41.9 - Sepsis, unspecified organism; R65.20 - Severe sepsis without septic shock (2) Hypotension: Code(s): I95.9 - Hypotension, unspecified (3) Pharyngitis: Code(s): J02.9 - Acute pharyngitis, unspecified (4) GERD (gastroesophageal reflux disease): Status: Acute Code(s): K21.9 - Gastro-esophageal reflux disease without esophagitis (5) Hypertension: Status: Chronic Code(s): I10 - Essential (primary) hypertension (6) Hyperlipidemia: Status: Acute Code(s): E78.5 - Hyperlipidemia, unspecified (7) REGINALD (acute kidney injury): Status: Acute Code(s): N17.9 - Acute kidney failure, unspecified (8) Obesity (BMI 30-39.9): Status: Chronic Code(s): E66.9 - Obesity, unspecified (9) Enteropathogenic Escherichia coli infection: Status: Acute Code(s): A04.0 - Enteropathogenic Escherichia coli infection Meds Home Medications and Allergies Home Medications ?Medication ?Instructions ?Recorded ?Confirmed ?Type lisinopril 20 1 tab PO DAILY 20/12.5MG 02/04/24 11/16/24 History mg-hydrochlorothiazide 12.5 mg tablet Held on 11/18/24. Instructions: pending follow-up with PCP atorvastatin 10 mg tablet 10 mg PO HS 08/14/24 11/17/24 History nebivolol 5 mg tablet 5 mg PO DAILY #90 tabs 08/14/24 11/16/24 Rx cholecalciferol (vitamin D3) 50 50 mcg PO DAILY 10/22/24 11/16/24 History mcg (2,000 unit) capsule lidocaine 5 % topical patch 1 patch topical DAILY PRN pain #30 11/05/24 11/16/24 Rx ea cholecalciferol (vitamin D3) 1,250 1,250 mcg PO TU 11/17/24 11/17/24 History mcg (50,000 unit) capsule montelukast 10 mg tablet 10 mg PO HS 11/17/24 11/17/24 History amoxicillin 500 mg-potassium 1 tab PO TID 5 days #15 tabs 11/18/24 Rx clavulanate 125 mg tablet (Augmentin) phenol 1.4 % mucosal aerosol spray 1 spray mucous membrane NEEDED 11/18/24 Rx (Chloraseptic Throat [place]) PRN Sore Throat #0 mL New Prescriptions to Start Prescriptions: amoxicillin-pot clavulanate [Augmentin] Efra Ulloa Allergies Allergy/AdvReac Type Severity Reaction Status Date / Time No Known Allergies Allergy Verified 11/16/24 09:34 Discharge Plan Disposition Patient Disposition: Home, Self-Care Condition: Fair Discharge Order Discharge Orders: Discharge Order (Routine); Ordered 11/18/24 Ordered By: Efra Ulloa Follow up Plan Follow up with: Tiffani Rivas APRN [Primary Care Provider, Family Practice] - 11/26/24 10:20 am Prescriptions/Medication Reconciliation: New Chloraseptic Throat [place] 1.4 % Aerosol,[place] 1 spray mucous membrane NEEDED PRN (Reason: Sore Throat) Qty: 0 0RF amoxicillin-pot clavulanate [Augmentin] 500-125 mg tablet 1 tab PO TID 5 Days Qty: 15 0RF Continued cholecalciferol (vitamin D3) 50 mcg (2,000 unit) capsule 50 mcg PO DAILY Patient Comments: TAKE 1 CAPSULE BY MOUTH ONCE DAILY atorvastatin 10 mg tablet 10 mg PO HS Patient Comments: TAKE 1 TABLET BY MOUTH EVERY DAY AT BEDTIME FOR CHOLESTEROL nebivolol 5 mg tablet 5 mg PO DAILY Qty: 90 3RF lidocaine 5 % adhesive patch,medicated 1 patch topical DAILY PRN (Reason: pain) Qty: 30 0RF Rx Instructions: leave on most painful area for up to 12 hrs montelukast 10 mg tablet 10 mg PO HS cholecalciferol (vitamin D3) 1,250 mcg (50,000 unit) capsule 1,250 mcg PO TU Held lisinopril-hydrochlorothiazide 20-12.5 mg tablet 1 tab PO DAILY Hold Instructions: pending follow-up with PCP Problem Reconciliation Problems Reviewed?: Yes Patient Discharge Instructions ACTIVITY: Continue current activity DIET: continue same diet Patient Instructions: Sore Throat, DI for Sepsis -- Adult, DI for Acute Kidney Injury, Stop Light Infection Print Language: Thai Providers Primary Care Provider: Tiffani Rivas Admit Provider: Aby Velasquez Attending Provider: Aby Velasquez
[2024-11-18] MEDS: IBUPROFEN 800 MG TABLET PO (10:29)
--- NOTE | 2024-11-19 10:28 | SW/DCPLANNER ---
Spoke with patient on the phone. Patient stated that he is doing better. Patient stated that he is aware of his upcoming appointment. Patient stated that he was able to hand picker his new medicine. Patient stated that he has no concerns or questions at this time. Emily Worley
[2024-11-20 11:49] LABS: POC Glucose,Bedside 146 (70-110)
== END 2024-11-18 10:43 | disposition home or self-care (01) | DRG 872 ==
LOC: ER 20:11 → 2ND 22:20
PROVIDERS: Internal Medicine Adolescent Medicine; Nurse Practitioner Family; Admitting Provider Internal Medicine; Emergency Provider Student in an Organized Health Care Education/Training Program; PCP Family Medicine; Visit Provider Internal Medicine
DX: A41.9 Sepsis, unspecified organism (principal); N17.9 Acute kidney failure, unspecified; A04.0 Enteropathogenic Escherichia coli infection; I10 Essential (primary) hypertension; E66.9 Obesity, unspecified; R65.20 Severe sepsis without septic shock; Z68.39 Body mass index [BMI] 39.0-39.9, adult; E78.5 Hyperlipidemia, unspecified; J02.9 Acute pharyngitis, unspecified; K21.9 Gastro-esophageal reflux disease without esophagitis; Z79.899 Other long term (current) drug therapy
CPT/HCPCS: 36415; 71045; 80053; 81001; 82962; 83605; 83735; 84484; 85025; 86318; 87040; 87070; 87430; 87506; 87633; 93005; J0131; J1650; J2543; J3370; J3475; J7040; J7120

== ENCOUNTER 2024-11-26 09:13 | Outpatient (CLI) | payer BC, SELFPAY ==
--- OUTSIDE RECORDS SUMMARY | 2024-10-16 13:30 | XMS_ITS | Encounter Summary ---
Author Organization [facility] Address [address] [place] [address] Phone [email or web address] [email or web address] Care Team Providers Care Nut Roaster Name Role Phone Provider, No Primary Care Provider Unavailabl e Reason for Visit * Reason Comments Follow up Musculoskeletal Issue Encounter Details Date Type Department Care Team (Latest Contact Info) Description 10/16/2024 1:30 PM EDT Clinical Support ABDIRAHMAN [address] [place] [address] Chanell Meza PA [address] [place] [address] Acute pain of left shoulder [...] to RTW without restrictions 5. Call [facility] @ [phone] for any questions/concerns/appointments. 6. Projected return to full rotation: to be determined by specialist documented in this encounter Progress Notes * MARIBEL Suh - 10/16/2024 1:30 PM EDT Subjective Reji Will is a 23 y.o. male who presents for follow up occ for bilat shoulders/upper back. Workday ID #: [id number] Cost Center: [facility] Length of Time in Current Group: 6 months Shift Color or Number: 1 Employer: [employer] Employee Status: Full-time GL Name: Felipe Garcia Case #: [id number] Body Part/ Side: Bilat shoulders/upper back. OSHA Date of Injury: 07/08/24 F/u occ: Bilateral Shoulder / upper Back. Restricted . TM here to discuss questions related to [facility]. LDW today. [...] RTW without restrictions 5. Call [facility] @ [phone] for any questions/concerns/appointments. 6. Projected return to full rotation: to be determined by specialist documented in this encounter Plan of Treatment Not on file documented as of this encounter Visit Diagnoses Diagnosis Acute pain of left shoulder- Primary documented in this encounter Care Teams Nut Roaster Relationship Specialty Start Date End Date Provider, RICARDO Merino [address] PCP - General Miter Operator 10/06/19 documented as of this encounter
--- OUTSIDE RECORDS SUMMARY | 2024-11-26 09:19 | XMS_ITS | Encounter Summary ---
Author Organization [facility] Address [address] [place] [address] Phone CareEverywhereSuppor Care Team Providers Care Web Marketing Specialist Name Role Phone Provider, No Primary Care Provider Unavailabl e Reason for Visit * Reason Onset Date Comments Care Coordination 11/10/2024 Encounter Details Date Type Department Care Team (Late st Contact Info) Description 11/10/[address] [place] [address] Jesusita Small RN [address] [place] [address] Social History Tobacco Use Types [...] RN - 11/10/2024 12:13 PM EDT Nurse water/wastewater project manager note for follow up call. 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 KAREN: per [...] MRI left shoulder Clinic Provider: MARIBEL Arce [phone] F/U Call Notes: Attempted to reach TM regarding follow up with Dr Melo today. No answer. No VM available. Last Specialist Visit: 10/23/24 Next Specialist Visit: 11/10/24 10:[address] Melo Steward/Stewardess Second Class Plan/Goals: TM to keep scheduled apts TM to call with updates or changes Notes requested from specialist's office Continue following plan of care per specialist Conclusion: -Attempted to contact TM. No answer. -No voicemail available. Steward/Stewardess Second Class Signature: Jesusita Small RN Date: 11/10/24 documented in this encounter Plan of Treatment Not on file documented as of this encounter Visit Diagnoses Not on filedocumented in this encounter Care Teams Web Marketing Specialist Relationship Specialty Start Date End Date Provider, RICARDO Merino [address] PCP - General Helper Chicken Farm 10/06/19 documented as of this encounter
--- OUTSIDE RECORDS SUMMARY | 2024-11-26 09:19 | XMS_ITS | Encounter Summary ---
Author Organization [facility] Address [address] [place] [address] Phone CareEverywhereSuppor [email or web address] Care Team Providers Care Unit Assistant Name Role Phone Provider, No Primary Care Provider Unavailabl e Reason for Visit * Reason Onset Date Comments Care Coordination 2024 Encounter Details Date Type Department Care Team (Late st Contact Info) Description [address] [place] [address] Jesusita Small RN [address] [place] [address] Social History Tobacco Use Types [...] RN - 2024 1:52 PM EDT Nurse senior clinical study manager note for follow up call. 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 KAREN: per [...] 10/20/24- WMLOA begins. [facility] due to restricted work day count. 10/23/24- Dr Jack follow up. Placed off work and referred for left shoulder MRI. TM told to hold PT. Clinic Provider: MARIBEL Arce [phone] F/U Call Notes: PC to TM for check in after specialist appointment today with Dr Jack. TM was placed off work and left shoulder MRI referral. TM was told to hold off on PT. TM states he has already updated Dianna Masterson. TM has no questions or concerns, will call with updates. Last Specialist Visit: 10/23/24 Next Specialist Visit: Pending MRI Dental Chair Assembler Plan/Goals: TM to keep scheduled apts TM to call with updates or changes Notes requested from specialist's office Continue following plan of care per specialist Conclusion: -TM to call back with updates and changes or as needed. -TM verbalized knowledge of next steps/appointments. -TM has no further concerns at this time. Dental Chair Assembler Signature: Jesusita Small RN Date: 10/23/24 documented in this encounter Plan of Treatment Not on file documented as of this encounter Visit Diagnoses Not on filedocumented in this encounter Care Teams Unit Assistant Relationship Specialty Start Date End Date Provider, RICARDO Merino [address] PCP - General Manager Of Manufacturing 10/06/19 documented as of this encounter
--- OUTSIDE RECORDS SUMMARY | 2024-11-26 09:19 | XMS_ITS | Encounter Summary ---
Author Organization [facility] Address [address] [id number] Care Team Providers Care Volleyball Assistant Coach Name Role Phone Pcp, No Primary Care Provider Unavailabl e Pcp, No Primary Care Provider Unavailabl e Reason for Referral * Consultation (Routine) - Closed Specialty Diagnoses / Procedures Referred By Contac t Referred To Contact Endocrinology Diagnoses Elevated parathyroid hormone Hypercalcemia Gissell Gonzalez PA [address] [place] [address] Phone: tel: fax: [facility] Endocrinology [address] [place] [address] Phone: tel: fax: Referral ID Status Reason Start Date Expiration Date V isits Requested Visits Authorized [id number] Closed Specialty Services Required 11/09/2021 05/11/2023 1 1 Encounter Details Date Type Department Care Team (Late st Contact Info) Description 11/09/2021 Community [facility] Community Practice [address] [place] [address] Gissell Gonzalez PA [address] [facility] [place] [address] Elevated parathyroid hormone (Primary Dx); [...] Hypercalcemia documented in this encounter Care Teams Volleyball Assistant Coach Relationship Specialty Start Date End Date Pcp, No [address] [place] [address] PCP - General Family Medicine 11/10/21 02/01/22 Pcp, No [address] [place] [address] PCP - General Family Medicine 02/02/22 documented as of this encounter
--- OUTSIDE RECORDS SUMMARY | 2024-11-26 09:19 | XMS_ITS | Encounter Summary ---
Author Organization [facility] Address [address] [place] [address] Phone CareEverywhereSuppor [email or web address] Care Team Providers Care Mica Paster Name Role Phone Provider, No Primary Care Provider Unavailabl e Reason for Visit * Reason Onset Date Comments Care Coordination 11/11/2024 Encounter Details Date Type Department Care Team (Late st Contact Info) Description 11/11/[address] [place] [address] Jesusita Small, RN [address] [place] [address] Social History Tobacco Use Types [...] RN - 11/11/2024 1:00 PM EDT Nurse gym manager note for follow up call. 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 KAREN: per [...] MRI left shoulder Clinic Provider: MARIBEL Arce [phone] F/U Call Notes: Attempted to reach TM regarding follow up with Dr Melo . No answer. No VM available. Last Specialist Visit: 10/23/24 Next Specialist Visit: 11/10/24 10:[address] Melo Marine Equipment Research Engineer Plan/Goals: TM to keep scheduled apts TM to call with updates or changes Notes requested from specialist's office Continue following plan of care per specialist Conclusion: -Attempted to contact TM. No answer. -No voicemail available. Marine Equipment Research Engineer Signature: Jesusita Small RN Date: 11/11/24 documented in this encounter Plan of Treatment Not on file documented as of this encounter Visit Diagnoses Not on filedocumented in this encounter Care Teams Mica Paster Relationship Specialty Start Date End Date Provider, [place] [address] PCP - General Entry Level Lab Technician 10/06/19 documented as of this encounter
--- OUTSIDE RECORDS SUMMARY | 2024-11-26 09:19 | XMS_ITS | Encounter Summary ---
Author Organization [facility] Address [address] [place] [address] Phone CareEverywhereSuppor [email or web address] Care Team Providers Care Pantry Cook Name Role Phone Provider, No Primary Care Provider Unavailabl e Encounter Details Date Type Department Care Team (Late st Contact Info) Description 11/12/[address] [place] [address] Jesusita Small, RN [address] [place] [address] Social History Tobacco Use Types [...] RN - 11/12/2024 8:49 AM EDT Nurse care transition manager note for follow up call. 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 KAREN: per [...] RX medication given. Clinic Provider: MARIBEL Arce [phone] F/U Call Notes: PC to TM regarding [...] Specialist Visit: 12/12/24 3:[address] Melo Glue Sprayer Plan/Goals: TM to keep scheduled apts TM to call with updates or changes Notes requested from specialist's office Continue following plan of care per specialist Conclusion: -TM to call back with updates and changes or as needed. -TM verbalized knowledge of next steps/appointments. -TM has no further concerns at this time. Glue Sprayer Signature: Jesusita Small RN Date: 11/12/24 documented in this encounter Plan of Treatment Not on file documented as of this encounter Visit Diagnoses Not on filedocumented in this encounter Care Teams Pantry Cook Relationship Specialty Start Date End Date Provider, RICARDO Merino [address] PCP - General Heddler Tier 10/06/19 documented as of this encounter
--- OUTSIDE RECORDS SUMMARY | 2024-11-26 09:19 | XMS_ITS | Encounter Summary ---
Author Organization [facility] Address [address] [place] [address] Phone CareEverywhereSuppor [email or web address] Care Team Providers Care Medical And Scientific Illustrator Name Role Phone Provider, No Primary Care Provider Unavailabl e Reason for Visit * Reason Onset Date Comments Care Coordination 11/04/2024 Encounter Details Date Type Department Care Team (Late st Contact Info) Description 11/04/[address] [place] [address] Jesusita Small, RN [address] [place] [address] Social History Tobacco Use Types [...] RN - 11/04/2024 9:39 AM EDT Nurse donor services manager note for follow up call. 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 KAREN: per [...] 10/20/24- WMLOA begins. [facility]. 10/23/24- Dr Jack follow up. Placed off work and referred for left shoulder MRI. TM told to hold PT. 11/05/24- MRI left shoulder Clinic Provider: MAIRBEL Arce [phone] F/U Call Notes: PC from TM to update that MRI is approved and scheduled for tomorrow and follow up with Dr Melo 11/10/2509:00 AM. Last Specialist Visit: 10/23/24 Next Specialist Visit: MRI 11/05/24 and follow up 11/10/24 10:[address] Melo Sales Consultant Residential Manager Plan/Goals: TM to keep scheduled apts TM to call with updates or changes Continue following plan of care per specialist Conclusion: -TM to call back with updates and changes or as needed. -TM verbalized knowledge of next steps/appointments. -TM has no further concerns at this time. Sales Consultant Residential Manager Signature: Jesusita Small RN Date: 11/04/24 documented in this encounter Plan of Treatment Not on file documented as of this encounter Visit Diagnoses Not on filedocumented in this encounter Care Teams Medical And Scientific Illustrator Relationship Specialty Start Date End Date Provider, RICARDO Merino [address] PCP - General Floor Sanding Machine Operator 10/06/19 documented as of this encounter
--- OUTSIDE RECORDS SUMMARY | 2024-11-26 09:19 | XMS_ITS | Encounter Summary ---
Author Organization [facility] Address [address] [place] [address] Phone CareEverywhereSuppor [email or web address] Care Team Providers Care Resident Manager Name Role Phone Provider, No Primary Care Provider Unavailabl e Reason for Visit * Reason Onset Date Comments Care Coordination 10/22/2024 Encounter Details Date Type Department Care Team (Late st Contact Info) Description 10/22/[address] [place] [address] Jesusita Small RN [address] [place] [address] Social History Tobacco Use Types [...] RN - 10/22/2024 10:29 AM EDT Nurse operations and maintenance manager note for WMLOA TM. 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 KAREN: per [...] 10/20/24- WMLOA begins. [facility]. Clinic Provider: MARIBEL Arce [phone] NEXT CLINIC VISIT: after being released by [...] after tomorrows appointment. Planned RTW Date: TBD Vacuum Metalizing Supervisor Plan/Goals: TM to keep scheduled apts TM to call with updates or changes WMLOA case management discussed Continue following plan of care per specialist Conclusion: -TM to call back with updates and changes or as needed. -TM verbalized knowledge of next steps/appointments. -TM verbalized knowledge that restrictions apply while at AND away from work. -TM has no further concerns at this time. Vacuum Metalizing Supervisor Signature: Jesusita Small RN documented in this encounter Plan of Treatment Not on file documented as of this encounter Visit Diagnoses Not on filedocumented in this encounter Care Teams Resident Manager Relationship Specialty Start Date End Date Provider, [place] [address] PCP - General Fraud Analyst 10/06/19 documented as of this encounter
--- OUTSIDE RECORDS SUMMARY | 2024-11-26 09:19 | XMS_ITS | Clinical Summary ---
Author Organization [facility] Address [address] [place] [address] Phone CareEverywhereSuppor [email or web address] Care Team Providers Care Hospitality Aide Name Role Phone Provider, No Primary Care Provider Unavailabl e Allergies No known active allergies Medications cholecalciferol (VITAMIN D-3) 1.25 MG (62564 UT) tablet Take 50,000 Units by mouth. Active ergocalciferol (VITAMIN D2) 1.25 MG (28021 UT) capsule TAKE 1 CAPSULE BY MOUTH [...] Type Department Care Team Description 11/12/2024 Telephone [facility] [address] [place] [address] Jesusita Small RN 11/11/2024 Telephone [place] [address] [place] [address] Jesusita Small RN 11/10/2024 [address] [place] [address] Jesusita Small RN 11/04/2024 [address] [place] [address] Jesusita Small RN 2024 [address] [place] [address] Jesusita Small RN 10/22/[address] [place] [address] Ashanti Perez MA 10/22/[address] [place] [address] Jesusita Small RN 10/16/2024 1:30 PM EDT Clinical Support [place] [address] [place] [address] Chanell Meza PA Acute pain of left [...] patient's age to complete this topic Insurance OPT OUT NO COPAY NB Care Teams Hospitality Aide Relationship Specialty Start Date End Date Provider, Alla ST[place]ILLERICARDO [address] PCP - General Sewer 10/06/19
--- OUTSIDE RECORDS SUMMARY | 2024-11-26 09:19 | XMS_ITS | Encounter Summary ---
Author Organization [facility] Address [address] [place] [address] Phone CareEverywhereSuppor [email or web address] Care Team Providers Care Mainframe Systems Administrator Name Role Phone Provider, No Primary Care Provider Unavailabl e Reason for Visit * Reason Onset Date Comments Return to Work / Duty 10/22/2024 CASE UPDAT E/COMMUNICATION- WMLOA-RD Encounter Details Date Type Department Care Team (Late st Contact Info) Description 10/22/2024 Documentation [place] [address] Clinic [address] [place] [address] Ashanti Perez MA [address] [place] [address] Social History Tobacco Use Types [...] on restricted days for BILATERAL SHOULDER CASE #[id number] DOI - 07.08.2024 documented in this encounter Plan of Treatment Not on file documented as of this encounter Visit Diagnoses Not on filedocumented in this encounter Care Teams Mainframe Systems Administrator Relationship Specialty Start Date End Date Provider, [place] [address] PCP - General Rn Family Practice 10/06/19 documented as of this encounter
--- OUTSIDE RECORDS SUMMARY | 2024-11-26 09:19 | XMS_ITS | Clinical Summary ---
Author Organization Healthcare Address [address] [place] [id number] Care Team Providers Care Specimen Technician Name Role Phone Pcp, No Primary Care [...] (03/03/2022): Added automatically from request for surgery [id number] Acute nasopharyngitis 01/31/2018 Nasal congestion 01/31/2018 ADHD [...] history exists [facility]-Depression Screening 03/02/2023 03/02/2022, 02/14 [id number] Vaccine ( season) 2023 01/14/2021, 12/24/2020 [facility]-Influenza [...] complete this topic Insurance KELLIE Care Teams Specimen Technician Relationship Specialty Start Date End Date Pcp, Alla [address] [place] [address] PCP - General Family Medicine 02/02/22
[2024-11-26 09:40] LABS: Hematocrit 39.9 % (42.0-52.0); Hemoglobin 12.8 g/dL (14.1-18.0); Immature Granulocytes % 3.5 %; Mean Corpuscular HGB Conc 32.1 g/dL (31.8-35.4); Mean Corpuscular Hemoglobin 27.2 pg (27.0-31.2); Mean Corpuscular Volume 84.7 fl (80-94); Nucleated Red Blood Cells % 0.2 %; Platelet Count 380 K/mm3 (142-424); Red Blood Count 4.71 M/mm3 (4.60-6.20); Red Cell Distribution Width-SD 46.2 fL; White Blood Count 8.5 K/mm3 (4.8-10.8)
[2024-11-26 10:20] LABS: Alanine Aminotransferase 51 U/L (12-78); Albumin Level 4.2 g/dl (3.5-5.0); Albumin/Globulin Ratio 1.6 (1.1-1.8); Alkaline Phosphatase 62 U/L (38-126); Anion Gap 9.7 mEq/L (5-15); Aspartate Amino Transferase 29 U/L (17-59); Bilirubin,Total 0.4 mg/dl (0.2-1.3); Blood Urea Nitrogen 17 mg/dl (9-20); Calcium 9.6 mg/dl (8.4-10.2); Carbon Dioxide 29 mmol/L (22.0-30.0); Chloride 104 mmol/L (98-107); Creatinine,Serum 0.90 mg/dl (0.66-1.25); Estimated Glomerular Filt Rate 104 ml/min (>60); GFR (African American) 125 ML/MIN (>60); Globulin 2.6 g/dL (1.3-3.2); Glucose 98 mg/dl (74-100); Potassium 4.7 mmoL/L (3.5-5.1); Sodium 138 mmol/L (136-145); Total Protein,Serum 6.8 g/dl (6.3-8.2)
[2024-11-26 11:03] LABS: Hemoglobin A1C 5.7 % (4.0-6.0)
== END 2024-11-26 23:59 | disposition home or self-care (01) ==
LOC: LAB 09:14
PROVIDERS: PCP Family Medicine; Visit Provider Family Medicine
DX: A04.0 Enteropathogenic Escherichia coli infection (principal); R73.9 Hyperglycemia, unspecified
CPT/HCPCS: 36415; 80053; 83036; 85025

== ENCOUNTER 2024-12-11 12:52 | Outpatient (CLI) | payer BC, SELFPAY ==
--- OUTSIDE RECORDS SUMMARY | 2024-10-16 13:30 | XMS_ITS | Encounter Summary ---
Author Organization [facility] Address [address] [place] [address] Phone [email or web address] [email or web address] Care Team Providers Care Doughmaker Name Role Phone Provider, No Primary Care Provider Unavailabl e Reason for Visit * Reason Comments Follow up Musculoskeletal Issue Encounter Details Date Type Department Care Team (Latest Contact Info) Description 10/16/2024 1:30 PM EDT Clinical Support ABDIRAHMAN [address] [place] [address] Chanell Meza PA [address] [place] [address] Acute pain of left shoulder [...] him to RTW without restrictions 5. Call [facility] @ [phone] for any questions/concerns/appointments. 6. Projected return to full rotation: to be determined by specialist documented in this encounter Progress Notes * MARIBEL Suh - 10/16/2024 1:30 PM EDT Subjective Reji Will is a 23 y.o. male who presents for follow up occ for bilat shoulders/upper back. Workday ID #: [id number] Cost Center: [facility] Length of Time in Current Group: 6 months Shift Color or Number: 1 Employer: [employer] Employee Status: Full-time GL Name: Felipe Garcia Case #: [id number] Body Part/ Side: Bilat shoulders/upper back. OSHA Date of Injury: 07/08/24 F/u occ: Bilateral Shoulder / upper Back. Restricted . TM here to discuss questions related [facility] LDW today. Next follow [...] RTW without restrictions 5. Call [facility] @ [phone] for any questions/concerns/appointments. 6. Projected return to full rotation: to be determined by specialist documented in this encounter Plan of Treatment Not on file documented as of this encounter Visit Diagnoses Diagnosis Acute pain of left shoulder- Primary documented in this encounter Care Teams Doughmaker Relationship Specialty Start Date End Date Provider, RICARDO Merino [address] PCP - General Solar Project Coordination Specialist 10/06/19 documented as of this encounter
--- OUTSIDE RECORDS SUMMARY | 2024-12-11 12:57 | XMS_ITS | Clinical Summary ---
Author Organization [facility] Address [address] [place] [id number] Care Team Providers Care Plant Biology Professor Name Role Phone Pcp, No Primary Care [...] (03/03/2022): Added automatically from request for surgery [id number] Acute nasopharyngitis 01/31/2018 Nasal congestion 01/31/2018 ADHD [...] history exists [facility]-Depression Screening 03/02/2023 03/02/2022, 02/14 [id number] Vaccine ( season) 2023 01/14/2021, 12/24/2020 [facility]-Influenza [...] complete this topic Insurance KELLIE Care Teams Plant Biology Professor Relationship Specialty Start Date End Date Pcp, Alla [address] [place] [address] PCP - General Family Medicine 02/02/22
--- OUTSIDE RECORDS SUMMARY | 2024-12-11 12:57 | XMS_ITS | Encounter Summary ---
Author Organization [facility] Address [address] [place] [address] Phone CareEverywhereSuppor [email or web address] Care Team Providers Care Logistics Engineer Name Role Phone Provider, No Primary Care Provider Unavailabl e Reason for Visit * Reason Onset Date Comments Care Coordination 11/04/2024 Encounter Details Date Type Department Care Team (Late st Contact Info) Description 11/04/[address] [place] [address] Jesusita Small, RN [address] [place] [address] Social History Tobacco Use Types [...] RN - 11/04/2024 9:39 AM EDT Nurse employee services manager note for follow up call. 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 KAREN: per [...] 10/20/24- WMLOA begins. [facility] day count. 10/23/24- Dr Jack follow up. Placed off work and referred for left shoulder MRI. TM told to hold PT. 11/05/24- MRI left shoulder Clinic Provider: MARIBEL Arce [phone] F/U Call Notes: PC from TM to update that MRI is approved and scheduled for tomorrow and follow up with Dr Melo 11/10/2509:00 AM. Last Specialist Visit: 10/23/24 Next Specialist Visit: MRI 11/05/24 and follow up 11/10/24 10:[address] Melo Plain Goods Hemmer Plan/Goals: TM to keep scheduled apts TM to call with updates or changes Continue following plan of care per specialist Conclusion: -TM to call back with updates and changes or as needed. -TM verbalized knowledge of next steps/appointments. -TM has no further concerns at this time. Plain Goods Hemmer Signature: Jesusita Small RN Date: 11/04/24 documented in this encounter Plan of Treatment Not on file documented as of this encounter Visit Diagnoses Not on filedocumented in this encounter Care Teams Logistics Engineer Relationship Specialty Start Date End Date Provider, RICARDO Merino [address] PCP - General Family Preservation Worker 10/06/19 documented as of this encounter
--- OUTSIDE RECORDS SUMMARY | 2024-12-11 12:57 | XMS_ITS | Encounter Summary ---
Author Organization [facility] Address [address] [place] [id number] Care Team Providers Care Railroad Construction Director Name Role Phone Pcp, No Primary Care Provider Unavailabl e Pcp, No Primary Care Provider Unavailabl e Reason for Referral * Consultation (Routine) - Closed Specialty Diagnoses / Procedures Referred By Contac t Referred To Contact Endocrinology Diagnoses Elevated parathyroid hormone Hypercalcemia Gissell Gonzalez PA [address] [place] [address] Phone: tel: fax: [facility] [address] [place] [address] Phone: tel: fax: Referral ID Status Reason Start Date Expiration Date V isits Requested Visits Authorized [id number] Closed Specialty Services Required 11/09/2021 05/11/2023 1 1 Encounter Details Date Type Department Care Team (Late st Contact Info) Description 11/09/2021 Community [facility] [address] [place] [address] Gissell Gonzalez PA [address] [place] [address] Elevated parathyroid hormone (Primary Dx); [...] Hypercalcemia documented in this encounter Care Teams Railroad Construction Director Relationship Specialty Start Date End Date Pcp, No [address] [place] [address] PCP - General Family Medicine 11/10/21 02/01/22 Pcp, No [address] [place] [address] PCP - General Family Medicine 02/02/22 documented as of this encounter
--- OUTSIDE RECORDS SUMMARY | 2024-12-11 12:57 | XMS_ITS | Encounter Summary ---
Author Organization [facility] Address [address] [place] [address] Phone CareEverywhereSuppor [email or web address] Care Team Providers Care Instrument Lens Generator Name Role Phone Provider, No Primary Care Provider Unavailabl e Reason for Visit * Reason Onset Date Comments Care Coordination 10/22/2024 Encounter Details Date Type Department Care Team (Late st Contact Info) Description 10/22/[address] [place] [address] Jesusita Small RN [address] [place] [address] Social History Tobacco Use Types [...] - 10/22/2024 10:29 AM EDT Nurse manager critical care unit note for WMLOA TM. 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 KAREN: per [...] 10/20/24- WMLOA begins. [facility] work day count. Clinic Provider: MARIBEL Arce [phone] NEXT CLINIC VISIT: after being released by [...] after tomorrows appointment. Planned RTW Date: TBD Wet Machine Operator Plan/Goals: TM to keep scheduled [...] has no further concerns at this time. Wet Machine Operator Signature: Jesusita Small RN documented in this encounter Plan of Treatment Not on file documented as of this encounter Visit Diagnoses Not on filedocumented in this encounter Care Teams Instrument Lens Generator Relationship Specialty Start Date End Date [place] [address] PCP - General Plastic Cutter 10/06/19 documented as of this encounter
--- OUTSIDE RECORDS SUMMARY | 2024-12-11 12:57 | XMS_ITS | Encounter Summary ---
Author Organization [facility] Address [address] [place] [address] 129[address] Phone CareEverywhereSuppor [email or web address] Care Team Providers Care Communication Electronic Technician Name Role Phone Provider, No Primary Care Provider Unavailabl e Reason for Visit * Reason Onset Date Comments Care Coordination 11/11/2024 Encounter Details Date Type Department Care Team (Late st Contact Info) Description 11/11/[address] [place] [address] Jesusita Small, RN [address] [place] [address] Social History Tobacco Use Types [...] RN - 11/11/2024 1:00 PM EDT Nurse manager shell note for follow up call. 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 KAREN: per [...] MRI left shoulder Clinic Provider: MARIBEL Arce [phone] F/U Call Notes: Attempted to reach TM regarding follow up with Dr Melo . No answer. No VM available. Last Specialist Visit: 10/23/24 Next Specialist Visit: 11/10/24 10:[address] Melo Soliciting Freight Agent Plan/Goals: TM to keep scheduled apts TM to call with updates or changes Notes requested from specialist's office Continue following plan of care per specialist Conclusion: -Attempted to contact TM. No answer. -No voicemail available. Soliciting Freight Agent Signature: Jesusita Smlal RN Date: 11/11/24 documented in this encounter Plan of Treatment Not on file documented as of this encounter Visit Diagnoses Not on filedocumented in this encounter Care Teams Communication Electronic Technician Relationship Specialty Start Date End Date [place], [place] [address] PCP - General Flavor Room Worker 10/06/19 documented as of this encounter
--- OUTSIDE RECORDS SUMMARY | 2024-12-11 12:57 | XMS_ITS | Encounter Summary ---
Author Organization [facility] Address [address] [place] [address] Phone CareEverywhereSuppor [email or web address] Care Team Providers Care Hydramatic Specialist Name Role Phone Provider, No Primary Care Provider Unavailabl e Reason for Visit * Reason Onset Date Comments Care Coordination 2024 Encounter Details Date Type Department Care Team (Late st Contact Info) Description [address] [place] [address] Jesusita Small RN [address] [place] [address] Social History Tobacco Use Types [...] RN - 2024 1:52 PM EDT Nurse used car sales manager note for follow up call. 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 KAREN: per [...] 10/20/24- WMLOA begins. [facility]. 10/23/24- Dr Jack follow up. Placed off work and referred for left shoulder MRI. TM told to hold PT. Clinic Provider: MARIBEL Arce [phone] F/U Call Notes: PC to TM for check in after specialist appointment today with Dr Jack. TM was placed off work and left shoulder MRI referral. TM was told to hold off on PT. TM states he has already updated Dianna Masterson. TM has no questions or concerns, will call with updates. Last Specialist Visit: 10/23/24 Next Specialist Visit: Pending MRI Lease Analyst Plan/Goals: TM to keep scheduled apts TM to call with updates or changes Notes requested from specialist's office Continue following plan of care per specialist Conclusion: -TM to call back with updates and changes or as needed. -TM verbalized knowledge of next steps/appointments. -TM has no further concerns at this time. Lease Analyst Signature: Jesusita Small RN Date: 10/23/24 documented in this encounter Plan of Treatment Not on file documented as of this encounter Visit Diagnoses Not on filedocumented in this encounter Care Teams Hydramatic Specialist Relationship Specialty Start Date End Date Provider, RICARDO Merino [address] PCP - General In Service Educator 10/06/19 documented as of this encounter
--- OUTSIDE RECORDS SUMMARY | 2024-12-11 12:57 | XMS_ITS | Encounter Summary ---
Author Organization [facility] Address [address] [place] [address] 112[address] Phone CareEverywhereSuppor [email or web address] Care Team Providers Care Information Security Engineer Name Role Phone Provider, No Primary Care Provider Unavailabl e Reason for Visit * Reason Onset Date Comments Return to Work / Duty 10/22/2024 CASE UPDAT E/COMMUNICATION- WMLOA-RD Encounter Details Date Type Department Care Team (Late st Contact Info) Description 10/22/2024 Documentation [place] [address] Clinic [address] [place] [address] Ashanti Perez MA [address] [place] [address] Social History Tobacco Use Types [...] on restricted days for BILATERAL SHOULDER CASE #[id number] DOI - 07.08.2024 documented in this encounter Plan of Treatment Not on file documented as of this encounter Visit Diagnoses Not on filedocumented in this encounter Care Teams Information Security Engineer Relationship Specialty Start Date End Date [place] [address] PCP - General Continuum Of Care Manager 10/06/19 documented as of this encounter
--- OUTSIDE RECORDS SUMMARY | 2024-12-11 12:57 | XMS_ITS | Encounter Summary ---
Author Organization [facility] Address [address] [place] [address] 13071 Phone CareEverywhereSuppor [email or web address] Care Team Providers Care Tree Deadener Name Role Phone Provider, No Primary Care Provider Unavailabl e Encounter Details Date Type Department Care Team (Late st Contact Info) Description 11/12/[address] [place] [address] Jesusita Small, RN [address] [place] [address] Social History Tobacco Use Types [...] RN - 11/12/2024 8:49 AM EDT Nurse dependency case manager note for follow up call. 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 KAREN: per [...] RX medication given. Clinic Provider: MARIBEL Arce [phone] F/U Call Notes: PC to TM regarding [...] Specialist Visit: 12/12/24 3:[address] Melo Body Wirer Plan/Goals: TM to keep scheduled apts TM to call with updates or changes Notes requested from specialist's office Continue following plan of care per specialist Conclusion: -TM to call back with updates and changes or as needed. -TM verbalized knowledge of next steps/appointments. -TM has no further concerns at this time. Body Wirer Signature: Jesusita Small RN Date: 11/12/24 documented in this encounter Plan of Treatment Not on file documented as of this encounter Visit Diagnoses Not on filedocumented in this encounter Care Teams Tree Deadener Relationship Specialty Start Date End Date Provider, RICARDO Merino [address] PCP - General Store Assistant 10/06/19 documented as of this encounter
--- OUTSIDE RECORDS SUMMARY | 2024-12-11 12:58 | XMS_ITS | Encounter Summary ---
Author Organization [facility] Address [address] [place] [address] Phone CareEverywhereSuppor [email or web address] Care Team Providers Care Community Health Advisor Name Role Phone Provider, No Primary Care Provider Unavailabl e Reason for Visit * Reason Onset Date Comments Care Coordination 11/10/2024 Encounter Details Date Type Department Care Team (Late st Contact Info) Description 11/10/[address] [place] [address] Jesusita Small RN [address] [place] [address] Social History Tobacco Use Types [...] RN - 11/10/2024 12:13 PM EDT Nurse credit analysis manager note for follow up call. 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 KAREN: per [...] MRI left shoulder Clinic Provider: MARIBEL Arce [phone] F/U Call Notes: Attempted to reach TM regarding follow up with Dr Melo today. No answer. No VM available. Last Specialist Visit: 10/23/24 Next Specialist Visit: 11/10/24 10:[address] Melo Manager Non Profit Plan/Goals: TM to keep scheduled apts TM to call with updates or changes Notes requested from specialist's office Continue following plan of care per specialist Conclusion: -Attempted to contact TM. No answer. -No voicemail available. Manager Non Profit Signature: Jesusita Small RN Date: 11/10/24 documented in this encounter Plan of Treatment Not on file documented as of this encounter Visit Diagnoses Not on filedocumented in this encounter Care Teams Community Health Advisor Relationship Specialty Start Date End Date Provider, RICARDO Merino [address] PCP - General Senior Sustainability Consultant 10/06/19 documented as of this encounter
--- OUTSIDE RECORDS SUMMARY | 2024-12-11 12:58 | XMS_ITS | Clinical Summary ---
Author Organization [facility] Address [address] [place] [address] Phone CareEverywhereSuppor [email or web address] Care Team Providers Care Diving Board Assembler Name Role Phone Provider, No Primary Care Provider Unavailabl e Allergies No known active allergies Medications cholecalciferol (VITAMIN D-3) 1.25 MG (04167 UT) tablet Take 50,000 Units by mouth. Active ergocalciferol (VITAMIN D2) 1.25 MG (36068 UT) capsule TAKE 1 CAPSULE BY MOUTH [...] Type Department Care Team Description 11/12/2024 Telephone [facility] [address] [place] [address] Jesusita Small RN 11/11/2024 Telephone [place] [address] [place] [address] Jesusita Small RN 11/10/2024 [address]phone [address] [place] [address] Jesusita Small RN 11/04/2024 Telephone [address] [place] [address] Jesusita Small RN 2024 Telephone [address] [place] [address] Jesusita Small RN 10/22/[address] [place] [address] Ashanti Perez MA 10/22/[address] [place] [address] Jesusita Small RN 10/16/2024 1:30 PM EDT Clinical Support [place] [address] [place] [address] Chanell Meza PA Acute pain of left [...] OPT OUT NO COPAY NB Care Teams Diving Board Assembler Relationship Specialty Start Date End Date Provider, Alla [place]ERICARDO [address] PCP - General Creative Project Manager 10/06/19
--- NOTE | 2024-12-11 13:00 | MR_ITS ---
FINAL REPORT TECHNIQUE: Multiplanar and multisequence imaging of the brain was obtained before and after contrast administration. CLINICAL HISTORY: worsening headaches, visual distubance / syncope headaches, dizziness, blurred vision 27 ml prohance COMPARISON: 11/17/2021 report MRI FINDINGS: Brain parenchymal: There is no mass effect or midline shift. There are no areas of abnormal signal intensity.The cerebellum and brainstem are without acute abnormality. The pituitary gland is unremarkable in appearance. Ventricles: The ventricles are symmetric in size and configuration without hydrocephalus. Extra-axial spaces: No extra-axial fluid collections. Diffusion imaging: No areas of restricted diffusion to suggest acute infarct. Flow voids: Flow voids within the major intracranial vessels are preserved. Soft tissues: Soft tissues are without acute abnormality. There is a mucous retention cyst versus polyp present in the right maxillary sinus. Post contrast imaging: No abnormal enhancement. IMPRESSION: No acute intracranial abnormality and no pathologic contrast enhancement. Reviewed, Interpreted and Dictated by Sonja Vasquez MD Transcribed by Ella Lamb Authenticated and . [facility]
[2024-12-11] MEDS: SODIUM CHLORIDE 0.9% 10ML SYR (RAD ONLY) 10 ML IV (13:42)
[2024-12-11] MEDS: GADOTERIDOL INJ 10ML SYRINGE 7 ML IV (13:42)
[2024-12-11] MEDS: GADOTERIDOL INJ 20ML SYRINGE 20 ML IV (13:42)
== END 2024-12-11 23:59 | disposition home or self-care (01) ==
LOC: RAD 12:53
PROVIDERS: PCP Family Medicine; Visit Provider Family Medicine
DX: A41.9 Sepsis, unspecified organism (principal); H53.9 Unspecified visual disturbance; R55 Syncope and collapse; R51.9 Headache, unspecified
CPT/HCPCS: 70553; A9576

== ENCOUNTER 2024-12-22 13:02 | Outpatient (CLI) | payer BC, SELFPAY ==
--- NOTE | 2024-12-22 13:00 | US_ITS ---
FINAL REPORT TECHNIQUE: Sonographic images of the testicles and scrotum were obtained in the longitudinal and transverse planes. CLINICAL HISTORY: TESTICULAR PAIN COMPARISON: 04/13/2022 FINDINGS: The right testicle measures 4 x 4 x 2.6 centimeters. There is no intratesticular mass. The epididymis is within normal limits. No extratesticular mass or hydrocele is identified. The left testicle measures 3.3 x 4.8 x 2.5 centimeters. There is no intratesticular mass. The epididymis is within normal limits. The previously seen cystic focus in the epididymis is not well-seen on the current exam. No extratesticular mass is identified. Color imaging reveals no evidence of testicular torsion. IMPRESSION: No evidence of intratesticular mass or testicular torsion. Reviewed, Interpreted and Dictated by Sonja Vasquez MD Transcribed by Ella Lamb Authenticated and [facility]
--- OUTSIDE RECORDS SUMMARY | 2024-12-22 13:06 | XMS_ITS | Clinical Summary ---
Author Organization Healthcare Address [address] [place] [id number] Care Team Providers Care Work Study Student Name Role Phone Pcp, No Primary Care [...] (03/03/2022): Added automatically from request for surgery [id number] Acute nasopharyngitis 01/31/2018 Nasal congestion 01/31/2018 ADHD [...] history exists [facility]-Depression Screening 03/02/2023 03/02/2022, 02/14 [id number] Vaccine ( season) 2023 01/14/2021, 12/24/2020 [facility]-Influenza [...] complete this topic Insurance KELLIE Care Teams Work Study Student Relationship Specialty Start Date End Date Pcp, Alla [address] [place] [address] PCP - General Family Medicine 02/02/22
--- OUTSIDE RECORDS SUMMARY | 2024-12-22 13:06 | XMS_ITS | Encounter Summary ---
Author Organization Healthcare Address [address] [place] [id number] Care Team Providers Care Rn Urology Name Role Phone Pcp, No Primary Care Provider Unavailabl e Pcp, No Primary Care Provider Unavailabl e Reason for Referral * Consultation (Routine) - Closed Specialty Diagnoses / Procedures Referred By Contac t Referred To Contact Endocrinology Diagnoses Elevated parathyroid hormone Hypercalcemia Gissell Gonzalez PA [address] [place] [address] Phone: tel: fax: [facility] [address] [place] [phone] Phone: tel: fax: Referral ID Status Reason Start Date Expiration Date V isits Requested Visits Authorized [id number] Closed Specialty Services Required 11/09/2021 05/11/2023 1 1 Encounter Details Date Type Department Care Team (Late st Contact Info) Description 11/09/2021 [facility] [address] [place] [address] Gissell Gonzalez PA [address] [facility] [place] [address] Elevated parathyroid hormone (Primary Dx); [...] Hypercalcemia documented in this encounter Care Teams Rn Urology Relationship Specialty Start Date End Date Pcp, No [address] [place] [address] PCP - General Family Medicine 11/10/21 02/01/22 Pcp, No [address] [place] [address] PCP - General Family Medicine 02/02/22 documented as of this encounter
== END 2024-12-22 23:59 | disposition home or self-care (01) ==
PROVIDERS: PCP Family Medicine; Visit Provider Family Medicine
DX: N50.819 Testicular pain, unspecified (principal)
CPT/HCPCS: 76870

== ENCOUNTER 2025-02-12 05:23 | Emergency (ER) | payer BC, SELFPAY ==
--- OUTSIDE RECORDS SUMMARY | 2025-02-12 05:28 | XMS_ITS | Encounter Summary ---
Author Organization [facility] Address [address] [place] [address] Phone [email or web address] Care Team Providers Care Associate Director Financial Aid Name Role Phone Provider, No Primary Care Provider Unavailabl e Reason for Visit * Reason Onset Date Comments Care Coordination 01/23/2025 Encounter Details Date Type Department Care Team (Late st Contact Info) Description 01/23/[address] [place] [address] Jesusita Small RN [address] [place] [address] Social History Tobacco Use Types [...] Telephone Encounter - Jesusita Small RN - 01/23/2025 9:49 AM EDT Nurse manager material note for follow up call. 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 KAREN: per [...] 10/20/24- WMLOA begins. TM sent home by [facility] due to restricted work day count. 10/23/24- Dr Jack follow up. Placed off work and referred for left shoulder MRI. TM told to hold PT. 11/05/24- MRI left shoulder 11/12/24- Follow up with Dr Melo- Diagnosed with torn labrum from MRI. Told to remain off and RX medication given. 12/12/24- Follow up at [facility]- Remain off. TM anticipates possible surgery referral at next visit. 01/14/25- Follow up with Dr Melo- Remain off and referred for surgery. Clinic Provider: MARIBEL Arce [phone] F/U Call Notes: PC to TM for update on surgery. TM states he has not heard anything yet. TM advisedto reach out to his workers comp adjustor for update. Email sent to Sarah Junior for update. Return call from TM stating he called Sarah Junior but she is off until Sunday- states he will try again then and reach out after. Last Specialist Visit: 01/14/25 Next Specialist Visit: Pending surgery Lace Pinner Plan/Goals: TM to keep scheduled apts TM to call with updates or changes Notes requested from specialist's office Continue following plan of care per specialist Conclusion: -TM to call back with updates and changes or as needed. -TM verbalized knowledge of next steps/appointments. -TM has no further concerns at this time. Lace Pinner Signature: Jesusita Small RN Date: 01/23/25 documented in this encounter Plan of Treatment Not on file documented as of this encounter Visit Diagnoses Not on filedocumented in this encounter Care Teams Associate Director Financial Aid Relationship Specialty Start Date End Date Provider, [place] [address] PCP - General Blood Bank Calendar Control Clerk 10/06/19 documented as of this encounter
--- OUTSIDE RECORDS SUMMARY | 2025-02-12 05:28 | XMS_ITS | Encounter Summary ---
Author Organization [facility] Address [address] [place] [address] Phone [email or web address] [email or web address] Care Team Providers Care Part Maker Name Role Phone Provider, No Primary Care Provider Unavailabl e Reason for Visit * Reason Onset Date Comments Care Coordination 01/28/2025 Encounter Details Date Type Department Care Team (Late st Contact Info) Description 01/28/[address] [place] [address] Jesusita Small RN [address] [address] Social History Tobacco Use Types [...] Telephone Encounter - Jesusita Small RN - 01/28/2025 10:07 AM EDT Nurse assistant auto center manager note for follow up call. 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 KAREN: per [...] RX medication given. 12/12/24- Follow up at [facility]- Remain off. TM anticipates possible surgery referral at next visit. 01/14/25- Follow up with Dr Melo- Remain off and referred for surgery. 01/26/25- Surgery approved per Sarah Junior. Pending scheduling. Clinic Provider: MARIBEL Arce [phone] F/U Call Notes: Sarah Junior updates 01/26/25 that surgery has been approved. PC to TM to discuss. TM was unaware of approval. TM advised to call Dr Melo's office to discuss scheduling and call back after. Last Specialist Visit: 01/14/25 Next Specialist Visit: Pending surgery scheduling Lead Welder Plan/Goals: TM to keep scheduled apts TM to call with updates or changes Notes requested from specialist's office Continue following plan of care per specialist Conclusion: -TM to call back with updates and changes or as needed. -TM verbalized knowledge of next steps/appointments. -TM has no further concerns at this time. Lead Welder Signature: Jesusita Small RN Date: 01/28/25 documented in this encounter Plan of Treatment Not on file documented as of this encounter Visit Diagnoses Not on filedocumented in this encounter Care Teams Part Maker Relationship Specialty Start Date End Date Provider, RICARDO Merino [address] PCP - General Carpenter Labor Supervisor 10/06/19 documented as of this encounter
--- OUTSIDE RECORDS SUMMARY | 2025-02-12 05:28 | XMS_ITS | Encounter Summary ---
Author Organization [facility] Address [address] [place] [address] Phone [email or web address] [email or web address] Care Team Providers Care Primary Teaching Assistant Name Role Phone Provider, No Primary Care Provider Unavailabl e Encounter Details Date Type Department Care Team (Late st Contact Info) Description 01/30/[address] [place] [address] Jesusita Small RN [address] [place] [address] Social History Tobacco Use Types [...] Telephone Encounter - Jesusita Small RN - 01/30/2025 10:13 AM EDT Nurse cytogenetics laboratory manager note for follow up call. 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 KAREN: per [...] 10/20/24- WMLOA begins. TM [facility] due to restricted work day count. 10/23/24- Dr Jack follow up. Placed off work and referred for left shoulder MRI. TM told to hold PT. 11/05/24- MRI left shoulder 11/12/24- Follow up with Dr Melo- Diagnosed with torn labrum from MRI. Told to remain off and RX medication given. 12/12/24- Follow up at [facility]- Remain off. TM anticipates possible surgery referral at next visit. 01/14/25- Follow up with Dr Melo- Remain off and referred for surgery. 01/26/25- Surgery approved per Sarah Junior. Pending scheduling. Clinic Provider: MARIBEL Arce [phone] F/U Call Notes: PC to TM for update on surgery scheduling. TM states he has never heard back fro [facility] about scheduling and he also hasn't been able to get ahold of his Adjustor. TM given Nery Urena's- Work Comp Liaison at [facility] contact number and advised to call back with any updates. [facility] emails Nery Urena as well. Last Specialist Visit: 01/14/25 Next Specialist Visit: Pending surgery scheduling Furnishings Conservator Plan/Goals: TM to keep scheduled apts TM to call with updates or changes Continue following plan of care per specialist Conclusion: -TM to call back with updates and changes or as needed. -TM verbalized knowledge of next steps/appointments. -TM has no further concerns at this time. Furnishings Conservator Signature: Jesusita Small RN Date: 01/30/25 documented in this encounter Plan of Treatment Not on file documented as of this encounter Visit Diagnoses Not on filedocumented in this encounter Care Teams Primary Teaching Assistant Relationship Specialty Start Date End Date Provider, [place] [address] PCP - General White Sugar Syrup Operator 10/06/19 documented as of this encounter
--- OUTSIDE RECORDS SUMMARY | 2025-02-12 05:28 | XMS_ITS | Encounter Summary ---
Author Organization [facility] Address [address] [place] [address] Phone [email or web address] [email or web address] Care Team Providers Care Chemical Compounder Helper Name Role Phone Provider, No Primary Care Provider Unavailabl e Reason for Visit * Reason Onset Date Comments Care Coordination 02/06/2025 Encounter Details Date Type Department Care Team (Late st Contact Info) Description 02/06/[address] [place] [address] Jesusita Small RN [address] [place] [address] Social History Tobacco Use Types [...] Telephone Encounter - Jesusita Small RN - 02/06/2025 9:57 AM EDT Nurse manager decision support note for follow up call. 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 KAREN: per [...] 10/20/24- WMLOA begins. [facility] due to restricted work day count. 10/23/24- Dr Jack follow up. Placed off work and referred for left shoulder MRI. TM told to hold PT. 11/05/24- MRI left shoulder 11/12/24- Follow up with Dr Melo- Diagnosed with torn labrum from MRI. Told to remain off and RX medication given. 12/12/24- Follow up at [facility]- Remain off. TM anticipates possible surgery referral at next visit. 01/14/25- Follow up with Dr Melo- Remain off and referred for surgery. 01/26/25- Surgery approved per Sarah Junior. Pending scheduling. 02/24/25- Surgery Dr Melo Clinic Provider: MARIBEL rAce [phone] F/U Call Notes: 02/03/25 update from Nery Urena on surgery scheduling- I have no update. I sent his voicemail over to the warp splitter but I'm not sure why she hasn't called to schedule hissurgery. I think I told him yesterday her extension to call but I'm not sure if he did. Attempted to reach TM to see if he has an update on surgery scheduling. Call does not connect at [phone] despite multiple attempts. Nery Urena emailed for another update- states surgery still not scheduled. Emailed Sarah Vernon to update. Return call from TM. States he is scheduled for 02/24/25 for surgery. TM will call after surgery toupdate or earlier if needed. Last Specialist Visit: 01/14/25 Next Specialist Visit: 02/24/25 Surgery Senior Business Development Analyst Plan/Goals: TM to keep scheduled apts TM to call with updates or changes Continue following plan of care per specialist Conclusion: -TM to call back with updates and changes or as needed. -TM verbalized knowledge of next steps/appointments. -TM has no further concerns at this time. Senior Business Development Analyst Signature: Jesusita Small RN Date: 02/06/25 documented in this encounter Plan of Treatment Not on file documented as of this encounter Visit Diagnoses Not on filedocumented in this encounter Care Teams Chemical Compounder Helper Relationship Specialty Start Date End Date Provider, RICARDO Merino [address] PCP - General General Accounting Manager 10/06/19 documented as of this encounter
--- OUTSIDE RECORDS SUMMARY | 2025-02-12 05:28 | XMS_ITS | Data Portability ---
Author Organization [facility] [place] [facility] Address [address] [place] [address] Assessment No assessment recorded. Plan of Treatment Reminders Order Date Submit Date Provider Last Modified By Organization Details Last Modified Time Details Appointments None recorded. Lab glucose, fingerstick , blood [address], [address] [place], [place] [address]ther [facility], [place], [address], 5 15:49:29 Hepatitis C IgG Ab, qual, serum 2024 025 [facility]), [address] [place], [address], 5 12:08:08 lipid panel, serum 2024 025 [facility]), [address] [place], [address], 5 12:08:07 CMP, serum or plasma 2024 025 [place] [facility] [address] [place], [address], 5 12:08:07 PTH (parathyroi d hormone), intact, serum or plasma 2024 025 [facility]), [address] [place], [address], 5 12:08:09 CBC w/ auto diff 2024 025 [place] [facility]), [address] [facility], [place], [address], 5 12:08:07 vitamin D, 25-hydroxy, total, serum 2024 025 [place] [facility]), [address] [place], [address], 5 12:08:08 TSH, ultra-sensi tive, serum 2024 025 [place] [facility]), [address] [facility], [place], [address], 5 12:08:08 HIV 1 + 2, meaningful use set 2024 025 [place] [facility]), [address] [place], [address], 5 12:08:09 rapid strep group A, throat [address], [facility] [place], [address], 08:27:32 Referral None recorded. Procedures None recorded. Surgeries None recorded. Imaging electrocard iogram 2024 025 [email or web address] Not available 16:24:33 Medication Orders Bystolic 5 mg tablet 2024 025 [facility] #[id number], [address] [facility] [address] [facility] [place], [id number], 17:31:51 lisinopril 20 mg-hydrochl orothiazide 12.5 mg tablet 2024 025 [employer] [facility] #97754, [address] [facility] [address] [place], [place], [id number], 17:39:15 Zithromax Z-Philippe 250 mg tablet 2024 [place] [facility] #[id number], [address] [facility] [address], [place]O [place], [id number], 5 15:45:44 prednisone 20 mg tablet 2024 [place] [facility], [address] [facility] [address], [place], [id number], 5 15:45:42 Sudafed 12 Hour 120 mg tablet,exte nded release 2024 [place] [facility]68627, [address] [facility] [address] , [place], [id number], 5 15:45:41 lisinopril 20 mg-hydrochl orothiazide 12.5 mg tablet 2024 [place] [facility] #30842, [address], [place], [id number], 16:08:34 Patient TargetsNo targets recorded. Patient Instructions Encounter Date Encounter Id Patient Instructions Last Modified By Organization Details Last Modified Time 06/16/2024 [id number] high blood pressure: care instructions [email or web address] Not available 06/16/2024 16:08:28 learning about h igh blood pressure [email or web address] Not available 06/16/2024 16:08:28 body mass index: care instructions [email or web address] Not available 06/16/2024 16:22:39 learning about healthy weight [email or web address] Not available 06/16/2024 16:22:39 06/20/2024 [id number] sore throat: car e instructions Not available 06/20/2024 08:27:29 STD paperwork completeted for work [email or web address] Not available 06/20/2024 11:45:02 07/25/2024 [id number] lightheadedness or faintness: care instructions [email or web address] Not available 07/25/2024 15:49:29 high blood pressure: care instructions [email or web address] Not available 07/25/2024 17:29:58 learning about h igh blood pressure Not available 07/25/2024 17:29:58 Reason for Referral None Reported. Results Created Date Observation Date Name Description Value Unit Range Abnormal Flag Note LastModifiedBy Organization Detail LastModifiedTime 06/21/1906/20/2024 rapid strep group A, throa t Strep negati ve Not Available [facility] [address] [facility], [place], [address], 06/20/2024 08:12:25 07/26/1907/26/2024 CBC WITH DIFFE RENTI AL/PL ATELE T WBC 11.9 x10e3 /uL 3.4-10 .8 above high normal Not Available [facility] ([facility]) [address] [place], [address], 07/27/2024 12:08:06 07/26/19 25 07/26/2024 CBC WITH DIFFE RENTI AL/PL ATELE T RBC 5.01 x10e6 /uL 4.14-5 .80 normal Not Available [facility] ([facility]) [address] [place], [address], 07/27/2024 12:08:06 07/26/1907/26/2024 CBC WITH DIFFE RENTI AL/PL ATELE T hemoglobin 14.0 g/dL 13.0-1 7.7 normal Not Available [facility] ([facility]) [address] [place], [address], 07/27/2024 12:08:06 07/26/19 25 07/26/2024 CBC WITH DIFFE RENTI AL/PL ATELE T hematocrit 42.1 % 37.5-5 1.0 normal Not Available [facility] ([facility]) [address] [place], [address], 07/27/2024 12:08:06 07/26/19 25 07/26/2024 CBC WITH DIFFE RENTI AL/PL ATELE T MCV 84 fL 79-97 normal Not Available [facility] ([facility]) [address] [facility], [place], [address], 07/27/2024 12:08:06 07/26/19 25 07/26/2024 CBC WITH DIFFE RENTI AL/PL ATELE T MCH 27.9 pg 26.6-3 3.0 normal Not Available [facility] ([facility]) [address] [facility], [place], [address], 07/27/2024 12:08:06 07/26/19 25 07/26/2024 CBC WITH DIFFE RENTI AL/PL ATELE T MCHC 33.3 g/dL 31.5-3 5.7 normal Not Available [facility] ([facility]) [address] [facility], [place], [address], 07/27/2024 12:08:06 07/26/19 25 07/26/2024 CBC WITH DIFFE RENTI AL/PL ATELE T RDW 13.9 % 11.6-1 5.4 Not Available [facility] ([facility]) [address] [facility], [place], [address], 07/27/2024 12:08:06 07/26/19 25 07/26/2024 CBC WITH DIFFE RENTI AL/PL ATELE T platelets 339 x10e3 /uL 150-45 0 normal Not Available [facility] ([facility]) [address] [facility], [place], [address], 07/27/2024 12:08:06 07/26/19 25 07/26/2024 CBC WITH DIFFE RENTI AL/PL ATELE T neutrophils 66 % not estab. normal Not Available [facility] ([facility]) [address] [facility], [place], [address], 07/27/2024 12:08:06 07/26/19 25 07/26/2024 CBC WITH DIFFE RENTI AL/PL ATELE T lymphs 23 % not estab. normal Not Available [facility] ([facility]) [address] [facility], [place], [address], 07/27/2024 12:08:06 07/26/19 25 07/26/2024 CBC WITH DIFFE RENTI AL/PL ATELE T monocytes 8 % not estab. normal Not Available [facility] ([facility]) [address] [facility], [place], [address], 07/27/2024 12:08:06 07/26/19 25 07/26/2024 CBC WITH DIFFE RENTI AL/PL ATELE T eos 1 % not estab. normal Not Available [facility] ([facility]) [address] [facility], [place], [address], 07/27/2024 12:08:06 07/26/19 25 07/26/2024 CBC WITH DIFFE RENTI AL/PL ATELE T basos 1 % not estab. normal Not Available [facility] ([facility]) [address] [facility], [place], [address], 07/27/2024 12:08:06 07/26/19 25 07/26/2024 CBC WITH DIFFE RENTI AL/PL ATELE T immature cells CULINARY ASSISTANT Not Available [facility] ([facility]) [address] [facility], [place], [address], 07/27/2024 12:08:06 07/26/19 25 07/26/2024 CBC WITH DIFFE RENTI AL/PL ATELE T neutrophils (absolute) 7.9 x10e3 /uL 1.4-7. 0 above high normal Not Available [facility] ([facility]) [address] [facility], [place], [address], 07/27/2024 12:08:06 07/26/19 25 07/26/2024 CBC WITH DIFFE RENTI AL/PL ATELE T lymphs (absolute) 2.7 x10e3 /uL 0.7-3. 1 normal Not Available [facility] ([facility]) [address] [place], [address], 07/27/2024 12:08:06 07/26/19 25 07/26/2024 CBC WITH DIFFE RENTI AL/PL ATELE T monocytes(ab solute) 0.9 x10e3 /uL 0.1-0. 9 normal Not Available [facility] ([facility]) [address] [place], [address], 07/27/2024 12:08:06 07/26/19 25 07/26/2024 CBC WITH DIFFE RENTI AL/PL ATELE T eos (absolute) 0.2 x10e3 /uL 0.0-0. 4 normal Not Available [facility] ([facility]) [address] [place], [address], 07/27/2024 12:08:06 07/26/19 25 07/26/2024 CBC WITH DIFFE RENTI AL/PL ATELE T baso (absolute) 0.1 x10e3 /uL 0.0-0. 2 normal Not Available [facility] ([facility]) [address] [place], [address], 07/27/2024 12:08:06 07/26/1907/26/2024 CBC WITH DIFFE RENTI AL/PL ATELE T immature granulocytes 1 % not estab. Not Available [facility] ([facility]) [address] [place], [address], 07/27/2024 12:08:06 07/26/19 25 07/26/2024 CBC WITH [...] cristiano signi fican ce.) Not Available [facility] ([facility]) [address] [facility], [place], [address], 07/27/2024 12:08:06 07/26/19 25 07/26/2024 CBC WITH DIFFE RENTI AL/PL ATELE T NRBC CULINARY ASSISTANT Not Available [facility] ([facility]) [address] [facility], [place], [address], 07/27/2024 12:08:06 07/26/19 25 07/26/2024 CBC WITH DIFFE RENTI AL/PL ATELE T hematology comments: CULINARY ASSISTANT Not Available [facility] ([facility]) [address] [facility], [place], [address], 07/27/2024 12:08:06 07/26/19 25 07/26/2024 COMP. METAB OLIC PANEL (14) glucose 99 mg/dL 70-99 normal Not Available [facility] ([facility]) [address] [facility], [place], [address], 07/27/2024 12:08:07 07/26/19 25 07/26/2024 COMP. METAB OLIC PANEL (14) BUN 23 mg/dL 6-20 above high normal Not Available [facility] ([facility]) [address] [facility], [place], [address], 07/27/2024 12:08:07 07/26/19 25 07/26/2024 COMP. METAB OLIC PANEL (14) creatinine 1.03 mg/dL 0.76-1 .27 normal Not Available [facility] ([facility]) [address] [facility], [place], [address], 07/27/2024 12:08:07 07/26/19 25 07/26/2024 COMP. METAB OLIC PANEL (14) eGFR 105 mL/mi n/1.7 3 >59 normal Not Available [facility] ([facility]) [address] [place], [address], 07/27/2024 12:08:07 07/26/19 25 07/26/2024 COMP. METAB OLIC PANEL (14) BUN/creatini ne ratio 22 9-20 above high normal Not Available [facility] ([facility]) [address] [facility], [place], [address], 07/27/2024 12:08:07 07/26/19 25 07/26/2024 COMP. METAB OLIC PANEL (14) sodium 137 mmol/ L 134-14 4 normal Not Available [facility] ([facility]) [address] [facility], [place], [address], 07/27/2024 12:08:07 07/26/19 25 07/26/2024 COMP. METAB OLIC PANEL (14) potassium 4.7 mmol/ L 3.5-5. 2 normal Not Available [facility] ([facility]) [address] [place], [address], 07/27/2024 12:08:07 07/26/19 25 07/26/2024 COMP. METAB OLIC PANEL (14) chloride 100 mmol/ L 96-106 normal Not Available [facility] ([facility]) [address] [place], [address], 07/27/2024 12:08:07 07/26/19 25 07/26/2024 COMP. METAB OLIC PANEL (14) carbon dioxide, total 20 mmol/ L 20-29 normal Not Available [facility] ([facility]) [address] [place], [address], 07/27/2024 12:08:07 07/26/19 25 07/26/2024 COMP. METAB OLIC PANEL (14) calcium 9.7 mg/dL 8.7-10 .2 normal Not Available [facility] ([facility]) [address] [place], [address], 07/27/2024 12:08:07 07/26/19 25 07/26/2024 COMP. METAB OLIC PANEL (14) protein, total 7.2 g/dL 6.0-8. 5 normal Not Available [facility] ([facility]) [address] [place], [address], 07/27/2024 12:08:07 07/26/19 25 07/26/2024 COMP. METAB OLIC PANEL (14) albumin 4.5 g/dL 4.3-5. 2 normal Not Available [facility] ([facility]) [address] [place], [address], 07/27/2024 12:08:07 07/26/19 25 07/26/2024 COMP. METAB OLIC PANEL (14) globulin, total 2.7 g/dL 1.5-4. 5 Not Available [facility] ([facility]) [address] [place], [address], 07/27/2024 12:08:07 07/26/19 25 07/26/2024 COMP. METAB OLIC PANEL (14) bilirubin, total 0.2 mg/dL 0.0-1. 2 normal Not Available [facility] ([facility]) [address] [place], [address], 07/27/2024 12:08:07 07/26/19 25 07/26/2024 COMP. METAB OLIC PANEL (14) alkaline phosphatase 68 IU/L 44-121 normal Not Available [facility] ([facility]) [address] [place], [address], 07/27/2024 12:08:07 07/26/19 25 07/26/2024 COMP. METAB OLIC PANEL (14) AST (SGOT) 15 IU/L 0-40 normal Not Available [facility] ([facility]) [address] [place], [address], 07/27/2024 12:08:07 07/26/19 25 07/26/2024 COMP. METAB OLIC PANEL (14) ALT (SGPT) 22 IU/L 0-44 normal Not Available [facility] ([facility]) [address] [place], [address], 07/27/2024 12:08:07 07/26/19 25 07/26/2024 LIPID PANEL cholesterol, total 202 mg/dL 100-19 9 above high normal Not Available [facility] ([facility]) [address] [place], [address], 07/27/2024 12:08:07 07/26/19 25 07/26/2024 LIPID PANEL triglyceride s 771 mg/dL 0-149 alert high Not Available [facility] ([facility]) [address] [place], [address], 07/27/2024 12:08:07 07/26/19 25 07/26/2024 LIPID PANEL HDL cholesterol 25 mg/dL >39 below low normal Not Available [facility] ([facility]) [address] [place], [address], 07/27/2024 12:08:07 07/26/19 25 07/26/2024 LIPID PANEL VLDL cholesterol cristiano 116 mg/dL 5-40 above high normal Not Available [facility] ([facility]) [address] [place], [address], 07/27/2024 12:08:07 07/26/19 25 07/26/2024 LIPID PANEL LDL [facility] mg/dL 0-99 Not Available [facility] ([facility]) [address] [place], [address], 07/27/2024 12:08:07 0407/26/2024 LIPID PANEL LDL calc comment: CULINARY ASSISTANT Not Available [facility] ([facility]) [address] [facility], [place], [address], 07/27/2024 12:08:07 07/26/19 25 07/26/2024 HCV ANTIB TWYLA CASCA DE(PC R/GEN O) HCV Ab Non Reacti ve non reacti ve Not Available [facility] ([facility]) [address] [facility], [place], [address], 07/27/2024 12:08:08 07/26/19 25 07/26/2024 HCV ANTIB TWYLA CASCA DE(PC R/GEN O) interpretati on: Commen t Not infec sheng with HCV unles s early or acute infec tion is suspe cted (whic h may be delay ed in an immun ocomp romis ed indiv idual ), or other evide nce exist s to indic ate HCV infec tion. Not Available [facility] ([facility]) [address] [facility], [place], [address], 07/27/2024 12:08:08 07/26/1907/26/2024 TSH TSH 2.420 uIU/m L 0.450- 4.500 normal Not Available [facility] ([facility]) [address] [facility], [place], [address], 07/27/2024 12:08:08 07/26/1907/26/2024 VITAM IN D, 25-HY [...] um and D. Edyta saba [place]: [facility] . 2. Holic k [place], [place], Bisch off-F errar i MCKEON, et al. Evalu ation , treat ment, and preve ntion of vitam in D defic iency : an Endoc rine Socie ty clini cristiano pract ice guide line. JCEM. 2010; 96(7) :1911 -30. Not Available [facility] ([facility]) [address] [facility], [place], [address], 07/27/2024 12:08:08 07/26/19 25 07/26/2024 HIV AB/P2 4 AG WITH REFLE X HIV Ab/P24 Ag screen Non Reacti ve non reacti ve HIV Negat derick HIV-1 /HIV- 2 antib odies and HIV-1 p24 antig en were NOT detec sheng. There is no labor atory evide nce of HIV infec tion. Not Available [facility] ([facility]) [address] [facility], [place], [address], 07/27/2024 12:08:09 07/26/19 25 07/27/2024 PTH, INTAC T PTH, intact 19 pg/mL 15-65 normal Not Available [facility] ([facility]) [address] [facility], [place], [address], 07/27/2024 12:08:09 07/26/19 25 07/25/2024 gluco se, finge rstic k, blood Blood Glucose: mg/dl 94 Not Available [facility] 2 Rishi Zenon [facility], [place], [address], 07/25/2024 15:48:15 07/26/19 elect rocar diogr am No observ ation record ed. Not Available 2024 17:25:18 Result Notes None recorded. Problems Name Problem SNOMED Code Status Onset Date Resolution Date Notes Provider Name and Address Organization Details Recorded Time Essential hypertens ion 63014021 Active 2024 MARIBEL Lin [address] [place] [address], [address] [place] [address] 8, [employer] 5 16:08:16 Influenza A virus present 422756407795 Completed 202407/25/2024 MARIBEL Lin [address] [place] [address], [address] [place] [address] 8, [employer] 5 17:29:47 Acute pharyngit is 246326826 Completed 202407/25/2024 MARIBEL Lin [address] [place] [address], [address] [place] [address], [employer] 5 17:29:44 Hyperlipi demia 45602149 Active 2024 MARIBEL Lin [address] [place] [address], [address] [place] [address], [employer] 5 09:30:18 Deficienc y of vitamin D3 704410373 Active 2024 MARIBEL Lin [address] [place] [address], [address] [place] [address] 8, [employer] 5 09:30:31 Problem Notes None recorded. Procedures Surgical History Date Name Laterality Status Provider Name and Address Organization Details Recorded Time Tonsillectomy completed [employer] 06/16/2024 15:51:15 Thyroid Surgery completed [employer] 06/16/2024 15:51:15 Imaging Results None recorded. [...] EVERY DAY DIRECTED FOR HIGH BLOOD PRESSURE 2024 active Not Available Not Available Not Avai lable azithromyci n 250 mg tablet TAKE 2 [...] WEEKLY ON THE SAME DAY EACH WEEK 2024 active Not Available Not Available Not Avai lable nebivolol 5 mg tablet TAKE 1 TABLET [...] Address Organization Details Last Updated DateTime 5 267245. 04 g 39.7 kg/m2 187.96 cm 95 % 95 % 104 /min 98 [degF] 106/72 mm[Hg] [employer] 5 15:54:53 Date Recorded Body height Body mass index (BMI) Body weight Oxygen saturation Oxygen saturation in Arterial blood by Pulse oximetry Heart rate Body temperature Systolic And Diastolic Provider Name and Address Organization Details Last Updated DateTime 5 187.96 cm 39.7 kg/m2 847501. 04 g 96 % 96 % 88 /min 98 [degF] 124/84 mm[Hg] [employer] 5 08:07:27 Date Recorded Body height Body mass index (BMI) Body weight Body temperature Heart rate Oxygen saturation Oxygen saturation in Arterial blood by Pulse oximetry Systolic And Diastolic Provider Name and Address Organization Details Last Updated DateTime 187.96 cm 40.2 kg/m2 823136. 41 g 98.3 [degF] 90 /min 96 % 96 % 104/62 mm[Hg] Inessa Juarez [employer] 15:43:45 Social History Question Answer Notes LastModified by Organizat ion Details LastModified Time Tobacco Smoking Status Never Smoker Inessa Juarez jordi, [employer] 06/16/2024 15:55:48 Do You Have An Advance Directive? No Information not available 06/16/2024 Is Your Home Air Conditioned? Yes Information not available 06/16/2024 Are You Blind Or Do You Have Difficulty Seeing? No Information not available 06/16/2024 What Is Your Level Of Caffeine Consumption? Moderate Information not available 06/16/2024 What Type Of Line Supervisor Do You Use? [employer] Information not available [...] Do You Have A Medical Power Of Technical Sales Manager? No Information not available 06/16/2024 What Was [...] not available 06/16/2024 Are you able to walk independently without assistance or assistive devices? YESWOREST Information not available 06/16/2024 Do you have difficulty doing errands alone? No Information not available 06/16/2024 Are you able to care for yourself independently? Yes Information not available 06/16/2024 Do you have difficulty dressing, bathing, grooming, or toileting? No Information not available 06/16/2024 What is your exercise level? Occasional Information not available 06/16/2024 Mental Status Question Answer Note LastModified by Organizat ion Details LastModified Time Do you feel stressed (tense, restless, nervous, or anxious, or unable to sleep at night)? [id number] Information not available 06/16/2024 Do you have [...] Artery Disease N Other N Gout N Kidney Stones N Blood Diseases N Hyperthyroidism N Breast Cancer N Blood Transfusion N Emergency room visit since last appointm ent. N Hypothyroidism N Lung Disease N Dermatologic Disorders N Depression N COPD N Developmental or Behavioral Disorders N Defects or Inherited Disease N Breast Problem N Difficulty Swallowing N Anesthesia Complications N History of STI N Anxiety Disorder N Meniere's disease N Autoimmune disease N Muscle, Joint, or Bone Problems N Vision or Eye Problems N Arthritis N Infertility N Polyps N Mental Disorder N Congenital Anomalies N Acid Reflux (GERD) N Cancer N Stroke N Neurologic/Epilepsy N Endometriosis N Bladder or Kidney Problems N High Cholesterol N Liver Disease N Organ Transplant N Psychiatric/Mental Health Condition N Fibromyalgia N Headaches N Schizophrenia N Dialysis N Kidney Disease N Allergies/Hayfever N Heart [...] quadrivalent, preservative 4 completed Inessa Vice null, [employer] 06/16/2024 15:51:44 Hib, unspecified formulation 2 completed Inessa Vice null, [employer] 06/16/2024 15:51:44 Hib, unspecified formulation 1 completed Inessa Vice null, [employer] 06/16/2024 15:51:44 Hib, unspecified formulation 1 completed Inessa Vice null, [employer] 06/16/2024 15:51:44 IPV 5 completed Inessa Vice null, [employer] 06/16/2024 15:51:44 IPV 2 completed Inessa Vice null, [employer] 06/16/2024 15:51:44 IPV 2 completed Inessa Vice null, [employer] 06/16/2024 15:51:44 IPV 1 completed Inessa Vice null, [employer] 06/16/2024 15:51:44 Influenza, live, trivalent, intranasal, PF 0 completed Inessa Vice null, [employer] 06/16/2024 15:51:44 Influenza, live, trivalent, intranasal, PF 2 completed Inessa Vice null, [employer] 06/16/2024 15:51:44 MMR 5 completed Inessa Vice null, [employer] 06/16/2024 15:51:44 MMR 2 completed Inessa Vice null, [employer] 06/16/2024 15:51:44 COVID-19, mRNA, LNP-S, PF, 30 mcg/0.3 mL dose 1 completed Inessa Vice null, [employer] 06/16/2024 15:51:44 COVID-19, mRNA, LNP-S, PF, 30 mcg/0.3 mL dose 1 completed Inessa Vice null, [employer] 06/16/2024 15:51:44 pneumococcal conjugate PCV 7 2 completed Inessa Vice null, [employer] 06/16/2024 15:51:44 pneumococcal conjugate PCV 7 1 completed Inessa Vice null, [employer] 06/16/2024 15:51:44 pneumococcal conjugate PCV 7 2 completed Inessa Vice null, [employer] 06/16/2024 15:51:44 pneumococcal conjugate PCV 7 1 completed Inessa Vice null, [employer] 06/16/2024 15:51:44 Tdap 2 completed Inessa Vice null, [employer] 06/16/2024 15:51:44 varicella 2 completed Inessa Vice null, [employer] 06/16/2024 15:51:44 varicella 4 completed Inessa Vice null, [employer] 06/16/2024 15:51:45 varicella 2 completed Inessa Vice null, [employer] 06/16/2024 15:51:45 Influenza, split virus, trivalent, PF 1 completed Inessa Vice null, [employer] 06/16/2024 15:51:45 Influenza, split virus, trivalent, PF 5 completed Inessa Vice null, [employer] 06/16/2024 15:51:45 Hep B, adolescent or pediatric 2 completed Inessa Vice null, [employer] 06/16/2024 15:51:45 Hep B, adolescent or pediatric 1 completed Inessa Vice null, [employer] 06/16/2024 15:51:45 Hep B, adolescent or pediatric 2 completed Inessa Vice null, [employer] 06/16/2024 15:51:45 Hep A, ped/adol, 2 dose 8 completed Inessa Vice null, [employer] 06/16/2024 15:51:45 Hep A, ped/adol, 2 dose 8 completed Inessa Vice null, [employer] 06/16/2024 15:51:45 meningococcal MCV4P 8 completed Inessa Vice null, [employer] 06/16/2024 15:51:45 DTaP, unspecified formulation 2 completed Inessa Vice null, [employer] 06/16/2024 15:51:45 DTaP, unspecified formulation 5 completed Inessa Vice null, [employer] 06/16/2024 15:51:45 DTaP, unspecified formulation 1 completed Inessa Vice null, [employer] 06/16/2024 15:51:45 DTaP, unspecified formulation 2 completed [employer] 06/16/2024 15:51:45 DTaP, unspecified formulation 1 completed [employer] 06/16/2024 15:51:45 meningococcal MCV4, unspecified formulation 2 completed [employer] 06/16/2024 15:51:45 Influenza, split virus, quadrivalent, PF 8 completed [employer] 06/16/2024 15:51:45 Influenza, split virus, quadrivalent, PF 7 completed [employer] 06/16/2024 15:51:45 Influenza, split virus, quadrivalent, PF 6 completed [employer] 06/16/2024 15:51:45 Influenza, split virus, quadrivalent, PF 5 completed [employer] 06/16/2024 15:51:45 Influenza, split virus, quadrivalent, PF 3 completed [employer] 06/16/2024 15:51:45 Past Encounters Encounter ID Performer Location Encounter Start Date Encounter Closed Date Diagnosis/Indication Diagnosis SNOMED-CT Code Diagnosis ICD10 Code Diagnosis IMO Codes Diagnosis Note [id number] MARIBEL Lin [facility] [address] [place] [address] 06/16/2024 15:44:22 06/16/2024 16:10:00 Essential hypertension 09431113 I10 Influenza A virus present 2530374145 08 J09.X2 Body mass index 30+ - obesity 653782763 Z68.39 [id number] MARIBEL Lin [facility] [address] [place] [address] 06/20/2024 07:57:27 06/20/2024 08:30:48 Sore throat 212212927 J02.9 Acute pharyngitis 689977 003 J02.9 Influenza A virus present 1285259375 08 J09.X2 [id number] MARIBEL Lin [facility] [address] [place] [address] 07/25/2024 15:15:32 07/25/2024 16:24:33 Lightheadedness 191653586 R42 Essential hypertension 00575602 I10 History of primary hyperparathyroidism 8797692412 9106 Z86.39 Health Concerns Section Related Observation LastModified by Organization Detai ls LastModified Time None Recorded Concern Status LastModified by Organization Details LastModified Time None Recorded Advance Directives Directive N: Payers Insurance Date Sequence Insurance Name Policy Number Policy Obanod Covered Member ID Obando Member ID Guarantor Name 07/28/2024 1 [facility] ([place]) [id number] A Reji Will [id number] Reji Will 06/16/2024 1 *SELF PAY* Ezekiel Will Notes Date Note Type Note Provider Name and Address Organization Details Recorded Time 5 text/html ROS as noted in the HPI Patient presents to establish care at [facility]. History of HTN. States he is compliant with meds, denies side effects. Denies headache, chest pain, vertigo, dyspnea. Diagnosed with flu A at [facility] yesterday. MARIBEL Lin [address] [place], [address], [facility] [employer] 06/16/2024 16:23:24 5 text/html ROS as noted in the HPI Patient diagnosed with influenza A Sunday. Still feeling rough. Has sore throat with blisters now. Needs note for work. MARIBEL Lin [address] [place], [address], [employer] 06/20/2024 11:45:27 5 text/html ROS as noted in the HPI Patient presents for followup. History of HTN. Blood pressure is well controlled. He feels hot and flushed.History of hyperparathyroidism with parathyroidectomy MARIBEL Lin [address] [place], [address], [facility] [employer] 07/25/2024 17:32:57
--- OUTSIDE RECORDS SUMMARY | 2025-02-12 05:28 | XMS_ITS | Encounter Summary ---
Author Organization [facility] Address [address] [place] [address] Phone [email or web address] Care Team Providers Care Drum Sander Offbearer Name Role Phone Provider, No Primary Care Provider Unavailabl e Reason for Visit * Reason Onset Date Comments Care Coordination 02/03/2025 Encounter Details Date Type Department Care Team (Late st Contact Info) Description 02/03/[address] [place] [address] Jesusita Small RN [address] [place] [address] Social History Tobacco Use Types [...] Telephone Encounter - Jesusita Small RN - 02/03/2025 11:07 AM EDT Nurse project program manager note for follow up call. 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 KAREN: per [...] 10/20/24- WMLOA begins. TM sent home by [facility] due to restricted work day count. 10/23/24- Dr Jack follow up. Placed off work and referred for left shoulder MRI. TM told to hold PT. 11/05/24- MRI left shoulder 11/12/24- Follow up with Dr Melo- Diagnosed with torn labrum from MRI. Told to remain off and RX medication given. 12/12/24- Follow up at [facility]- Remain off. TM anticipates possible surgery referral at next visit. 01/14/25- Follow up with Dr Melo- Remain off and referred for surgery. 01/26/25- Surgery approved per Sarah Junior. Pending scheduling. Clinic Provider: MARIBEL Arce [phone] F/U Call Notes: VM received from TM stating he is still waiting for surgery date, stating he has called Dr Nye office several times and still does not have appointment. Attempted to call TM back. Call goes straight to message stating no VM available. 2nd email sent to Nery Urena for update. Last Specialist Visit: 01/14/25 Next Specialist Visit: Pending surgery scheduling Discharge Specialist Plan/Goals: TM to keep scheduled apts TM to call with updates or changes Continue following plan of care per specialist Conclusion: -TM to call back with updates and changes or as needed. -TM verbalized knowledge of next steps/appointments. -TM has no further concerns at this time. Discharge Specialist Signature: Jesusita Small RN Date: 02/03/25 documented in this encounter Plan of Treatment Not on file documented as of this encounter Visit Diagnoses Not on filedocumented in this encounter Care Teams Drum Sander Offbearer Relationship Specialty Start Date End Date Provider, Alla ZHOUWRICARDO Jones [address] PCP - General Airport Location Manager 10/06/19 documented as of this encounter
--- OUTSIDE RECORDS SUMMARY | 2025-02-12 05:28 | XMS_ITS | Clinical Summary ---
Author Organization [facility] Address [address] [place] [address] Phone [email or web address] [email or web address] Care Team Providers Care Jingle Writer Name Role Phone Provider, No Primary Care Provider Unavailabl e Allergies No known active allergies Medications cholecalciferol (VITAMIN D-3) 1.25 MG (81689 UT) tablet Take 50,000 Units by mouth. Active ergocalciferol (VITAMIN D2) 1.25 MG (16552 UT) capsule TAKE 1 CAPSULE BY MOUTH [...] Encounters Date Type Department Care Team Description 02/06/2025 Telephone [facility] [address] [facility] [address] [place] [address] Jesusita Small RN 02/03/[address] [place] [phone] Jesusita Small RN 01/30/2025 Telephone [place] [address] [facility] [address] [place] [phone] Jesusita Small RN 01/28/[address] [place] [address] Jesusita Small RN 01/23/[address] [place] [address] Jesusita Small RN 01/19/2025 Telephone [facility] [address] [facility] [address] [place] [address] Jesusita Small RN 01/14/[address] [place] [address] Jesusita Small RN 12/12/2024 Telephone [facility] [address] [facility] [address] [address] Jesusita Small AMISH 11/12/2024 Telephone [facility] [address] [place] [address] Jesusita Small, RN from Last 3 Months Social History Tobacco [...] Additional history exists Covid-19 Immunization ( season) 2024 01/14/2021, 12/24/2020 Influenza Immunization (#1) 12/15/202401/15, 02/06/2017, 02/17/2016, Additional history exists HIB Immunization Aged Out 07/05/2001, , 01/14/2001 No longer eligible based on patient's age to complete this topic Hepatitis B Immunization Completed 002, 10/24/2001, 01/14/2001, Additional history exists Pneumococcal Immunization Completed 2001, 03/11/2002, 07/05/2001, Additional history exists Pneumococcal: 50+ Years Discontinued 03/24/20 02, 03/11/2002, 07/05/2001, Additional history exists Polio Immunization Completed 11/29/2004, 1 05/11/2001, 01/14/2002, Additional history exists Varicella Immunization Completed 2, 11/18/2003, 03/24/2002 Meningococcal Immunization Completed 07/30/2017, Hepatitis A Immunization Completed 02/04/2018, 07/15 Men B Immunization Aged Out No longer eligible based on patient's age to complete this topic Insurance OPT OUT NO COPAY NB Care Teams Jingle Writer Relationship Specialty Start Date End Date [place], [place] [address] PCP - General Illustrator Set 10/06/19
--- OUTSIDE RECORDS SUMMARY | 2025-02-12 05:28 | XMS_ITS | Encounter Summary ---
Author Organization [facility] Address [address] [place] [address] Phone [email or web address] [email or web address] Care Team Providers Care Rock Dust Sprayer Name Role Phone Provider, No Primary Care Provider Unavailabl e Reason for Visit * Reason Onset Date Comments Care Coordination 01/14/2025 Encounter Details Date Type Department Care Team (Late st Contact Info) Description 01/14/[address] [place] [address] Jesusita Small RN [address] [place] [address] Social History Tobacco Use Types [...] Telephone Encounter - Jesusita Small RN - 01/14/2025 9:03 AM EDT Nurse manager business management note for follow up call. 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 KAREN: per [...] 10/20/24- WMLOA begins. [facility] due to [facility] work day count. 10/23/24- Dr Jack follow up. Placed off work and referred for left shoulder MRI. TM told to hold PT. 11/05/24- MRI left shoulder 11/12/24- Follow up with Dr Melo- Diagnosed with torn labrum from MRI. Told to remain off and RX medication given. 12/12/24- Follow up at [facility]- Remain off. TM anticipates possible surgery referral at next visit. 01/14/25- Follow up with Dr Melo- Remain off and referred for surgery. Clinic Provider: MARIBEL Arce [phone] F/U Call Notes: PC from TM after seeing Dr Melo today. TM states Worksers comp requested earlierappointment so moved to today (originally 01/21/25). TM was told to remain off and referred for surgery. TM will call with updates or concerns. Last Specialist Visit: 01/14/25 Next Specialist Visit: 01/21/25 2:[address] Melo Sat Instructor Plan/Goals: TM to keep scheduled apts TM to call with updates or changes Notes requested from specialist's office Continue following plan of care per specialist Conclusion: -TM to call back with updates and changes or as needed. -TM verbalized knowledge of next steps/appointments. -TM has no further concerns at this time. Sat Instructor Signature: Jesusita Small RN Date: 01/14/25 documented in this encounter Plan of Treatment Not on file documented as of this encounter Visit Diagnoses Not on filedocumented in this encounter Care Teams Rock Dust Sprayer Relationship Specialty Start Date End Date [place], [place] [address] PCP - General Machine Helper 10/06/19 documented as of this encounter
--- OUTSIDE RECORDS SUMMARY | 2025-02-12 05:28 | XMS_ITS | Encounter Summary ---
Author Organization [facility] Address [address] [place] [address] Phone [email or web address] [email or web address] Care Team Providers Care Concrete Pile Driver Operator Name Role Phone Provider, No Primary Care Provider Unavailabl e Encounter Details Date Type Department Care Team (Late st Contact Info) Description 01/19/[address] [place] [address] Jesusita Small RN [address] [place] [address] Social History Tobacco Use Types [...] Telephone Encounter - Jesusita Small RN - 01/19/2025 1:22 PM EDT error documented in this encounter Plan of Treatment Not on file documented as of this encounter Visit Diagnoses Not on filedocumented in this encounter Care Teams Concrete Pile Driver Operator Relationship Specialty Start Date End Date Provider, RICARDO Merino [address] PCP - General Hospital Recruiter 10/06/19 documented as of this encounter
--- OUTSIDE RECORDS SUMMARY | 2025-02-12 05:28 | XMS_ITS | Encounter Summary ---
Author Organization Healthcare Address [address] [place] [id number] Care Team Providers Care Fish Hatchery Inspector Name Role Phone Pcp, No Primary Care Provider Unavailabl e Pcp, No Primary Care Provider Unavailabl e Reason for Referral * Consultation (Routine) - Closed Specialty Diagnoses / Procedures Referred By Contac t Referred To Contact Endocrinology Diagnoses Elevated parathyroid hormone Hypercalcemia Gissell Gonzalez PA [address] [place] [address] Phone: tel: fax: [facility] [address] [place] [address] Phone: tel: fax: Referral ID Status Reason Start Date Expiration Date V isits Requested Visits Authorized [id number] Closed Specialty Services Required 11/09/2021 05/11/2023 1 1 Encounter Details Date Type Department Care Team (Late st Contact Info) Description 11/09/2021 Community [facility] [address] [place] [address] Gissell Gonzalez PA [address] [facility] [place] [address] Elevated parathyroid hormone (Primary Dx); [...] Hypercalcemia documented in this encounter Care Teams Fish Hatchery Inspector Relationship Specialty Start Date End Date Pcp, No [address] [place] [address] PCP - General Family Medicine 11/10/21 02/01/22 Pcp, No [address] [place] [address] PCP - General Family Medicine 02/02/22 documented as of this encounter
--- OUTSIDE RECORDS SUMMARY | 2025-02-12 05:28 | XMS_ITS | Clinical Summary ---
Author Organization [facility] Address [address] [place] [address] Care Team Providers Care Navigation Officer Name Role Phone Pcp, No Primary Care [...] (03/03/2022): Added automatically from request for surgery [id number] Acute nasopharyngitis 01/31/2018 Nasal congestion 01/31/2018 ADHD (attention deficit hype ractivity disorder), predominantly hyperactive impulsive type 03/24/2011 Resolved Problems Problem Noted Date Diagnosed Date Resolved Date Insomnia 03/24/2011 01/04/2025 Family History Medical History Relation Name Comments [...] history exists [facility]-Depression Screening 03/02/2023 03/02/2022, 02/14 [id number] Vaccine ( season) 2024 01/14/2021, 12/24/2020 [facility]-Influenza Vaccine (#1) 12/15/202402/04, 02/06/2017, [...] patient's age to complete this topic Insurance DEBI Care Teams Navigation Officer Relationship Specialty Start Date End Date Pcp, Alla [address] [place] [address] PCP - General Family Medicine 02/02/22
[2025-02-12 05:29] VITALS: BP 149/81; PULSE 90; RESP 16; TEMP 36.6; O2SAT 98; BMI 42.7
--- NOTE | 2025-02-12 05:43 | [facility].EDGENADL ---
Discharge Plan Disposition Patient Disposition: Home, Self-Care Condition: Good Prescriptions Prescriptions: New cephalexin 500 mg capsule 500 mg PO Q6H 7 Days Qty: 28 0RF No Action cholecalciferol (vitamin D3) 50 mcg (2,000 unit) capsule 50 mcg PO DAILY Patient Comments: TAKE 1 CAPSULE BY MOUTH ONCE DAILY doxycycline hyclate 100 mg tablet 100 mg PO BID 10 Days Qty: 20 0RF atorvastatin 10 mg tablet 10 mg PO HS Patient Comments: TAKE 1 TABLET BY MOUTH EVERY DAY AT BEDTIME FOR CHOLESTEROL nebivolol 5 mg tablet 5 mg PO DAILY Qty: 90 3RF montelukast 10 mg tablet See Rx Instructions .ROUTE .COMPLEX Qty: 60 3RF Dose Instruction: TAKE 1 TABLET BY MOUTH DAILY Rx Instructions: TAKE 1 TABLET BY MOUTH DAILY cholecalciferol (vitamin D3) 1,250 mcg (50,000 unit) capsule 1,250 mcg PO TU Referrals Follow up/Referrals: Tiffani Rivas APRN [Primary Care Provider, Family Practice] - See instructions Activity Restrictions/Add. Instructions Additional Instructions/Restrictions: You were evaluated in the ER and are believed to be appropriate for discharge at this time. Scribed antibiotics as directed, do not skip doses, do not stop taking them early. Take Tylenol or ibuprofen if needed for pain, do not exceed the recommended dose on the bottle. Drink water and eat a small snack each time you take these medications to avoid side effects. I recommend elevating the foot to help with pain and swelling. You can also apply ice packs to the area for up to 20 minutes at a time. Do not apply ice directly to the skin. Make an appointment with your primary care doctor for reevaluation in 2 to 3 days. Return to the ER with any new, worsening, or otherwise concerning symptoms. Clinical Impressions Clinical Impression: Cellulitis of foot, left Print Language Print Language: Amharic Discharge ED Provider: Rossi Mcdonald General Adult HPI General Chief complaint: Extremity Injury, Lower Stated complaint: foot pain Time Seen by Provider: 02/12/25 05:29 Mode of Arrival: Ambulatory Source of Information: Patient Description of Symptoms (Recalled from ER Triage Doc. by RN): pt presents to the ed for evaluation of left foot pain that began approx 2 days ago with possible injury that patient is unsure of. Pt presents with slow ambulation to room, pedal pulse present. History of Present Illness HPI narrative: 24-year-old male with history of hypertension presents to the ER for complaints of left foot pain. On discussion with the patient he states about 1 week ago part of a trailer dropped on his foot but he thinks it was actually the right foot, not the left. He states he did not have any pain problems until 2 nights ago when he woke up with pain in the top of his foot. He points to the proximal, dorsal aspect of the left foot where there is a small patch of redness. He states in the last 2 days it has gotten progressively more painful and the redness has expanded slightly. He denies any cuts or wounds. He does not have other injuries. No medications for pain prior to arrival. No fevers or chills. No other swelling of the feet or legs, no chest pain or difficulty breathing, no history of blood clots, no other associated symptoms. Related Data Home Medications ?Medication ?Instructions ?Recorded ?Confirmed atorvastatin 10 mg tablet 10 mg PO HS 08/14/24 12/16/24 cholecalciferol (vitamin D3) 50 50 mcg PO DAILY 10/22/24 12/16/24 mcg (2,000 unit) capsule cholecalciferol (vitamin D3) 1,250 1,250 mcg PO TU 11/17/24 12/16/24 mcg (50,000 unit) capsule Previous Rx's ?Medication ?Instructions ?Recorded nebivolol 5 mg tablet 5 mg PO DAILY #90 tabs 08/14/24 doxycycline hyclate 100 mg tablet 100 mg PO BID 10 days #20 tabs 12/16/24 montelukast 10 mg tablet See Rx Instructions .Route 01/26/25 .COMPLEX #60 tabs cephalexin 500 mg capsule 500 mg PO Q6H 7 days #28 caps 02/12/25 Allergies Allergy/AdvReac Type Severity Reaction Status Date / Time No Known Allergies Allergy Verified 12/16/24 08:37 [facility] Disclaimer: The information contained in this section may have been updated after the patient was seen, as this information can be updated by other users. Medical History Acute upper respiratory infection Headache BMI 40.0-44.9, adult Family history of diabetes mellitus in first degree relative History of hyperparathyroidism Hyperlipidemia Pharyngitis Influenza A Right foot pain Edema of right foot Peroneal tendinitis of right lower leg Metatarsalgia of right foot Hemorrhage following tonsillectomy Metatarsalgia of both feet Plantar fasciitis, bilateral Flank pain Enlarged tonsils Tonsil stone Acute bacterial bronchitis Tonsillar debris Chronic sinusitis of both maxillary sinuses Sprain of tarsometatarsal joint of left foot Capsulitis of metatarsophalangeal (MTP) joint of left foot Pain in toe of left foot Left foot pain Metatarsalgia of left foot Acute epididymitis Plantar fasciitis of left foot Family history of early CAD Family history of hypertension Hypertension Surgical History Status post tonsillectomy S/P removal of parathyroid gland No significant past surgical history Family History Other No significant family history Social History Smoking Status: Never smoker alcohol intake: never substance use type: denies use current occupational status: employed Travel in the last 8 weeks?: None Have you lived/traveled outside [place] in past 30 days?: No Contact w/someone who lives/traveled outside [place] past 30 days?: No Exposure to someone with infectious disease in past 14 days?: No Do you have a fever (greater than 100.4 F or 38 C)?: No Have you tested positive for COVID-19?: No Exposed to someone with COVID-19 in past 14 days?: No Do you have a sore throat?: No Do you have a cough?: No Do you have any weakness?: No Do you have any diarrhea?: No Are you experiencing any unusual bleeding?: No Do you have any muscle aches/pain?: No Do you have any abdominal pain?: No Are you experiencing loss of taste or smell?: No Other Medical History Have you received the Flu Vaccine for this season: No Have you received the Pneumonia Vaccine: No ROS Obtained: Yes Systems reviewed as appropriate & no additional complaints except as documented Per HPI Physical Exam General General appearance: alert and in no apparent distress Head Head exam: atraumatic and normocephalic Eye Eye exam: Present PERRL and EOMI ENT ENT exam: Present mucous membranes moist Neck Neck exam: Present normal inspection and full ROM Chest Chest inspection: Present symmetric chest wall rise Respiratory Respiratory exam: Absent respiratory distress or stridor Cardiovascular Cardiovascular exam: Present regular rate and normal rhythm Extremities Exam Extremities exam: Present full ROM, tenderness and normal capillary refill; Absent edema, joint swelling or calf tenderness Expanded Lower Extremity Exam Left: Foot/toe exam: Present swelling (Slight in the area outlined in diagram), erythema and other (2+ DP and PT pulses); Absent abrasion, laceration, ecchymosis, deformity, crepitus, dislocation, puncture wound, calcaneal tenderness or tenderness at base of 5th metatarsal Top foot image:  1. Area of erythema, heat, slight induration, mild tenderness Neurovascular/Tendon exam: Present normal capillary refill; Absent pulse deficit, motor deficit or sensory deficit Neurological Exam Neurological exam: Present alert and oriented X3; Absent motor sensory deficit Psychiatric Psychiatric exam: Present normal affect and normal mood Skin Skin exam: Present warm and dry Medical Decision Making Medical Records Medical records reviewed: Yes I reviewed the patient's medical records. Screening: Per USPSTF and CDC recommendations, given the prevalence of disease in our region, it is our hospital?s policy to screen for HIV and viral Hepatitis for all patients aged 18 and over and those with ongoing risk factors. Jay Inquiry Pt receiving controlled substance: No Vital Signs: 02/12/25 05:29 Temperature 97.8 F Temperature Source Oral Pulse Rate [Radial] 90 Respiratory Rate 16 Blood Pressure [Right Arm] 149/81 H Blood Pressure Mean [Right Arm] 103 Blood Pressure Position [Right Arm] Sitting 02 Sat by Pulse Oximetry 98 Oxygen Delivery Method Room Air Orders (Tests/Meds): ED MEDICATIONS Generic Name Dose Route Start Last Admin Trade Name Freq PRN Reason Stop Dose Admin Acetaminophen 1,000 mg 02/12/25 05:42 Acetaminophen 500mg Tab PO 02/12/25 05:43 ONCE ONE Ibuprofen 800 mg 02/12/25 05:43 Ibuprofen 800 Mg Tablet PO 02/12/25 05:44 ONCE ONE Discontinued Medications Generic Name Dose Route Start Last Admin Trade Name Freq PRN Reason Stop Dose Admin Cephalexin HCl 500 mg 02/12/25 05:39 Cephalexin 500mg Capsule PO 02/12/25 05:40 ONCE ONE ORDERS Category Date Time Status POCUS Point of Care (ER Only) Stat Exams 02/12/25 05:29 Ordered Medical Decision Narrative: In summary, this 24-year-old male with comorbidities described in the HPI presents to the emergency department today with atraumatic left foot pain. On initial evaluation patient is hemodynamically stable, afebrile, overall well-appearing, exam is notable for area of erythema, heat, tenderness, mild induration and swelling over the dorsal aspect of the left foot without evidence of traumatic injury. Patient has tenderness but no bruising, crepitus, or deformity. Differential diagnosis includes but is not limited to cellulitis, I considered the possibility of superficial thrombophlebitis but I have low suspicion for this, I did consider the possibility of osseous injury but after thorough discussion with the patient he states the last time he had any trauma to either foot was 1 week ago and he believes it was to his other foot and his symptoms started 2 days ago and gradual in onset with progressive worsening which is not consistent with an acute osseous injury. I had initially ordered x-ray and [id number] ultrasound but when I performed a [id number] ultrasound there was obvious evidence of cellulitis which is much more consistent with the patient's presentation than an underlying osseous injury. I had shared decision-making discussion with the patient and he agrees he does not think anything is likely broken given his history. I canceled the x-ray since I do not believe it is indicated at this time. Keflex was administered in the ER as well as Tylenol and ibuprofen. I do not believe he requires any broader coverage with antibiotics since there is no abscess and no associated wound. Keflex prescribed. Patient was given instructions on medication use, symptomatic monitoring and management, follow-up, and return precautions for the ER. He indicated understanding and the patient was discharged in stable condition. Procedures Miscellaneous Procedure Procedure Performed: Soft Tissue US Indication: Soft tissue tenderness, redness, mild induration of the dorsal aspect of the right foot Performed by:Rossi Mcdonald MD Identified structures: Cutaneous and subcutaneous tissues Location: Dorsal aspect right foot Findings: Area of cobblestoning with evidence of cellulitis but no abscess veins in this area were compressible Impression: Cellulitis Images were saved to the permanent archive. The study was technically adequate. Soft tissue CPT codes Neck: 94525-10 Upper extremity: 94041-06 Axilla: 09121-74 Chest wall: 75738-17 Breast: 16922-82 (complete), 73840-42-[RT/LT] (limited) Upper back: 41724-46 Abdominal wall: 68557-02 Pelvic wall: 17865-36 Lower extremity: 07264-45 Other soft tissue: 62796-11 This study was performed by me, and I personally interpreted all images/videos. Based on my clinical judgment, these images were adequate and did not necessitate further imaging. Critical Care Critical Care Time Critical Care Time: No
[2025-02-12] MEDS: ACETAMINOPHEN 500MG TAB 1000 MG PO (05:46)
[2025-02-12] MEDS: IBUPROFEN 800 MG TABLET PO (05:47)
[2025-02-12 05:52] VITALS: BP 148/88; PULSE 75; RESP 14; TEMP 36.2; O2SAT 100
== END 2025-02-12 05:53 | disposition home or self-care (01) ==
PROVIDERS: Emergency Provider Emergency Medicine; PCP Family Medicine
DX: L03.116 Cellulitis of left lower limb (principal); M79.672 Pain in left foot
CPT/HCPCS: 99283; 99284

== ENCOUNTER 2025-03-02 09:09 | Emergency (ER) | payer BC, SELFPAY ==
[2025-03-02 09:23] VITALS: BP 148/88; PULSE 81; RESP 16; TEMP 36.8; O2SAT 100; BMI 40.4
--- NOTE | 2025-03-02 10:08 | ED_ITS ---
<Statement entered by Alisha Pacheco MD - 03/02/25 15:44> I was consulted by the SCOTTIE, and we discussed the complexity of the problems being addressed. I approved the treatment and management plan for this patient's care in the emergency department, thus performing a substantive portion of the medical decision making. Alisha Pacheco MD, ANGELO, FACEP Discharge Plan Disposition Patient Disposition: Home, Self-Care Condition: Good Prescriptions Prescriptions: No Action cholecalciferol (vitamin D3) 50 mcg (2,000 unit) capsule 50 mcg PO DAILY Patient Comments: TAKE 1 CAPSULE BY MOUTH ONCE DAILY clindamycin HCl [Cleocin HCl] 300 mg capsule 300 mg PO TID 7 Days Qty: 21 0RF nebivolol 5 mg tablet 5 mg PO DAILY Qty: 90 3RF atorvastatin 10 mg tablet 10 mg PO HS Patient Comments: TAKE 1 TABLET BY MOUTH EVERY DAY AT BEDTIME FOR CHOLESTEROL montelukast 10 mg tablet See Rx Instructions .ROUTE .COMPLEX Qty: 60 3RF Dose Instruction: TAKE 1 TABLET BY MOUTH DAILY Rx Instructions: TAKE 1 TABLET BY MOUTH DAILY cholecalciferol (vitamin D3) 1,250 mcg (50,000 unit) capsule 1,250 mcg PO TU Referrals Follow up/Referrals: Sam Casiano DO [Primary Care Provider, Family Practice] - See instructions Mahin Kenny DO [Staff Physician, Orthopedics] - See instructions Activity Restrictions/Add. Instructions Additional Instructions/Restrictions: Please return to the emergency department with any worsening signs or symptoms. Please utilize rest ice ibuprofen Tylenol elevation for symptomatic relief. Please follow up with your primary care doctor or orthopedic doctor in the upcoming days/weeks for further evaluation of your left foot/ankle pain. Please finish your antibiotic that you are currently prescribed Clinical Impressions Clinical Impression: Foot pain, left Instructions Patient Instructions: DI for Foot Pain Print Language Print Language: Tamazight Discharge ED Provider: Alisha Pacheco General Adult HPI General Chief complaint: PAIN Stated complaint: Left foot pain-cellulitis Time Seen by Provider: 03/02/25 10:07 Mode of Arrival: Ambulatory Source of Information: Patient Description of Symptoms (Recalled from ER Triage Doc. by RN): pt presents to ED with c/o continued left foot pain. pt reports its near the bend of his ankle. pt was seen in ED recently and prescribed with abx for cellulitis. pt reports pain, swelling, redness continued. History of Present Illness HPI narrative: 24-year-old male presents the emergency department with left foot/ankle pain, no real trauma or injury per history, however patient was seen in the ED on 02/12/2025, and did endorse a trauma 1 week prior to that, had a duplex ultrasound performed which was negative for DVT, subcutaneous tissue edema and cobblestoning consistent with cellulitis, patient was treated for this with, patient initially finishes antibiotic, and still had some redness and swelling of his dorsal aspect of his left foot, presented to his PCPs office, and was started on clindamycin, patient stopped this medication initially for surgery of his left labrum with orthopedics, patient recently started this antibiotic back 2 days ago is here for evaluation of continued pain. Patient denies any overt fever chills chest pain shortness of breath nausea vomiting constipation diarrhea no urinary symptomatology, no other constitutional symptoms that would be suggestive of infection at this time, redness has improved, pain persist, swelling is somewhat improved, patient has other past medical history consistent with vitamin D deficiency hyperlipidemia and hypertension, patient denies any alcohol tobacco or drug use. Initial triage vitals are grossly unremarkable. Please note that above description of symptoms, in this electronic medical record under categorization of recalled from ER triage doctor by RN are reflective of an initial nursing assessment, however, is not reflective of my full history and physical exam that was personally taken and clarified. Consequentially, this preceding description of symptoms, which may include the patient's categorized chief complaint in the EMR, do not reflect my personal clinical impression, and the ultimate description of history of present illness and patient stated complaints should be deferred to this section of the note. Unless stated otherwise or congruent with this section of the note, additional signs, symptoms, or incongruence should be interpreted as inaccurate with my clinical impression. Onset (ago): day(s) Related Data Home Medications ?Medication ?Instructions ?Recorded ?Confirmed atorvastatin 10 mg tablet 10 mg PO HS 08/14/24 5 cholecalciferol (vitamin D3) 50 50 mcg PO DAILY 02/18/25 mcg (2,000 unit) capsule cholecalciferol (vitamin D3) 1,250 1,250 mcg PO TU 08/0802/18/25 mcg (50,000 unit) capsule Previous Rx's ?Medication ?Instructions ?Recorded montelukast 10 mg tablet See Rx Instructions .Route 1 .COMPLEX #60 tabs clindamycin HCl 300 mg capsule 300 mg PO TID 7 days #2 1 caps 02/19/25 (Cleocin HCl) nebivolol 5 mg tablet 5 mg PO DAILY #90 tabs 02/23 Allergies Allergy/AdvReac Type Severity Reaction Status Date / Time No Known Allergies Allergy Verified 02/18/25 09:11 [facility] Disclaimer: The information contained in this section may have been updated after the patient was seen, as this information can be updated by other users. Medical History (Updated 03/02/25 @ 12:29 by MARIBEL Han) Pharyngitis Enteropathogenic Escherichia coli infection Visual changes Sepsis Acute upper respiratory infection Headache BMI 40.0-44.9, adult Family history of diabetes mellitus in first degree relative History of hyperparathyroidism Hyperlipidemia Influenza A Right foot pain Edema of right foot Peroneal tendinitis of right lower leg Metatarsalgia of right foot Hemorrhage following tonsillectomy Metatarsalgia of both feet Plantar fasciitis, bilateral Flank pain Enlarged tonsils Tonsil stone Acute bacterial bronchitis Tonsillar debris Chronic sinusitis of both maxillary sinuses Sprain of tarsometatarsal joint of left foot Capsulitis of metatarsophalangeal (MTP) joint of left foot Pain in toe of left foot Left foot pain Metatarsalgia of left foot Acute epididymitis Plantar fasciitis of left foot Family history of early CAD Family history of hypertension Hypertension Surgical History Status post tonsillectomy S/P removal of parathyroid gland No significant past surgical history Family History Other No significant family history Social History Smoking Status: Never smoker alcohol intake: never substance use type: denies use current occupational status: employed Travel in the last 8 weeks?: None Have you lived/traveled outside US in past 30 days?: No Contact w/someone who lives/traveled outside US past 30 days?: No Exposure to someone with infectious disease in past 14 days?: No Do you have a fever (greater than 100.4 F or 38 C)?: No Have you tested positive for COVID-19?: No Exposed to someone with COVID-19 in past 14 days?: No Do you have a sore throat?: No Do you have a cough?: No Do you have any weakness?: No Do you have any diarrhea?: No Are you experiencing any unusual bleeding?: No Do you have any muscle aches/pain?: No Do you have any abdominal pain?: No Are you experiencing loss of taste or smell?: No Other Medical History Have you received the Flu Vaccine for this season: No Have you received the Pneumonia Vaccine: No ROS Obtained: Yes All systems reviewed & no additional complaints except as documented Physical Exam General General appearance: alert and in no apparent distress Head Head exam: atraumatic and normocephalic Eye Eye exam: Present PERRL and EOMI ENT ENT exam: Present mucous membranes moist Neck Neck exam: Present normal inspection Chest Chest inspection: Present normal inspection and symmetric chest wall rise Respiratory Respiratory exam: Present normal lung sounds bilaterally; Absent respiratory distress Cardiovascular Cardiovascular exam: Present regular rate and normal rhythm Abdominal Exam Abdominal exam: Present soft; Absent tenderness Extremities Exam Extremities exam: Present normal inspection, full ROM, tenderness and other (Minimal soft tissue swelling is noted about the dorsal aspect of the left foot, no erythema, otherwise neurovasc intact, some point tenderness to the lower tarsal regions. Otherwise good range of motion); Absent edema or joint swelling Neurological Exam Neurological exam: Present alert and oriented X3 Psychiatric Psychiatric exam: Present normal affect Skin Skin exam: Present warm and dry Medical Decision Making Medical Records Medical records reviewed: Yes I reviewed the patient's medical records. Screening: Per USPSTF and CDC recommendations, given the prevalence of disease in our region, it is our hospital?s policy to screen for HIV and viral Hepatitis for all patients aged 18 and over and those with ongoing risk factors. Jay Inquiry Pt receiving controlled substance: No Vital Signs: 03/02/25 09:23 Temperature 98.3 F Temperature Source Oral Pulse Rate [Left Radial] 81 Respiratory Rate 16 Blood Pressure [Right Arm] 148/88 H Blood Pressure Mean [Right Arm] 108 02 Sat by Pulse Oximetry 100 Oxygen Delivery Method Room Air Lab Data Lab Results 03/02/25 11:01: WBC 8.9, RBC 6.35 H, Hgb 16.0, Hct 50.7, MCV 79.8 L, MCH 25.2 L, MCHC 31.6 L, RDW 14.9, Plt Count 338, MPV 11.1 H, Neut % (Auto) 66.0, Lymph % (Auto) 22.3, [place] % (Auto) 8.6, Eos % (Auto) 1.5, Baso % (Auto) 0.6, Neut # (Auto) 5.9, Lymph # (Auto) 2.0, [place] # (Auto) 0.8, Eos # (Auto) 0.1, Baso # (Auto) 0.1, ESR 3, Sodium 137, Potassium 4.5, Chloride 102, Carbon Dioxide 26, Anion Gap 13.5, BUN 19, Creatinine 1.00, Estimated Creat Clear 230, Estimated GFR 92, Est GFR ( Amer) 111, Glucose 104 H, Calcium 9.5, Total Bilirubin 0.8, AST 34, ALT 41, Alkaline Phosphatase 76, Total Protein 8.6 H D, Albumin 4.8, Globulin 3.8 H, Albumin/Globulin Ratio 1.3 03/02/25 11:01 03/02/25 11:01 Orders (Tests/Meds): ED MEDICATIONS Discontinued Medications Generic Name Dose Route Start Last Admin Trade Name Freq PRN Reason Stop Dose Admin Acetaminophen 500 mg 03/02/25 10:52 03/02/25 11:11 Acetaminophen 500mg Tab PO 03/02/25 10:53 500 mg ONCE ONE Administration Ibuprofen 600 mg 03/02/25 10:52 03/02/25 11:10 Ibuprofen 600 Mg Tablet PO 03/02/25 10:53 600 mg ONCE ONE Administration ORDERS Category Date Time Status XR ankle LT min 3V Stat Exams 03/02/25 10:20 Completed XR foot LT min 3V Stat Exams 03/02/25 10:20 Completed CRP [C-Reactive Protein] Stat Lab 03/02/25 11:01 Results Complete Blood Count Auto Diff Stat Lab 03/02/25 11:01 Completed Comprehensive Metabolic Panel Stat Lab 03/02/25 11:01 Results ESR [Erythrocyte Sedimentation Rate] Stat Lab 03/02/25 11:01 Completed Medical Decision Narrative: 24-year-old male presents emergency department with left foot/ankle pain, differential diagnosis include but not limited to ankle sprain/strain, foot sprain/strain, Villarreal fracture, ankle fracture, stress/march fracture, other soft tissue injury among others. I discussed this patient's case with attending physician Dr. Pacheco Will obtain x-rays of the patient's foot and ankle on the left for further evaluation/characterization. Patient has been having this ongoing symptomatology for the last several weeks, currently taking antibiotics prescribed by his family physician, I do not appreciate any signs or symptoms of cellulitis at this time, patient initially presented to the emergency department on 02/12/2025, negative DVT ultrasound, was diagnosed with cellulitis, finished round of Keflex at that time, at that time initially ED provider considered plain film x-rays, but was deferred after diagnosis cellulitis was made via ultrasound. Thus will obtain plain film x-rays today as well as basic laboratory studies and inflammatory markers, will give 500 mg p.o. Tylenol and 600 mg p.o. ibuprofen for pain. Patient has no other constitutional signs or symptoms to be consistent with infection and clinically I do not think patient has ongoing foot cellulitis at this time. CBC is unremarkable, with the exception of a decreased MCV 79.8 CMP is unremarkable ESR within normal limits I reviewed the patient's left ankle x-ray and left foot x-ray along the corresponding radiologic report, no acute bony abnormality. I discussed the results with the patient at bedside patient is remained hemodynamically stable, CRP is not yet resulted, ESR within normal limits, no leukocytosis, good range of motion, currently on p.o. antibiotics I have low concern for septic arthritis/underlying inflammatory/infectious etiology. Most musculoskeletal in nature. Advised patient to continue finishing out his clindamycin p.o. antibiotic as prescribed by primary care doctor as he already had the first several doses of this. Patient was given strict ED return precautions recommend rest ice compression elevation I Profen Tylenol as needed for symptomatic relief. Patient can follow-up with orthopedic provider for this complaint could consider getting other advanced imaging for further evaluation. Patient was given strict ED return precautions. Patient voiced understanding and agreement with current treatment plan/discharge plan. Critical Care Critical Care Time Critical Care Time: No
--- NOTE | 2025-03-02 10:20 | XR_ITS ---
FINAL REPORT CLINICAL HISTORY: Left ankle/foot pain FINDINGS: LEFT FOOT Three views of the left foot demonstrate no acute fracture or dislocation. The visualized joint spaces are normally aligned. The soft tissues are unremarkable. IMPRESSION: No acute bony abnormality. Reviewed, Interpreted and Dictated by Chaparro Huggins MD Transcribed by Emily Meneses Authenticated and [facility]
--- NOTE | 2025-03-02 10:20 | XR_ITS ---
FINAL REPORT CLINICAL HISTORY: Left ankle/foot pain FINDINGS: LEFT ANKLE Three views demonstrate no acute fracture or dislocation. An os trigonum measuring 8 mm is noted. The visualized joint spaces are normally aligned. The soft tissues are unremarkable. IMPRESSION: No acute bony abnormality. Reviewed, Interpreted and Dictated by Chaparro Huggins MD Transcribed by Emily Meneses Authenticated and [facility]
[2025-03-02] MEDS: IBUPROFEN 600 MG TABLET PO (11:10)
[2025-03-02] MEDS: ACETAMINOPHEN 500MG TAB 500 MG PO (11:11)
[2025-03-02 11:12] LABS: Hematocrit 50.7 % (42.0-52.0); Hemoglobin 16.0 g/dL (14.1-18.0); Immature Granulocytes % 1.0 %; Mean Corpuscular HGB Conc 31.6 g/dL (31.8-35.4); Mean Corpuscular Hemoglobin 25.2 pg (27.0-31.2); Mean Corpuscular Volume 79.8 fl (80-94); Nucleated Red Blood Cells % 0 %; Platelet Count 338 K/mm3 (142-424); Red Blood Count 6.35 M/mm3 (4.60-6.20); Red Cell Distribution Width-SD 42.1 fL; White Blood Count 8.9 K/mm3 (4.8-10.8)
[2025-03-02 11:21] LABS: Albumin Level 4.8 g/dl (3.5-5.0); Chloride 102 mmol/L (98-107); Potassium 4.5 mmoL/L (3.5-5.1); Sodium 137 mmol/L (136-145)
[2025-03-02 11:24] LABS: Alanine Aminotransferase 41 U/L (12-78); Albumin/Globulin Ratio 1.3 (1.1-1.8); Alkaline Phosphatase 76 U/L (38-126); Anion Gap 13.5 mEq/L (5-15); Aspartate Amino Transferase 34 U/L (17-59); Bilirubin,Total 0.8 mg/dl (0.2-1.3); Blood Urea Nitrogen 19 mg/dl (9-20); Calcium 9.5 mg/dl (8.4-10.2); Carbon Dioxide 26 mmol/L (22.0-30.0); Creatinine Clearance Estimated 230 mL/min (50-200); Creatinine,Serum 1.00 mg/dl (0.66-1.25); Estimated Glomerular Filt Rate 92 ml/min (>60); GFR (African American) 111 ML/MIN (>60); Globulin 3.8 g/dL (1.3-3.2); Glucose 104 mg/dl (74-100); Total Protein,Serum 8.6 g/dl (6.3-8.2)
--- NOTE | 2025-03-02 12:08 | PC.NURSE ---
TEODORO RN called and spoke with radiology inquiring about the results of his XR's. They are going to bring the prelim.
[2025-03-02 12:32] LABS: C-Reactive Protein 18.0 mg/L (0-4)
[2025-03-02 12:33] VITALS: BP 152/75; PULSE 85; RESP 15; TEMP 36.7; O2SAT 98
== END 2025-03-02 12:34 | disposition home or self-care (01) ==
PROVIDERS: Physician Assistant; Emergency Provider Student in an Organized Health Care Education/Training Program; PCP Student in an Organized Health Care Education/Training Program
DX: M79.672 Pain in left foot (principal); L03.116 Cellulitis of left lower limb; N50.819 Testicular pain, unspecified; I10 Essential (primary) hypertension; E78.5 Hyperlipidemia, unspecified
CPT/HCPCS: 73610; 73630; 80053; 85025; 85651; 86140; 99282; 99283

== ENCOUNTER 2025-03-17 09:38 | Emergency (ER) | payer BC, SELFPAY ==
[2025-03-17] VITALS (9 sets, daily range): BP systolic 142–160; BP diastolic 69–122; PULSE 81–106; RESP 13–23; TEMP 37.2–37.3; O2SAT 95–99; BMI 40.4
--- OUTSIDE RECORDS SUMMARY | 2025-03-17 10:02 | XMS_ITS | Encounter Summary ---
Author Organization [facility] Address [address] [place] [phone] Phone [email or web address] Care Team Providers Care Drone Operator Name Role Phone Provider, No Primary Care Provider Unavailabl e Reason for Visit * Reason Onset Date Comments Care Coordination 03/16/2025 Encounter Details Date Type Department Care Team (Late st Contact Info) Description 03/16/[address] [place] [address] Jesusita Small, RN [address] [place] [address] Social History Tobacco Use Types [...] as of this encounter Progress Notes * Jesusita Small RN - 03/16/2025 10:45 AM EST Nurse research development manager note for follow up call. 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 KAREN: per [...] RX medication given. 12/12/24- Follow up at [facility]- Remain off. TM anticipates possible surgery referral at next visit. 01/14/25- Follow up with Dr Melo- Remain off and referred for surgery. 01/26/25- Surgery approved per Sarah Junior. Pending scheduling. 02/24/25- Surgery Dr Melo 03/11/25- Post Op appointment with Dr Melo's PAC- Stitches removed. Remain off, discontinue sling, and referred to PT. TM plans to attend PT at [facility]. Clinic Provider: MARIBEL Arce [phone] F/U Call Notes: PC from for update. TM saw Dr Melo's PAC 03/11/25. TM had stitches removed, and was told he is healing well. TM was told to remain off work, discontinue sling and was referred to PT. TM plans to attend PT at [facility]. TM states he will go this week and have them fax order to workers comp. TM has just spoken with Sarah Junior as well. TM follows up at the end of the month- will call with appointment date and will call to update when he is scheduled for 1st PT or if he is having issues getting scheduled. Last Specialist Visit: 03/11/25 Next Specialist Visit: Pending PT; Specialist end of March- TM to call with date Client Development Manager Plan/Goals: TM to keep scheduled apts TM to call with updates or changes Notes requested from specialist's office Continue following plan of care per specialist Conclusion: -TM to call back with updates and changes or as needed. -TM verbalized knowledge of next steps/appointments. -TM has no further concerns at this time. Client Development Manager Signature: Jesusita Small RN Date: 03/16/25 GER MULTIMEDIA documented in this encounter Plan of Treatment Not on file documented as of this encounter Visit Diagnoses Not on filedocumented in this encounter Care Teams Drone Operator Relationship Specialty Start Date End Date Provider, RICARDO Merino [id number] PCP - General Breastfeeding Peer Counselor 10/06/19 documented as of this encounter
--- OUTSIDE RECORDS SUMMARY | 2025-03-17 10:02 | XMS_ITS | Encounter Summary ---
Author Organization [facility] Address [address] [place] [phone] Phone [email or web address] Care Team Providers Care Lace Burn Out Tender Name Role Phone Provider, No Primary Care Provider Unavailabl e Reason for Visit * Reason Onset Date Comments Care Coordination 02/25/2025 Encounter Details Date Type Department Care Team (Late st Contact Info) Description 02/25/[address] [place] [address] Jesusita Small RN [address] [place] [address] Social History Tobacco Use Types [...] Telephone Encounter - Jesusita Small RN - 02/25/2025 8:20 AM EST Nurse manager gyn note for follow up call. 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 KAREN: per [...] 10/20/24- WMLOA begins. TM sent home by [facility] due to restricted work day count. 10/23/24- Dr Jack follow up. Placed off work and referred for left shoulder MRI. TM told to hold PT. 11/05/24- MRI left shoulder 11/12/24- Follow up with Dr Melo- Diagnosed with torn labrum from MRI. Told to remain off and RX medication given. 12/12/24- Follow up at [facility]- Remain off. TM anticipates possible surgery referral at next visit. 01/14/25- Follow up with Dr Melo- Remain off and referred for surgery. 01/26/25- Surgery approved per Sarah Junior. Pending scheduling. 02/24/25- Surgery Dr Melo 03/11/25- Post Op appointment Clinic Provider: MARIBEL Arce [phone] F/U Call Notes: VM received from 02/24/25 states he was heading home from surgery. Attemped to call back- no answer. LVM requesting return call. Return call from . TM states surgery went well- no known complications. TM has RX pain medicationbut is still numb currently. TM is supposed to remove dressing next week. TM has no questions or concerns- will call after 03/11/25 follow up or earlier if needed. Last Specialist Visit: 02/24/25 Surgery Next Specialist Visit: 03/11/2510:[address] Melo Clothing Designer Plan/Goals: TM to keep scheduled apts TM to call with updates or changes Continue following plan of care per specialist Conclusion: -TM to call back with updates and changes or as needed. -TM verbalized knowledge of next steps/appointments. -TM has no further concerns at this time. Clothing Designer Signature: Jesusita Small RN Date: 02/25/25 INSTALLER REPAIRER INSTALLER REPAIRER documented in this encounter Plan of Treatment Not on file documented as of this encounter Visit Diagnoses Not on filedocumented in this encounter Care Teams Lace Burn Out Tender Relationship Specialty Start Date End Date Provider, [place] [address] PCP - General Help Desk Manager 10/06/19 documented as of this encounter
--- OUTSIDE RECORDS SUMMARY | 2025-03-17 10:02 | XMS_ITS | Clinical Summary ---
Author Organization [facility] Address [address] [place] [address] Care Team Providers Care Commercial Real Estate Paralegal Name Role Phone Pcp, No Primary Care [...] (03/03/2022): Added automatically from request for surgery [id number] Acute nasopharyngitis 01/31/2018 Nasal congestion 01/31/2018 ADHD [...] history exists [facility]-Depression Screening 03/02/2023 03/02/2022, 02/14 [id number] Vaccine ( season) 2024 01/14/2021, 12/24/2020 [facility]-Influenza [...] complete this topic Insurance DEBI Care Teams Commercial Real Estate Paralegal Relationship Specialty Start Date End Date Pcp, Alla [address] [place] [address] PCP - General Family Medicine 02/02/22
--- OUTSIDE RECORDS SUMMARY | 2025-03-17 10:02 | XMS_ITS | Encounter Summary ---
Author Organization [facility] Address [address] [place] [phone] Phone [email or web address] Care Team Providers Care Blacktop Paver Operator Name Role Phone Provider, No Primary Care Provider Unavailabl e Reason for Visit * Reason Onset Date Comments Care Coordination 01/28/2025 Encounter Details Date Type Department Care Team (Late st Contact Info) Description 01/28/[address] [place] [address] Jesusita Small RN [address] [place] [address] Social History Tobacco Use Types [...] RN - 01/28/2025 10:07 AM EDT Nurse multimedia services manager note for follow up call. 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 KAREN: per [...] RX medication given. 12/12/24- Follow up at [facility]- Remain off. TM anticipates possible surgery referral at next visit. 01/14/25- Follow up with Dr Melo- Remain off and referred for surgery. 01/26/25- Surgery approved per Sarah Junior. Pending scheduling. Clinic Provider: MARIBEL Arce [phone] F/U Call Notes: Sarah Junior updates 01/26/25 that surgery has been approved. PC to TM to discuss. TM was unaware of approval. TM advised to call Dr Melo's office to discuss scheduling and call back after. Last Specialist Visit: 01/14/25 Next Specialist Visit: Pending surgery scheduling Barrel Driller Plan/Goals: TM to keep scheduled apts TM to call with updates or changes Notes requested from specialist's office Continue following plan of care per specialist Conclusion: -TM to call back with updates and changes or as needed. -TM verbalized knowledge of next steps/appointments. -TM has no further concerns at this time. Barrel Driller Signature: Jesusita Small RN Date: 01/28/25 documented in this encounter Plan of Treatment Not on file documented as of this encounter Visit Diagnoses Not on filedocumented in this encounter Care Teams Blacktop Paver Operator Relationship Specialty Start Date End Date Provider, RICARDO Merino [id number] PCP - General Computer Software Engineer 10/06/19 documented as of this encounter
--- OUTSIDE RECORDS SUMMARY | 2025-03-17 10:02 | XMS_ITS | Clinical Summary ---
Author Organization [facility] Address [address] [place] [address] Phone [email or web address] [email or web address] Care Team Providers Care Probate Clerk Name Role Phone Provider, No Primary Care Provider Unavailabl e Allergies No known active allergies Medications cholecalciferol (VITAMIN D-3) 1.25 MG (74624 UT) tablet Take 50,000 Units by mouth. Active ergocalciferol (VITAMIN D2) 1.25 MG (44644 UT) capsule TAKE 1 CAPSULE BY MOUTH [...] Encounters Date Type Department Care Team Description 03/16/2025 Documentation [facility] [address] [place] [address] Jesusita Small RN 03/12/[address] [place] [address] Dana Armas 02/25/[address] [facility] [place] [phone] Jesusita Small RN 02/06/[address] [place] [address] Jesusita Small RN 02/03/2025 Telephone [facility] [address] [facility] [address] [place] [address] [phone] Jesusita Small RN 01/30/2025 Telephone [facility] 1999 [facility] [address] [place] [address] Jesusita Small RN 01/28/2025 Telephone [facility] 1999 [facility] [address] [place] [address] Jesusita Small RN 01/23/2025 Telephone [facility] [place] [address] Jesusita Small RN 01/19/2025 Telephone [facility] 1999 [facility] [address] [place] [address] Jesusita Small RN 01/14/2025 Telephone [facility] 1999 [facility] [address] [place] [address] Jesusita Small RN from Last 3 Months Social History [...] 11/29/2004, 03/11/2002, Additional history exists Covid-19 Immunization (3 - season) 2024 01/14/2021, 12/24/2020 Influenza Immunization (#1) [...] OPT OUT NO COPAY NB Care Teams Probate Clerk Relationship Specialty Start Date End Date Provider, RICARDO Merino [address] PCP - General Tool Procurement Coordinator 10/06/19
--- OUTSIDE RECORDS SUMMARY | 2025-03-17 10:02 | XMS_ITS | Encounter Summary ---
Author Organization [facility] Address [address] [place] [address] Phone CareEverywhereSuppor [email or web address] Care Team Providers Care Senior Project Manager Engineering Name Role Phone Provider, No Primary Care Provider Unavailabl e Reason for Visit * Reason Onset Date Comments Care Coordination 02/03/2025 Encounter Details Date Type Department Care Team (Late st Contact Info) Description 02/03/[address] [place] [address] Jesusita Small RN [address] [place] [address] Social History Tobacco Use Types [...] RN - 02/03/2025 11:07 AM EDT Nurse vehicle leasing and rental manager note for follow up call. 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 KAREN: per [...] 10/20/24- WMLOA begins. TM sent home by [facility] due to restricted work day count. 10/23/24- Dr Jack follow up. Placed off work and referred for left shoulder MRI. TM told to hold PT. 11/05/24- MRI left shoulder 11/12/24- Follow up with Dr Melo- Diagnosed with torn labrum from MRI. Told to remain off and RX medication given. 12/12/24- Follow up at [facility]- Remain off. TM anticipates possible surgery referral at next visit. 01/14/25- Follow up with Dr Melo- Remain off and referred for surgery. 01/26/25- Surgery approved per Sarah Junior. Pending scheduling. Clinic Provider: MARIBEL Arce [phone] F/U Call Notes: VM received from TM stating he is still waiting for surgery date, stating he has called Dr Nye office several times and still does not have appointment. Attempted to call TM back. Call goes straight to message stating no VM available. 2nd email sent to Nery Urena for update. Last Specialist Visit: 01/14/25 Next Specialist Visit: Pending surgery scheduling Precision Agriculture Technician Plan/Goals: TM to keep scheduled apts TM to call with updates or changes Continue following plan of care per specialist Conclusion: -TM to call back with updates and changes or as needed. -TM verbalized knowledge of next steps/appointments. -TM has no further concerns at this time. Precision Agriculture Technician Signature: Jesusita Small RN Date: 02/03/25 documented in this encounter Plan of Treatment Not on file documented as of this encounter Visit Diagnoses Not on filedocumented in this encounter Care Teams Senior Project Manager Engineering Relationship Specialty Start Date End Date Provider, Alla ZHOUWRICARDO Jones [address] PCP - General Housekeeper Child Care 10/06/19 documented as of this encounter
--- OUTSIDE RECORDS SUMMARY | 2025-03-17 10:02 | XMS_ITS | Encounter Summary ---
Author Organization [facility] Address [address] [place] [address] Phone CareEverywhereSuppor [email or web address] Care Team Providers Care Assembler Handbags Name Role Phone Provider, No Primary Care Provider Unavailabl e Reason for Visit * Reason Onset Date Comments Care Coordination 02/06/2025 Encounter Details Date Type Department Care Team (Late st Contact Info) Description 02/06/[address] [place] [address] Jesusita Small RN [address] [place] [address] Social History Tobacco Use Types [...] RN - 02/06/2025 9:57 AM EDT Nurse field operations manager note for follow up call. 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 KAREN: per [...] 10/20/24- WMLOA begins. [facility]. 10/23/24- Dr Jack follow up. Placed off work and referred for left shoulder MRI. TM told to hold PT. 11/05/24- MRI left shoulder 11/12/24- Follow up with Dr Melo- Diagnosed with torn labrum from MRI. Told to remain off and RX medication given. 12/12/24- Follow up at [facility]- Remain off. TM anticipates possible surgery referral at next visit. 01/14/25- Follow up with Dr Melo- Remain off and referred for surgery. 01/26/25- Surgery approved per Sarah Junior. Pending scheduling. 02/24/25- Surgery Dr Melo Clinic Provider: MARIBEL Arce [phone] F/U Call Notes: 02/03/25 update from Nery Urena on surgery scheduling- I have no update. I sent his voicemail over to the surgery nurse but I'm not sure why she hasn't called to schedule hissurgery. I think I told him yesterday her extension to call but I'm not sure if he did. Attempted to reach TM to see if he has an update on surgery scheduling. Call does not connect at [phone] despite multiple attempts. Nery Urena emailed for another update- states surgery still not scheduled. Emailed Sarah Vernon to update. Return call from TM. States he is scheduled for 02/24/25 for surgery. TM will call after surgery toupdate or earlier if needed. Last Specialist Visit: 01/14/25 Next Specialist Visit: 02/24/25 Surgery Will Call Order Clerk Plan/Goals: TM to keep scheduled apts TM to call with updates or changes Continue following plan of care per specialist Conclusion: -TM to call back with updates and changes or as needed. -TM verbalized knowledge of next steps/appointments. -TM has no further concerns at this time. Will Call Order Clerk Signature: Jesusita Small RN Date: 02/06/25 documented in this encounter Plan of Treatment Not on file documented as of this encounter Visit Diagnoses Not on filedocumented in this encounter Care Teams Assembler Handbags Relationship Specialty Start Date End Date Provider, RICARDO Merino [address] PCP - General Sharepoint Administrator 10/06/19 documented as of this encounter
--- OUTSIDE RECORDS SUMMARY | 2025-03-17 10:02 | XMS_ITS | Encounter Summary ---
Author Organization [facility] Address [address] [place] [address] Phone CareEverywhereSuppor [email or web address] Care Team Providers Care Ground Wirer Name Role Phone Provider, No Primary Care Provider Unavailabl e Encounter Details Date Type Department Care Team (Late st Contact Info) Description 01/19/[address] [place] [address] Jesusita Small RN [address] [place] [address] Social History Tobacco Use Types [...] on filedocumented in this encounter Care Teams Ground Wirer Relationship Specialty Start Date End Date Provider, RICARDO Merino [address] PCP - General Assistant Store Leader 10/06/19 documented as of this encounter
--- OUTSIDE RECORDS SUMMARY | 2025-03-17 10:02 | XMS_ITS | Encounter Summary ---
Author Organization [facility] Address [address] [place] [address] Phone CareEverywhereSuppor [email or web address] Care Team Providers Care Ornamental Metal Worker Apprentice Name Role Phone Provider, No Primary Care Provider Unavailabl e Reason for Visit * Reason Onset Date Comments Care Coordination 01/23/2025 Encounter Details Date Type Department Care Team (Late st Contact Info) Description 01/23/[address] [place] [address] Jesusita Small RN [address] [place] [address] Social History Tobacco Use Types [...] - 01/23/2025 9:49 AM EDT Nurse manager hotel note for follow up call. 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 KAREN: per [...] 10/20/24- WMLOA begins. TM sent home by [facility] due to restricted work day count. 10/23/24- Dr Jack follow up. Placed off work and referred for left shoulder MRI. TM told to hold PT. 11/05/24- MRI left shoulder 11/12/24- Follow up with Dr Melo- Diagnosed with torn labrum from MRI. Told to remain off and RX medication given. 12/12/24- Follow up at [facility]- Remain off. TM anticipates possible surgery referral at next visit. 01/14/25- Follow up with Dr Melo- Remain off and referred for surgery. Clinic Provider: MARIBEL Arce [phone] F/U Call Notes: PC to TM for [...] Visit: 01/14/25 Next Specialist Visit: Pending surgery Grape Picker Plan/Goals: TM to keep scheduled apts TM to call with updates or changes Notes requested from specialist's office Continue following plan of care per specialist Conclusion: -TM to call back with updates and changes or as needed. -TM verbalized knowledge of next steps/appointments. -TM has no further concerns at this time. Grape Picker Signature: Jesusita Small RN Date: 01/23/25 documented in this encounter Plan of Treatment Not on file documented as of this encounter Visit Diagnoses Not on filedocumented in this encounter Care Teams Ornamental Metal Worker Apprentice Relationship Specialty Start Date End Date [place], [place] [address] PCP - General Communication And Outreach Manager 10/06/19 documented as of this encounter
--- OUTSIDE RECORDS SUMMARY | 2025-03-17 10:02 | XMS_ITS | Encounter Summary ---
Author Organization [facility] Address [address] [place] [address] Phone CareEverywhereSuppor [email or web address] Care Team Providers Care Band Saw Operator Cake Cutting Name Role Phone Provider, No Primary Care Provider Unavailabl e Reason for Visit * Reason Onset Date Comments Care Coordination 03/12/2025 Follow up atte mpt regarding 03/11/25 specialist visit Encounter Details Date Type Department Care Team (Late st Contact Info) Description 03/12/[address] [address] Dana Armas Social History Tobacco Use Types Packs/Day Years [...] encounter Miscellaneous Notes * Telephone Encounter - Dana Armas - 03/12/2025 12:46 PM EST I called the prepared foods team leader in an attempt to follow up on their progress. There was no answer, the voicemail box was full and could not accept any messages. Y EXAMINER documented in this encounter Plan of Treatment Not on file documented as of this encounter Visit Diagnoses Not on filedocumented in this encounter Care Teams Band Saw Operator Cake Cutting Relationship Specialty Start Date End Date Provider, [place] [address] PCP - General Safety Companion 10/06/19 documented as of this encounter
--- OUTSIDE RECORDS SUMMARY | 2025-03-17 10:02 | XMS_ITS | Encounter Summary ---
Author Organization [facility] Address [address] [place] [address] Phone CareEverywhereSuppor [email or web address] Care Team Providers Care Address Change Clerk Name Role Phone Provider, No Primary Care Provider Unavailabl e Encounter Details Date Type Department Care Team (Late st Contact Info) Description 01/30/[address] [place] [address] Jesusita Small RN [address] [place] [address] Social History Tobacco Use Types [...] RN - 01/30/2025 10:13 AM EDT Nurse environmental project manager note for follow up call. 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 KAREN: per [...] RX medication given. 12/12/24- Follow up at [facility]- Remain off. TM anticipates possible surgery referral at next visit. 01/14/25- Follow up with Dr Melo- Remain off and referred for surgery. 01/26/25- Surgery approved per Sarah Junior. Pending scheduling. Clinic Provider: MARIBEL Arce [phone] F/U Call Notes: PC to TM for update on surgery scheduling. TM states he has never heard back fro [facility] about scheduling and he also hasn't been able to get ahold of his Adjustor. TM given Nery Urena's- Work Comp Liaison at [facility] contact number and advised to call back with any updates. [facility] emails Nery Urena as well. Last Specialist Visit: 01/14/25 Next Specialist Visit: Pending surgery scheduling Search Engine Marketing Strategist Plan/Goals: TM to keep scheduled apts TM to call with updates or changes Continue following plan of care per specialist Conclusion: -TM to call back with updates and changes or as needed. -TM verbalized knowledge of next steps/appointments. -TM has no further concerns at this time. Search Engine Marketing Strategist Signature: Jesusita Small RN Date: 01/30/25 documented in this encounter Plan of Treatment Not on file documented as of this encounter Visit Diagnoses Not on filedocumented in this encounter Care Teams Address Change Clerk Relationship Specialty Start Date End Date Provider, [place] [address] PCP - General Wet End Tester 10/06/19 documented as of this encounter
--- OUTSIDE RECORDS SUMMARY | 2025-03-17 10:02 | XMS_ITS | Encounter Summary ---
Author Organization [facility] Address [address] [place] [id number] Care Team Providers Care Transition Assistant Name Role Phone Pcp, No Primary Care Provider Unavailabl e Pcp, No Primary Care Provider Unavailabl e Reason for Referral * Consultation (Routine) - Closed Specialty Diagnoses / Procedures Referred By Contac t Referred To Contact Endocrinology Diagnoses Elevated parathyroid hormone Hypercalcemia Gissell Gonzalez PA [address] [place] [address] Phone: tel: fax: [facility] End[facility]ology [address] [place] [address] Phone: tel: fax: Referral ID Status Reason Start Date Expiration Date V isits Requested Visits Authorized [id number] Closed Specialty Services Required 11/09/2021 05/11/2023 1 1 Encounter Details Date Type Department Care Team (Late st Contact Info) Description 11/09/2021 [facility] [address] [place] [address] Gissell Gonzalez PA [address] [facility] [place] [address] Elevated parathyroid hormone (Primary Dx); [...] Hypercalcemia documented in this encounter Care Teams Transition Assistant Relationship Specialty Start Date End Date Pcp, No [address] [place] [address] PCP - General Family Medicine 11/10/21 02/01/22 Pcp, No [address] [place] [address] PCP - General Family Medicine 02/02/22 documented as of this encounter
--- NOTE | 2025-03-17 10:12 | ED_ITS ---
<Statement entered by Jose Harrison MD - 03/17/25 14:50> I was consulted by the SCOTTIE, and we discussed the complexity of problems being addressed. I approved the treatment and management plan for this patient's care in the emergency department, thus performing a substantial portion of the medical decision making. Jose Harrison MD Discharge Plan Disposition Patient Disposition: Home, Self-Care Condition: Good Prescriptions Prescriptions: No Action cholecalciferol (vitamin D3) 50 mcg (2,000 unit) capsule 50 mcg PO DAILY Patient Comments: TAKE 1 CAPSULE BY MOUTH ONCE DAILY clindamycin HCl [Cleocin HCl] 300 mg capsule 300 mg PO TID 7 Days Qty: 21 0RF nebivolol 5 mg tablet 5 mg PO DAILY Qty: 90 3RF atorvastatin 10 mg tablet 10 mg PO HS Patient Comments: TAKE 1 TABLET BY MOUTH EVERY DAY AT BEDTIME FOR CHOLESTEROL montelukast 10 mg tablet See Rx Instructions .ROUTE .COMPLEX Qty: 60 3RF Dose Instruction: TAKE 1 TABLET BY MOUTH DAILY Rx Instructions: TAKE 1 TABLET BY MOUTH DAILY cholecalciferol (vitamin D3) 1,250 mcg (50,000 unit) capsule 1,250 mcg PO TU Referrals Follow up/Referrals: Sam Casiano DO [Primary Care Provider, Family Practice] - See instructions Activity Restrictions/Add. Instructions Additional Instructions/Restrictions: Please return to the emergency department any worsening signs or symptoms. Please utilize ibuprofen Tylenol and other anti-inflammatory medications as needed for symptomatic relief, [id number] cold flu medications can be used as well. I recommend good intake with oral fluids and solids, please follow-up with PCP in the upcoming days/weeks. Clinical Impressions Clinical Impression: Acute viral syndrome Instructions Patient Instructions: DI for Viral Syndrome Print Language Print Language: Persian Discharge ED Provider: Jose Harrison General Adult HPI <MARIBEL Han - Last Filed: 03/17/25 11:21> General Chief complaint: Fever Stated complaint: Fever 101, body aches Time Seen by Provider: 03/17/25 10:08 Mode of Arrival: Ambulatory Source of Information: Patient Description of Symptoms (Recalled from ER Triage Doc. by RN): patient states he has had a fever chills bodyaches diarrrhea since lastnight. he had shoulder sx 3 weeks ago. History of Present Illness HPI narrative: 24-year-old male presents the emergency department with a less than 24-hour history of fever with a Tmax of 104 ?F , there is recorded last night, endorses myalgias and chills, he also endorses chest discomfort last night, no real pain at this time, sick exposure being another family member, who had cough congestion and fever, patient denies any other URI type symptomatology, patient denies any real shortness of breath, patient admits to nausea no vomiting, no real abdominal pain, no constipation, does admit to diarrhea that started yesterday, denies any urinary symptomatology, patient is a non-smoker, denies any alcohol or drug use, patient states that he is 3 weeks status post left labrum repair surgery, and states that he googled some of his symptoms today and is worried about a blood clot , thus prompted emergency department visit. Initial triage vitals notable for tachycardia otherwise unremarkable. Patient has been taking Tylenol, took some Zofran last night for his symptomatology which did have some improvement. Patient has other past medical history consistent with hyperlipidemia, GERD, obesity, hypertension. Please note that above description of symptoms, in this electronic medical record under categorization of recalled from ER triage doctor by RN are reflective of an initial nursing assessment, however, is not reflective of my full history and physical exam that was personally taken and clarified. Consequentially, this preceding description of symptoms, which may include the patient's categorized chief complaint in the EMR, do not reflect my personal clinical impression, and the ultimate description of history of present illness and patient stated complaints should be deferred to this section of the note. Unless stated otherwise or congruent with this section of the note, additional signs, symptoms, or incongruence should be interpreted as inaccurate with my clinical impression. Onset (ago): hour(s) Related Data Home Medications ?Medication ?Instructions ?Recorded ?Confirmed atorvastatin 10 mg tablet 10 mg PO HS 08/14/24 5 cholecalciferol (vitamin D3) 50 50 mcg PO DAILY 02/18/25 mcg (2,000 unit) capsule cholecalciferol (vitamin D3) 1,250 1,250 mcg PO TU 08/0802/18/25 mcg (50,000 unit) capsule Previous Rx's ?Medication ?Instructions ?Recorded montelukast 10 mg tablet See Rx Instructions .Route 1 .COMPLEX #60 tabs clindamycin HCl 300 mg capsule 300 mg PO TID 7 days #2 1 caps 02/19/25 (Cleocin HCl) nebivolol 5 mg tablet 5 mg PO DAILY #90 tabs 02/23 Allergies Allergy/AdvReac Type Severity Reaction Status Date / Time No Known Allergies Allergy Verified 02/18/25 09:11 [facility] <MARIBEL Han - Last Filed: 03/17/25 11:21> [facility] Disclaimer: The information contained in this section may have been updated after the patient was seen, as this information can be updated by other users. Medical History (Updated 03/17/25 @ 11:21 by MARIBEL Han) Pharyngitis Enteropathogenic Escherichia coli infection Visual changes Sepsis Acute upper respiratory infection Headache BMI 40.0-44.9, adult Family history of diabetes mellitus in first degree relative History of hyperparathyroidism Hyperlipidemia Influenza A Right foot pain Edema of right foot Peroneal tendinitis of right lower leg Metatarsalgia of right foot Hemorrhage following tonsillectomy Metatarsalgia of both feet Plantar fasciitis, bilateral Flank pain Enlarged tonsils Tonsil stone Acute bacterial bronchitis Tonsillar debris Chronic sinusitis of both maxillary sinuses Sprain of tarsometatarsal joint of left foot Capsulitis of metatarsophalangeal (MTP) joint of left foot Pain in toe of left foot Left foot pain Metatarsalgia of left foot Acute epididymitis Plantar fasciitis of left foot Family history of early CAD Family history of hypertension Hypertension Surgical History Status post tonsillectomy S/P removal of parathyroid gland No significant past surgical history Family History Other No significant family history Social History Smoking Status: Current every day smoker alcohol intake: never substance use type: denies use current occupational status: employed Travel in the last 8 weeks?: None Have you lived/traveled outside [place] in past 30 days?: No Contact w/someone who lives/traveled outside US past 30 days?: No Exposure to someone with infectious disease in past 14 days?: No Do you have a fever (greater than 100.4 F or 38 C)?: No Have you tested positive for COVID-19?: No Exposed to someone with COVID-19 in past 14 days?: No Do you have a sore throat?: No Do you have a cough?: No Do you have any weakness?: No Do you have any diarrhea?: No Are you experiencing any unusual bleeding?: No Do you have any muscle aches/pain?: No Do you have any abdominal pain?: No Are you experiencing loss of taste or smell?: No Other Medical History Have you received the Flu Vaccine for this season: No Have you received the Pneumonia Vaccine: No <MARIBEL Han - Last Filed: 03/17/25 11:21> ROS Obtained: Yes All systems reviewed & no additional complaints except as documented Physical Exam <MARIBEL Han - Last Filed: 03/17/25 11:21> General General appearance: alert and in no apparent distress Head Head exam: atraumatic and normocephalic Eye Eye exam: Present normal appearance, PERRL and EOMI Neck Neck exam: Present full ROM; Absent meningismus Chest Chest inspection: Present normal inspection Respiratory Respiratory exam: Absent respiratory distress, wheezes, stridor, accessory muscle use or prolonged expiratory phase Cardiovascular Cardiovascular exam: Present normal rhythm, tachycardia and other (Pulses equal and symmetric in bilateral upper and lower extremities) Abdominal Exam Abdominal exam: Absent distention, tenderness, guarding, rebound or rigidity Extremities Exam Extremities exam: Present normal inspection, full ROM and other (Extremity to command, no pain ovation over the left shoulder joint, good range of motion for postoperative state, otherwise neurovasc intact.); Absent edema Neurological Exam Neurological exam: Present alert Psychiatric Psychiatric exam: Present normal affect Skin Skin exam: Present warm, dry and other (Incisions are well-healed, no evidence of any wound dehiscence or drainage, no erythema) Medical Decision Making <MARIBEL Han - Last Filed: 03/17/25 11:21> Medical Records Medical records reviewed: Yes I reviewed the patient's medical records. Screening: Per USPSTF and CDC recommendations, given the prevalence of disease in our region, it is our hospital?s policy to screen for HIV and viral Hepatitis for all patients aged 18 and over and those with ongoing risk factors. Jay Inquiry Pt receiving controlled substance: No Jay was queried for this patient: No Vital Signs: 03/17/25 09:47 03/17/25 09:51 03/17/25 09:54 Temperature 99.1 F Temperature Source Oral Pulse Rate 103 H 102 H Pulse Rate [Right Radial] 102 H Respiratory Rate 16 21 23 Blood Pressure 154/99 H 160/69 H Blood Pressure [Right Arm] 142/92 H Blood Pressure Mean [Right Arm] 108 Blood Pressure Source [Right Arm] Automatic Cuff Blood Pressure Position [Right Arm] Supine 02 Sat by Pulse Oximetry 96 95 96 Oxygen Delivery Method Room Air Room Air Room Air 03/17/25 09:57 03/17/25 10:00 03/17/25 10:03 Temperature Temperature Source Pulse Rate 97 H 103 H 104 H Pulse Rate [Right Radial] Respiratory Rate 21 22 20 Blood Pressure 160/100 H 151/98 H 149/98 H Blood Pressure [Right Arm] Blood Pressure Mean [Right Arm] Blood Pressure Source [Right Arm] Blood Pressure Position [Right Arm] 02 Sat by Pulse Oximetry 96 96 96 Oxygen Delivery Method Room Air Room Air Room Air 03/17/25 10:27 03/17/25 11:00 Temperature Temperature Source Pulse Rate 106 H 102 H Pulse Rate [Right Radial] Respiratory Rate 13 22 Blood Pressure 150/122 H 156/117 H Blood Pressure [Right Arm] Blood Pressure Mean [Right Arm] Blood Pressure Source [Right Arm] Blood Pressure Position [Right Arm] 02 Sat by Pulse Oximetry 97 95 Oxygen Delivery Method Room Air Room Air Lab Data Lab results reviewed: Yes I reviewed the patient's lab results. Lab Results 03/17/25 09:43: SARS-CoV-2 (PCR) Not detected, Influenza A Untype (PCR) Not detected, Influenza Type B (PCR) Not detected 03/17/25 10:24: WBC 8.3, RBC 5.88, Hgb 15.2, Hct 46.3, MCV 78.7 L, MCH 25.9 L, MCHC 32.8, RDW 15.4, Plt Count 281, MPV 11.3 H, Neut % (Auto) 83.1 H, Lymph % (Auto) 7.9 L, Gonzales % (Auto) 8.4, Eos % (Auto) 0.0 L, Baso % (Auto) 0.2, Neut # (Auto) 6.9, Lymph # (Auto) 0.7, Gonzales # (Auto) 0.7, Eos # (Auto) 0.0, Baso # (Auto) 0.0, PT 11.7, INR 1.06, D-Dimer 0.61 H, Sodium 138, Potassium 4.0, Chloride 101, Carbon Dioxide 21 L, Anion Gap 20.0 H, BUN 15, Creatinine 1.10, Estimated Creat Clear 209, Estimated GFR 82, Est GFR ( Amer) 100, Glucose 117 H, Calcium 9.2, Magnesium 1.7, Total Bilirubin 1.0, AST 35, ALT 52, Alkaline Phosphatase 70, Troponin I < 0.01, NT-Pro-B Natriuret Pep 25.6, Total Protein 7.7, Albumin 4.5, Globulin 3.2, Albumin/Globulin Ratio 1.4, Lipase 74 03/17/25 10:24 03/17/25 10:24 Orders (Tests/Meds): ED MEDICATIONS Discontinued Medications Generic Name Dose Route Start Last Admin Trade Name Freq PRN Reason Stop Dose Admin Aspirin 324 mg 03/17/25 10:21 03/17/25 10:31 Aspirin 81mg Chewable Tablet PO 03/17/25 10:22 324 mg ONCE ONE Administration ORDERS Category Date Time Status XR chest portable Stat Exams 03/17/25 10:22 Completed Complete Blood Count Auto Diff Stat Lab 03/17/25 10:24 Completed Comprehensive Metabolic Panel Stat Lab 03/17/25 10:24 Completed D-Dimer Stat Lab 03/17/25 10:24 Completed Lipase Stat Lab 03/17/25 10:24 Completed Magnesium Stat Lab 03/17/25 10:24 Completed NT Pro Brain Natriuretic Pep. Stat Lab 03/17/25 10:24 Completed PT INR [Prothrombin Time INR] Stat Lab 03/17/25 10:24 Completed Rapid PCR Covid and Flu A/B Stat Lab 03/17/25 09:43 Completed Troponin I Q3H Lab 03/17/25 13:30 Ordered Troponin I Q3H Lab 03/17/25 16:30 Ordered Troponin I Stat Lab 03/17/25 10:24 Completed Medical Decision Narrative: 24-year-old male presents the emergency department with URI type symptomatology, fever myalgias, chest discomfort, for less than 24 hours, differential diagnose include but not limited to, acute bronchitis, viral URI, PE, cardiac arrhythmia, electrolyte stones, ACS, pneumonia, costochondritis, anxiety, panic attack among others. I discussed this patient's case with the send physician Dr. Harrison Will obtain basic laboratory studies, D-dimer lipase level magnesium level proBNP, coags, PCR COVID flu, troponin, will give 324 mg p.o. aspirin, EKG, chest x-ray. CBC is noted for MCV of 78.7 Coags within normal limits COVID-19 is negative and influenza is negative via PCR. D-dimer is mildly elevated at 0.61, however utilizing years criteria, negative for PE Troponin is less than 0.01, proBNP is within normal limits. I reviewed the patient's chest x-ray along the corresponding radiologic report no acute process on portable exam. I discussed the results with the patient at the bedside, patient is remained hemodynamically stable without his time in the emergency department, tachycardia has improved, patient most likely has a viral syndrome, with fever myalgias and diarrhea, patient was instructed to return to the emerged from with any worsening signs or symptoms. Follow-up with PCP in the, day/weeks, recommend any [id number] cold and flu medications, ibuprofen and Tylenol as needed for symptomatic relief. Patient voiced understanding and agreement with current treatment plan/discharge plan <Jose Harrison MD - Last Filed: 03/17/25 10:51> Vital Signs: 03/17/25 09:47 03/17/25 09:51 03/17/25 09:54 Temperature 99.1 F Temperature Source Oral Pulse Rate 103 H 102 H Pulse Rate [Right Radial] 102 H Respiratory Rate 16 21 23 Blood Pressure 154/99 H 160/69 H Blood Pressure [Right Arm] 142/92 H Blood Pressure Mean [Right Arm] 108 Blood Pressure Source [Right Arm] Automatic Cuff Blood Pressure Position [Right Arm] Supine 02 Sat by Pulse Oximetry 96 95 96 Oxygen Delivery Method Room Air Room Air Room Air 03/17/25 09:57 03/17/25 10:00 03/17/25 10:03 Temperature Temperature Source Pulse Rate 97 H 103 H 104 H Pulse Rate [Right Radial] Respiratory Rate 21 22 20 Blood Pressure 160/100 H 151/98 H 149/98 H Blood Pressure [Right Arm] Blood Pressure Mean [Right Arm] Blood Pressure Source [Right Arm] Blood Pressure Position [Right Arm] 02 Sat by Pulse Oximetry 96 96 96 Oxygen Delivery Method Room Air Room Air Room Air 03/17/25 10:27 03/17/25 11:00 Temperature Temperature Source Pulse Rate 106 H 102 H Pulse Rate [Right Radial] Respiratory Rate 13 22 Blood Pressure 150/122 H 156/117 H Blood Pressure [Right Arm] Blood Pressure Mean [Right Arm] Blood Pressure Source [Right Arm] Blood Pressure Position [Right Arm] 02 Sat by Pulse Oximetry 97 95 Oxygen Delivery Method Room Air Room Air Lab Data Lab Results 03/17/25 09:43: SARS-CoV-2 (PCR) Not detected, Influenza A Untype (PCR) Not detected, Influenza Type B (PCR) Not detected 03/17/25 10:24: WBC 8.3, RBC 5.88, Hgb 15.2, Hct 46.3, MCV 78.7 L, MCH 25.9 L, MCHC 32.8, RDW 15.4, Plt Count 281, MPV 11.3 H, Neut % (Auto) 83.1 H, Lymph % (Auto) 7.9 L, Gonzales % (Auto) 8.4, Eos % (Auto) 0.0 L, Baso % (Auto) 0.2, Neut # (Auto) 6.9, Lymph # (Auto) 0.7, Gonzales # (Auto) 0.7, Eos # (Auto) 0.0, Baso # (Auto) 0.0, PT 11.7, INR 1.06, D-Dimer 0.61 H, Sodium 138, Potassium 4.0, Chloride 101, Carbon Dioxide 21 L, Anion Gap 20.0 H, BUN 15, Creatinine 1.10, Estimated Creat Clear 209, Estimated GFR 82, Est GFR ( Amer) 100, Glucose 117 H, Calcium 9.2, Magnesium 1.7, Total Bilirubin 1.0, AST 35, ALT 52, Alkaline Phosphatase 70, Troponin I < 0.01, NT-Pro-B Natriuret Pep 25.6, Total Protein 7.7, Albumin 4.5, Globulin 3.2, Albumin/Globulin Ratio 1.4, Lipase 74 Orders (Tests/Meds): ED MEDICATIONS Discontinued Medications Generic Name Dose Route Start Last Admin Trade Name Freq PRN Reason Stop Dose Admin Aspirin 324 mg 03/17/25 10:21 03/17/25 10:31 Aspirin 81mg Chewable Tablet PO 03/17/25 10:22 324 mg ONCE ONE Administration ORDERS Category Date Time Status XR chest portable Stat Exams 03/17/25 10:22 Completed Complete Blood Count Auto Diff Stat Lab 03/17/25 10:24 Completed Comprehensive Metabolic Panel Stat Lab 03/17/25 10:24 Completed D-Dimer Stat Lab 03/17/25 10:24 Completed Lipase Stat Lab 03/17/25 10:24 Completed Magnesium Stat Lab 03/17/25 10:24 Completed NT Pro Brain Natriuretic Pep. Stat Lab 03/17/25 10:24 Completed PT INR [Prothrombin Time INR] Stat Lab 03/17/25 10:24 Completed Rapid PCR Covid and Flu A/B Stat Lab 03/17/25 09:43 Completed Troponin I Q3H Lab 03/17/25 13:30 Ordered Troponin I Q3H Lab 03/17/25 16:30 Ordered Troponin I Stat Lab 03/17/25 10:24 Completed ECG Data Tracing #1: Independently interpreted by me to demonstrate sinus tachycardia at a rate of 104 without obvious acute ischemic ST change. Critical Care <MARIBEL Han - Last Filed: 03/17/25 11:21> Critical Care Time Critical Care Time: No
[2025-03-17 10:16] LABS: Coronavirus 19, PCR Not Detected (NotDetected); Influenza A, PCR Not Detected (NotDetected); Influenza B, PCR Not Detected (NotDetected)
--- NOTE | 2025-03-17 10:16 | ECG_ITS ---
APPROVED REPORT Exam: Resting ECG HR:104 bpm ECG Measurements Heart Rate 104 AXES IN 123 P 19 QRSd 94 QRS 32 QT 294 T -33 QTc 355 Conclusion SINUS TACHYCARDIA NONSPECIFIC T-WAVE ABNORMALITY ABNORMAL ECG UNCONFIRMED REPORT Electronically signed by : Jose Harrison, 03/17/2025 14:04:53
--- NOTE | 2025-03-17 10:22 | XR_ITS ---
FINAL REPORT CLINICAL HISTORY: SOA chest discomfort COMPARISON: 11/17/2024 FINDINGS: A portable view of the chest was obtained. Cardiac and mediastinal silhouettes are within normal limits. There are low lung volumes. The lungs are clear. There is no pleural effusion or pneumothorax. IMPRESSION: No acute process on this portable exam. Reviewed, Interpreted and Dictated by Sonja Vasquez MD Transcribed by Emily Meneses Authenticated and [facility]
[2025-03-17] MEDS: ASPIRIN 81MG CHEWABLE TABLET 324 MG PO (10:31)
[2025-03-17 10:33] LABS: Hematocrit 46.3 % (42.0-52.0); Hemoglobin 15.2 g/dL (14.1-18.0); Immature Granulocytes % 0.4 %; Mean Corpuscular HGB Conc 32.8 g/dL (31.8-35.4); Mean Corpuscular Hemoglobin 25.9 pg (27.0-31.2); Mean Corpuscular Volume 78.7 fl (80-94); Nucleated Red Blood Cells % 0 %; Platelet Count 281 K/mm3 (142-424); Red Blood Count 5.88 M/mm3 (4.60-6.20); Red Cell Distribution Width-SD 43.2 fL; White Blood Count 8.3 K/mm3 (4.8-10.8)
[2025-03-17 10:40] LABS: Albumin Level 4.5 g/dl (3.5-5.0); Chloride 101 mmol/L (98-107)
[2025-03-17 10:41] LABS: Potassium 4.0 mmoL/L (3.5-5.1); Sodium 138 mmol/L (136-145)
[2025-03-17 10:42] LABS: INR 1.06 (0.9-1.1); Prothrombin Time 11.7 seconds (10.1-12.5)
[2025-03-17 10:43] LABS: Alanine Aminotransferase 52 U/L (12-78); Anion Gap 20.0 mEq/L (5-15); Aspartate Amino Transferase 35 U/L (17-59); Blood Urea Nitrogen 15 mg/dl (9-20); Carbon Dioxide 21 mmol/L (22.0-30.0); Creatinine Clearance Estimated 209 mL/min (50-200); Creatinine,Serum 1.10 mg/dl (0.66-1.25); Estimated Glomerular Filt Rate 82 ml/min (>60); GFR (African American) 100 ML/MIN (>60)
[2025-03-17 10:44] LABS: Albumin/Globulin Ratio 1.4 (1.1-1.8); Alkaline Phosphatase 70 U/L (38-126); Bilirubin,Total 1.0 mg/dl (0.2-1.3); Calcium 9.2 mg/dl (8.4-10.2); Globulin 3.2 g/dL (1.3-3.2); Glucose 117 mg/dl (74-100); Lipase 74 U/L (23-300); Magnesium 1.7 mg/dl (1.6-2.3); Total Protein,Serum 7.7 g/dl (6.3-8.2)
[2025-03-17 10:49] LABS: D-Dimer 0.61 ug/mL (0.0-0.5)
[2025-03-17 10:54] LABS: NT Pro Brain Natriuretic Pep. 25.6 pg/mL (0-125)
[2025-03-17 10:57] LABS: Troponin I < 0.01 ng/ml (0.00-0.034)
== END 2025-03-17 11:28 | disposition home or self-care (01) ==
PROVIDERS: Physician Assistant; Emergency Provider Emergency Medicine; PCP Student in an Organized Health Care Education/Training Program
DX: B34.9 Viral infection, unspecified (principal); R79.89 Other specified abnormal findings of blood chemistry; E78.5 Hyperlipidemia, unspecified; I10 Essential (primary) hypertension; F17.200 Nicotine dependence, unspecified, uncomplicated; Z79.899 Other long term (current) drug therapy
CPT/HCPCS: 71045; 80053; 83690; 83735; 83880; 84484; 85025; 85378; 85610; 87636; 93005; 99285

== ENCOUNTER 2025-04-14 11:00 | Outpatient (RCR) | payer OTHER, SELFPAY | END 2025-04-14 23:59 | disposition home or self-care (01) | LOC: OT 11:00 | PROVIDERS: PCP Student in an Organized Health Care Education/Training Program; Visit Provider Physician Assistant Surgical | DX: Z47.89 Encounter for other orthopedic aftercare (principal); Z98.890 Other specified postprocedural states | CPT/HCPCS: 97014; 97032; 97110; 97140; 97166; G0283 ==